=== PATIENT | female | born 1965 | race Caucasian/White ===

== ENCOUNTER 2016-09-24 20:20 | Observation (INO) | payer OTHER ==
[2016-09-24] MEDS ORDERED: SODIUM CHLORIDE 0.9% 1,000 ML IV STA (20:46)
[2016-09-24] MEDS ORDERED: NITROGLYCERIN OINT 1 INCH/GM PACKET TOPICAL STA (20:46)
[2016-09-24] MEDS ORDERED: ONDANSETRON 4 MG/2 ML VIAL IVP STA (20:46)
[2016-09-24] MEDS ORDERED: HYDROmorphone 1 MG/ML 1 ML SYRINGE IVP STA (20:48)
--- NOTE | 2016-09-24 20:51 | ED ---
Chest Pain HPI - General Chief Complaint: Chest Pain Stated Complaint: CHEST PAIN Time Seen by Provider: 09/24/16 20:36 Source: patient Mode of arrival: wheelchair Limitations: no limitations - History of Present Illness Initial Comments: Planing about my chest pain left arm tingling and some like somebody scraping her left arm also pain in the epigastric area with the nausea it started around 7 PM tonight at that time she was napping now pain is better but still is a 3/ 10 she does have a history of high blood pressure no history of heart disease angina or unstable angina in the past and she also noticed her blood pressure was high today and she denies any tobacco use she don't do any drugs in her walk with her family history significant for heart disease in the dad signed her dad at the age of 57 with a massive heart attack and mom has a history of high blood pressure, degree of system is unremarkable otherwise - Related Data Home Medications Medication Instructions Recorded Confirmed Ibuprofen [Motrin] 400 mg PO Q6HR PRN 09/24/16 09/24/16 Sodium Chloride [[place]] 2 spray EA NOSTRIL BID 09/24/16 09/24/16 Tetrahydrozoline HCl/Zn Sulf 1 drop BOTH EYES BID PRN 09/24/16 09/24/16 [Visine Allergy Relief Drop] Allergies Allergy/AdvReac Type Severity Reaction Status Date / Time hydrocodone [From Vicodin] AdvReac Vertigo Verified 09/24/16 21:29 mold AdvReac Abdominal Verified 09/24/16 21:30 Pain Mushroom AdvReac Abdominal Verified 09/24/16 21:30 Pain pentazocine [From Talwin] AdvReac Confusion Verified 09/24/16 21:29 pseudoephedrine AdvReac Confusion Verified 09/24/16 21:29 [From Seldane-D] terfenadine [From Seldane-D] AdvReac Confusion Verified 09/24/16 21:29 Review of Systems ROS Statement: Those systems with pertinent positive or pertinent negative responses have been documented in the HPI. ROS Other: All systems not noted in ROS Statement are negative. EKG Findings - EKG Comments: EKG Findings:: EKG is a normal sinus rhythm ventricular rate is 65 TX interval is 160 QRS duration is 80 QT/QTc is 392/47, review of this EKG noticed reveals some T-wave inversion in lead [address] elevation or ST depression E noticed any redness of the rates Past Medical History Past Medical History: Asthma, Hypertension Additional Past Medical History / Comment(s): neuropathy,back pain, DDD, herpes History of Any Multi-Drug Resistant Organisms: None Reported Past Surgical History: Cholecystectomy, Hysterectomy Additional Past Surgical History / Comment(s): septal repair Past Psychological History: Anxiety, Depression Smoking Status: Never smoker Past Alcohol Use History: None Reported Past Drug Use History: None Reported General Exam - General Exam Comments Initial Comments: General: The patient is awake and alert, in no distress, and does not appear acutely ill. Is quite anxious Skin: Skin is warm and dry and no rashes or lesions are noted. Eye: Pupils are equal, round and reactive to light, extra-ocular movements are intact; there is normal conjunctiva bilaterally. Ears, nose, mouth and throat: There are moist mucous membranes and no oral lesions. Neck: The neck is supple, there is no tenderness Cardiovascular: There is a regular rate and rhythm. No murmur, rub or gallop is appreciated. Respiratory: To auscultation bilateral, no wheezing no rhonchi no distress respiratory [place] noticed Gastrointestinal: Soft, non-distended, non-tender abdomen without masses or organomegaly noted. There is no rebound or guarding present. Bowel sounds are unremarkable. Back: There is no tenderness to palpation in the midline. There is no obvious deformity. Musculoskeletal: Normal ROM, no tenderness, There is no pedal edema. There is no calf tenderness or swelling. No cords were appreciated. Neurological: CN II-XII intact, Cranial nerves III through XII are intact. There are no obvious motor or sensory deficits. Coordination appears grossly intact. Speech is normal. Psychiatric: Cooperative, appropriate mood & affect, normal judgment. Limitations: no limitations Course Vital Signs 09/24/16 09/24/16 09/24/16 20:21 20:29 22:24 Temperature 97.6 F Pulse Rate 69 63 Respiratory 20 67 H 18 Rate Blood Pressure 192/99 126/74 O2 Sat by Pulse 99 98 Oximetry 09/24/16 09/25/16 23:00 00:00 Temperature 98 F Pulse Rate 78 77 Respiratory 18 20 Rate Blood Pressure 130/73 145/75 O2 Sat by Pulse 98 98 Oximetry He was reassessed is at 2310 as she still has a pain 2/10 reviewed the blood work and imaging studies with her d-dimer is negative, CBC, INR, compressive metabolic panel, troponin, EKG are all within normal range and cerebellar risk factors she are to be admitted under observation and she will see cardiology tomorrow and she will get heparinized Critical Care Time Total Critical Care Time: 40 Critical Care Time: Considering her presentation pain in the left arm and tingling it started around 7 PM she was quite anxious about blood pressure was quite high and she does have a history of hypertension dad had a heart attack and he actually had at the age of 57 mom has a history of hypertension considering these risk factors over d-dimer CBC INR compressive metabolic panel and troponin and the chest x-ray is negative she be admitted for observation she be heparinized. Cardiology Disposition Clinical Impression: Chest pain, Hypertension Disposition: ADMITTED IP TO THIS HOSP Condition: Good
[2016-09-24 20:57] LABS: Basophils % (A) 0 %; CH 29.4; CHCM 34.8; Eosinophils # (A) 0.1 k/uL (0-0.7); Eosinophils % (A) 1 %; HCT 40.9 % (34.0-46.0); HDW 2.85; HGB 14.2 gm/dL (11.4-16.0); Luc # (Auto) 0.34; Luc % (Auto) 4; Lymphocytes # (A) 3.9 k/uL (1.0-4.8); Lymphocytes % (A) 49 %; MCH 29.4 pg (25.0-35.0); MCHC 34.7 g/dL (31.0-37.0); MCV 84.6 fL (80.0-100.0); Mean Platelet Volume 6.9; Monocytes # (A) 0.4 k/uL (0-1.0); Monocytes % (A) 5 %; Neutrophils # (A) 3.1 k/uL (1.3-7.7); Neutrophils % (A) 39 %; RBC 4.83 m/uL (3.80-5.40); RDW 13.4 % (11.5-15.5); WBC 7.9 k/uL (3.8-10.6); WBC (Perox) 8.51
[2016-09-24 21:07] LABS: ALT 34 U/L (9-52); AST 26 U/L (14-36); Alkaline Phosphatase 109 U/L (38-126); Anion Gap 11 mmol/L; Blood Urea Nitrogen 14 mg/dL (7-17); Calcium 9.2 mg/dL (8.4-10.2); Carbon Dioxide 27 mmol/L (22-30); Chloride 101 mmol/L (98-107); Glucose 92 mg/dL (74-99); Magnesium 2.1 mg/dL (1.6-2.3); Non-African American GFR(MDRD) >60 (>60 ml/min/1.73 sqM); Potassium 4.2 mmol/L (3.5-5.1); Sodium 139 mmol/L (137-145); Total Bilirubin 0.5 mg/dL (0.2-1.3); Total Protein 7.2 g/dL (6.3-8.2)
--- NOTE | 2016-09-24 21:10 | XR ---
EXAMINATION TYPE: XR chest 2V DATE OF EXAM: 09/24/2016 9:03 PM COMPARISON: NONE HISTORY: Chest pain TECHNIQUE: Frontal and lateral views of the chest are obtained. FINDINGS: Heart and mediastinum are normal. Lungs are clear of consolidation. There are no hilar mas ses. Bony thorax is intact. There is no evidence of pleural effusion. There are chest leads. IMPRESSION: No active cardiopulmonary disease.
[2016-09-24 21:11] LABS: Creatine Kinase 56 U/L (30-135)
[2016-09-24 21:15] LABS: INR 0.9 (<1.1); Partial Thromboplastin Time 24.7 sec (22.0-30.0); Prothrombin Time 9.5 sec (9.0-12.0)
[2016-09-24 21:24] LABS: Creatine Kinase MB 0.8 ng/mL (0.0-2.4); Troponin I <0.012 ng/mL (0.000-0.034)
[2016-09-25] MEDS ORDERED: MORPHINE SULFATE 2 MG/ML SYRINGE IVP PRN (00:59)
[2016-09-25] MEDS ORDERED: NITROGLYCERIN SL TABS 0.4 MG TAB SUBLINGUAL PRN (00:59)
[2016-09-25] MEDS ORDERED: HEPARIN SODIUM,PORCINE 5,000 UNIT/ML 1 ML VIAL IV ONE (00:59)
[2016-09-25] MEDS ORDERED: HEPARIN SODIUM,PORCINE/D5W PMX 25,000 UNIT in DEXTROSE/WATER 1 500ML.BAG IV SCH (01:00)
[2016-09-25 01:58] VITALS: RESP 16
[2016-09-25 02:10] VITALS: BMI 32.3
[2016-09-25 02:31] LABS: Creatine Kinase 46 U/L (30-135)
[2016-09-25 02:44] LABS: Creatine Kinase MB 0.8 ng/mL (0.0-2.4); Troponin I <0.012 ng/mL (0.000-0.034)
[2016-09-25] MEDS ORDERED: DOBUTamine DRIP for NUC MED 500 MG in DEXTROSE/WATER 1 250ML.BAG IV ONE (07:19)
[2016-09-25 08:24] LABS: Cholesterol 195 mg/dL (<200); HDL Cholesterol 40 mg/dL (40-60); Triglycerides 468 mg/dL (<150)
[2016-09-25 08:55] LABS: Creatine Kinase 46 U/L (30-135)
[2016-09-25] MEDS ORDERED: LISINOPRIL 10 MG TAB PO SCH (09:00)
[2016-09-25] MEDS ORDERED: METOPROLOL TARTRATE 25 MG TAB PO SCH (09:00)
[2016-09-25 09:06] LABS: Creatine Kinase MB 0.7 ng/mL (0.0-2.4); Troponin I <0.012 ng/mL (0.000-0.034)
--- NOTE | 2016-09-25 10:43 | CONS ---
DATE OF CONSULTATION: Mrs. Khan is a 51-year-old female who has not followed a physician and has not been compliant with her medications who presented with symptoms of left arm discomfort and chest discomfort. She woke up from a nap and started to have some discomfort in the left arm that persisted for hours with some discomfort in the chest. She felt mildly dizzy and because of that, came into the emergency room. At time of my evaluation, she is pain free. Patient is not very active physically, but has no significant exertional chest pain. She has mild dyspnea on exertion, occasional peripheral edema. No clear PND, orthopnea. She has some dizziness. No arrhythmia. She had remote syncope. Her coronary risk factors are remarkable for prior history of hypertension, hyperlipidemia, and diabetes, but she is not taking any medications. According to her, she does not like to take pills. REVIEW OF SYSTEMS: RESPIRATORY SYSTEM: She has history of asthma. No recent wheezing. GI SYSTEM: No recent GI bleeding. No peptic ulcer disease. SYSTEM: No dysuria or hematuria. NERVOUS SYSTEM: No history of stroke or seizure. PHYSICAL EXAMINATION: She is a 51-year-old female, alert, oriented, in no apparent distress. Blood pressure 149/80 with the heart rate in the 60s. On presentation, her blood pressure was 192/99. HEAD: Normocephalic. EYES: Sclerae anicteric. NECK: Good upstroke. No bruit. No jugular venous distention. LUNGS: Clear to auscultation. HEART: Regular rate and rhythm. S1, S2, no S3, no S4. No murmur or rub. ABDOMEN: Soft, nontender, obese. Positive bowel sounds. No organomegaly. EXTREMITIES: No edema. Intact distal pulses. LAB DATA: Troponin less than 0.012. BUN and creatinine 14 and 0.6. Potassium 4.2. Hemoglobin of 14.2. EKG sinus mechanism, normal axis and intervals. Normal electrocardiogram. Chest x-ray shows no infiltrate. IMPRESSION: 1. Chest and arm discomfort, has atypical feature for ischemic heart disease. 2. Prior history of hyperlipidemia. 3. Prior history of diabetes. RECOMMENDATION: I would recommend to stop the heparin and I will proceed with stress echocardiogram. If there is no evidence of inducible ischemia, then no further cardiac workup will be needed. Thank you for this consult. We will follow with you.
--- NOTE | 2016-09-25 12:06 | ECHOF ---
Referral Reason:chest pain MEASUREMENTS -------- HEIGHT: 165.1 cm WEIGHT: 90.7 kg BP: 140/60 RVIDd: 2.4 cm (< 3.3) IVSd: 1.2 cm (0.6 - 1.1) LVIDd: 4.0 cm (3.9 - 5.3) LVPWd: 1.0 cm (0.6 - 1.1) IVSs: 1.2 cm LVIDs: 3.3 cm LVPWs: 1.3 cm LA Diam: 3.2 cm (2.7 - 3.8) LAESV Index (A-L): 24.24 ml/m Ao Diam: 2.6 cm (2.0 - 3.7) AV Cusp: 1.8 cm (1.5 - 2.6) LA Diam: 3.4 cm (2.7 - 3.8) MV EXCURSION: 15.965 mm (> 18.000) MV EF SLOPE: 67 mm/s (70 - 150) EPSS: 0.3 cm MV E José Miguel: 0.72 m/s MV DecT: 184 ms MV A José Miguel: 0.73 m/s MV E/A Ratio: 0.99 RAP: 5.00 mmHg RVSP: 22.99 mmHg FINDINGS -------- Sinus rhythm. This was a technically good study. There is mild concentric left ventricular hypertrophy. Overall left ventricular systolic function is normal with, an EF between 60 - 65 %. The right ventricle is normal in size. Normal LA size by volume 22+/-6 ml/m2. The right atrial size is normal. There is mild aortic valve sclerosis. There is no evidence of aortic regurgitation. Mild mitral annular calcification present. Mild mitral regurgitation is present. Mild tricuspid regurgitation present. There is no evidence of pulmonary hypertension. The right ventricular systolic pressure, as measured by Doppler, is 22.99mmHg. There is no pulmonic regurgitation present. The aortic root size is normal. There is no pericardial effusion. CONCLUSIONS -------- 1. There is mild concentric left ventricular hypertrophy. 2. Overall left ventricular systolic function is normal with, an EF between 60 - 65 %. 3. Normal LA size by volume 22+/-6 ml/m2. 4. There is mild aortic valve sclerosis. 5. Mild mitral annular calcification present. 6. Mild mitral regurgitation is present. 7. Mild tricuspid regurgitation present. 8. There is no evidence of pulmonary hypertension. 9. The right ventricular systolic pressure, as measured by Doppler, is 22.99mmHg. CONTINUOUS DRIER HELPER: Genevieve Greer RDCS
[2016-09-25 12:08] LABS: Hemoglobin A1C 6.4 % (4.2-6.1)
[2016-09-25 12:55] LABS: Glucose,Whole Blood 112 mg/dL (75-99)
--- NOTE | 2016-09-25 13:03 | ECHOS ---
DATE OF SERVICE: 09/25/2016 AGE: 51Y SEX: F HT: 66 WT: 200 lbs. Protocol Matheus: Others: Dobutamine Stress Echo Stage: Dur. of Exercise: *Heart Rate Blood Pressure *Rest: 71 Rest: 106/56 * *Max. Achieved: 121 Maximum BP: 167/72 85% PMHR: 145 100% PMHR: 170 *METS: INDICATIONS: Chest pain. MEDICATIONS: Patient was given dobutamine infusion according to the standard protocol. Peak heart rate of 121 was achieved which is equivalent to 70% of the predicted heart rate. Maximum blood pressure of 167/72 mmHg was noted. Test was terminated because patient complained of short of breath and became slightly dizzy and lightheaded. No EKG changes suggestive of ischemia was noted. Patient's blood pressure normal and pulse oximeter was normal. Baseline echocardiographic images reveal normal left ventricular chamber size with normal left ventricular systolic function. At the peak dose of dobutamine infusion, normal increase in the wall thickness and contractility is noted. This dobutamine stress echocardiographic study does not show any evidence of wall motion abnormality up to the 71% of the age-predicted heart rate ( ) symptoms of shortness of breath and slight dizziness and lightheadedness, probably due to dobutamine infusion. Patient subsequently ( ) signs were stable at that time.
[2016-09-25 16:07] VITALS: BP 139/85; PULSE 66; TEMP 98.7
[2016-09-25] MEDS ORDERED: ATORVASTATIN 40 MG TAB PO SCH (21:00)
--- NOTE | 2016-09-26 08:23 | HP ---
HISTORY AND PHYSICAL AND DISCHARGE SUMMARY: DATE OF ADMISSION: REASON FOR ADMISSION: Chest pressure. HISTORY OF PRESENTING ILLNESS: This is a 51-year-old female who recently moved into the area to live with her about 2 weeks ago. Comes in the hospital with complaints of acute onset chest pain on the left side of the chest radiating to the left arm. Description was pressure-like on the chest and bandlike on the arm. Patient denies any alleviating or exacerbating factors in regards to the chest. Patient states that she woke up with the above-described pain. Patient denies having any similar complaints in the past. Patient denies having complains to exertion or any physical activity in the recent times. Denies use of alcohol, tobacco or any illicit drugs. Premature family history of cardiac disease. Patient states that she was in good health a day prior to admission. However, states that she has noticed progressive edema in her lower extremities over the last 2 or 3 weeks. Patient says that she has a history of hypothyroidism in the past, was being treated on Synthroid; however, was discontinued by another physician in [place]. The patient also states that she is extremely tired all the time; however, states that her sleeping habits are erratic. Apparently underwent multiple episodes of multiple sleep studies which were negative for obstructive sleep apnea. Past medical history includes: Remote history of hypothyroidism, history of hypertension, remote history of diabetes. PAST SURGICAL HISTORY: None. FAMILY HISTORY: As described above. MEDICATIONS: Does not take any medications at this time as patient does not have a doctor. REVIEW OF SYSTEMS: A 14-point review of system was done; none pertinent other than the ones described above. SOCIAL HISTORY: No alcohol, tobacco or illicit drug use. VITALS: Temperature is 98.7, heart rate 66, respiratory rate 16, blood pressure 139/85. Saturating 95% on room air. GENERALLY: Patient appears to be alert, oriented x3. HEENT: The pupils are equal and reactive to light and accommodation. HEART: S1, S2 present. No murmur appreciated. LUNGS: Good air entry. No wheezing or rhonchi noted. ABDOMINAL EXAM: Soft, nontender, no organomegaly appreciated. GENITOURINARY: No Pimentel in place. SKIN: On a gross skin exam does not appear to have any purpura or any skin rashes that were noted. NEUROLOGICALLY: Grossly cranial nerves 2-12 intact. No motor or sensory deficits noted. LOWER EXTREMITIES: 1+ pitting edema noted. LABORATORY DATA: Hemoglobin 14.2, hematocrit 40, platelet count is 258, white count of 7.9. Sodium 139, potassium 4.2, chloride 101, bicarb 27, BUN 14, creatinine of 0.64, HbA1c is 6.4, triglycerides are 468 with a total cholesterol of 195. Cardiac troponins x3 were less than 0.012. ASSESSMENT AND PLAN: 1. Atypical chest pain. There is some musculoskeletal aspect of it as patient did have some reproducibility of pain on palpation around the lateral surface and then reproducibility with flexion at the elbow. 2. A stress test was done, which was negative. The patient was made to ambulate. No reproducibility of symptoms were appreciated. 3. Pre-diabetes with the A1c of 6.4. 4. Hypertriglyceridemia. 5. Diagnosis of hypertension. 6. Hypothyroidism should be ruled out in this patient. PLAN: I did discuss regarding obtaining a TSH; however, patient does not have a primary care physician and did not like an abnormal lab not being followed up. I did discuss that patient should find a primary care. We will refer to Dr. Garber; thereafter can obtain the TSH and be treated appropriately if positive. Patient will be started on lisinopril atorvastatin and is recommended to obtain medications from [facility] as they are likely on the four dollar list. This was discussed with the patient, is discharged home in a stable condition.
[2016-09-26] MEDS ORDERED: ASPIRIN 325 MG TAB PO SCH (09:00)
== END 2016-09-25 17:21 | disposition home or self-care (01) ==
LOC: EC 20:20 → 3OBS 09-25 00:59
PROVIDERS: ADMIT Hospitalist; ATTEND Hospitalist
DX: R07.89 Other chest pain (principal); Z82.49 Family history of ischemic heart disease and other diseases of the circulatory system; Z88.5 Allergy status to narcotic agent; I10 Essential (primary) hypertension; J45.909 Unspecified asthma, uncomplicated; Z90.710 Acquired absence of both cervix and uterus; Z90.49 Acquired absence of other specified parts of digestive tract; G62.9 Polyneuropathy, unspecified; Z91.14 Patient's other noncompliance with medication regimen; E78.5 Hyperlipidemia, unspecified; R73.03 Prediabetes; E78.1 Pure hyperglyceridemia
CPT/HCPCS: 96375 ×3; 96376 ×2; 99291 ×2; 96374; 36415; 93005; 93017; 93306; 93350; 85379; 83880; 80061; 80053; 83036; 82550 ×2; 82553 ×2; 83735; 84484 ×2; 85025; 85610; 85730 ×2; 71020; G0378; J1250; J1644 ×2; J2405; J1170

== ENCOUNTER 2017-01-08 23:49 | Emergency (ER) | payer OTHER ==
[2017-01-09] MEDS ORDERED: ALBUTEROL NEBULIZED 2.5 MG/3 ML INHALATION STA (00:06)
[2017-01-09] MEDS ORDERED: IPRATROPIUM-ALBUTEROL 3 ML NEB INHALATION STA (00:07)
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
[2017-01-09 01:11] VITALS: RESP 20
[2017-01-09 02:57] VITALS: BP 150/74; PULSE 73
[2017-01-09 03:22] VITALS: TEMP 97.9
== END 2017-01-09 03:22 | disposition home or self-care (01) ==
LOC: EC 23:49
DX: J45.901 Unspecified asthma with (acute) exacerbation (principal); I10 Essential (primary) hypertension; Z88.5 Allergy status to narcotic agent; Z91.048 Other nonmedicinal substance allergy status; Z91.018 Allergy to other foods; Z88.8 Allergy status to other drugs, medicaments and biological substances; Z98.890 Other specified postprocedural states
CPT/HCPCS: 94640; 99284

== ENCOUNTER 2017-03-20 18:11 | Emergency (ER) | payer OTHER ==
[2017-03-20] MEDS ORDERED: SODIUM CHLORIDE 0.9% 500 ML IV STA (20:14)
[2017-03-20] MEDS ORDERED: hydrALAZINE HCL 20 MG/ML 1 ML VIAL IVP STA ×2 (20:25→21:59)
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
[2017-03-20 21:01] LABS: Basophils % (A) 1 %; CH 29.9; CHCM 34.6; Eosinophils # (A) 0.1 k/uL (0-0.7); Eosinophils % (A) 2 %; HCT 38.1 % (34.0-46.0); HDW 2.79; HGB 12.8 gm/dL (11.4-16.0); Luc # (Auto) 0.16; Luc % (Auto) 2; Lymphocytes # (A) 3.1 k/uL (1.0-4.8); Lymphocytes % (A) 38 %; MCH 29.1 pg (25.0-35.0); MCHC 33.5 g/dL (31.0-37.0); MCV 86.8 fL (80.0-100.0); Mean Platelet Volume 7.8; Monocytes # (A) 0.4 k/uL (0-1.0); Monocytes % (A) 5 %; Neutrophils # (A) 4.3 k/uL (1.3-7.7); Neutrophils % (A) 54 %; RBC 4.39 m/uL (3.80-5.40); RDW 13.9 % (11.5-15.5); WBC 8.1 k/uL (3.8-10.6); WBC (Perox) 8.06
[2017-03-20 21:08] LABS: ALT 33 U/L (9-52); AST 21 U/L (14-36); Alkaline Phosphatase 96 U/L (38-126); Anion Gap 11 mmol/L; Blood Urea Nitrogen 16 mg/dL (7-17); Calcium 9.1 mg/dL (8.4-10.2); Carbon Dioxide 24 mmol/L (22-30); Chloride 105 mmol/L (98-107); Glucose 250 mg/dL (74-99); Non-African American GFR(MDRD) >60 (>60 ml/min/1.73 sqM); Potassium 3.7 mmol/L (3.5-5.1); Sodium 140 mmol/L (137-145); Total Bilirubin 0.3 mg/dL (0.2-1.3); Total Protein 6.7 g/dL (6.3-8.2)
--- NOTE | 2017-03-20 21:11 | XR ---
EXAMINATION TYPE: XR chest 2V DATE OF EXAM: 03/20/2017 COMPARISON: 09/24/2016 HISTORY: Chest pain TECHNIQUE: Frontal and lateral views of the chest are obtained. FINDINGS: There is no heart failure nor confluent pneumonic infiltrate. There are small linear densi ty at the left lung base. There are chest leads. Heart size is normal. There is no pleural effusion. Bony thorax is intact. IMPRESSION: Minimal subsegmental atelectasis at the left lung base is new compared to old exam.
[2017-03-20 21:13] VITALS: RESP 18; TEMP 97.5
[2017-03-20 21:23] LABS: Creatine Kinase 108 U/L (30-135); INR 0.9 (<1.2); Partial Thromboplastin Time 24.8 sec (22.0-30.0); Prothrombin Time 9.7 sec (9.0-12.0)
[2017-03-20 21:36] LABS: Creatine Kinase MB 0.6 ng/mL (0.0-2.4); Troponin I <0.012 ng/mL (0.000-0.034)
[2017-03-20] MEDS ORDERED: ENALAPRILAT 1.25 MG/ML 1 ML VIAL IVP STA (23:21)
[2017-03-20 23:36] VITALS: BP 165/86; PULSE 68
== END 2017-03-20 23:59 | disposition home or self-care (01) ==
LOC: EC 18:11
DX: I10 Essential (primary) hypertension (principal); J32.9 Chronic sinusitis, unspecified; J45.909 Unspecified asthma, uncomplicated; Z79.84 Long term (current) use of oral hypoglycemic drugs; Z79.899 Other long term (current) drug therapy; Z88.5 Allergy status to narcotic agent; Z88.8 Allergy status to other drugs, medicaments and biological substances; Z91.018 Allergy to other foods; Z91.048 Other nonmedicinal substance allergy status
CPT/HCPCS: 36415; 93005; 80053; 82550; 82553; 84484; 85025; 85610; 85730; 71020; 99284; 96374; 96375; 96361; J0360

== ENCOUNTER 2018-01-22 01:50 | Emergency (ER) | payer OTHER ==
[2018-01-22 02:06] VITALS: BP 144/91; PULSE 74; RESP 18; TEMP 98.1
[2018-01-22] MEDS ORDERED: traMADol 50 MG TAB PO STA (02:43)
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
--- NOTE | 2018-01-22 03:21 | XR ---
EXAMINATION TYPE: XR ankle complete LT DATE OF EXAM: 01/22/2018 COMPARISON: NONE HISTORY: Pain TECHNIQUE: 3 views FINDINGS: There are moderate plantar and Achilles calcaneal spurs. Ankle mortise is anatomic. I see n o fracture nor dislocation. There is mild soft tissue swelling over the medial ankle. IMPRESSION: Soft tissue swelling. No fracture seen.
--- NOTE | 2018-01-22 03:23 | XR ---
EXAMINATION TYPE: XR foot complete LT DATE OF EXAM: 01/22/2018 COMPARISON: 04/09/2017 HISTORY: Pain 3 views Findings There are plantar and Achilles calcaneal spurs. I see no fracture nor dislocation. Metatarsals are in tact. There are no erosions. There is some spurring between the base of the first and second metatars als. IMPRESSION: Calcaneal spurring. No fracture. No change.
--- NOTE | 2018-01-22 03:30 | XR ---
EXAMINATION TYPE: XR thoracic spine complete DATE OF EXAM: 01/22/2018 COMPARISON: NONE HISTORY: Back pain TECHNIQUE: 3 views FINDINGS: The thoracic vertebra have normal alignment. Disc spaces are fairly normal. There is no com pression fracture. Posterior elements are intact. IMPRESSION: Negative thoracic spine exam.
--- NOTE | 2018-01-22 03:30 | XR ---
EXAMINATION TYPE: XR elbow complete LT DATE OF EXAM: 01/22/2018 COMPARISON: NONE HISTORY: Elbow pain TECHNIQUE: 3 views FINDINGS: There is mild spurring on the olecranon process of the ulna. There is some calcification at the lateral humeral condyle consistent with old injury. There is no fracture nor dislocation. IMPRESSION: No acute abnormality of the left elbow.
--- NOTE | 2018-01-22 03:31 | XR ---
EXAMINATION TYPE: XR shoulder complete LT DATE OF EXAM: 01/22/2018 COMPARISON: NONE HISTORY: Shoulder pain TECHNIQUE: 3 views FINDINGS: There is no fracture nor dislocation. Joint spaces are normal. There are no pathologic calc ifications. IMPRESSION: Negative left shoulder exam.
--- NOTE | 2018-01-22 03:32 | XR ---
EXAMINATION TYPE: XR Hip LT and AP Pelvis DATE OF EXAM: 01/22/2018 COMPARISON: NONE HISTORY: Pain TECHNIQUE: A single AP view of the pelvis is obtained. Two views of the left hip are obtained. FINDINGS: The pelvic ring is intact. Proximal left femur and hip joint appear normal. Sacroiliac bre nts appear normal. There is no sign of hip dysplasia. Joint spaces are normal. IMPRESSION: Normal pelvis and left hip exam.
== END 2018-01-22 04:04 | disposition home or self-care (01) ==
LOC: EC 01:50
DX: S50.02XA Contusion of left elbow, initial encounter (principal); S40.012A Contusion of left shoulder, initial encounter; S70.02XA Contusion of left hip, initial encounter; S90.02XA Contusion of left ankle, initial encounter; S90.32XA Contusion of left foot, initial encounter; S20.222A Contusion of left back wall of thorax, initial encounter; J45.909 Unspecified asthma, uncomplicated; Z79.899 Other long term (current) drug therapy; Z90.49 Acquired absence of other specified parts of digestive tract; Z90.710 Acquired absence of both cervix and uterus; Z88.5 Allergy status to narcotic agent; Z88.8 Allergy status to other drugs, medicaments and biological substances; Z91.018 Allergy to other foods; Z91.048 Other nonmedicinal substance allergy status; W01.198A Fall on same level from slipping, tripping and stumbling with subsequent striking against other object, initial encounter
CPT/HCPCS: 72072; 73502; 99283

== ENCOUNTER 2018-04-08 16:40 | Emergency (ER) | payer OTHER ==
[2018-04-08 16:53] VITALS: BP 138/82; PULSE 70; RESP 18; TEMP 97.7
[2018-04-08] MEDS ORDERED: DIPH,PERTUS(ACELL)TETVAC-LF 0.5 ML VIAL IM ONE (18:15)
[2018-04-08] MEDS ORDERED: TOPICAL SKIN ADHESIVE 1 EACH AMP TOPICAL ONE (18:16)
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
== END 2018-04-08 18:55 | disposition home or self-care (01) ==
LOC: EC 16:40
DX: S61.211A Laceration without foreign body of left index finger without damage to nail, initial encounter (principal); J45.909 Unspecified asthma, uncomplicated; E11.40 Type 2 diabetes mellitus with diabetic neuropathy, unspecified; Z88.5 Allergy status to narcotic agent; Z88.6 Allergy status to analgesic agent; Z88.8 Allergy status to other drugs, medicaments and biological substances; Z91.018 Allergy to other foods; Z91.048 Other nonmedicinal substance allergy status; Z79.84 Long term (current) use of oral hypoglycemic drugs; Z79.899 Other long term (current) drug therapy; Z86.19 Personal history of other infectious and parasitic diseases; Z23 Encounter for immunization; W26.0XXA Contact with knife, initial encounter; Y93.89 Activity, other specified; Y92.69 Other specified industrial and construction area as the place of occurrence of the external cause; Y99.0 Civilian activity done for income or pay
CPT/HCPCS: 90471; 90715; 99282

== ENCOUNTER → 2018-07-14 | Outpatient (CLI) | payer BC ==
--- NOTE | 2018-07-14 12:46 | XR ---
EXAMINATION TYPE: XR shoulder complete LT DATE OF EXAM: 07/14/2018 CLINICAL HISTORY: pain COMPARISON: NONE TECHNIQUE: Three views of the left shoulder are obtained. FINDINGS: There is no acute fracture/dislocation evident. The acromioclavicular and glenohumeral evette int spaces appear within normal limits. The visualized ribs are intact and unremarkable. IMPRESSION: 1. There is no acute fracture or dislocation. ICD 10 NO FRACTURE, INITIAL EVALUATION
--- NOTE | 2018-07-14 12:49 | XR ---
EXAMINATION TYPE: XR cervical spine comp DATE OF EXAM: 07/14/2018 CLINICAL HISTORY: pain COMPARISON: NONE TECHNIQUE: Frontal, lateral, oblique, swimmers, and open mouth view of the cervical spine are obtaine d. FINDINGS: The cervical spine is visualized in its entirety from C1 thru the top of T1 level. It is s atisfactory in alignment without evidence of acute fracture or dislocation. The pre-vertebral soft t issue appears within normal limits. Severe degenerative disc space narrowing and spondylosis at C5-6. The C1-C2 articulation is unremarkable on the open mouth view. The oblique images are within normal limits. IMPRESSION: No acute fracture or dislocation is seen in the cervical spine.ICD 10 NO FRACTURE, INITI AL EVALUATION
[2018-07-14 13:10] LABS: Basophils % (A) 1 %; Eosinophils # (A) 0.2 k/uL (0-0.7); Eosinophils % (A) 3 %; HCT 39.5 % (34.0-46.0); HGB 13.2 gm/dL (11.4-16.0); Lymphocytes # (A) 3.2 k/uL (1.0-4.8); Lymphocytes % (A) 45 %; MCH 29.8 pg (25.0-35.0); MCHC 33.3 g/dL (31.0-37.0); MCV 89.5 fL (80.0-100.0); Mean Platelet Volume 7.6; Monocytes # (A) 0.3 k/uL (0-1.0); Monocytes % (A) 5 %; Neutrophils # (A) 2.9 k/uL (1.3-7.7); Neutrophils % (A) 42 %; Platelet Count 243 k/uL (150-450); RBC 4.41 m/uL (3.80-5.40); RDW 13.1 % (11.5-15.5); WBC 6.9 k/uL (3.8-10.6)
[2018-07-14 13:24] LABS: ALT 34 U/L (9-52); AST 21 U/L (14-36); Albumin 4.1 g/dL (3.5-5.0); Alkaline Phosphatase 85 U/L (38-126); Anion Gap 9 mmol/L; Blood Urea Nitrogen 21 mg/dL (7-17); Calcium 9.2 mg/dL (8.4-10.2); Carbon Dioxide 26 mmol/L (22-30); Chloride 106 mmol/L (98-107); Cholesterol 146 mg/dL (<200); Glucose 120 mg/dL (74-99); HDL Cholesterol 43 mg/dL (40-60); LDL Cholesterol,Calculated 71 mg/dL (0-99); Potassium 5.1 mmol/L (3.5-5.1); Sodium 141 mmol/L (137-145); Total Bilirubin 0.5 mg/dL (0.2-1.3); Total Protein 6.8 g/dL (6.3-8.2); Triglycerides 160 mg/dL (<150)
[2018-07-14 13:41] LABS: T4, Free (Free Thyroxine) 0.89 ng/dL (0.78-2.19)
== END ==
LOC: RADXRMAIN 12:03
PROVIDERS: ATTEND Nurse Practitioner Family
DX: M25.512 Pain in left shoulder (principal); M54.2 Cervicalgia; J45.21 Mild intermittent asthma with (acute) exacerbation; E11.65 Type 2 diabetes mellitus with hyperglycemia; R63.1 Polydipsia
CPT/HCPCS: 72050; 80053; 80061; 84439; 84443; 85025

== ENCOUNTER → 2018-11-05 | Outpatient (CLI) | payer BC ==
[2018-11-05 18:48] LABS: T4, Free (Free Thyroxine) 1.1 ng/dL (0.80-1.80); Thyroid Peroxidase Antibodies 41.1 U/mL (0.0-60.0)
[2018-11-05 19:38] LABS: Thyroglobulin 21.8 ng/mL (1.60-59.90)
== END | disposition home or self-care (01) ==
LOC: LABWHC1 11:46
PROVIDERS: ATTEND Family Medicine
DX: E03.9 Hypothyroidism, unspecified (principal); R53.83 Other fatigue; E11.9 Type 2 diabetes mellitus without complications; Z83.49 Family history of other endocrine, nutritional and metabolic diseases
CPT/HCPCS: 36415; 84432; 84439; 84443; 84481; 86376

== ENCOUNTER → 2018-11-24 | Outpatient (CLI) | payer BC ==
--- NOTE | 2018-11-24 08:31 | CT ---
EXAMINATION TYPE: CT sinus wo con DATE OF EXAM: 11/24/2018 COMPARISON: None HISTORY: Nasal polyps Automated Exposure Control for Dose Reduction was Utilized. TECHNIQUE: CT scan of the sinuses is performed without contrast, axial images are obtained, coronal r eformatted images are also reviewed. FINDINGS: There is a moderate-sized mucous retention cyst or polyp involving the left maxillary antru m. Nasal septal deviation noted. No additional significant mucosal thickening or evidence of polyposi s. The ostiomeatal complex is patent bilaterally on the coronal images. Visualized portion of mastoid air cells show no abnormal opacification. The globes are intact bilate rally. IMPRESSION: 1. Single mucous retention cyst or polyp within the left maxillary sinus.
== END | disposition home or self-care (01) ==
LOC: RADCTMAIN 08:00
PROVIDERS: ATTEND Otolaryngology
DX: J33.9 Nasal polyp, unspecified (principal)
CPT/HCPCS: 70486

== ENCOUNTER → 2018-12-12 | Outpatient (CLI) | payer BC ==
--- NOTE | 2018-12-12 11:40 | XR ---
EXAM TYPE: LUMBAR SPINE X RAY SERIES COMPARISON: NONE HISTORY: Pain TECHNIQUE: 4 views are submitted. FINDINGS: Alignment is anatomic. The pedicles are intact. The transverse processes are intact. There is no s pondylolysis or spondylolisthesis. Multilevel facet arthropathy with moderate to severe degenerative disc disease L4-5 and L5-S1. Surgical clips in the gallbladder fossa. IMPRESSION: 1. Multilevel degenerative disc disease and facet arthropathy most marked findings at L4-5 and L5-S1. Follow-up with MRI as clinically warranted.
== END | disposition home or self-care (01) ==
LOC: RADXRMAIN 11:18
PROVIDERS: ATTEND Family Medicine
DX: M51.36 Other intervertebral disc degeneration, lumbar region (principal); M51.37 Other intervertebral disc degeneration, lumbosacral region; M46.96 Unspecified inflammatory spondylopathy, lumbar region; M46.97 Unspecified inflammatory spondylopathy, lumbosacral region
CPT/HCPCS: 72110

== ENCOUNTER → 2019-02-26 | Outpatient (CLI) | payer BC ==
--- NOTE | 2019-02-26 13:06 | CONS ---
CONSULTATION DATE OF SERVICE: 02/26/2019 A 53-year-old lady who has been evaluated in the [facility] for snoring, multiple awakenings from sleep History of sleep walking, sleepiness during the day. HISTORY OF PRESENT ILLNESS/SLEEP-WAKE EVALUATION: Patient usually goes to bed at 1 to 2 am and sleeps until 10 - 11 am on working days and on weekends from 10 to 11 p.m. until 11:00 am, 1:00 p.m. No problems with falling asleep. No TV in bedroom. She usually sleeps on the side position with her and snores and wakes up from sleep 3 or more times with up to 2 episodes of nocturia. The patient has positive history of Garcia sleep talking and sleepwalking to cease using site when the no history of hypnagogic hallucinations, sleep paralysis or cataplexy. You are positive history of sweating during the sleep in the morning patient wakes up tired has difficulties to pay attention, has problems with memory, concentration and irritability. [facility] Sleepiness Scale significantly increased to 13. PAST MEDICAL HISTORY: Positive for hypertension, diabetes mellitus, hyperlipidemia, seasonal allergy and allergy to mold, dust mite. 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 MEDICATIONS: Metformin, atorvastatin, lisinopril while a sickle 0 0 attack, albuterol. SOCIAL HISTORY: Negative for smoking or using alcohol. FAMILY HISTORY: Hypertension, angina, heart problems, hyperlipidemia, arthritis, asthma, sinus headaches, lung problems, emphysema, snoring, headaches, cancer, diabetes, acid reflux, insomnia, thyroid problems. REVIEW OF SYSTEMS: Multiple awakenings from sleep sleepiness during the day. 1. History of sleep walking during physical exam, pleasant lady without distress BP 127/83, HR 60, RR 16, height 5.6, weight 187, body mass index 30.1 neck 15 and well temperature 97.9 oxygen saturation at room air 99%. 2. HEENT: Oropharynx extremely low position of soft palate, Mallampati 4 return outside 2 mm. Some restriction of nasal breathing. Neck is neck 15-1/4 inches in circumference. Abdomen slightly obese. Extremities up to 1+ room temp, ankle edema, otherwise physical exam normal for my template. IMPRESSION: 1. Snoring, multiple awakenings from sleep, extremely low position of soft palate, Mallampati IV, sleepiness. [facility] Sleepiness Scale increased to 13 obstructive sleep apnea-hypopnea syndrome. 2. History of sleepwalking. 3. History of sleep talking for mild obesity, body mass index 30.15. 4. Hypertension. 5. Diabetes mellitus. 6. Hyperlipidemia. 7. Seasonal allergy and allergy to mold, dust. 8. Asthma. 9. Status post surgical treatment for nasal septum deviation, slight restriction of nasal breathing. 10.Status post partial hysterectomy. 11.Status post cholecystectomy. PLAN: 1. Polysomnography for evaluation of patient's breathing during sleep. 2. CPAP/BiPAP titration if sleep study confirms obstructive sleep apnea-hypopnea syndrome. 3. Preferable position during sleep on the side. 4. No driving if patient feels any sleepiness. 5. I will see patient for follow up visit to explain results of testing and following plan. Thank you very much for referring this patient for consultation. Sincerely, Ryan White MD, PhD, FAASM Diplomat of [employer] [employer] Worker of [facility] [place] MMODL / IJN: [id number] /
== END | disposition home or self-care (01) ==
LOC: SLEEP 10:02
PROVIDERS: ATTEND Internal Medicine
DX: G47.33 Obstructive sleep apnea (adult) (pediatric) (principal); I10 Essential (primary) hypertension; E11.9 Type 2 diabetes mellitus without complications; J45.909 Unspecified asthma, uncomplicated; E78.5 Hyperlipidemia, unspecified; E66.9 Obesity, unspecified; Z68.30 Body mass index [BMI] 30.0-30.9, adult; Z86.59 Personal history of other mental and behavioral disorders; Z77.120 Contact with and (suspected) exposure to mold (toxic); Z90.711 Acquired absence of uterus with remaining cervical stump; Z90.49 Acquired absence of other specified parts of digestive tract; Z98.890 Other specified postprocedural states; Z79.84 Long term (current) use of oral hypoglycemic drugs; Z79.899 Other long term (current) drug therapy
CPT/HCPCS: 99211

== ENCOUNTER 2019-06-08 22:09 | Emergency (ER) | payer BC ==
[2019-06-08 22:13] VITALS: BP 142/77; PULSE 67; RESP 18; TEMP 97.8
[2019-06-08] MEDS ORDERED: TOPICAL SKIN ADHESIVE 1 EACH AMP TOPICAL ONE (22:26)
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
== END 2019-06-08 23:05 | disposition home or self-care (01) ==
LOC: EC 22:09
DX: S61.201A Unspecified open wound of left index finger without damage to nail, initial encounter (principal); J45.909 Unspecified asthma, uncomplicated; Z88.5 Allergy status to narcotic agent; Z88.6 Allergy status to analgesic agent; Z88.8 Allergy status to other drugs, medicaments and biological substances; Z91.018 Allergy to other foods; Z91.048 Other nonmedicinal substance allergy status; Z79.84 Long term (current) use of oral hypoglycemic drugs; Z79.899 Other long term (current) drug therapy; Z86.19 Personal history of other infectious and parasitic diseases; W26.0XXA Contact with knife, initial encounter
CPT/HCPCS: 12001; 99282

== ENCOUNTER 2019-06-25 00:46 | Inpatient (IN) | payer BC ==
[2019-06-25] MEDS ORDERED: ASPIRIN 81 MG PO STA (00:56)
[2019-06-25] MEDS ORDERED: FAMOTIDINE 20 MG/2 ML VIAL IV STA (00:57)
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
[2019-06-25 01:18] LABS: Basophils # (A) 0.1 k/uL (0-0.2); Basophils % (A) 1 %; Eosinophils # (A) 0.5 k/uL (0-0.7); Eosinophils % (A) 4 %; HCT 39.9 % (34.0-46.0); HGB 13.7 gm/dL (11.4-16.0); Lymphocytes # (A) 3.7 k/uL (1.0-4.8); Lymphocytes % (A) 29 %; MCH 30.5 pg (25.0-35.0); MCHC 34.3 g/dL (31.0-37.0); MCV 88.9 fL (80.0-100.0); Monocytes # (A) 0.6 k/uL (0-1.0); Monocytes % (A) 5 %; Neutrophils # (A) 7.7 k/uL (1.3-7.7); Neutrophils % (A) 60 %; Platelet Count 294 k/uL (150-450); RBC 4.49 m/uL (3.80-5.40); RDW 12.9 % (11.5-15.5); WBC 12.9 k/uL (3.8-10.6)
[2019-06-25 01:23] LABS: ALT 31 U/L (4-34); AST 34 U/L (14-36); African American GFR (CKD) >90 (>60 ml/min/1.73 sqM); Albumin 4.4 g/dL (3.5-5.0); Alkaline Phosphatase 99 U/L (38-126); Anion Gap 13 mmol/L; Blood Urea Nitrogen 18 mg/dL (7-17); Calcium 9.3 mg/dL (8.4-10.2); Carbon Dioxide 20 mmol/L (22-30); Chloride 106 mmol/L (98-107); Glucose 226 mg/dL (74-99); INR 0.9 (<1.2); Magnesium 1.8 mg/dL (1.6-2.3); Non-African American GFR(CKD) >90 (>60 ml/min/1.73 sqM); Partial Thromboplastin Time 24.7 sec (22.0-30.0); Potassium 4.1 mmol/L (3.5-5.1); Prothrombin Time 9.5 sec (9.0-12.0); Sodium 139 mmol/L (137-145); Total Bilirubin 0.4 mg/dL (0.2-1.3); Total Protein 6.8 g/dL (6.3-8.2)
[2019-06-25] MEDS ORDERED: MORPHINE SULFATE 4 MG/ML SYRINGE IVP STA (01:24)
[2019-06-25] MEDS ORDERED: ONDANSETRON 4 MG/2 ML VIAL IVP STA (01:24)
--- NOTE | 2019-06-25 01:37 | XR ---
EXAMINATION TYPE: XR chest 2V DATE OF EXAM: 06/25/2019 COMPARISON: 03/20/2017 HISTORY: Chest pain TECHNIQUE: FINDINGS: Heart and mediastinum are normal. Lungs are clear. Diaphragm is normal. Bony thorax appears normal. IMPRESSION: Normal chest. There is clearing of minimal atelectasis left lung base compared to old exa m.
[2019-06-25] MEDS ORDERED: NITROGLYCERIN OINT 1 INCH/GM PACKET TOPICAL STA (01:50)
[2019-06-25] MEDS ORDERED: HEPARIN SODIUM,PORCINE 5,000 UNIT/ML 1 ML VIAL IV PRN (01:50)
[2019-06-25] MEDS ORDERED: HEPARIN SODIUM,PORCINE 5,000 UNIT/ML 1 ML VIAL IV ONE (01:50)
[2019-06-25] MEDS ORDERED: NITROGLYCERIN SL TABS 0.4 MG TAB SUBLINGUAL PRN ×2 (01:58→09:21)
[2019-06-25] MEDS ORDERED: HEPARIN SOD,PORK IN 0.45% NACL 25,000 UNIT in 0.45% NACL 1 250ML.BAG IV SCH (02:00)
[2019-06-25 06:13] LABS: Glucose,Whole Blood 140 mg/dL (75-99)
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
[2019-06-25] MEDS: METOPROLOL TARTRATE 25 MG TAB PO SCH (09:09)
[2019-06-25] MEDS: ATORVASTATIN 80 MG TAB PO SCH (09:09)
[2019-06-25] MEDS: LISINOPRIL 5 MG TAB PO SCH (09:09)
[2019-06-25] MEDS ORDERED: ALPRAZolam 0.25 MG TAB PO PRN (09:21)
[2019-06-25] MEDS ORDERED: ALPRAZolam 0.5 MG TAB PO PRN (09:21)
[2019-06-25] MEDS ORDERED: ASPIRIN 325 MG TAB PO STA (09:21)
[2019-06-25] MEDS ORDERED: ATORVASTATIN 80 MG TAB PO STA (09:21)
[2019-06-25] MEDS ORDERED: SODIUM CHLORIDE 0.9% 1,000 ML in EMPTY BAG 1 BAG IV ONE (09:21)
[2019-06-25] MEDS ORDERED: LIDOCAINE 1% INJ 10MG/ML (20 ML MDV) ONE (09:56)
[2019-06-25] MEDS ORDERED: VERAPAMIL 2.5 MG/ML 2 ML AMP ONE (09:56)
[2019-06-25] MEDS ORDERED: IV FLUID CONTINUATION 500 ML IV ONE (09:57)
[2019-06-25] MEDS ORDERED: fentaNYL (PF) 50 MCG/ML 2 ML AMP ONE (09:57)
[2019-06-25] MEDS ORDERED: MIDAZOLAM 2 MG/2 ML VIAL IVP ONE (10:06)
[2019-06-25] MEDS ORDERED: fentaNYL (PF) 50 MCG/ML 2 ML AMP IVP ONE (10:06)
[2019-06-25] MEDS ORDERED: LIDOCAINE 1% INJ 10MG/ML (20 ML MDV) SQ ONE (10:07)
[2019-06-25] MEDS: VERAPAMIL SYRINGE (5 MG/10 ML) INTRAARTER ONE ×2 (10:10→10:31)
[2019-06-25] MEDS ORDERED: HEPARIN SODIUM 1,000 UN/ML (10ML VL) ONE (10:11)
[2019-06-25] MEDS ORDERED: HEPARIN SODIUM 1,000 UN/ML (10ML VL) IV ONE (10:12)
--- NOTE | 2019-06-25 10:18 | ECHOF ---
Referral Reason:assess lvf MEASUREMENTS -------- HEIGHT: 170.2 cm WEIGHT: 85.3 kg BP: IVSd: 1.3 cm (0.6 - 1.1) LVIDd: 4.5 cm (3.9 - 5.3) LVPWd: 1.2 cm (0.6 - 1.1) IVSs: 1.3 cm LVIDs: 3.8 cm LVPWs: 1.1 cm LA Diam: 3.6 cm (2.7 - 3.8) LAESV Index (A-L): 20.74 ml/m Ao Diam: 2.6 cm (2.0 - 3.7) AV Cusp: 1.7 cm (1.5 - 2.6) LA Diam: 3.2 cm (2.7 - 3.8) MV EXCURSION: 15.965 mm (> 18.000) MV EF SLOPE: 55 mm/s (70 - 150) EPSS: 1.2 cm MV E José Miguel: 0.56 m/s MV DecT: 241 ms MV A José Miguel: 0.77 m/s MV E/A Ratio: 0.74 RAP: 5.00 mmHg RVSP: 9.86 mmHg FINDINGS -------- Sinus rhythm. This was a technically adequate study. The left ventricular size is normal. There is mild concentric left ventricular hypertrophy. Overa ll left ventricular systolic function is mildly impaired with, an EF between 45 - 50 %. Basal poste rior LV wall motion is hypokinetic. Basal inferior LV wall motion is hypokinetic. Basal inferos eptal LV wall motion is hypokinetic. The right ventricle is normal in size. Normal LA size by volume 22+/-6 ml/m2. The right atrial size is normal. There is mild aortic valve sclerosis. There is no evidence of aortic regurgitation. The mitral valve is normal. Mild mitral regurgitation is present. Mild tricuspid regurgitation present. Right ventricular systolic pressure is normal at < 35 mmHg. The right ventricular systolic pressure, as measured by Doppler, is 9.86mmHg. Trace/mild (physiologic) pulmonic regurgitation. The aortic root size is normal. There is no pericardial effusion. CONCLUSIONS -------- 1. Sinus rhythm. 2. This was a technically adequate study. 3. The left ventricular size is normal. 4. Overall left ventricular systolic function is mildly impaired with, an EF between 45 - 50 %. 5. Basal posterior LV wall motion is hypokinetic. 6. Basal inferior LV wall motion is hypokinetic. 7. Basal inferoseptal LV wall motion is hypokinetic. 8. Normal LA size by volume 22+/-6 ml/m2. 9. There is mild aortic valve sclerosis. 10. Mild mitral regurgitation is present. 11. Mild tricuspid regurgitation present. 12. Right ventricular systolic pressure is normal at < 35 mmHg. 13. Trace/mild (physiologic) pulmonic regurgitation. 14. There is no pericardial effusion. COMMUNITY PROGRAM ASSISTANT: Genevieve Greer RDCS
[2019-06-25] MEDS ORDERED: TICAGRELOR 90 MG TAB ONE (10:25)
[2019-06-25] MEDS ORDERED: BIVALIRUDIN BOLUS 250 MG/50 ML IV ONE (10:27)
[2019-06-25] MEDS ORDERED: BIVALIRUDIN 250 MG in SODIUM CHLORIDE 0.9% 50 ML IV ONE (10:28)
[2019-06-25] MEDS ORDERED: TICAGRELOR 90 MG TAB PO ONE (10:29)
[2019-06-25] MEDS ORDERED: SODIUM CHLORIDE 0.9% 500 ML 500 ML IV ONE (10:34)
[2019-06-25] MEDS ORDERED: NITROGLYCERIN 1000MCG/10ML SYRINGE INTRACORON ONE (10:37)
--- NOTE | 2019-06-25 10:37 | P.CARDCATH ---
Date of Procedure: 06/25/19 Preoperative Diagnosis: Non-STEMI Postoperative Diagnosis: Critical lesion involving the RCA. Significant lesion involving the diagonal. Moderate disease involving mid LAD and mild disease involving circumflex Procedure(s) Performed: Left heart catheterization without left ventriculography Description of Procedure: HISTORY: This is a 53-year-old female with history of hypertension, diabetes and hypercholesterolemia who was admitted to the hospital with recurrent chest pain and evidence of positive troponin size to of non-STEMI. Patient is advised to have a cardiac catheterization for definitive diagnosis CONSENT:I have discussed the risks, benefits and alternative therapies for the above-mentioned procedure and for both sedation/analgesia as well as necessary blood product administration, if indicated, as they pertain to this patient. The patient has indicated understanding and acceptance of the risks and procedures discussed. PROCEDURE: Patient was brought to the lab in a fasting state. Patient was given some IV sedation. The right wrist is infiltrated with lidocaine and right radial artery was entered using Seldinger technique. A 6-Czech catheter was left in place and selective coronary arteriography was performed. Patient tolerated the procedure well. Patient went on to have stent placement of the RCA.. No immediate complications were noted and patient was transferred to [facility] in a stable condition Conscious Sedation: Versed 1mg Fentanyl 50 g Duration 21minutes HEMODYNAMICS: Aortic pressure is 112/60. Left ventricular end-diastolic pressure was about 12-16. There was no gradient across the aortic valve SELECTIVE CORONARY ARTERIOGRAPHY: LEFT MAIN: Normal length and free of any significant occlusive disease THE LEFT ANTERIOR DESCENDING CORONARY ARTERY:. This is a good caliber vessel giving rise to moderate caliber diagonal and septal branches. At the origin of the diagonal branch the LAD has a moderate plaque with the stenosis of 50%. The LAD is moderate in caliber with a long stenosis of about 70-80%. THE LEFT CIRCUMFLEX AND IS CORONARY ARTERY: This is a good caliber vessel giving rise to good-sized OM branch. The mid circumflex has a plaque with about 30-40% stenosis THE RIGHT CORONARY ARTERY:. This is a good caliber vessel with about 90-95% stenosis involving the midportion. The distal RCA has mild plaque LEFT VENTRICULOGRAPHY: Not performed FINAL IMPRESSION:. Critical lesion involving the mid RCA. Significant disease involving the moderate caliber diagonal branch. Intermediate disease involving the LAD at the origin of the diagonal. Mild disease involving the circumflex PLAN: Stent placement of the RCA followed by maximum medical therapy. He patient has any continued symptoms intervention involving the diagonal branch could be constricted PROGNOSIS: Guarded
[2019-06-25] MEDS ORDERED: IOPAMIDOL-370 125ML BTL INJ ONE (10:47)
[2019-06-25] MEDS ORDERED: MAG HYDROX/AL HYDROX/SIMETH 30 ML CUP ONE (10:52)
[2019-06-25] MEDS ORDERED: RX INFO: IV CONTRAST WAS GIVEN 1 EACH MISC MISCELLANE PRN (10:53)
[2019-06-25] MEDS ORDERED: ZOLPIDEM 5 MG TAB PO PRN (10:53)
[2019-06-25] MEDS ORDERED: MAG HYDROX/AL HYDROX/SIMETH 30 ML CUP PO PRN (10:53)
[2019-06-25] MEDS ORDERED: ATROPINE SULFATE 0.1 MG/ML 10ML SYRINGE IV PRN (10:53)
[2019-06-25] MEDS ORDERED: MAG HYDROX/AL HYDROX/SIMETH 30 ML CUP PO ONE (10:55)
[2019-06-25] MEDS ORDERED: SODIUM CHLORIDE 0.9% 1,000 ML IV SCH (11:00)
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
[2019-06-25 12:25] LABS: Glucose,Whole Blood 151 mg/dL (75-99)
[2019-06-25] MEDS: INSULIN ASPART (NovoLOG) 100 UNIT/ML VIAL SQ SCH ×3 (13:07→21:43)
--- NOTE | 2019-06-25 13:30 | PTCA ---
PERCUTANEOUSTRANS CORORONARY ANGIOGRAPHY Mrs. Khan is a 53-year-old female with known history of diabetes who presented with symptoms of chest discomfort and evidence of non ST-segment elevation myocardial infarction, underwent cardiac catheterization by Dr. Coates and was found to have critical stenosis involving the mid right coronary artery. Recommendation was made regarding angioplasty and stenting. The procedure as well as the risks and the complications were discussed with the patient who is in full understanding and agreement. PROCEDURE: A 6-Kiswahili FR4 guiding catheter introduced in the system. After cannulating the right coronary ostium, a 0.014 balanced medium weight J-wire was advanced across the lesion positioned distally then a 2.5 x 12 mm Trek balloon was advanced and two inflations at 8 atmospheres were done. Following that the balloon was removed and a 2.75 x 15 mm Xience Paulina stent was deployed. It was advanced, deployed and post dilated at 16 atmospheres. After the last inflation, after appropriate wait, the balloon and the guide were withdrawn back in the guiding catheter. Images were obtained, repeated. Those images reveal stable successful stenting. At that point, the guiding catheter, the balloon and guidewire were removed. The sheath was removed. Hemostasis was obtained with deployment of TR band. There was no immediate complication. Patient was returned to his room in stable condition. Of note, the patient received Angiomax per protocol as well as oral loading dose of Brilinta. She had no chest discomfort with the inflations with mild EKG changes that improved at the end procedure. RESULTS: Successful stenting of the mid right coronary artery with reduction of stenosis from 99% to 0%. RECOMMENDATION: Patient will be continued on aspirin, Brilinta, beta blockers, Teo inhibitor and statin. The importance of dual antiplatelet treatment were discussed with the patient and her family and are in full understanding and agreement. Duration of procedure 17 minutes. MMODL / IJN: [id number] /
--- NOTE | 2019-06-25 13:38 | LTR ---
June 25, 2019 Re: Kristie Khan Dear Dr. Soto: I had the opportunity to perform coronary angioplasty and stenting on Mrs. Khan at [facility] on the 25 of June and a full copy of the procedure note will be forwarded to you. In brief, she underwent successful stenting of her mid right coronary artery using a drug eluting stent. I am hopeful that this procedure will stabilize her status. Thank you again for allowing me the opportunity to participate in her care. Please feel free to call for any questions. Sincerely yours, MD SUSAN GrissomL / RICHARDN: [id number] /
[2019-06-25 14:43] VITALS: BMI 30.4
[2019-06-25 17:03] LABS: Glucose,Whole Blood 129 mg/dL (75-99)
[2019-06-25] MEDS: NITROGLYCERIN SL TABS 0.4 MG TAB SUBLINGUAL PRN ×2 (19:14→19:19)
[2019-06-25 20:32] LABS: Glucose,Whole Blood 164 mg/dL (75-99)
[2019-06-25] MEDS: TICAGRELOR 90 MG TAB PO SCH (21:43)
[2019-06-26 06:32] LABS: Glucose,Whole Blood 132 mg/dL (75-99)
[2019-06-26 06:54] LABS: African American GFR (CKD) >90 (>60 ml/min/1.73 sqM); Anion Gap 9 mmol/L; Blood Urea Nitrogen 18 mg/dL (7-17); Calcium 9.2 mg/dL (8.4-10.2); Carbon Dioxide 21 mmol/L (22-30); Chloride 111 mmol/L (98-107); Glucose 128 mg/dL (74-99); Non-African American GFR(CKD) 89 (>60 ml/min/1.73 sqM); Potassium 4.4 mmol/L (3.5-5.1); Sodium 141 mmol/L (137-145)
[2019-06-26] MEDS: INSULIN ASPART (NovoLOG) 100 UNIT/ML VIAL SQ SCH ×4 (07:00→21:27)
[2019-06-26] MEDS: ASPIRIN 81 MG PO SCH (08:46)
[2019-06-26] MEDS: TICAGRELOR 90 MG TAB PO SCH ×2 (08:46→21:27)
[2019-06-26] MEDS: METOPROLOL TARTRATE 25 MG TAB PO SCH (08:48)
[2019-06-26] MEDS: ATORVASTATIN 80 MG TAB PO SCH (08:48)
[2019-06-26] MEDS: LISINOPRIL 5 MG TAB PO SCH (08:48)
[2019-06-26] MEDS ORDERED: ASPIRIN 325 MG TAB PO SCH (09:00)
--- NOTE | 2019-06-26 11:43 | P.PN ---
Subjective This is a pleasant 53-year-old white female well-known to me. She has type 2 diabetes, hyperlipidemia, and hypertension. She reports that sternal chest pain that started several days ago. It was mild. Yesterday she had a more significant symptoms and it also had cold-like symptoms. She was concerned that that was was causing her chest pain, but when it worsened, she brought emergency room. She is found to have slightly abnormal troponins and EKG changes. She been admitted for further workup and evaluation. Currently she has no chest pain but her second troponin was elevated. Cardiology started he seen her in a cardiac catheterization is imminently planned. He denies any current nausea vomiting constipation diarrhea. June 26 2019: Patient is doing well. Overnight she did have an episode of anxiety and/or chest pain was given nitroglycerin and Xanax. She reports symptoms are short-lived. Yesterday she underwent a cardiac catheterization along with PTCA of the mid right coronary artery. This is with drug-eluting stent. Antiplatelet therapy was recommended for other lesions visualized. She currently does not have any chest pains, pressure, shortness breath, nausea or vomiting. She had a bowel movement today. Reports it was slightly hard. Objective - Vital Signs Vital signs: Vital Signs Temp 97.8 F 06/26/19 08:16 Pulse 72 06/26/19 08:16 Resp 16 06/26/19 08:16 BP 117/71 06/26/19 08:16 Pulse Ox 92 L 06/26/19 08:16 Intake & Output 06/25/19 06/26/19 06/26/19 18:59 06:59 18:59 Intake Total 2108.629 590 240 Balance 2108.629 590 240 Weight 85.5 kg 84.3 kg Intake: IV 648 Intake, IV Titration 1260.629 0 Amount Heparin Sod,Pork in 0.45% 60.629 NaCl 25,000 unit In 0.45 % NaCl 1 250ml.bag @ 11 UNITS/KG/HR 9.28 mls/hr IV .Q24H [facility] Rx#: [id number] Sodium Chloride 0.9% 1, 1200 0 000 ml @ 100 mls/hr IV . Q10H [facility] Rx#:[id number] Oral 200 590 240 Other: Voiding Method Toilet Toilet - Exam GENERAL: Well-appearing, well-nourished and in no acute distress. NECK: Normal range of motion, supple without lymphadenopathy or JVD, no thyromegaly LUNGS: Breath sounds clear to auscultation bilaterally and equal. No wheezes rales or rhonchi. HEART: Regular rate and rhythm without murmurs, rubs or gallops.S1S2 Normal ABDOMEN: Soft, nontender, normoactive bowel sounds. No guarding, no rebound. No masses appreciated. EXTREMITIES: Normal range of motion, no pitting or edema. No clubbing or cyanosis. NEUROLOGICAL: Cranial nerves II through XII grossly intact. Normal speech, normal gait. PSYCH: Normal mood, normal affect. SKIN: Warm, Dry, normal turgor, no rashes or lesions noted. - Labs CBC & Chem 7: 06/25/19 01:00 06/26/19 06:19 Labs: Abnormal Lab Results - Last 24 Hours (Table) 06/25/19 06/25/19 06/25/19 Range/Units 12:23 16:58 20:30 Chloride (98-107) mmol/L Carbon Dioxide (22-30) mmol/L BUN (7-17) mg/dL Glucose (74-99) mg/dL POC Glucose (mg/dL) 151 H 129 H 164 H (75-99) mg/dL 06/26/19 06/26/19 Range/Units 06:19 06:30 Chloride 111 H (98-107) mmol/L Carbon Dioxide 21 L (22-30) mmol/L BUN 18 H (7-17) mg/dL Glucose 128 H (74-99) mg/dL POC Glucose (mg/dL) 132 H (75-99) mg/dL Assessment and Plan (1) NSTEMI (non-ST elevated myocardial infarction) Current Visit: Yes Status: Acute Code(s): I21.4 - NON-ST ELEVATION (NSTEMI) MYOCARDIAL INFARCTION SNOMED Code(s): 62971995 (2) Mixed hyperlipidemia Current Visit: Yes Status: Acute Code(s): E78.2 - MIXED HYPERLIPIDEMIA SNOMED Code(s): 906816557 (3) Type 2 diabetes mellitus without complications Current Visit: Yes Status: Acute Code(s): E11.9 - TYPE 2 DIABETES MELLITUS WITHOUT COMPLICATIONS SNOMED Code(s): 606336292 (4) Chest pain Current Visit: No Status: Acute Code(s): R07.9 - CHEST PAIN, UNSPECIFIED SNOMED Code(s): 91365117 (5) Hypertension Current Visit: No Status: Acute Code(s): I10 - ESSENTIAL (PRIMARY) HYPERTENSION SNOMED Code(s): 37803979 Plan: She'll continue on her current medications Repeat labs in a.m. Further recommendations from cardiology pending Expected discharge next 24 hours
[2019-06-26 11:54] LABS: Glucose,Whole Blood 101 mg/dL (75-99)
--- NOTE | 2019-06-26 12:52 | P.PN ---
Subjective Progress Note Date: 06/26/19 This is a pleasant 53-year-old female with history of hypertension, diabetes, hyperlipidemia, nonsmoker, no alcohol, she also has history of sleep apnea and uses a BiPAP. On Saturday of this past week, patient states that she was noticing intermittent chest discomfort, and felt short of breath, she states that she thought she may be developing some bronchitis, she used her inhaler in breathing treatment to more frequently. This did not seem to help. She went to [facility] to have a sebaceous cyst removed from her back on , she mentioned at that time that she was having some mild discomfort, they auscultated her lungs at that time and found her to be wheezy, gave her breathing treatment and sent her home. Later on on Saturday, into the evening patient states that the chest discomfort now radiated across her chest in both directions and down both arms into her hands. At this point in time she realized that it was likely not her asthma causing her symptoms and she came to the hospital for further evaluation and treatment. Her EKG on presentation here showed a normal sinus rhythm with ST-T wave changes noted in the inferior leads. Subsequent EKG showed normal sinus rhythm with mild ST elevation noted in the inferior leads. Patient did have a prior EKGs performed here at the hospital, these are all new changes as compared with prior. Chest x-ray was normal. Mini mal atelectasis at the left lung base. Blood pressure on arrival here 130/80 with a heart rate in the 80s, 96% on room air, temperature 98.2. White blood cell count 12.9, hemoglobin 13.7, platelet count 294. Sodium 139, potassium 4.1, BUN 18, creatinine 0.7, magnesium 1.8. Initial troponin 0.136, the second troponin has been drawn but is yet pending. The patient was initiated on IV heparin on arrival here, she is currently chest pain-free.patient was taken to the cardiac catheterization lab yesterday and underwent angioplasty and stenting of the right coronary artery. 06/26/2019 Patient was taken to the cardiac catheterization lab yesterday and underwent angioplasty and stenting of the right coronary artery.she did have an episode of chest discomfort with associated shortness of breath last night around 7 PM Alexis she was given sublingual nitroglycerin at that time. Her EKG showed normal sinus rhythm with ST-T wave changes noted in the inferior leads. She has progression of changes with T-wave inversion this morning noted. At the time of our examination she is currently chest pain-free.echocardiogram with Doppler study revealed an ejection fraction of 45-50%. Objective - Vital Signs Vital signs: Vital Signs Temp 97.8 F 06/26/19 12:00 Pulse 59 L 06/26/19 12:00 Resp 16 06/26/19 12:00 BP 102/62 06/26/19 12:00 Pulse Ox 94 L 06/26/19 12:00 Intake & Output 06/25/19 06/26/19 06/26/19 18:59 06:59 18:59 Intake Total 2108.629 590 240 Balance 2108.629 590 240 Weight 85.5 kg 84.3 kg Intake: IV 648 Intake, IV Titration 1260.629 0 Amount Heparin Sod,Pork in 0.45% 60.629 NaCl 25,000 unit In 0.45 % NaCl 1 250ml.bag @ 11 UNITS/KG/HR 9.28 mls/hr IV .Q24H [facility] Rx#: [id number] Sodium Chloride 0.9% 1, 1200 0 000 ml @ 100 mls/hr IV . Q10H [facility] Rx#:[id number] Oral 200 590 240 Other: Voiding Method Toilet Toilet - Exam PHYSICAL EXAMINATION: GENERAL: 83-year-old female in no acute distress at the time of my examination HEENT: Head is atraumatic, normocephalic. Pupils equal, round. Sclera anicteric. Conjunctiva are clear. Mucous membranes of the mouth are moist. Neck is supple. There is no elevated jugular venous pressure. No carotid bruit is heard. HEART EXAMINATION: Heart S1, S2 normal. No murmur or gallop heard. CHEST EXAMINATION: Lungs are clear to auscultation and precussion. No chest wall tenderness is noted on palpation or with deep breathing. ABDOMEN: Soft, nontender. Bowel sounds are heard. No organomegaly noted. EXTREMITIES: 2+ peripheral pulses with no evidence of peripheral edema and no calf tenderness noted. NEUROLOGIC patient is awake, alert and oriented 3 . . - Labs CBC & Chem 7: 06/25/19 01:00 06/26/19 06:19 Labs: Abnormal Lab Results - Last 24 Hours (Table) 06/25/19 06/25/19 06/26/19 Range/Units 16:58 20:30 06:19 Chloride 111 H (98-107) mmol/L Carbon Dioxide 21 L (22-30) mmol/L BUN 18 H (7-17) mg/dL Glucose 128 H (74-99) mg/dL POC Glucose (mg/dL) 129 H 164 H (75-99) mg/dL 06/26/19 06/26/19 Range/Units 06:30 11:52 Chloride (98-107) mmol/L Carbon Dioxide (22-30) mmol/L BUN (7-17) mg/dL Glucose (74-99) mg/dL POC Glucose (mg/dL) 132 H 101 H (75-99) mg/dL Assessment and Plan Plan: Assessment and plan #1 non-STEMI, status post angioplasty and stenting of the right coronary artery #2 hypertension #3 diabetes #4 hyperlipidemia #5 sleep apnea Plan we will start the patient on Imdur 30 mg daily today, continue to monitor the patient for 24 hours, if to more morning she has been symptom free and up ambulating without any difficulty we will likely discharge her home and follow- up in the office. DNP note has been reviewed, I agree with a documented findings and plan of care. Patient was seen and examined.
[2019-06-26 16:56] LABS: Glucose,Whole Blood 125 mg/dL (75-99)
[2019-06-26 20:30] LABS: Glucose,Whole Blood 180 mg/dL (75-99)
[2019-06-27 06:13] LABS: Glucose,Whole Blood 145 mg/dL (75-99)
[2019-06-27 07:53] LABS: Glucose,Whole Blood 158 mg/dL (75-99)
[2019-06-27 08:03] LABS: African American GFR (CKD) >90 (>60 ml/min/1.73 sqM); Anion Gap 11 mmol/L; Blood Urea Nitrogen 18 mg/dL (7-17); Calcium 9.4 mg/dL (8.4-10.2); Carbon Dioxide 23 mmol/L (22-30); Chloride 106 mmol/L (98-107); Glucose 146 mg/dL (74-99); Non-African American GFR(CKD) >90 (>60 ml/min/1.73 sqM); Potassium 4.5 mmol/L (3.5-5.1); Sodium 140 mmol/L (137-145)
[2019-06-27] MEDS ORDERED: ISOSORBIDE MONONITRATE ER 30 MG TAB.ER.24H PO SCH (09:00)
[2019-06-27 09:15] VITALS: RESP 18; TEMP 98.4
[2019-06-27] MEDS: METOPROLOL TARTRATE 25 MG TAB PO SCH (09:19)
[2019-06-27] MEDS: LISINOPRIL 5 MG TAB PO SCH (09:19)
[2019-06-27] MEDS: ATORVASTATIN 80 MG TAB PO SCH (09:19)
[2019-06-27] MEDS: ASPIRIN 81 MG PO SCH (09:19)
[2019-06-27] MEDS: TICAGRELOR 90 MG TAB PO SCH (09:20)
[2019-06-27] MEDS: INSULIN ASPART (NovoLOG) 100 UNIT/ML VIAL SQ SCH (09:23)
--- NOTE | 2019-06-27 11:15 | P.PN ---
Subjective Progress Note Date: 06/27/19 This is a pleasant 53-year-old female with history of hypertension, diabetes, hyperlipidemia, nonsmoker, no alcohol, she also has history of sleep apnea and uses a BiPAP. On Saturday of this past week, patient states that she was noticing intermittent chest discomfort, and felt short of breath, she states that she thought she may be developing some bronchitis, she used her inhaler in breathing treatment to more frequently. This did not seem to help. She went to [facility] to have a sebaceous cyst removed from her back on , she mentioned at that time that she was having some mild discomfort, they auscultated her lungs at that time and found her to be wheezy, gave her breathing treatment and sent her home. Later on on Saturday, into the evening patient states that the chest discomfort now radiated across her chest in both directions and down both arms into her hands. At this point in time she realized that it was likely not her asthma causing her symptoms and she came to the hospital for further evaluation and treatment. Her EKG on presentation here showed a normal sinus rhythm with ST-T wave changes noted in the inferior leads. Subsequent EKG showed normal sinus rhythm with mild ST elevation noted in the inferior leads. Patient did have a prior EKGs performed here at the hospital, these are all new changes as compared with prior. Chest x-ray was normal. Mini mal atelectasis at the left lung base. Blood pressure on arrival here 130/80 with a heart rate in the 80s, 96% on room air, temperature 98.2. White blood cell count 12.9, hemoglobin 13.7, platelet count 294. Sodium 139, potassium 4.1, BUN 18, creatinine 0.7, magnesium 1.8. Initial troponin 0.136, the second troponin has been drawn but is yet pending. The patient was initiated on IV heparin on arrival here, she is currently chest pain-free.patient was taken to the cardiac catheterization lab yesterday and underwent angioplasty and stenting of the right coronary artery. 06/26/2019 Patient was taken to the cardiac catheterization lab yesterday and underwent angioplasty and stenting of the right coronary artery.she did have an episode of chest discomfort with associated shortness of breath last night around 7 PM Alexis she was given sublingual nitroglycerin at that time. Her EKG showed normal sinus rhythm with ST-T wave changes noted in the inferior leads. She has progression of changes with T-wave inversion this morning noted. At the time of our examination she is currently chest pain-free.echocardiogram with Doppler study revealed an ejection fraction of 45-50%. 06/27/2019 Patient was seen and examined this morning, denies any chest discomfort, has been ambulating without any difficulty. She did complain of mild hacking cough this morning, lungs are clear. Blood pressure 125/76 with a heart rate in the 70s, 97% on room air. Sodium 140, potassium 4.5, BUN 18, creatinine 0.7. Objective - Vital Signs Vital signs: Vital Signs Temp 98.4 F 06/27/19 08:00 Pulse 73 06/27/19 08:00 Resp 18 06/27/19 08:00 BP 125/76 06/27/19 08:00 Pulse Ox 97 06/27/19 08:00 Intake & Output 06/26/19 06/27/19 06/27/19 18:59 06:59 18:59 Intake Total 240 600 240 Balance 240 600 240 Intake: Intake, IV Titration 0 Amount Sodium Chloride 0.9% 500 0 ml 500 ml @ 0 mls/hr IV . [facility] Rx#: [id number] Oral 240 600 240 Other: Voiding Method Toilet # Voids 1 - Exam PHYSICAL EXAMINATION: GENERAL: 83-year-old female in no acute distress at the time of my examination HEENT: Head is atraumatic, normocephalic. Pupils equal, round. Sclera anicteric. Conjunctiva are clear. Mucous membranes of the mouth are moist. Neck is supple. There is no elevated jugular venous pressure. No carotid bruit is heard. HEART EXAMINATION: Heart S1, S2 normal. No murmur or gallop heard. CHEST EXAMINATION: Lungs are clear to auscultation and precussion. No chest wall tenderness is noted on palpation or with deep breathing. ABDOMEN: Soft, nontender. Bowel sounds are heard. No organomegaly noted. EXTREMITIES: 2+ peripheral pulses with no evidence of peripheral edema and no calf tenderness noted. NEUROLOGIC patient is awake, alert and oriented 3 . . - Labs CBC & Chem 7: 06/25/19 01:00 06/27/19 06:43 Labs: Abnormal Lab Results - Last 24 Hours (Table) 06/26/19 06/26/19 06/26/19 Range/Units 11:52 16:55 20:28 BUN (7-17) mg/dL Glucose (74-99) mg/dL POC Glucose (mg/dL) 101 H 125 H 180 H (75-99) mg/dL 06/27/19 06/27/19 06/27/19 Range/Units 06:12 06:43 07:51 BUN 18 H (7-17) mg/dL Glucose 146 H (74-99) mg/dL POC Glucose (mg/dL) 145 H 158 H (75-99) mg/dL Assessment and Plan Plan: Assessment and plan #1 non-STEMI, status post angioplasty and stenting of the right coronary artery #2 hypertension #3 diabetes #4 hyperlipidemia #5 sleep apnea Plan Patient may be discharged home today from cardiology's perspective, we'll make her a follow-up appointment to see Dr. Coates in the office next week. Patient will be discharged home on aspirin 81 mg daily, Lipitor 80 mg daily, Imdur 30 mg daily, lisinopril 5 mg daily, metoprolol 25 mg daily, Brilinta 90 mg twice a day and sublingual nitroglycerin as needed for chest pain. DNP note has been reviewed, I agree with a documented findings and plan of care. Patient was seen and examined.
[2019-06-27 11:22] VITALS: BP 102/67; PULSE 63
--- NOTE | 2019-06-27 11:43 | P.DS ---
Providers Date of admission: 06/25/19 03:02 Expected date of discharge: 06/27/19 Attending physician: Trevon Soto Consults: 06/25/19 01:58 Consult Physician Urgent Consulting Provider: Lasha Garcia Consult Reason/Comments: NSTEMI Do you want consulting provider notified?: Yes 06/25/19 10:53 Consult Physician Routine Consulting Provider: Lasha Garcia Consult Reason/Comments: Post Interventional patient Do you want consulting provider notified?: Already Contacted Primary care physician: Trevon Soto - Discharge Diagnosis(es) (1) NSTEMI (non-ST elevated myocardial infarction) Current Visit: Yes Status: Acute (2) Mixed hyperlipidemia Current Visit: Yes Status: Acute (3) Type 2 diabetes mellitus without complications Current Visit: Yes Status: Acute (4) Chest pain Current Visit: No Status: Acute (5) Hypertension Current Visit: No Status: Acute (6) Coronary artery disease Current Visit: Yes Status: Acute (7) S/P PTCA (percutaneous transluminal coronary angioplasty) Current Visit: Yes Status: Acute Hospital Course: This is a pleasant 53-year-old white female well-known to me. She has type 2 diabetes, hyperlipidemia, and hypertension. She reports that sternal chest pain that started several days ago. It was mild. Yesterday she had a more significant symptoms and it also had cold-like symptoms. She was concerned that that was was causing her chest pain, but when it worsened, she brought emergency room. She is found to have slightly abnormal troponins and EKG changes. She been admitted for further workup and evaluation. Currently she has no chest pain but her second troponin was elevated. Cardiology started he seen her in a cardiac catheterization is imminently planned. He denies any current nausea vomiting constipation diarrhea. June 26 2019: Patient is doing well. Overnight she did have an episode of anxiety and/or chest pain was given nitroglycerin and Xanax. She reports symptoms are short-lived. Yesterday she underwent a cardiac catheterization along with PTCA of the mid right coronary artery. This is with drug-eluting stent. Antiplatelet therapy was recommended for other lesions visualized. She currently does not have any chest pains, pressure, shortness breath, nausea or vomiting. She had a bowel movement today. Reports it was slightly hard. 06/27/2019: Patient did well overnight. She denies any other chest pains. She is complaining of some right shoulder musculoskeletal pain. She has a left shoulder glenohumeral tear that she has yet to see orthopedics for. She will follow-up with them outpatient. She will be discharged home with outpatient follow-up with cardiology and myself. Procedures: angioplasty and stenting of the right coronary artery Patient Condition at Discharge: Fair Plan - Discharge Summary Discharge Rx Participant: No New Discharge Prescriptions: New Aspirin 81 mg PO DAILY #30 chew Ticagrelor [Brilinta] 90 mg PO BID #60 tab Isosorbide Mononitrate ER [Imdur] 30 mg PO DAILY #30 tab.er.24h Atorvastatin [Lipitor] 80 mg PO DAILY #30 tab Metoprolol Tartrate [Lopressor] 25 mg PO DAILY #30 tab Nitroglycerin Sl Tabs [Nitrostat] 0.4 mg SUBLINGUAL Q5M PRN #25 tab PRN Reason: Chest Pain Continue Lisinopril [Zestril] 5 mg PO DAILY #30 tab valACYclovir HCL [Valacyclovir] 1,000 mg PO DAILY Albuterol Inhaler [Ventolin Hfa Inhaler] 2 puff INHALATION RT-Q6H PRN PRN Reason: Shortness Of Breath guaiFENesin [Mucinex] 600 mg PO Q12H PRN PRN Reason: Cough metFORMIN HCL [metFORMIN HCL ER] 750 mg PO DAILY Topiramate [Topamax] 50 mg PO BID Multivitamins, Thera [Multivitamin (formulary)] 1 tab PO DAILY Cetirizine HCl [Zyrtec] 10 mg PO HS Discontinued Atorvastatin [Lipitor] 40 mg PO HS #30 tab Discharge Medication List Lisinopril [Zestril] 5 mg PO DAILY #30 tab 03/20/17 [Rx] Albuterol Inhaler [Ventolin Hfa Inhaler] 2 puff INHALATION RT-Q6H PRN 04/08/18 [History] guaiFENesin [Mucinex] 600 mg PO Q12H PRN 04/08/18 [History] valACYclovir HCL [Valacyclovir] 1,000 mg PO DAILY 04/08/18 [History] Cetirizine HCl [Zyrtec] 10 mg PO HS 06/25/19 [History] Multivitamins, Thera [Multivitamin (formulary)] 1 tab PO DAILY 06/25/19 [History] Topiramate [Topamax] 50 mg PO BID 06/25/19 [History] metFORMIN HCL [metFORMIN HCL ER] 750 mg PO DAILY 06/25/19 [History] Aspirin 81 mg PO DAILY #30 chew 06/27/19 [Rx] Atorvastatin [Lipitor] 80 mg PO DAILY #30 tab 06/27/19 [Rx] Isosorbide Mononitrate ER [Imdur] 30 mg PO DAILY #30 tab.er.24h 06/27/19 [Rx] Metoprolol Tartrate [Lopressor] 25 mg PO DAILY #30 tab 06/27/19 [Rx] Nitroglycerin Sl Tabs [Nitrostat] 0.4 mg SUBLINGUAL Q5M PRN #25 tab 06/27/19 [Rx] Ticagrelor [Brilinta] 90 mg PO BID #60 tab 06/27/19 [Rx] Follow up Appointment(s)/Referral(s): Trevon Soto MD [Primary Care Provider] - 1-2 days Tan Coates MD [STAFF PHYSICIAN] - 07/06/19 3:15 pm (At [facility] next to [address] in [place].) Patient Instructions/Handouts: Heart Healthy Diet (DC), Coronary Intravascular Stent Placement (DC) Activity/Diet/Wound Care/Special Instructions: CARDIAC CATH 1. Support your puncture site by applying firm, steady pressure whenever you cough, laugh, sneeze or bear down to have a bowel movement if you had a groin puncture (2-day restriction). 2. Watch for any excessive bruising, active bleeding, a firm knot forming under your skin, extreme tenderness and signs of infection (redness, swelling, fever). 3. Shower daily, do not soak puncture in a tub bath, jacuzzi, pool, dudley etc. for 1 week. This is to prevent risk of infection. 4. Drink plenty of fluids the day of and day after your procedure to flush contrast dye out of your kidneys. 5. Take all medications as directed. Never stop any new medication without your physicians OK. 6. No driving for 2 days after procedure. 7. 10- pound weight lifting restriction for 1 week. 8. Low sodium/low fat diet. 9. Activity limited until follow up appointment with your knifeman. In case of any problems, please call [facility] [place] @ [phone]. Discharge Disposition: HOME SELF-CARE Care Plan Goals (MU): Brissa $5 coupon given to patient for discharge.
[2019-06-27 12:26] LABS: Glucose,Whole Blood 144 mg/dL (75-99)
== END 2019-06-27 13:30 | disposition home or self-care (01) | DRG 247 ==
LOC: EC 00:46 → 3SCARD 03:02
PROVIDERS: ADMIT Family Medicine; ATTEND Family Medicine
PROC: 027034Z Dilation of Coronary Artery, One Artery with Drug-eluting Intraluminal Device, Percutaneous Approach (ICD-10-PCS; principal; 2019-06-25 09:48)
PROC: 4A023N7 Measurement of Cardiac Sampling and Pressure, Left Heart, Percutaneous Approach (ICD-10-PCS; 2019-06-25 09:48)
DX: I21.4 Non-ST elevation (NSTEMI) myocardial infarction (principal); F41.9 Anxiety disorder, unspecified; F32.9 Major depressive disorder, single episode, unspecified; E11.9 Type 2 diabetes mellitus without complications; E78.2 Mixed hyperlipidemia; I10 Essential (primary) hypertension; J45.909 Unspecified asthma, uncomplicated; I25.10 Atherosclerotic heart disease of native coronary artery without angina pectoris; G47.30 Sleep apnea, unspecified; Z79.84 Long term (current) use of oral hypoglycemic drugs; Z79.899 Other long term (current) drug therapy; Z88.5 Allergy status to narcotic agent; Z88.8 Allergy status to other drugs, medicaments and biological substances; Z91.048 Other nonmedicinal substance allergy status; Z82.49 Family history of ischemic heart disease and other diseases of the circulatory system; Z90.710 Acquired absence of both cervix and uterus; Z90.49 Acquired absence of other specified parts of digestive tract; Z98.890 Other specified postprocedural states
CPT/HCPCS: 36415; 71046; 80048; 80053; 83690; 83735; 84484; 85025; 85610; 85730; 93005; 93306; 93458; 96365; 96375; 96376; 99285; C1874

== ENCOUNTER 2019-06-28 17:23 | Emergency (ER) | payer BC ==
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
[2019-06-28 18:08] VITALS: TEMP 98.2
[2019-06-28] MEDS ORDERED: MORPHINE SULFATE 4 MG/ML SYRINGE IM STA (18:27)
[2019-06-28] MEDS ORDERED: IBUPROFEN 800 MG TAB PO STA (18:27)
--- NOTE | 2019-06-28 18:54 | XR ---
EXAMINATION TYPE: XR chest 2V DATE OF EXAM: 06/28/2019 COMPARISON: 06/25/2019 INDICATION: Pain TECHNIQUE: Frontal and lateral views of the chest are obtained. FINDINGS: The heart size is normal. The pulmonary vasculature is normal. The lungs are clear. IMPRESSION: 1. No acute pulmonary process.
--- NOTE | 2019-06-28 18:55 | XR ---
EXAMINATION TYPE: XR shoulder complete RT DATE OF EXAM: 06/28/2019 COMPARISON: NONE HISTORY: Pain TECHNIQUE: Shoulder examined in 3 views FINDINGS: The humeral head articulates with the glenoid. The acromio-clavicular junction is normal. No acute fractures or dislocations are evident. A follow up study can be performed 7-10 days from acute trauma for continued pain. IMPRESSION: 1. Normal three-view right Shoulder
[2019-06-28] MEDS ORDERED: ONDANSETRON 4 MG ODT STARTER PACK 2 TAB BTL PO STA (18:59)
[2019-06-28] MEDS ORDERED: ONDANSETRON ODT 4 MG TAB PO STA (18:59)
--- NOTE | 2019-06-28 20:43 | US ---
EXAMINATION TYPE: US upper ext pseudo RT DATE OF EXAM: 06/28/2019 COMPARISON: NONE CLINICAL HISTORY: AVM. Recent heart cath 06/25/19, right radial approach, bruising right wrist No evidence of pseudoaneurysm right radial artery at this time. IMPRESSION: 1. No suspicious hematoma or pseudocyst formation evident upper extremity.
[2019-06-28] MEDS ORDERED: ACET/COD 300 MG/30 MG STARTER PACK 6 TAB BTL PO STA (21:13)
[2019-06-28 21:42] VITALS: BP 126/65; PULSE 78; RESP 18
== END 2019-06-28 21:43 | disposition home or self-care (01) ==
LOC: EC 17:23
DX: M25.511 Pain in right shoulder (principal); S60.211A Contusion of right wrist, initial encounter; R07.9 Chest pain, unspecified; M79.621 Pain in right upper arm; J45.909 Unspecified asthma, uncomplicated; E11.40 Type 2 diabetes mellitus with diabetic neuropathy, unspecified; I25.2 Old myocardial infarction; G47.30 Sleep apnea, unspecified; Z88.5 Allergy status to narcotic agent; Z88.6 Allergy status to analgesic agent; Z88.8 Allergy status to other drugs, medicaments and biological substances; Z91.018 Allergy to other foods; Z91.048 Other nonmedicinal substance allergy status; Z79.84 Long term (current) use of oral hypoglycemic drugs; Z79.899 Other long term (current) drug therapy; Z86.19 Personal history of other infectious and parasitic diseases; Z95.5 Presence of coronary angioplasty implant and graft; Z99.89 Dependence on other enabling machines and devices; X58.XXXA Exposure to other specified factors, initial encounter; Y92.009 Unspecified place in unspecified non-institutional (private) residence as the place of occurrence of the external cause
CPT/HCPCS: 73030; 71046; 93931; 99284; 96372; J2270; S0119

== ENCOUNTER 2019-07-20 21:31 | Emergency (ER) | payer BC ==
[2019-07-20] MEDS ORDERED: MAGNESIUM SULFATE-D5W PMX 1 GM in DEXTROSE/WATER 1 100ML.BAG IVPB STA (21:42)
[2019-07-20] MEDS ORDERED: methylPREDNISolone SOD SUCCI 125 MG/2 ML VIAL IV STA (21:42)
[2019-07-20] MEDS ORDERED: IPRATROPIUM-ALBUTEROL 3 ML NEB INHALATION STA (21:42)
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
[2019-07-20 22:12] LABS: Basophils % (A) 1 %; Eosinophils # (A) 0.1 k/uL (0-0.7); Eosinophils % (A) 2 %; HCT 38.5 % (34.0-46.0); HGB 12.9 gm/dL (11.4-16.0); Lymphocytes # (A) 3.9 k/uL (1.0-4.8); Lymphocytes % (A) 45 %; MCH 30.3 pg (25.0-35.0); MCHC 33.4 g/dL (31.0-37.0); MCV 90.9 fL (80.0-100.0); Mean Platelet Volume 7.8; Monocytes # (A) 0.4 k/uL (0-1.0); Monocytes % (A) 4 %; Neutrophils % (A) 46 %; Platelet Count 205 k/uL (150-450); RBC 4.24 m/uL (3.80-5.40); RDW 13.2 % (11.5-15.5); WBC 8.6 k/uL (3.8-10.6)
[2019-07-20 22:26] LABS: ALT 27 U/L (4-34); AST 34 U/L (14-36); African American GFR (CKD) >90 (>60 ml/min/1.73 sqM); Alkaline Phosphatase 80 U/L (38-126); Anion Gap 11 mmol/L; Blood Urea Nitrogen 13 mg/dL (7-17); Calcium 8.6 mg/dL (8.4-10.2); Carbon Dioxide 18 mmol/L (22-30); Chloride 111 mmol/L (98-107); Glucose 123 mg/dL (74-99); Non-African American GFR(CKD) >90 (>60 ml/min/1.73 sqM); Potassium 4.3 mmol/L (3.5-5.1); Sodium 140 mmol/L (137-145); Total Bilirubin 0.5 mg/dL (0.2-1.3); Total Protein 6.4 g/dL (6.3-8.2)
--- NOTE | 2019-07-20 22:48 | XR ---
EXAMINATION TYPE: XR chest 2V DATE OF EXAM: 07/20/2019 COMPARISON: 06/28/2019 HISTORY: Pain TECHNIQUE: FINDINGS: Heart and mediastinum are normal. Lungs are clear. Diaphragm is normal. Bony thorax appears normal. IMPRESSION: Normal chest. Normal heart. No change.
[2019-07-21 00:21] VITALS: BP 120/68; PULSE 67; RESP 18; TEMP 97.9
== END 2019-07-21 00:08 | disposition home or self-care (01) ==
LOC: EC 21:31
DX: J45.901 Unspecified asthma with (acute) exacerbation (principal); I25.2 Old myocardial infarction; G47.30 Sleep apnea, unspecified; Z99.89 Dependence on other enabling machines and devices; E11.40 Type 2 diabetes mellitus with diabetic neuropathy, unspecified; Z95.5 Presence of coronary angioplasty implant and graft; Z79.84 Long term (current) use of oral hypoglycemic drugs; Z79.899 Other long term (current) drug therapy; Z91.048 Other nonmedicinal substance allergy status; Z88.5 Allergy status to narcotic agent; Z91.018 Allergy to other foods; Z88.8 Allergy status to other drugs, medicaments and biological substances
CPT/HCPCS: 36415; 94640; 80053; 85025; 71046; 99285; 96365; 96366; 96375; J2930; J3475

== ENCOUNTER 2019-07-21 06:29 | Observation (INO) | payer BC ==
[2019-07-21] MEDS ORDERED: SODIUM CHLORIDE 0.9% 500 ML 500 ML IV STA (06:32)
[2019-07-21] MEDS ORDERED: NITROGLYCERIN OINT 1 INCH/GM PACKET TOPICAL STA (06:32)
[2019-07-21 07:01] LABS: Basophils % (A) 0 %; Eosinophils % (A) 0 %; HCT 38.9 % (34.0-46.0); HGB 12.7 gm/dL (11.4-16.0); Lymphocytes # (A) 0.8 k/uL (1.0-4.8); Lymphocytes % (A) 12 %; MCHC 32.7 g/dL (31.0-37.0); MCV 91.7 fL (80.0-100.0); Mean Platelet Volume 7.8; Monocytes # (A) 0.1 k/uL (0-1.0); Monocytes % (A) 2 %; Neutrophils # (A) 5.4 k/uL (1.3-7.7); Neutrophils % (A) 86 %; Platelet Count 201 k/uL (150-450); RBC 4.24 m/uL (3.80-5.40); WBC 6.3 k/uL (3.8-10.6)
[2019-07-21 07:12] LABS: AST 30 U/L (14-36); African American GFR (CKD) >90 (>60 ml/min/1.73 sqM); Albumin 4.2 g/dL (3.5-5.0); Alkaline Phosphatase 106 U/L (38-126); Anion Gap 14 mmol/L; Blood Urea Nitrogen 12 mg/dL (7-17); Calcium 8.8 mg/dL (8.4-10.2); Carbon Dioxide 14 mmol/L (22-30); Chloride 112 mmol/L (98-107); Glucose 294 mg/dL (74-99); Non-African American GFR(CKD) >90 (>60 ml/min/1.73 sqM); Potassium 4.2 mmol/L (3.5-5.1); Sodium 140 mmol/L (137-145); Total Bilirubin 0.5 mg/dL (0.2-1.3); Total Protein 6.6 g/dL (6.3-8.2)
[2019-07-21 07:13] LABS: INR 0.9 (<1.2); Partial Thromboplastin Time 22.9 sec (22.0-30.0); Prothrombin Time 9.6 sec (9.0-12.0)
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
[2019-07-21 07:37] LABS: Glucose,Whole Blood 241 mg/dL (75-99)
[2019-07-21] MEDS: INSULIN ASPART (NovoLOG) 100 UNIT/ML VIAL SQ SCH ×4 (08:02→20:49)
[2019-07-21 08:14] LABS: ALT 33 U/L (4-34)
[2019-07-21 10:05] VITALS: RESP 18
[2019-07-21 11:34] LABS: Glucose,Whole Blood 149 mg/dL (75-99)
[2019-07-21] MEDS ORDERED: NITROGLYCERIN SL TABS 0.4 MG TAB SUBLINGUAL PRN (12:49)
[2019-07-21] MEDS ORDERED: ALBUTEROL NEBULIZED 2.5 MG/3 ML INHALATION PRN (12:49)
[2019-07-21] MEDS: TICAGRELOR 90 MG TAB PO SCH ×2 (13:48→21:04)
[2019-07-21] MEDS: METOPROLOL TARTRATE 25 MG TAB PO SCH (13:48)
--- NOTE | 2019-07-21 14:39 | P.CRDCN ---
History of Present Illness History of present illness: HISTORY OF PRESENTING ILLNESS This is a pleasant 54-year-old female past medical history significant for coronary artery disease status post PCI to the mid RCA 06/25/2019 maintained on dual antiplatelet therapy, hypertension, dyslipidemia, diabetes mellitus, asthma and obstructive sleep apnea. She follows in the office with Dr. Coates. We have been asked to see in consultation for chest pain. She states last night she was having a hard time breathing and wheezing. She used her rescue inhaler did not achieve results initially so she came to the hospital for further evaluation. She received nebulizer and steroids. Her symptoms did improve and she was discharged from the emergency department. After she went home she lay down and try to get some sleep however is having a difficult time falling asleep. She then developed a sharp discomfort under the left axilla with radiation to the left precordial region. The pain was described as sharp and is now tender. She denies any further symptoms of shortness of breath and states her wheezing had subsided. She denies palpitations, nausea, vomiting, dizziness or diaphoresis. She recently was seen in the office and underwent a Lexiscan stress test that was negative for reversible cardiac ischemia with ejection fraction greater than 60%. Cardiac catheterization done on June 25 revealed a 50% stenosis at the origin of the diagonal branch of the LAD, also an area of 70-80% stenosis of his LAD, circumflex with a plaque about 30-40% in the RCA with a 90-95% stenosis in the midportion. At that time she underwent successful stent placement to the RCA. DIAGNOSTICS EKG reveals sinus mechanism with no acute ST or T-wave abnormalities.. Chest xray negative for an acute cardiopulmonary process. Laboratory reviewed, CBC unremarkable, sodium 140, potassium 4.2, creatinine 0.58, magnesium 2.0, cardiac enzymes negative 1, NT proBNP 72. Current cardiac medications include aspirin 81 mg daily, atorvastatin 80 mg daily, Imdur 30 mg daily, lisinopril 5 mg daily, Lopressor 25 mg daily and brilinta 90 mg twice a day. REVIEW OF SYSTEMS At the time of my exam: CONSTITUTIONAL: Denies fever or chills. CARDIOVASCULAR: Denies chest pain, shortness of breath, orthopnea, PND or palpitations. RESPIRATORY: Denies cough. GASTROINTESTINAL: Denies abdominal pain, diarrhea, constipation, nausea or vomiting. MUSCULOSKELETAL: Denies myalgias. NEUROLOGIC: Denies numbness, tingling or weakness. ENDOCRINE: Denies fatigue, weight change, polydipsia or polyurina. GENITOURINARY: Denies burning, hematuria or urgency with micturation. HEMATOLOGIC: Denies history of anemia or bleeding. PHYSICAL EXAMINATION Blood pressure 134/80 heart rate 78 afebrile and maintaining oxygen saturation on room air. CONSTITUTIONAL: No apparent distress. HEENT: Head is normocephalic. Pupils are equal, round. Sclerae anicteric. Mucous membranes of the mouth are moist. No JVD. No carotid bruit. CHEST EXAMINATION: Lungs are clear to auscultation. No chest wall tenderness is noted on palpation or with deep breathing. HEART EXAMINATION: Regular rate and rhythm. S1, S2 heard. No murmurs, gallops or rub. ABDOMEN: Soft, nontender. Positive bowel sounds. EXTREMITIES: 2+ peripheral pulses, no lower extremity edema and no calf tender ness. NEUROLOGIC EXAMINATION: Patient is awake, alert and oriented x3. ASSESSMENT Chest pain, atypical. History of coronary artery disease status post recent stent placement maintained on dual antiplatelet therapy. Normal stress test in the office last week. Hypertension Dyslipidemia Diabetes mellitus Asthma Obstructive sleep apnea PLAN Continue to obtain serial cardiac enzymes to rule out an acute coronary event. Symptoms are atypical and likely related to recent cessation of asthma. Recent stress test in the office showed no evidence of reversibility. Thank you kindly for this consultation. Nurse Practitioner note has been reviewed, I agree with a documented findings and plan of care. Patient was seen and examined. Past Medical History Past Medical History: Asthma, Coronary Artery Disease (CAD), Chest Pain / Angina, Diabetes Mellitus, Eye Disorder, Hyperlipidemia, Hypertension, Myocardial Infarction ([place]), Sleep Apnea/CPAP/BIPAP, Thyroid Disorder Additional Past Medical History / Comment(s): NIDDM type II, neuropathy biltateral legs/feet and occasionally in bilateral hands, pt states she has had R shoulder pain since radial cardiac cath on 06/25/19, past L shoulder pain, MALLORY with Cpap, hypothyroid tx with medication for a couple years then no longer needed, chronic low back pain and bilateral sciatica with L side worse, IBS, past rib fractures/pneumo with chest tube, bilateral narrow angle glaucoma gary ected with surgery. Last Myocardial Infarction Date:: 06/25/19 History of Any Multi-Drug Resistant Organisms: None Reported Past Surgical History: Cholecystectomy, Heart Catheterization With Stent, Hysterectomy Additional Past Surgical History / Comment(s): Bilateral eye surgery for glaucoma, colonoscopy, sebacceous cyst removed from back, septal repair. Past Anesthesia/Blood Transfusion Reactions: No Reported Reaction Date of Last Stent Placement:: 06/25/19 Smoking Status: Never smoker - Past Family History Father Family Medical History: Diabetes Mellitus, Myocardial Infarction ([place]), Renal Disease Additional Family Medical History / Comment(s): Father of a massive [place] while on dialysis at the age of 57yrs. He had an enlarged heart and cervical injury/pain. Mother Family Medical History: No Reported History Additional Family Medical History / Comment(s): Mother is alive and healthy. Medications and Allergies Home Medications Medication Instructions Recorded Confirmed Type Lisinopril [Zestril] 5 mg PO DAILY #30 tab 03/20/17 07/21/19 Rx Albuterol Inhaler [Ventolin Hfa 2 puff INHALATION RT-Q6H PRN 04/08/18 07/21/19 History Inhaler] valACYclovir HCL [Valacyclovir] 1,000 mg PO HS 04/08/18 07/21/19 History Cetirizine HCl [Zyrtec] 10 mg PO HS 06/25/19 07/21/19 History Topiramate [Topamax] 50 mg PO BID 06/25/19 07/21/19 History metFORMIN HCL [metFORMIN HCL ER] 750 mg PO DAILY 06/25/19 07/21/19 History Aspirin 81 mg PO DAILY #30 chew 06/27/19 07/21/19 Rx Isosorbide Mononitrate ER [Imdur] 30 mg PO DAILY #30 tab.er.24h 06/27/19 07/21/19 Rx Metoprolol Tartrate [Lopressor] 25 mg PO DAILY #30 tab 06/27/19 07/21/19 Rx Nitroglycerin Sl Tabs [Nitrostat] 0.4 mg SUBLINGUAL Q5M PRN #25 tab 06/27/19 Rx Ticagrelor [Brilinta] 90 mg PO BID #60 tab 06/27/19 07/21/19 Rx Atorvastatin [Lipitor] 80 mg PO HS 07/21/19 07/21/19 History Multivit-Min/Iron/Folic/Lutein 1 tab PO HS 07/21/19 07/21/19 History [Centrum Silver Women Tablet] Allergies Allergy/AdvReac Type Severity Reaction Status Date / Time horse dander Allergy Unknown Verified 07/21/19 07:58 hydrocodone [From Vicodin] AdvReac Vertigo Verified 07/21/19 07:58 mold AdvReac Abdominal Verified 07/21/19 07:58 Pain Mushroom AdvReac Abdominal Verified 07/21/19 07:58 Pain pentazocine [From Talwin] AdvReac Confusion Verified 07/21/19 07:58 pseudoephedrine AdvReac Confusion Verified 07/21/19 07:58 [From Seldane-D] terfenadine [From Seldane-D] AdvReac Confusion Verified 07/21/19 07:58 Physical Exam Vitals: Vital Signs Temp Pulse Pulse Resp BP BP Pulse Ox 07/21/19 11:51 78 18 07/21/19 10:53 78 18 07/21/19 09:57 97.5 F L 78 18 134/80 98 07/21/19 09:39 98 F 89 16 145/90 99 07/21/19 07:12 18 07/21/19 06:35 98.7 F 80 18 147/85 98 Intake and Output 07/20/19 07/21/19 07/21/19 22:59 06:59 14:59 Other: Voiding Method Toilet Weight 81.647 kg 81.647 kg Results 07/21/19 06:30 07/21/19 06:30 Cardiac Enzymes 07/21/19 07/21/19 Range/Units 06:30 06:30 AST 30 (14-36) U/L Troponin I <0.012 (0.000-0.034) ng/mL Coagulation 07/21/19 Range/Units 06:30 PT 9.6 (9.0-12.0) sec APTT 22.9 (22.0-30.0) sec CBC 07/21/19 Range/Units 06:30 WBC 6.3 (3.8-10.6) k/uL RBC 4.24 (3.80-5.40) m/uL Hgb 12.7 (11.4-16.0) gm/dL Hct 38.9 (34.0-46.0) % Plt Count 201 (150-450) k/uL Comprehensive Metabolic Panel 07/21/19 Range/Units 06:30 Sodium 140 (137-145) mmol/L Potassium 4.2 (3.5-5.1) mmol/L Chloride 112 H (98-107) mmol/L Carbon Dioxide 14 L (22-30) mmol/L BUN 12 (7-17) mg/dL Creatinine 0.58 (0.52-1.04) mg/dL Glucose 294 H (74-99) mg/dL Calcium 8.8 (8.4-10.2) mg/dL AST 30 (14-36) U/L ALT 33 (4-34) U/L Alkaline Phosphatase 106 (38-126) U/L Total Protein 6.6 (6.3-8.2) g/dL Albumin 4.2 (3.5-5.0) g/dL Current Medications Generic Name Dose Route Start Last Admin Trade Name Freq PRN Reason Stop Dose Admin Albuterol Sulfate 2.5 mg 07/21/19 12:49 Ventolin Nebulized INHALATION RT-Q6H PRN Shortness Of Breath Aspirin 81 mg 07/22/19 09:00 Aspirin PO DAILY [facility] Atorvastatin Calcium 80 mg 07/21/19 21:00 Lipitor PO HS [facility] Insulin Aspart 0 unit 07/21/19 07:30 07/21/19 12:29 Novolog SQ 1 unit ACHS [facility] Administration Protocol Metoprolol Tartrate 25 mg 07/21/19 13:00 07/21/19 13:48 Lopressor PO 25 mg DAILY JULIO CESAR Administration Multivitamins 1 each 07/21/19 21:00 Theragran PO HS [facility] Nitroglycerin 0.4 mg 07/21/19 12:49 Nitrostat SUBLINGUAL Q5M PRN Chest Pain Ticagrelor 90 mg 07/21/19 13:00 07/21/19 13:48 Brilinta PO 90 mg BID JULIO CESAR Administration Topiramate 50 mg 07/21/19 21:00 Topamax PO BID JULIO CESAR Valacyclovir HCl 1,000 mg 07/21/19 21:00 Valtrex PO HS [facility] Intake and Output 07/20/19 07/21/19 07/21/19 22:59 06:59 14:59 Other: Voiding Method Toilet Weight 81.647 kg 81.647 kg Patient Weight 07/22/19 06:59 Weight 81.647 kg 07/21/19 06:30 07/21/19 06:30
--- NOTE | 2019-07-21 14:52 | P.HPIM ---
History of Present Illness H&P Date: 07/21/19 Chief Complaint: Chest pain History and Physical and Discharge summary This is a 53-year-old female with history of chronic intermittent asthma, CAD, CAD,MD, recent cath with stent to the RCA in June, recent stress test last week verbally reported as negative, diabetes mellitus, PE, pneumothorax, hypertension, hyperlipidemia, hypothyroidism, IBS, cholecystectomy, anxiety, depression and multiple other medical issues, returned to the ER via EMS for complaints of sharp left-sided chest pain,radiating to left axilla. Denied shortness of breath, no wheezing. Denies nausea or vomiting. Denies diaphoresis, denies fever or chills. Initially patient presented to the ER with complaints of asthma exacerbation yesterday, treated and discharged. Patient returned to the ER with complaints of left-sided chest pain, hypertension with systolic blood pressures in the 190s, heart rate in the 90s unrelieved by one nitroglycerin sublingual at home. States she had significant diarrhea over the weekend , she attributed it to "food poisoning" with no nausea or vomiting. Vital signs stable on admission, EKG normal sinus rhythm, troponin 1 negative. CBC, CMP unremarkable with the exception of hyperglycemia, glucose 294 on admission. Chest x-ray performed yesterday reported normal chest, normal heart, no change. Currently denies no chest pain, palpitations or shortness of breath. Review of Systems ROS Statement: Those systems with pertinent positive or pertinent negative responses have been documented in the HPI. ROS Other: All systems not noted in ROS Statement are negative. Past Medical History Past Medical History: Asthma, Coronary Artery Disease (CAD), Chest Pain / Angina, Diabetes Mellitus, Eye Disorder, Hyperlipidemia, Hypertension, Myocardial Infarction (MD), Sleep Apnea/CPAP/BIPAP, Thyroid Disorder Additional Past Medical History / Comment(s): NIDDM type II, neuropathy biltateral legs/feet and occasionally in bilateral hands, pt states she has had R shoulder pain since radial cardiac cath on 06/25/19, past L shoulder pain, MALLORY with Cpap, hypothyroid tx with medication for a couple years then no longer needed, chronic low back pain and bilateral sciatica with L side worse, IBS, past rib fractures/pneumo with chest tube, bilateral narrow angle glaucoma corrected with surgery. Last Myocardial Infarction Date:: 06/25/19 History of Any Multi-Drug Resistant Organisms: None Reported Past Surgical History: Cholecystectomy, Heart Catheterization With Stent, Hysterectomy Additional Past Surgical History / Comment(s): Bilateral eye surgery for glauco ma, colonoscopy, sebacceous cyst removed from back, septal repair. Past Anesthesia/Blood Transfusion Reactions: No Reported Reaction Date of Last Stent Placement:: 06/25/19 Smoking Status: Never smoker - Past Family History Father Family Medical History: Diabetes Mellitus, Myocardial Infarction (MD), Renal Disease Additional Family Medical History / Comment(s): Father of a massive MD while on dialysis at the age of 57yrs. He had an enlarged heart and cervical injury/pain. Mother Family Medical History: No Reported History Additional Family Medical History / Comment(s): Mother is alive and healthy. Medications and Allergies Home Medications Medication Instructions Recorded Confirmed Type Lisinopril [Zestril] 5 mg PO DAILY #30 tab 03/20/17 07/21/19 Rx Albuterol Inhaler [Ventolin Hfa 2 puff INHALATION RT-Q6H PRN 04/08/18 07/21/19 History Inhaler] valACYclovir HCL [Valacyclovir] 1,000 mg PO HS 04/08/18 07/21/19 History Cetirizine HCl [Zyrtec] 10 mg PO HS 06/25/19 07/21/19 History Topiramate [Topamax] 50 mg PO BID 06/25/19 07/21/19 History metFORMIN HCL [metFORMIN HCL ER] 750 mg PO DAILY 06/25/19 07/21/19 History Aspirin 81 mg PO DAILY #30 chew 06/27/19 07/21/19 Rx Isosorbide Mononitrate ER [Imdur] 30 mg PO DAILY #30 tab.er.24h 06/27/19 07/21/19 Rx Metoprolol Tartrate [Lopressor] 25 mg PO DAILY #30 tab 06/27/19 07/21/19 Rx Nitroglycerin Sl Tabs [Nitrostat] 0.4 mg SUBLINGUAL Q5M PRN #25 tab 06/27/19 07/21/19 Rx Ticagrelor [Brilinta] 90 mg PO BID #60 tab 06/27/19 07/21/19 Rx Atorvastatin [Lipitor] 80 mg PO HS 07/21/19 07/21/19 History Multivit-Min/Iron/Folic/Lutein 1 tab PO HS 07/21/19 07/21/19 History [Centrum Silver Women Tablet] Allergies Allergy/AdvReac Type Severity Reaction Status Date / Time horse dander Allergy Unknown Verified 07/21/19 07:58 hydrocodone [From Vicodin] AdvReac Vertigo Verified 07/21/19 07:58 mold AdvReac Abdominal Verified 07/21/19 07:58 Pain Mushroom AdvReac Abdominal Verified 07/21/19 07:58 Pain pentazocine [From Talwin] AdvReac Confusion Verified 07/21/19 07:58 pseudoephedrine AdvReac Confusion Verified 07/21/19 07:58 [From Seldane-D] terfenadine [From Seldane-D] AdvReac Confusion Verified 07/21/19 07:58 Physical Exam Vitals: Vital Signs Temp Pulse Pulse Resp BP BP Pulse Ox 07/21/19 11:51 78 18 07/21/19 10:53 78 18 07/21/19 09:57 97.5 F L 78 18 134/80 98 07/21/19 09:39 98 F 89 16 145/90 99 07/21/19 07:12 18 07/21/19 06:35 98.7 F 80 18 147/85 98 Intake and Output 07/20/19 07/21/19 07/21/19 22:59 06:59 14:59 Other: Voiding Method Toilet Weight 81.647 kg 81.647 kg PHYSICAL EXAM: VITAL SIGNS: [As above] GENERAL: Sitting up in a chair, no acute distress HEENT: Conjunctivae normal. eyes normal. NECK: No JVD. No thyroid enlargement. No LNs CARDIOVASCULAR: S1, S2 regular.. No murmur RESPIRATION: Breath sounds diminished in the bases. No rhonchi or crackles. No bronchial breathing. ABDOMEN: Soft, nontender . No guarding. no masses palpable. No ascites, No hepatosplenomegaly.Bowel sounds heard. LEGS: No edema. no swelling PSYCHIATRY: Alert and oriented X3, mood and affect normal. NERVOUS SYSTEM: Cranial N 2-12 grossly normal. Moves all 4 limbs. No focal deficits. Strength and sensation grossly intact.. Skin: no rash Lymphatic system. No LN neck axilla. Results CBC & Chem 7: 07/21/19 06:30 07/21/19 06:30 Labs: Abnormal Lab Results - Last 24 Hours (Table) 07/21/19 07/21/19 07/21/19 Range/Units 06:30 06:30 07:35 Lymphocytes # 0.8 L (1.0-4.8) k/uL Chloride 112 H (98-107) mmol/L Carbon Dioxide 14 L (22-30) mmol/L Glucose 294 H (74-99) mg/dL POC Glucose (mg/dL) 241 H (75-99) mg/dL 07/21/19 Range/Units 11:32 Lymphocytes # (1.0-4.8) k/uL Chloride (98-107) mmol/L Carbon Dioxide (22-30) mmol/L Glucose (74-99) mg/dL POC Glucose (mg/dL) 149 H (75-99) mg/dL Thrombosis Risk Factor Assmnt - Choose All That Apply Any of the Below Risk Factors Present?: Yes Each Factor Represents 1 point: Age 41-60 years, Obesity (BMI >25) Other Risk Factors: No Other congenital or acquired thrombophilia - If yes, enter type in comment: No Thrombosis Risk Factor Assessment Total Risk Factor Score: 2 Thrombosis Risk Factor Assessment Level: Low Risk Assessment and Plan Assessment: -Chest pain, atypical, ruling out acute coronary syndrome, in a patient with normal stress test last week.Possible esophageal spasm,possibly muscle skeletal, possibly related to acute asthma exacerbation. Cardiac enzyme series pending. -Recent acute asthma exacerbation, resolved. -Chronic intermittent asthma -Diabetes mellitus -CAD, history of MD, recent PCI 10/28/2018, recent stress last week -Hyperlipidemia -Hypertension -Hypothyroidism -Anxiety -Depression Discharge Medication List Lisinopril [Zestril] 5 mg PO DAILY #30 tab 03/20/17 [Rx] Albuterol Inhaler [Ventolin Hfa Inhaler] 2 puff INHALATION RT-Q6H PRN 04/08/18 [History] valACYclovir HCL [Valacyclovir] 1,000 mg PO HS 04/08/18 [History] Cetirizine HCl [Zyrtec] 10 mg PO HS 06/25/19 [History] Topiramate [Topamax] 50 mg PO BID 06/25/19 [History] metFORMIN HCL [metFORMIN HCL ER] 750 mg PO DAILY 06/25/19 [History] Aspirin 81 mg PO DAILY #30 chew 06/27/19 [Rx] Isosorbide Mononitrate ER [Imdur] 30 mg PO DAILY #30 tab.er.24h 06/27/19 [Rx] Metoprolol Tartrate [Lopressor] 25 mg PO DAILY #30 tab 06/27/19 [Rx] Nitroglycerin Sl Tabs [Nitrostat] 0.4 mg SUBLINGUAL Q5M PRN #25 tab 06/27/19 [Rx] Ticagrelor [Brilinta] 90 mg PO BID #60 tab 06/27/19 [Rx] Atorvastatin [Lipitor] 80 mg PO HS 07/21/19 [History] Multivit-Min/Iron/Folic/Lutein [Centrum Silver Women Tablet] 1 tab PO HS 07/21/19 [History] Plan: Continue current medication regime ,monitoring and symptomatic treatment. Evaluated by cardiology, series of troponins in place. No further intervention recommended per cardiology at this time .Patient to be discharged home pending negative troponins/cardiac clearance, in a stable condition with guarded prognosis. The impression and plan of care has been dictated as directed. : I performed a history and examination of this patient, discussed the same with the dictator. I agree with the dictator's note ,documented as a scribe. Any additional findings or plans will be noted.
[2019-07-21 15:40] VITALS: BMI 29.0
[2019-07-21 16:33] LABS: Glucose,Whole Blood 184 mg/dL (75-99)
[2019-07-21 20:29] LABS: Glucose,Whole Blood 102 mg/dL (75-99)
[2019-07-21] MEDS ORDERED: ATORVASTATIN 80 MG TAB PO SCH (21:00)
[2019-07-21] MEDS ORDERED: MULTIVITAMINS, THERA 1 EACH TAB PO SCH (21:00)
[2019-07-21] MEDS ORDERED: valACYclovir HCL 1,000 MG TABLET PO SCH (21:00)
[2019-07-21] MEDS: TOPIRAMATE 25 MG TAB PO SCH (21:04)
[2019-07-22 06:37] LABS: Glucose,Whole Blood 134 mg/dL (75-99)
[2019-07-22 07:38] VITALS: BP 147/79; PULSE 57; TEMP 97.5
[2019-07-22] MEDS ORDERED: ASPIRIN 81 MG PO SCH (09:00)
[2019-07-22] MEDS: INSULIN ASPART (NovoLOG) 100 UNIT/ML VIAL SQ SCH (09:03)
--- NOTE | 2019-07-22 10:06 | P.PN ---
Subjective HISTORY OF PRESENTING ILLNESS This is a pleasant 54-year-old female past medical history significant for coronary artery disease status post PCI to the mid RCA 06/25/2019 maintained on dual antiplatelet therapy, hypertension, dyslipidemia, diabetes mellitus, asthma and obstructive sleep apnea. She follows in the office with Dr. Emani peck. She is seen and examined sitting up in bed in no acute distress. She states she still feels mild soreness under the left axilla. Blood pressure 147/79 heart rate 57 afebrile and maintaining oxygen saturation on room air. Cardiac enzymes negative x3. PHYSICAL EXAMINATION CONSTITUTIONAL: No apparent distress. HEENT: Head is normocephalic. Pupils are equal, round. Sclerae anicteric. Mucous membranes of the mouth are moist. No JVD. No carotid bruit. CHEST EXAMINATION: Lungs are clear to auscultation. No chest wall tenderness is noted on palpation or with deep breathing. HEART EXAMINATION: Regular rate and rhythm. S1, S2 heard. No murmurs, gallops or rub. EXTREMITIES: 2+ peripheral pulses, no lower extremity edema and no calf tenderness. ASSESSMENT Chest pain, atypical. History of coronary artery disease status post recent stent placement maintained on dual antiplatelet therapy. Normal stress test in the office last week. Hypertension Dyslipidemia Diabetes mellitus Asthma Obstructive sleep apnea PLAN Pain is atypical for angina, an acute event has been ruled out. Likely musc uloskeletal strain. Stable for discharge from a cardiac perspective. Follow-up in the office with Dr. Coates in 2 weeks. Nurse Practitioner note has been reviewed, I agree with a documented findings and plan of care. Patient was seen and examined. Objective - Vital Signs Vital signs: Vital Signs Temp 97.5 F L 07/22/19 07:00 Pulse 57 L 07/22/19 07:00 Resp 18 07/22/19 07:00 BP 147/79 07/22/19 07:00 Pulse Ox 100 07/22/19 07:00 Intake & Output 07/21/19 07/22/19 07/22/19 18:59 06:59 18:59 Weight 81.647 kg 111 kg Other: Voiding Method Toilet Toilet # Voids 2 1 - Labs CBC & Chem 7: 07/21/19 06:30 07/21/19 06:30 Labs: Abnormal Lab Results - Last 24 Hours (Table) 07/21/19 07/21/19 07/21/19 Range/Units 11:32 16:31 20:25 POC Glucose (mg/dL) 149 H 184 H 102 H (75-99) mg/dL 07/22/19 Range/Units 06:35 POC Glucose (mg/dL) 134 H (75-99) mg/dL
[2019-07-22] MEDS: TOPIRAMATE 25 MG TAB PO SCH (11:09)
[2019-07-22] MEDS: TICAGRELOR 90 MG TAB PO SCH (11:09)
[2019-07-22] MEDS: METOPROLOL TARTRATE 25 MG TAB PO SCH (11:09)
== END 2019-07-22 11:05 | disposition home or self-care (01) ==
LOC: EC 06:29 → 1SOBS 09:21
PROVIDERS: ADMIT Family Medicine; ATTEND Family Medicine
DX: R07.89 Other chest pain (principal); E11.40 Type 2 diabetes mellitus with diabetic neuropathy, unspecified; E78.5 Hyperlipidemia, unspecified; F32.9 Major depressive disorder, single episode, unspecified; F41.9 Anxiety disorder, unspecified; G47.33 Obstructive sleep apnea (adult) (pediatric); I10 Essential (primary) hypertension; E11.65 Type 2 diabetes mellitus with hyperglycemia; I25.10 Atherosclerotic heart disease of native coronary artery without angina pectoris; I25.2 Old myocardial infarction; Z79.02 Long term (current) use of antithrombotics/antiplatelets; Z79.82 Long term (current) use of aspirin; Z79.84 Long term (current) use of oral hypoglycemic drugs; Z79.899 Other long term (current) drug therapy; Z82.49 Family history of ischemic heart disease and other diseases of the circulatory system; Z83.3 Family history of diabetes mellitus; Z90.710 Acquired absence of both cervix and uterus; Z95.5 Presence of coronary angioplasty implant and graft; Z88.5 Allergy status to narcotic agent; Z88.8 Allergy status to other drugs, medicaments and biological substances; Z91.018 Allergy to other foods; Z91.048 Other nonmedicinal substance allergy status; Z99.89 Dependence on other enabling machines and devices; M54.32 Sciatica, left side; M54.31 Sciatica, right side; K58.0 Irritable bowel syndrome with diarrhea; J45.20 Mild intermittent asthma, uncomplicated; E66.9 Obesity, unspecified; Z68.39 Body mass index [BMI] 39.0-39.9, adult; E03.9 Hypothyroidism, unspecified
CPT/HCPCS: 99285; 36415; 93005; 83880; 80053; 83735; 84484; 85025; 85610; 85730; G0378 ×2

== ENCOUNTER → 2019-08-04 | Outpatient (CLI) | payer BC ==
--- NOTE | 2019-08-05 08:11 | MR ---
EXAMINATION TYPE: MR shoulder RT wo con DATE OF EXAM: 08/04/2019 COMPARISON: None HISTORY: Rt shoulder pain x 2 mos TECHNIQUE: Multiplanar, multisequence imaging of the right shoulder is performed without contrast. FINDINGS: Exam limited by motion artifact. Rotator Cuff: There is diffuse thickening and increased signal of the distal 2 cm of the supraspinatus and infraspi natus tendons extending to the insertions compatible severe tendinopathy and diffuse intrasubstance d egenerative tears. No retraction. Near the insertion of the subscapularis tendon there is a focal area measuring 3 mm of increased sign al compatible with a partial tear with no retraction. Acromioclavicular Joint: Mild hypertrophic change of the AC joint. No definite mass effect upon the r otator cuff. Glenohumeral Joint: Joint spaces preserved. No sizable joint effusion. Glenohumeral ligaments are int act. Labrum: The labrum appears grossly intact given limitation of non-arthrogram study. Biceps Tendon: The long head of biceps is in normal location within bicipital groove. Bone marrow signal: No focal abnormal marrow signal is appreciated. Other: No additional significant abnormality is appreciated. IMPRESSION: 1. The distal 2 cm of both the supraspinatus and infraspinatus tendons demonstrate marked thickening and increased signal compatible with diffuse severe tendinopathy extending to the insertion and parti al near through thickness tears. 2. There is a focal 3 mm partial tear near the insertion of the subscapularis tendon with no evidence of retraction. 3. Arthropathy of the AC joint without evidence of overt impingement.
== END | disposition home or self-care (01) ==
LOC: RADMRIMAIN 16:42
PROVIDERS: ATTEND Family Medicine
DX: M19.011 Primary osteoarthritis, right shoulder (principal); S46.911A Strain of unspecified muscle, fascia and tendon at shoulder and upper arm level, right arm, initial encounter

== ENCOUNTER → 2019-08-06 | Outpatient (CLI) | payer BC ==
--- NOTE | 2019-08-06 13:06 | PN ---
PROGRESS NOTE DATE OF SERVICE: 08/06/2019 A 54-year-old lady who has been followed in the [facility] for treatment of obstructive sleep apnea-hypopnea syndrome. Patient had a polysomnogram which showed mild obstructive sleep apnea-hypopnea syndrome and done during titration which was done in April of 2019 on all level of pressures from 5-8. Apnea-hypopnea index was observed within normal less than 1, around 2. Subsequently, patient received CPAP unit, started to use it and today is the first time that she came in for followup visit while using her CPAP equipment. At the beginning of June of 2019, the patient developed episodes of chest pain and was diagnosed with CA and subsequently had cardiac cath and stent insertion. Since that time, she does not sleep well, feel nervous. I checked her CPAP unit. CPAP pressure is 7 cm of water. For the last 72 nights since patient received the machine, patient is using it 54 nights and 43 nights for more than 4 hours with average usage 5.4 hours per night. Leak is 7 L/minute. Apnea-hypopnea index 12.1 with a central apnea index 6.9. For the last 4 months, usage is 14/30 nights for more than 4 hours, leak is 2 L/minute and apnea-hypopnea index 22.1 with central apnea index 13.7. Bushnell Sleepiness Scale today is 7. MEDICATIONS: Metformin, atorvastatin, lisinopril, Valacyclovir, Zyrtec, albuterol, , metoprolol, isosorbide, aspirin, Brilinta, nitroglycerin, Maxitrol, Keflex. PHYSICAL EXAM: A lady without distress, BP 138/83, HR 75, RR 16, weight 195.4, temperature 98.1, oxygen saturation at room air 97%. OROPHARYNX: Extremely low position of soft palate, Mallampati 4. NECK: Supple, no JVD. Thyroid is not palpable. LUNGS: Clear to percussion and to auscultation. Good air exchange. No wheezing or rhonchi. HEART: S1, S2 regular. No murmurs, gallops, or rubs. ABDOMEN: Soft and nontender. Bowel sounds are present. No organomegaly appreciated. EXTREMITIES: No clubbing or cyanosis. BISQUE CLEANER: Awake, alert, and oriented X3. Cranial nerves 2 to 7 intact. There is no fasciculation or atrophy. noted. No focal deficits observed. IMPRESSION: 1. Mild obstructive sleep apnea-hypopnea syndrome. Patient started to use CPAP equipment, but according to reading from the machine, she continued to have some abnormalities of respiration with significant amount of central apneas, possibly related to bad quality of sleep while she is using her CPAP equipment and part of the night patient probably staying awake. 2. Coronary artery disease, status post heart attack at the beginning of June of 2019, status post stent insertion. 3. Mild obesity. 4. Hypertension. 5. Diabetes mellitus. 6. Asthma. 7. Seasonal allergy. 8. Status post surgical treatment for nasoseptal deviation. 9. Hyperlipidemia. PLAN: 1. I will change regimen in CPAP unit to the lower level, it will be in the range from 4-6 cm of water range. 2. Patient will continue to use equipment every night for the whole night. 3. Precautions related to driving. No driving if feeling sleepiness. 4. Watching weight. Thank you very much for allowing me to participate in management of your patient. Sincerely, Ryan White MD, PhD, FAASM Diplomat of [employer] Clerk [facility] [place] MMODL / IJN: [id number] /
== END | disposition home or self-care (01) ==
LOC: SLEEP 11:39
PROVIDERS: ATTEND Internal Medicine
DX: G47.33 Obstructive sleep apnea (adult) (pediatric) (principal); I25.10 Atherosclerotic heart disease of native coronary artery without angina pectoris; E66.9 Obesity, unspecified; I10 Essential (primary) hypertension; E11.9 Type 2 diabetes mellitus without complications; J30.2 Other seasonal allergic rhinitis; E78.5 Hyperlipidemia, unspecified; Z86.74 Personal history of sudden cardiac arrest; Z98.890 Other specified postprocedural states; Z95.828 Presence of other vascular implants and grafts; Z79.84 Long term (current) use of oral hypoglycemic drugs; Z79.82 Long term (current) use of aspirin; Z79.899 Other long term (current) drug therapy

== ENCOUNTER 2019-08-20 23:26 | Emergency (ER) | payer BC ==
[2019-08-20 23:31] VITALS: TEMP 97.6
[2019-08-20] MEDS ORDERED: ASPIRIN 81 MG PO STA (23:44)
--- NOTE | 2019-08-20 23:51 | ED ---
Chest Pain HPI - General Chief Complaint: Chest Pain Stated Complaint: Chest Pain Time Seen by Provider: 08/20/19 23:35 Source: patient Mode of arrival: ambulatory Limitations: no limitations - History of Present Illness Initial Comments: Patient is 54-year-old woman who presents to be evaluated for chest pain. She states that it came on a number of hours ago tonight while she was at work. She states that it feels like a tight feeling in the left side of her chest. She has not noted any worsening or relieving factors. No associated symptoms. She does answer yes for nausea but states that this is been going on for number days, preceding the chest pain. MD Complaint: chest pain Onset/Timin -: hour(s) Onset: other (While at work) Pain Location: left chest Severity: moderate Quality: heaviness Consistency: constant Improves With: nothing Worsens With: nothing Treatments Prior to Arrival: none - Related Data Home Medications Medication Instructions Recorded Confirmed Albuterol Inhaler [Ventolin Hfa 2 puff INHALATION RT-Q6H PRN 04/08/18 07/21/19 Inhaler] valACYclovir HCL [Valacyclovir] 1,000 mg PO HS 04/08/18 07/21/19 Cetirizine HCl [Zyrtec] 10 mg PO HS 06/25/19 07/21/19 Topiramate [Topamax] 50 mg PO BID 06/25/19 07/21/19 metFORMIN HCL [metFORMIN HCL ER] 750 mg PO DAILY 06/25/19 07/21/19 Atorvastatin [Lipitor] 80 mg PO HS 07/21/19 07/21/19 Multivit-Min/Iron/Folic/Lutein 1 tab PO HS 07/21/19 07/21/19 [Centrum Silver Women Tablet] Previous Rx's Medication Instructions Recorded Lisinopril [Zestril] 5 mg PO DAILY #30 tab 03/20/17 Aspirin 81 mg PO DAILY #30 chew 06/27/19 Isosorbide Mononitrate ER [Imdur] 30 mg PO DAILY #30 tab.er.24h 06/27/19 Metoprolol Tartrate [Lopressor] 25 mg PO DAILY #30 tab 06/27/19 Nitroglycerin Sl Tabs [Nitrostat] 0.4 mg SUBLINGUAL Q5M PRN #25 tab 06/27/19 Ticagrelor [Brilinta] 90 mg PO BID #60 tab 06/27/19 Allergies Allergy/AdvReac Type Severity Reaction Status Date / Time horse dander Allergy Unknown Verified 08/20/19 23:31 hydrocodone [From Vicodin] AdvReac Vertigo Verified 08/20/19 23:31 mold AdvReac Abdominal Verified 08/20/19 23:31 Pain Mushroom AdvReac Abdominal Verified 08/20/19 23:31 Pain pentazocine [From Talwin] AdvReac Confusion Verified 08/20/19 23:31 pseudoephedrine AdvReac Confusion Verified 08/20/19 23:31 [From Seldane-D] terfenadine [From Seldane-D] AdvReac Confusion Verified 08/20/19 23:31 Review of Systems ROS Statement: Those systems with pertinent positive or pertinent negative responses have been documented in the HPI. ROS Other: All systems not noted in ROS Statement are negative. Constitutional: Denies: fever, chills Respiratory: Denies: cough, dyspnea Cardiovascular: Reports: as per HPI, chest pain. Denies: palpitations, orthopnea, edema, syncope Gastrointestinal: Denies: abdominal pain, nausea, vomiting Genitourinary: Denies: dysuria, hematuria Musculoskeletal: Denies: back pain Skin: Denies: rash Neurological: Denies: headache EKG Findings - EKG Results: EKG: interpreted by JALEN KRISHNAN, sinus rhythm (Rate 74 bpm), normal axis, normal QRS, normal ST/T, no acute changes Past Medical History Past Medical History: Asthma, Coronary Artery Disease (CAD), Chest Pain / Angina, Diabetes Mellitus, Eye Disorder, Hyperlipidemia, Hypertension, Myocardial Infarction (VT), Sleep Apnea/CPAP/BIPAP, Thyroid Disorder Additional Past Medical History / Comment(s): NIDDM type II, neuropathy biltateral legs/feet and occasionally in bilateral hands, pt states she has had R shoulder pain since radial cardiac cath on 06/25/19, past L shoulder pain, MALLORY with Cpap, hypothyroid tx with medication for a couple years then no longer needed, chronic low back pain and bilateral sciatica with L side worse, IBS, past rib fractures/pneumo with chest tube, bilateral narrow angle glaucoma corrected with surgery. Last Myocardial Infarction Date:: 06/25/19 History of Any Multi-Drug Resistant Organisms: None Reported Past Surgical History: Cholecystectomy, Heart Catheterization With Stent, Hysterectomy Additional Past Surgical History / Comment(s): Bilateral eye surgery for glaucoma, colonoscopy, sebacceous cyst removed from back, septal repair. Past Anesthesia/Blood Transfusion Reactions: No Reported Reaction Date of Last Stent Placement:: 06/25/19 Past Psychological History: Anxiety, Depression Smoking Status: Never smoker Past Alcohol Use History: None Reported Past Drug Use History: None Reported - Past Family History Father Family Medical History: Diabetes Mellitus, Myocardial Infarction (VT), Renal Disease Additional Family Medical History / Comment(s): Father of a massive VT while on dialysis at the age of 57yrs. He had an enlarged heart and cervical injury/pain. Mother Family Medical History: No Reported History Additional Family Medical History / Comment(s): Mother is alive and healthy. General Exam Limitations: no limitations General appearance: alert, in no apparent distress Head exam: Present: atraumatic, normocephalic Eye exam: Present: normal appearance. Absent: scleral icterus, conjunctival injection ENT exam: Present: normal oropharynx Neck exam: Present: normal inspection Respiratory exam: Present: normal lung sounds bilaterally. Absent: respiratory distress, wheezes, rales, rhonchi, stridor Cardiovascular Exam: Present: regular rate, normal rhythm, normal heart sounds. Absent: systolic murmur, diastolic murmur, rubs, gallop GI/Abdominal exam: Present: soft. Absent: distended, tenderness, guarding, rebound, rigid, mass Extremities exam: Present: normal inspection, normal capillary refill. Absent: pedal edema, calf tenderness Back exam: Present: normal inspection. Absent: CVA tenderness (R), CVA tenderness (L) Neurological exam: Present: alert Skin exam: Present: warm, dry, intact, normal color. Absent: rash Course Vital Signs 08/20/19 08/21/19 08/21/19 23:26 00:33 02:00 Temperature 97.6 F Pulse Rate 118 H 66 60 Respiratory 18 18 16 Rate Blood Pressure 156/89 117/68 110/62 O2 Sat by Pulse 99 97 96 Oximetry Disposition Clinical Impression: Chest pain Disposition: HOME SELF-CARE Condition: Good Instructions (If sedation given, give patient instructions): Chest Pain (ED) Is patient prescribed a controlled substance at d/c from ED?: No Referrals: Trevon Soto MD [Primary Care Provider] - 1-2 days
[2019-08-20 23:57] LABS: Basophils % (A) 1 %; Eosinophils # (A) 0.2 k/uL (0-0.7); Eosinophils % (A) 3 %; HCT 36.5 % (34.0-46.0); HGB 12.2 gm/dL (11.4-16.0); Lymphocytes # (A) 3.1 k/uL (1.0-4.8); Lymphocytes % (A) 45 %; MCH 30.3 pg (25.0-35.0); MCHC 33.4 g/dL (31.0-37.0); MCV 90.5 fL (80.0-100.0); Mean Platelet Volume 7.9; Monocytes # (A) 0.4 k/uL (0-1.0); Monocytes % (A) 6 %; Neutrophils % (A) 43 %; Platelet Count 249 k/uL (150-450); RBC 4.03 m/uL (3.80-5.40); RDW 13.8 % (11.5-15.5); WBC 6.8 k/uL (3.8-10.6)
[2019-08-21 00:09] LABS: ALT 21 U/L (4-34); AST 24 U/L (14-36); African American GFR (CKD) >90 (>60 ml/min/1.73 sqM); Albumin 4.5 g/dL (3.5-5.0); Alkaline Phosphatase 79 U/L (38-126); Anion Gap 13 mmol/L; Blood Urea Nitrogen 21 mg/dL (7-17); Calcium 9.2 mg/dL (8.4-10.2); Carbon Dioxide 21 mmol/L (22-30); Chloride 109 mmol/L (98-107); Glucose 99 mg/dL (74-99); Non-African American GFR(CKD) 88 (>60 ml/min/1.73 sqM); Potassium 3.8 mmol/L (3.5-5.1); Sodium 143 mmol/L (137-145); Total Bilirubin 0.3 mg/dL (0.2-1.3); Total Protein 6.8 g/dL (6.3-8.2)
[2019-08-21 00:10] LABS: D-Dimer 0.23 mg/L FEU (<0.60); INR 0.9 (<1.2); Partial Thromboplastin Time 23.7 sec (22.0-30.0); Prothrombin Time 9.6 sec (9.0-12.0)
--- NOTE | 2019-08-21 00:26 | XR ---
EXAMINATION TYPE: XR chest 2V DATE OF EXAM: 08/21/2019 COMPARISON: 07/20/2019 HISTORY: Chest pain TECHNIQUE: FINDINGS: Heart and mediastinum are normal. Lungs are clear. Diaphragm is normal. Bony thorax appears normal. IMPRESSION: Normal chest.
[2019-08-21 04:04] VITALS: BP 119/75; PULSE 64; RESP 18
== END 2019-08-21 04:02 | disposition home or self-care (01) ==
LOC: EC 23:26
DX: R07.89 Other chest pain (principal); R11.0 Nausea; J45.909 Unspecified asthma, uncomplicated; I25.119 Atherosclerotic heart disease of native coronary artery with unspecified angina pectoris; E11.42 Type 2 diabetes mellitus with diabetic polyneuropathy; E78.5 Hyperlipidemia, unspecified; I10 Essential (primary) hypertension; I25.2 Old myocardial infarction; G47.33 Obstructive sleep apnea (adult) (pediatric); Z88.5 Allergy status to narcotic agent; Z88.6 Allergy status to analgesic agent; Z88.8 Allergy status to other drugs, medicaments and biological substances; Z91.018 Allergy to other foods; Z91.048 Other nonmedicinal substance allergy status; Z79.84 Long term (current) use of oral hypoglycemic drugs; Z79.899 Other long term (current) drug therapy; Z86.69 Personal history of other diseases of the nervous system and sense organs; Z98.890 Other specified postprocedural states; Z95.5 Presence of coronary angioplasty implant and graft; Z90.49 Acquired absence of other specified parts of digestive tract; Z99.89 Dependence on other enabling machines and devices; Z82.49 Family history of ischemic heart disease and other diseases of the circulatory system
CPT/HCPCS: 36415; 71046; 80053; 83735; 84484; 85025; 85379; 85610; 85730; 93005; 99285

== ENCOUNTER → 2019-08-20 | Outpatient (CLI) | payer BC ==
--- NOTE | 2019-08-20 12:45 | PN ---
PROGRESS NOTE DATE OF SERVICE: 08/20/2019 A 54-year-old lady who has been followed in the [facility] for treatment of mild obstructive sleep apnea-hypopnea syndrome. During the previous visit, patient had difficulties with the using of her CPAP equipment. I decreased the level of pressure down, today she came for followup visit. She still continued to have problems with her CPAP equipment. She does not like her nasal pillow mask. She is trying to use a full-face mask. I checked her CPAP unit, range of the pressure is 4-6 cm of water in automatic regimen and pressure in the machine is 6 cm of water. Subsequently, machine choosing maximal range of pressure. Usage is 23/30 nights and 17/30 nights for more than 4 hours with average usage 4.9 hours per night. Leak is 4 L/minute which is not high. At the same time, apnea-hypopnea index increased to 18.4 with central apnea index 10.8. Sunbright Sleepiness Scale today is 6. MEDICATIONS: Metformin, atorvastatin, lisinopril, valacyclovir, Zyrtec, albuterol, metoprolol, isosorbide, aspirin, Brilinta, nitroglycerin, Maxitrol, Keflex, PHYSICAL EXAM: Patient in no distress, BP 129/71, HR 63, RR 14, temperature 97.6, oxygen saturation at room air 98%. OROPHARYNX: Retrognathia 2 to 3 mm, extremely low position of soft palate, Mallampati 4. ABDOMEN: Slightly obese. PHYSICAL EXAMINATION: GENERAL: A pleasant patient without any distress. VITAL SIGNS: BP@@ , HR@@ , RR@@, height @@ , weight @@ , BMI @@, temperature @@ , oxygen saturation at room air @@%. HEENT: PERRLA, EOMI, evaluation of oropharynx showed tongue protrudes midline. NECK: Supple, no JVD. Thyroid is not palpable. LUNGS: Clear to percussion and to auscultation. Good air exchange. No wheezing or rhonchi. HEART: S1, S2 regular. No murmurs, gallops, or rubs. ABDOMEN: Soft and nontender. Bowel sounds are present. No organomegaly appreciated. EXTREMITIES: No clubbing or cyanosis. DIRECT SERVICE PROVIDER: Awake, alert, and oriented X3. Cranial nerves 2 to 7 intact. There is no fasciculation or atrophy. noted. No focal deficits observed. IMPRESSION: 1. Mild obstructive sleep apnea-hypopnea syndrome. Patient continued to have problems with CPAP. Apnea-hypopnea index increased above normal range, mostly secondary to central apneas. 2. Coronary artery disease, status post heart attack at the beginning of June of 2019, status post stent insertion. 3. Mild obesity. 4. Hypertension. 5. Diabetes mellitus. 6. Asthma. 7. Seasonal allergy. 8. Status post surgical treatment for nasal septum deviation. 9. Hyperlipidemia. PLAN: 1. I will increase the range of the pressure from 4-10 cm of water. 2. Followup visit in one month. 3. We may consider referring for oral appliances. 4. No driving if feeling sleepiness. 5. Because of significant amount of central sleep apneas, treatment with BiPAP in ST mode also could be considered. Thank you very much for allowing me to participate in the management of your patient. Sincerely, Ryan White MD, PhD, FAASM Diplomat of [employer] Helper [facility] [place] MMODL / IJN: [id number] /
== END | disposition home or self-care (01) ==
LOC: SLEEP 11:00
PROVIDERS: ATTEND Internal Medicine
DX: G47.33 Obstructive sleep apnea (adult) (pediatric) (principal); E66.9 Obesity, unspecified; I10 Essential (primary) hypertension; E78.5 Hyperlipidemia, unspecified; E11.9 Type 2 diabetes mellitus without complications; J45.909 Unspecified asthma, uncomplicated; Z95.5 Presence of coronary angioplasty implant and graft; Z86.79 Personal history of other diseases of the circulatory system; Z98.890 Other specified postprocedural states; Z79.84 Long term (current) use of oral hypoglycemic drugs; Z79.899 Other long term (current) drug therapy; Z79.82 Long term (current) use of aspirin; Z79.2 Long term (current) use of antibiotics

== ENCOUNTER → 2020-01-07 | Outpatient (CLI) | payer BC ==
--- NOTE | 2020-01-15 11:56 | MM ---
Reason for exam: additional evaluation requested from prior study. Last mammogram was performed 1 year and 4 months ago. History: Family history of breast cancer in maternal grandmother at age 60. Physical Findings: Nurse did not find any significant physical abnormalities on exam. MG 3D Diag Mammo W/Cad TIFFANIE Bilateral CC and MLO view(s) were taken. Prior study comparison: September 12, 2018, mammogram, performed at [facility]. August 23, 2017, mammogram, performed at [facility]. There are scattered fibroglandular densities. There is chronic nodularity in the right breast. Central asymmetric density incompletely disperses on 3D. Spot 3D views recommended. ASSESSMENT: Incomplete: need additional imaging evaluation, BI-RAD 0 RECOMMENDATION: Special view mammogram and ultrasound of the left breast. (for pain)
== END | disposition home or self-care (01) ==
LOC: RADMAMWWP 14:36
PROVIDERS: ATTEND Family Medicine
DX: N64.4 Mastodynia (principal); N63.10 Unspecified lump in the right breast, unspecified quadrant; N63.20 Unspecified lump in the left breast, unspecified quadrant
CPT/HCPCS: 77062; 77066

== ENCOUNTER → 2020-01-25 | Outpatient (CLI) | payer BC ==
--- NOTE | 2020-01-26 07:42 | USB ---
Reason for exam: additional evaluation requested from abnormal screening. History: Family history of breast cancer in maternal grandmother at age 60. US Breast Workup Limited LT Left limited breast ultrasound including focal area of concern, retroareolar and axilla demonstrates no cystic or solid lesion seen. These results were verbally communicated with the patient and result sheet given to the patient on 01/25/20. ASSESSMENT: Negative, BI-RAD 1 RECOMMENDATION: Routine screening mammogram of both breasts in 1 year. Manage patient on a clinical basis.
--- NOTE | 2020-01-26 07:42 | MM ---
Reason for exam: additional evaluation requested from abnormal screening. Last mammogram was performed 1 month ago. History: Family history of breast cancer in maternal grandmother at age 60. MG 3D Follow Up No Charge LT Spot compression CC, spot compression MLO, and LM view(s) were taken of the left breast. Prior study comparison: January 07, 2020, bilateral MG 3d diag mammo w/cad TIFFANIE. September 12, 2018, mammogram, performed at [facility]. August 23, 2017, mammogram, performed at [facility]. There are scattered fibroglandular densities. No distinct lesion persists on additional views. These results were verbally communicated with the patient and result sheet given to the patient on 01/25/20. ASSESSMENT: Negative, BI-RAD 1 RECOMMENDATION: Routine screening mammogram of both breasts in 1 year.
== END | disposition home or self-care (01) ==
LOC: RADMAMWWP 15:02
PROVIDERS: ATTEND Family Medicine
DX: R92.8 Other abnormal and inconclusive findings on diagnostic imaging of breast (principal)

== ENCOUNTER 2020-03-16 19:25 | Observation (INO) | payer BC ==
[2020-03-16 20:40] LABS: Albumin 4.4 g/dL (3.5-5.0); Basophils % (A) 0 %; Calcium 9.2 mg/dL (8.4-10.2); Eosinophils # (A) 0.3 k/uL (0-0.7); Eosinophils % (A) 3 %; HCT 38.1 % (34.0-46.0); HGB 12.8 gm/dL (11.4-16.0); Lymphocytes # (A) 4.1 k/uL (1.0-4.8); Lymphocytes % (A) 49 %; MCH 28.8 pg (25.0-35.0); MCHC 33.4 g/dL (31.0-37.0); Magnesium 1.9 mg/dL (1.6-2.3); Mean Platelet Volume 7.9; Monocytes # (A) 0.3 k/uL (0-1.0); Monocytes % (A) 4 %; Neutrophils # (A) 3.4 k/uL (1.3-7.7); Neutrophils % (A) 41 %; Platelet Count 227 k/uL (150-450); RBC 4.44 m/uL (3.80-5.40); RDW 13.2 % (11.5-15.5); Total Bilirubin 0.3 mg/dL (0.2-1.3); Total Protein 6.6 g/dL (6.3-8.2); WBC 8.2 k/uL (3.8-10.6)
[2020-03-16 20:44] LABS: INR 0.9 (<1.2); Partial Thromboplastin Time 24.6 sec (22.0-30.0); Prothrombin Time 9.7 sec (9.0-12.0)
--- NOTE | 2020-03-16 21:15 | ED ---
Chest Pain HPI - General Chief Complaint: Chest Pain Stated Complaint: Chest Pain Time Seen by Provider: 03/16/20 19:25 Source: patient, family Mode of arrival: ambulatory Limitations: no limitations - History of Present Illness Initial Comments: 54-year-old female past medical history of asthma, coronary artery disease, diabetes presents emergency room with reported chest pain. She states that the pain was present just prior to hospital arrival. She began having pain over the left side of her chest which radiated into her left arm. She had associated nausea. She took one of her nitro tablets and had fairly rapid improvement in her symptoms. She does state that she has a cardiac history. Sees Dr. Harvey. She had a stent placed in June. Reports that her most recent stress test was in December and was normal. The patient arrives to the hospital and is completely asymptomatic at this time. Denies a cough, shortness of breath. No lower extremity edema. Denies fevers or chills. No other alleviating, precipitating or modifying factors - Related Data Home Medications Medication Instructions Recorded Confirmed Cetirizine HCl [Zyrtec] 10 mg PO HS 06/25/19 03/16/20 Topiramate [Topamax] 50 mg PO BID 06/25/19 03/16/20 Atorvastatin [Lipitor] 80 mg PO HS 07/21/19 03/16/20 Multivit-Min/Iron/Folic/Lutein 1 tab PO HS 07/21/19 03/16/20 [Centrum Silver Women Tablet] Albuterol Inhaler [Ventolin Hfa 2 puff INHALATION RT-QID PRN 03/16/20 03/16/20 Inhaler] Nitroglycerin Sl Tabs [Nitrostat] 0.4 mg SL Q5M PRN 03/16/20 03/16/20 Previous Rx's Medication Instructions Recorded lisinopriL [Zestril] 5 mg PO DAILY #30 tab 03/20/17 Aspirin 81 mg PO DAILY #30 chew 06/27/19 Isosorbide Mononitrate ER [Imdur] 30 mg PO DAILY #30 tab.er.24h 06/27/19 Metoprolol Tartrate [Lopressor] 25 mg PO DAILY #30 tab 06/27/19 Ticagrelor [Brilinta] 90 mg PO BID #60 tab 06/27/19 metFORMIN HCL [Glucophage] 500 mg PO BID tab 03/17/20 Allergies Allergy/AdvReac Type Severity Reaction Status Date / Time horse dander Allergy Unknown Verified 03/16/20 23:02 hydrocodone [From Vicodin] AdvReac Vertigo Verified 03/16/20 23:02 mold AdvReac Abdominal Verified 03/16/20 23:02 Pain Mushroom AdvReac Abdominal Verified 03/16/20 23:02 Pain pentazocine [From Talwin] AdvReac Confusion Verified 03/16/20 23:02 pseudoephedrine AdvReac Confusion Verified 03/16/20 23:02 [From Seldane-D] terfenadine [From Seldane-D] AdvReac Confusion Verified 03/16/20 23:02 Review of Systems ROS Statement: Those systems with pertinent positive or pertinent negative responses have been documented in the HPI. ROS Other: All systems not noted in ROS Statement are negative. EKG Findings - EKG Comments: EKG Findings:: EKG demonstrates a normal sinus rhythm with ventricular rate of 70. IN interval 158. QRS 74. QTC of 436. No acute ST segment elevations or depressions concerning for ischemic changes Past Medical History Past Medical History: Asthma, Coronary Artery Disease (CAD), Chest Pain / Angina, Diabetes Mellitus, Eye Disorder, Hyperlipidemia, Hypertension, Myocardial Infarction (AL), Sleep Apnea/CPAP/BIPAP, Thyroid Disorder Additional Past Medical History / Comment(s): NIDDM type II, neuropathy biltat eral legs/feet and occasionally in bilateral hands, pt states she has had R shoulder pain since radial cardiac cath on 06/25/19, past L shoulder pain, MALLORY with Cpap, hypothyroid tx with medication for a couple years then no longer needed, chronic low back pain and bilateral sciatica with L side worse, IBS, past rib fractures/pneumo with chest tube, bilateral narrow angle glaucoma corrected with surgery. Last Myocardial Infarction Date:: 06/25/19 History of Any Multi-Drug Resistant Organisms: None Reported Past Surgical History: Cholecystectomy, Heart Catheterization With Stent, Hysterectomy Additional Past Surgical History / Comment(s): Bilateral eye surgery for glaucoma, colonoscopy, sebacceous cyst removed from back, septal repair. Past Anesthesia/Blood Transfusion Reactions: No Reported Reaction Date of Last Stent Placement:: 06/25/19 Past Psychological History: Anxiety, Depression Smoking Status: Never smoker Past Alcohol Use History: None Reported Past Drug Use History: None Reported - Past Family History Father Family Medical History: Diabetes Mellitus, Myocardial Infarction (AL), Renal Disease Additional Family Medical History / Comment(s): Father of a massive AL while on dialysis at the age of 57yrs. He had an enlarged heart and cervical i njury/pain. Mother Family Medical History: No Reported History Additional Family Medical History / Comment(s): Mother is alive and healthy. General Exam Limitations: no limitations General appearance: alert, in no apparent distress Head exam: Present: atraumatic, normocephalic, normal inspection Eye exam: Present: normal appearance, PERRL, EOMI. Absent: scleral icterus, conjunctival injection, periorbital swelling ENT exam: Present: normal exam, mucous membranes moist Neck exam: Present: normal inspection. Absent: tenderness, meningismus, lymphadenopathy Respiratory exam: Present: normal lung sounds bilaterally. Absent: respiratory distress, wheezes, rales, rhonchi, stridor Cardiovascular Exam: Present: regular rate, normal rhythm, normal heart sounds. Absent: systolic murmur, diastolic murmur, rubs, gallop, clicks GI/Abdominal exam: Present: soft, normal bowel sounds. Absent: distended, tenderness, guarding, rebound, rigid Extremities exam: Present: normal inspection, full ROM, normal capillary refill. Absent: tenderness, pedal edema, joint swelling, calf tenderness Back exam: Present: normal inspection Neurological exam: Present: alert, oriented X3, CN II-XII intact Psychiatric exam: Present: normal affect, normal mood Skin exam: Present: warm, dry, intact, normal color. Absent: rash Course Vital Signs 03/16/20 03/16/20 03/16/20 19:25 19:48 21:42 Temperature 98.1 F 98 F Pulse Rate 69 66 64 Respiratory 18 18 18 Rate Blood Pressure 130/78 117/73 126/82 O2 Sat by Pulse 100 99 100 Oximetry 03/16/20 23:02 Temperature 97.9 F Pulse Rate 60 Respiratory 18 Rate Blood Pressure 132/75 O2 Sat by Pulse 99 Oximetry Chest Pain MDM - MDM Upon arrival the patient is placed into room 2. A thorough history and physical exam was performed. Patient is hooked up to continuous pulse ox and cardiac monitoring. Laboratory studies were performed here patient is sent for chest x- ray. Laboratory studies are normal. Troponin is negative. Chest x-ray demonstrates no acute cardiomegaly process. Patient remained symptom free. I did recommend hospital admission in order to trend her troponins as she does have a previous cardiac history. Patient agreed to this. Discussed case with Dr. Mahoney who agreed to admit the patient. Gabriela troponins are orders. She remained in stable condition and was transported to the floor Disposition Clinical Impression: Chest pain, Coronary artery disease Disposition: ADMITTED IP TO THIS HOSP Condition: Stable Is patient prescribed a controlled substance at d/c from ED?: No Decision to Admit Reason: Admit from EC Decision Date: 03/16/20 Decision Time: 21:55
--- NOTE | 2020-03-16 21:19 | XR ---
EXAMINATION TYPE: XR chest 2V DATE OF EXAM: 03/16/2020 COMPARISON: 08/21/2019 INDICATION: Chest pain heart attack 9 months ago TECHNIQUE: Frontal and lateral views of the chest are obtained. FINDINGS: The heart size is normal. The pulmonary vasculature is normal. The lungs are clear. IMPRESSION: 1. No acute pulmonary process.
[2020-03-16] MEDS ORDERED: NALOXONE 0.4 MG/ML 1 ML VIAL IV PRN (21:56)
[2020-03-16] MEDS ORDERED: ASPIRIN 81 MG PO STA (22:39)
[2020-03-17] MEDS ORDERED: ALBUTEROL NEBULIZED 2.5 MG/3 ML INHALATION PRN (00:49)
[2020-03-17] MEDS ORDERED: NITROGLYCERIN SL TABS 0.4 MG TAB SUBLINGUAL PRN (00:49)
[2020-03-17] MEDS: TOPIRAMATE 25 MG TAB PO SCH ×2 (01:39→10:03)
[2020-03-17] MEDS: TICAGRELOR 90 MG TAB PO SCH ×2 (01:39→10:42)
[2020-03-17 03:16] LABS: Basophils % (A) 0 %; Eosinophils # (A) 0.4 k/uL (0-0.7); Eosinophils % (A) 5 %; HCT 35.3 % (34.0-46.0); HGB 11.8 gm/dL (11.4-16.0); Lymphocytes # (A) 4.2 k/uL (1.0-4.8); Lymphocytes % (A) 55 %; MCH 29.1 pg (25.0-35.0); MCHC 33.6 g/dL (31.0-37.0); MCV 86.5 fL (80.0-100.0); Mean Platelet Volume 7.4; Monocytes # (A) 0.3 k/uL (0-1.0); Monocytes % (A) 4 %; Neutrophils # (A) 2.5 k/uL (1.3-7.7); Neutrophils % (A) 33 %; Platelet Count 224 k/uL (150-450); RBC 4.08 m/uL (3.80-5.40); RDW 13.3 % (11.5-15.5); WBC 7.6 k/uL (3.8-10.6)
[2020-03-17 03:28] LABS: African American GFR (CKD) >90 (>60 ml/min/1.73 sqM); Anion Gap 7 mmol/L; Blood Urea Nitrogen 22 mg/dL (7-17); Calcium 8.8 mg/dL (8.4-10.2); Carbon Dioxide 23 mmol/L (22-30); Chloride 109 mmol/L (98-107); Glucose 102 mg/dL (74-99); Non-African American GFR(CKD) >90 (>60 ml/min/1.73 sqM); Potassium 3.6 mmol/L (3.5-5.1); Sodium 139 mmol/L (137-145)
[2020-03-17 06:49] LABS: Glucose,Whole Blood 110 mg/dL (75-99)
[2020-03-17 08:31] VITALS: BP 126/73; PULSE 59; RESP 16; TEMP 97.7
[2020-03-17] MEDS ORDERED: METOPROLOL TARTRATE 25 MG TAB PO SCH (09:00)
[2020-03-17] MEDS ORDERED: ISOSORBIDE MONONITRATE ER 30 MG TAB.ER.24H PO SCH (09:00)
[2020-03-17] MEDS ORDERED: lisinopriL 5 MG TAB PO SCH (09:00)
[2020-03-17] MEDS ORDERED: ASPIRIN 81 MG PO SCH (09:00)
[2020-03-17] MEDS ORDERED: metFORMIN 500 MG TAB PO SCH (09:00)
[2020-03-17 10:51] LABS: Cholesterol 116 mg/dL (<200); HDL Cholesterol 32 mg/dL (40-60); LDL Cholesterol,Calculated 57 mg/dL (0-99); Triglycerides 134 mg/dL (<150)
--- NOTE | 2020-03-17 11:34 | P.HPIM ---
History of Present Illness H&P Date: 03/17/20 Chief Complaint: Chest pain History and Physical and Discharge Summary This is a pleasant 54-year-old female with past medical history of CAD, [place], recent stent in June 2019, reports normal stress test in December 2019 ,type 2 diabetes, hyperlipidemia, hypertension, asthma and multiple other medical issues, presented to the ER with recent occurring sharp left-sided chest pain radiating to left arm accompanied by nausea. Episode occurred after showering this morning .Patient reports she has been under significant stress, kids were fighting, police were called. She reports improvement after 1 sublingual nitroglycerin tablet. Denies fevers, chills, cough, congestion. Denies further nausea, vomiting, diarrhea. Denies abdominal pain. Denies lightheadedness, dizziness or focal deficits. On arrival to the ER patient was reported as asymptomatic. EKG reported normal sinus rhythm. Troponin negative 3. Triglycerides 134, cholesterol and 16, LDL 57, HDL 32. Electrolytes within normal limits. BUN 26, creatinine 0.91, currently 22, 0.75. Hematolog y/coagulation unremarkable. Afebrile. Chest x-ray reported no acute pulmonary process.VSS, borderline bradycardia, heart rates mid 50s to 60. Cardiology consulted. Review of Systems ROS Statement: Those systems with pertinent positive or pertinent negative responses have been documented in the HPI. ROS Other: All systems not noted in ROS Statement are negative. Past Medical History Past Medical History: Asthma, Coronary Artery Disease (CAD), Chest Pain / Angina, Diabetes Mellitus, Eye Disorder, Hyperlipidemia, Hypertension, Myocardial Infarction ([place]), Sleep Apnea/CPAP/BIPAP, Thyroid Disorder Additional Past Medical History / Comment(s): NIDDM type II, neuropathy biltateral legs/feet and occasionally in bilateral hands, pt states she has had R shoulder pain since radial cardiac cath on 06/25/19, past L shoulder pain, MALLORY with Cpap, hypothyroid tx with medication for a couple years then no longer needed, chronic low back pain and bilateral sciatica with L side worse, IBS, past rib fractures/pneumo with chest tube, bilateral narrow angle glaucoma corrected with surgery. Last Myocardial Infarction Date:: 06/25/19 History of Any Multi-Drug Resistant Organisms: None Reported Past Surgical History: Cholecystectomy, Heart Catheterization With Stent, Hysterectomy Additional Past Surgical History / Comment(s): Bilateral eye surgery for glaucoma, colonoscopy, sebacceous cyst removed from back, septal repair. Past Anesthesia/Blood Transfusion Reactions: No Reported Reaction Date of Last Stent Placement:: 06/25/19 Past Psychological History: Anxiety, Depression Smoking Status: Never smoker Past Alcohol Use History: None Reported Past Drug Use History: None Reported - Past Family History Father Family Medical History: Diabetes Mellitus, Myocardial Infarction ([place]), Renal Disease Additional Family Medical History / Comment(s): Father of a massive [place] while on dialysis at the age of 57yrs. He had an enlarged heart and cervical injury/pain. Mother Family Medical History: No Reported History Additional Family Medical History / Comment(s): Mother is alive and healthy. Medications and Allergies Home Medications Medication Instructions Recorded Confirmed Type lisinopriL [Zestril] 5 mg PO DAILY #30 tab 03/20/17 03/16/20 Rx Cetirizine HCl [Zyrtec] 10 mg PO HS 06/25/19 03/16/20 History Topiramate [Topamax] 50 mg PO BID 06/25/19 03/16/20 History Aspirin 81 mg PO DAILY #30 chew 06/27/19 03/16/20 Rx Isosorbide Mononitrate ER [Imdur] 30 mg PO DAILY #30 tab.er.24h 06/27/19 03/16/20 Rx Metoprolol Tartrate [Lopressor] 25 mg PO DAILY #30 tab 06/27/19 03/16/20 Rx Ticagrelor [Brilinta] 90 mg PO BID #60 tab 06/27/19 03/16/20 Rx Atorvastatin [Lipitor] 80 mg PO HS 07/21/19 03/16/20 History Multivit-Min/Iron/Folic/Lutein 1 tab PO HS 07/21/19 03/16/20 History [Centrum Silver Women Tablet] Albuterol Inhaler [Ventolin Hfa 2 puff INHALATION RT-QID PRN 03/16/20 03/16/20 History Inhaler] Nitroglycerin Sl Tabs [Nitrostat] 0.4 mg SL Q5M PRN 03/16/20 03/16/20 History metFORMIN HCL [Glucophage] 500 mg PO BID tab 03/17/20 Rx Allergies Allergy/AdvReac Type Severity Reaction Status Date / Time horse dander Allergy Unknown Verified 03/16/20 23:02 hydrocodone [From Vicodin] AdvReac Vertigo Verified 03/16/20 23:02 mold AdvReac Abdominal Verified 03/16/20 23:02 Pain Mushroom AdvReac Abdominal Verified 03/16/20 23:02 Pain pentazocine [From Talwin] AdvReac Confusion Verified 03/16/20 23:02 pseudoephedrine AdvReac Confusion Verified 03/16/20 23:02 [From Seldane-D] terfenadine [From Seldane-D] AdvReac Confusion Verified 03/16/20 23:02 Physical Exam Vitals: Vital Signs Temp Pulse Pulse Resp BP BP Pulse Ox 03/17/20 08:34 59 L 16 03/17/20 07:58 97.7 F 59 L 16 126/73 98 03/17/20 03:20 97.4 F L 54 L 112/73 100 03/16/20 23:22 97.8 F 60 143/84 100 03/16/20 23:02 97.9 F 60 18 132/75 99 03/16/20 21:42 98 F 64 18 126/82 100 03/16/20 19:48 66 18 117/73 99 03/16/20 19:25 98.1 F 69 18 130/78 100 Intake and Output 03/16/20 03/17/20 03/17/20 22:59 06:59 14:59 Output Total 300 Balance -300 Output: Urine 300 Other: Voiding Method Toilet Toilet # Voids 0 Weight 78.471 kg 78.471 kg GENERAL: Well-appearing, well-nourished and in no acute distress. HEAD: Atraumatic, normocephalic. EYES: Pupils equal round and reactive to light, extraocular movements intact, sclera anicteric, conjunctiva are normal. ENT:nares patent, oropharynx clear without exudates. Moist mucous membranes. NECK: Normal range of motion, supple without lymphadenopathy or JVD, no thyromegaly LUNGS: Breath sounds clear to auscultation bilaterally and equal. No wheezes rales or rhonchi. HEART: Regular rate and rhythm without murmurs, rubs or gallops.S1S2 Normal ABDOMEN: Soft, nontender, normoactive bowel sounds. No guarding, no rebound. No masses appreciated. EXTREMITIES: Normal range of motion, no pitting or edema. No clubbing or cyanosis. NEUROLOGICAL: Cranial nerves II through XII grossly intact. Normal speech, normal gait. PSYCH: Normal mood, normal affect. SKIN: Warm, Dry, normal turgor, no rashes or lesions noted. Results CBC & Chem 7: 03/17/20 02:54 03/17/20 02:54 Labs: Abnormal Lab Results - Last 24 Hours (Table) 03/16/20 03/17/20 03/17/20 Range/Units 20:07 02:54 06:47 Chloride 108 H 109 H (98-107) mmol/L BUN 26 H 22 H (7-17) mg/dL Glucose 102 H (74-99) mg/dL POC Glucose (mg/dL) 110 H (75-99) mg/dL Thrombosis Risk Factor Assmnt - Choose All That Apply Each Factor Represents 1 point: Age 41-60 years Thrombosis Risk Factor Assessment Total Risk Factor Score: 1 Thrombosis Risk Factor Assessment Level: Low Risk Assessment and Plan Assessment: Chest pain, relieved by one sublingual nitroglycerin, subsided on arrival to ER, possibly related to stress. CAD, history of NSTEMI, PTCA Diabetes type 2 Hypertension Hyperlipidemia Chronic intermittent asthma Sleep apnea, wears CPAP Chronic low back pain History of anxiety History of depression Plan: Continue on current medication regime, monitoring and symptomatic treatment. Evaluated by cardiology with recommendations noted and appreciated. Increase ambulation. Patient will be discharged home in a stable condition with guarded prognosis pending cardiology's final DC recommendations and clearance. Discharge Medication List lisinopriL [Zestril] 5 mg PO DAILY #30 tab 03/20/17 [Rx] Cetirizine HCl [Zyrtec] 10 mg PO HS 06/25/19 [History] Topiramate [Topamax] 50 mg PO BID 06/25/19 [History] Aspirin 81 mg PO DAILY #30 chew 06/27/19 [Rx] Isosorbide Mononitrate ER [Imdur] 30 mg PO DAILY #30 tab.er.24h 06/27/19 [Rx] Metoprolol Tartrate [Lopressor] 25 mg PO DAILY #30 tab 06/27/19 [Rx] Ticagrelor [Brilinta] 90 mg PO BID #60 tab 06/27/19 [Rx] Atorvastatin [Lipitor] 80 mg PO HS 07/21/19 [History] Multivit-Min/Iron/Folic/Lutein [Centrum Silver Women Tablet] 1 tab PO HS 07/21/19 [History] Albuterol Inhaler [Ventolin Hfa Inhaler] 2 puff INHALATION RT-QID PRN 03/16/20 [History] Nitroglycerin Sl Tabs [Nitrostat] 0.4 mg SL Q5M PRN 03/16/20 [History] metFORMIN HCL [Glucophage] 500 mg PO BID tab 03/17/20 [Rx] The impression and plan of care has been dictated as directed. : I performed a history and examination of this patient, discussed the same with the dictator. I agree with the dictator's note ,documented as a scribe. Any additional findings or plans will be noted.
[2020-03-17 12:11] LABS: Glucose,Whole Blood 145 mg/dL (75-99)
--- NOTE | 2020-03-17 13:57 | P.CRDCN ---
History of Present Illness History of present illness: HISTORY OF PRESENTING ILLNESS This is a pleasant 54-year-old female past medical history significant for coronary artery disease in the setting of a non-ST elevated myocardial infa rction status post successful PCI of the mid RCA June 2019, hypertension, dyslipidemia, diabetes mellitus and obstructive sleep apnea. She follows in the office with Dr. Coates. We have been asked to see in consultation for chest pain. He states she is under significant amount of stress at home currently. Yesterday morning she woke up in her usual state of health and took a shower. She walked downstairs and sat down to breakfast when she noticed discomfort in the left anterior chest wall. It is described as a sharp sensation that was brief and intermittent in nature she felt a discomfort in the left shoulder. She took one sublingual nitroglycerin and her symptoms subsided. On her way to the hospital she had another sharp pain in the left chest. By the time she arrived it had subsided on its own. She said no further symptoms of chest discomfort since arriving at the hospital. She denies associated shortness of breath, dizziness, nausea, vomiting, diaphoresis or palpitations. DIAGNOSTICS EKG reveals sinus mechanism with no acute ST or T wave abnormalities noted. Chest xray negative for an acute cardiopulmonary process. Laboratory reviewed, CBC unremarkable, sodium 139, potassium 3.6, creatinine 0.75, magnesium 1.9, cardiac enzymes negative 3, NT proBNP 39, LDL 57 and HDL 32. Current cardiac medications include Brilinta 90 mg twice a day, lisinopril 5 mg daily, Lopressor 25 mg daily, Imdur 30 mg daily, atorvastatin 80 mg daily and aspirin 81 mg daily. Cardiac catheterization done on June 25 revealed a 50% stenosis at the origin of the diagonal branch of the LAD, also an area of 70-80% stenosis of the LAD, circumflex with a plaque about 30-40% in the RCA with 9095% stenosis in the midportion REVIEW OF SYSTEMS At the time of my exam: CONSTITUTIONAL: Denies fever or chills. CARDIOVASCULAR: Denies chest pain, shortness of breath, orthopnea, PND or pal pitations. RESPIRATORY: Denies cough. GASTROINTESTINAL: Denies abdominal pain, diarrhea, constipation, nausea or vomiting. MUSCULOSKELETAL: Denies myalgias. NEUROLOGIC: Denies numbness, tingling or weakness. ENDOCRINE: Denies fatigue, weight change, polydipsia or polyurina. GENITOURINARY: Denies burning, hematuria or urgency with micturation. HEMATOLOGIC: Denies history of anemia or bleeding. PHYSICAL EXAMINATION Blood pressure 126/73 heart rate 59 afebrile and maintaining oxygen saturation on room air. CONSTITUTIONAL: No apparent distress. HEENT: Head is normocephalic. Pupils are equal, round. Sclerae anicteric. Mucous membranes of the mouth are moist. No JVD. No carotid bruit. CHEST EXAMINATION: Lungs are clear to auscultation. No chest wall tenderness is noted on palpation or with deep breathing. HEART EXAMINATION: Regular rate and rhythm. S1, S2 heard. No murmurs, gallops or rub. ABDOMEN: Soft, nontender. Positive bowel sounds. EXTREMITIES: 2+ peripheral pulses, no lower extremity edema and no calf tenderness. NEUROLOGIC EXAMINATION: Patient is awake, alert and oriented x3. ASSESSMENT Chest pain, atypical. An acute coronary event has been ruled out. Coronary artery disease status post PCI Hypertension Dyslipidemia History of myocardial infarction PLAN An acute coronary event has been ruled out. Pain is atypical for angina. The patient underwent dobutamine stress echocardiogram in the office December 2019 that was negative for stress-induced ischemia. Stable for discharge from a cardiac perspective. Follow-up in the office with Dr. Dr. Coates 1-2 weeks. Thank you kindly for this consultation. Nurse Practitioner note has been reviewed, I agree with a documented findings and plan of care. Patient was seen and examined. Past Medical History Past Medical History: Asthma, Coronary Artery Disease (CAD), Chest Pain / Angina, Diabetes Mellitus, Eye Disorder, Hyperlipidemia, Hypertension, Myocardial Infarction ([place]), Sleep Apnea/CPAP/BIPAP, Thyroid Disorder Additional Past Medical History / Comment(s): NIDDM type II, neuropathy biltateral legs/feet and occasionally in bilateral hands, pt states she has had R shoulder pain since radial cardiac cath on 06/25/19, past L shoulder pain, MALLORY w ith Cpap, hypothyroid tx with medication for a couple years then no longer needed, chronic low back pain and bilateral sciatica with L side worse, IBS, past rib fractures/pneumo with chest tube, bilateral narrow angle glaucoma corrected with surgery. Last Myocardial Infarction Date:: 06/25/19 History of Any Multi-Drug Resistant Organisms: None Reported Past Surgical History: Cholecystectomy, Heart Catheterization With Stent, Hysterectomy Additional Past Surgical History / Comment(s): Bilateral eye surgery for glaucoma, colonoscopy, sebacceous cyst removed from back, septal repair. Past Anesthesia/Blood Transfusion Reactions: No Reported Reaction Date of Last Stent Placement:: 06/25/19 Past Psychological History: Anxiety, Depression Smoking Status: Never smoker Past Alcohol Use History: None Reported Past Drug Use History: None Reported - Past Family History Father Family Medical History: Diabetes Mellitus, Myocardial Infarction ([place]), Renal Disease Additional Family Medical History / Comment(s): Father of a massive [place] while on dialysis at the age of 57yrs. He had an enlarged heart and cervical injury/pain. Mother Family Medical History: No Reported History Additional Family Medical History / Comment(s): Mother is alive and healthy. Medications and Allergies Home Medications Medication Instructions Recorded Confirmed Type lisinopriL [Zestril] 5 mg PO DAILY #30 tab 03/20/17 03/16/20 Rx Cetirizine HCl [Zyrtec] 10 mg PO HS 06/25/19 03/16/20 History Topiramate [Topamax] 50 mg PO BID 06/25/19 03/16/20 History Aspirin 81 mg PO DAILY #30 chew 06/27/19 03/16/20 Rx Isosorbide Mononitrate ER [Imdur] 30 mg PO DAILY #30 tab.er.24h 06/27/19 03/16/20 Rx Metoprolol Tartrate [Lopressor] 25 mg PO DAILY #30 tab 06/27/19 03/16/20 Rx Ticagrelor [Brilinta] 90 mg PO BID #60 tab 06/27/19 03/16/20 Rx Atorvastatin [Lipitor] 80 mg PO HS 07/21/19 03/16/20 History Multivit-Min/Iron/Folic/Lutein 1 tab PO HS 07/21/19 03/16/20 History [Centrum Silver Women Tablet] Albuterol Inhaler [Ventolin Hfa 2 puff INHALATION RT-QID PRN 03/16/20 03/16/20 History Inhaler] Nitroglycerin Sl Tabs [Nitrostat] 0.4 mg SL Q5M PRN 03/16/20 03/16/20 History metFORMIN HCL [Glucophage] 500 mg PO BID tab 03/17/20 Rx Allergies Allergy/AdvReac Type Severity Reaction Status Date / Time horse dander Allergy Unknown Verified 03/16/20 23:02 hydrocodone [From Vicodin] AdvReac Vertigo Verified 03/16/20 23:02 mold AdvReac Abdominal Verified 03/16/20 23:02 Pain Mushroom AdvReac Abdominal Verified 03/16/20 23:02 Pain pentazocine [From Talwin] AdvReac Confusion Verified 03/16/20 23:02 pseudoephedrine AdvReac Confusion Verified 03/16/20 23:02 [From Seldane-D] terfenadine [From Seldane-D] AdvReac Confusion Verified 03/16/20 23:02 Physical Exam Vitals: Vital Signs Temp Pulse Pulse Resp BP BP Pulse Ox 03/17/20 08:34 59 L 16 03/17/20 07:58 97.7 F 59 L 16 126/73 98 03/17/20 03:20 97.4 F L 54 L 112/73 100 03/16/20 23:22 97.8 F 60 143/84 100 03/16/20 23:02 97.9 F 60 18 132/75 99 03/16/20 21:42 98 F 64 18 126/82 100 03/16/20 19:48 66 18 117/73 99 03/16/20 19:25 98.1 F 69 18 130/78 100 Intake and Output 03/16/20 03/17/20 03/17/20 22:59 06:59 14:59 Intake Total 222 Output Total 300 Balance -300 222 Intake: Oral 222 Output: Urine 300 Other: Voiding Method Toilet Toilet # Voids 0 Weight 78.471 kg 78.471 kg Results 03/17/20 02:54 03/17/20 02:54 Cardiac Enzymes 03/16/20 03/16/20 03/16/20 Range/Units 20:07 20:07 23:22 AST 25 (14-36) U/L Troponin I <0.012 <0.012 (0.000-0.034) ng/mL 03/17/20 Range/Units 02:54 AST (14-36) U/L Troponin I <0.012 (0.000-0.034) ng/mL Coagulation 03/16/20 Range/Units 20:07 PT 9.7 (9.0-12.0) sec APTT 24.6 (22.0-30.0) sec Lipids 03/17/20 Range/Units 02:54 Triglycerides 134 (<150) mg/dL Cholesterol 116 (<200) mg/dL HDL Cholesterol 32 L (40-60) mg/dL CBC 03/16/20 03/17/20 Range/Units 20:07 02:54 WBC 8.2 7.6 (3.8-10.6) k/uL RBC 4.44 4.08 (3.80-5.40) m/uL Hgb 12.8 11.8 (11.4-16.0) gm/dL Hct 38.1 35.3 (34.0-46.0) % Plt Count 227 224 (150-450) k/uL Comprehensive Metabolic Panel 03/16/20 03/17/20 Range/Units 20:07 02:54 Sodium 140 139 (137-145) mmol/L Potassium 4.0 3.6 (3.5-5.1) mmol/L Chloride 108 H 109 H (98-107) mmol/L Carbon Dioxide 22 23 (22-30) mmol/L BUN 26 H 22 H (7-17) mg/dL Creatinine 0.91 0.75 (0.52-1.04) mg/dL Glucose 96 102 H (74-99) mg/dL Calcium 9.2 8.8 (8.4-10.2) mg/dL AST 25 (14-36) U/L ALT 18 (4-34) U/L Alkaline Phosphatase 86 (38-126) U/L Total Protein 6.6 (6.3-8.2) g/dL Albumin 4.4 (3.5-5.0) g/dL Current Medications Generic Name Dose Route Start Last Admin Trade Name Freq PRN Reason Stop Dose Admin Albuterol Sulfate 2.5 mg 03/17/20 00:49 Albuterol Nebulized 2.5 Mg/3 Ml INHALATION RT-QID PRN Shortness Of Breath Aspirin 81 mg 03/17/20 09:00 03/17/20 10:03 Aspirin 81 Mg PO 81 mg DAILY JULIO CESAR Administration Atorvastatin Calcium 80 mg 03/17/20 21:00 Atorvastatin 80 Mg Tab PO HS JULIO CESAR Isosorbide Mononitrate 30 mg 03/17/20 09:00 03/17/20 10:03 Isosorbide Mononitrate Er 30 Mg Tab.Er.24h PO 30 mg DAILY JULIO CESAR Administration Lisinopril 5 mg 03/17/20 09:00 03/17/20 10:03 Lisinopril 5 Mg Tab PO 5 mg DAILY JULIO CESAR Administration Loratadine 10 mg 03/17/20 21:00 Loratadine 10 Mg Tab PO HS [facility] Metformin HCl 500 mg 03/17/20 09:00 03/17/20 10:03 Metformin 500 Mg Tab PO 500 mg BID JULIO CESAR Administration Metoprolol Tartrate 25 mg 03/17/20 09:00 03/17/20 10:03 Metoprolol Tartrate 25 Mg Tab PO 25 mg DAILY JULIO CESAR Administration Multivitamins 1 each 03/17/20 21:00 Multivitamins, Thera 1 Each Tab PO HS [facility] Naloxone HCl 0.2 mg 03/16/20 21:56 Naloxone 0.4 Mg/Ml 1 Ml Vial IV Q2M PRN Opioid Reversal Nitroglycerin 0.4 mg 03/17/20 00:49 Nitroglycerin Sl Tabs 0.4 Mg Tab SUBLINGUAL Q5M PRN Chest Pain Ticagrelor 90 mg 03/17/20 01:00 03/17/20 10:42 Ticagrelor 90 Mg Tab PO 90 mg BID JULIO CESAR Administration Topiramate 50 mg 03/17/20 01:00 03/17/20 10:03 Topiramate 25 Mg Tab PO 50 mg BID JULIO CESAR Administration Intake and Output 03/16/20 03/17/20 03/17/20 22:59 06:59 14:59 Intake Total 222 Output Total 300 Balance -300 222 Intake: Oral 222 Output: Urine 300 Other: Voiding Method Toilet Toilet # Voids 0 Weight 78.471 kg 78.471 kg 03/17/20 02:54 03/17/20 02:54
[2020-03-17] MEDS ORDERED: LORATADINE 10 MG TAB PO SCH (21:00)
[2020-03-17] MEDS ORDERED: MULTIVITAMINS, THERA 1 EACH TAB PO SCH (21:00)
[2020-03-17] MEDS ORDERED: ATORVASTATIN 80 MG TAB PO SCH (21:00)
== END 2020-03-17 13:57 | disposition home or self-care (01) ==
LOC: EC 19:25 → 3NCARDOBS 21:57
PROVIDERS: ADMIT Family Medicine; ATTEND Family Medicine
DX: R07.89 Other chest pain (principal); E03.9 Hypothyroidism, unspecified; I25.10 Atherosclerotic heart disease of native coronary artery without angina pectoris; E11.9 Type 2 diabetes mellitus without complications; E78.5 Hyperlipidemia, unspecified; F32.9 Major depressive disorder, single episode, unspecified; F41.9 Anxiety disorder, unspecified; G47.30 Sleep apnea, unspecified; G89.29 Other chronic pain; I10 Essential (primary) hypertension; I25.2 Old myocardial infarction; J45.20 Mild intermittent asthma, uncomplicated; Z79.02 Long term (current) use of antithrombotics/antiplatelets; Z79.82 Long term (current) use of aspirin; Z79.84 Long term (current) use of oral hypoglycemic drugs; Z79.899 Other long term (current) drug therapy; Z82.49 Family history of ischemic heart disease and other diseases of the circulatory system; Z83.3 Family history of diabetes mellitus; Z90.710 Acquired absence of both cervix and uterus; Z98.61 Coronary angioplasty status
CPT/HCPCS: 93005 ×2; 99285; 36415; 83880; 80061; 80053; 80048; 83735; 84484 ×2; 85025 ×2; 85610; 85730; 71046; G0378 ×2

== ENCOUNTER 2020-08-28 13:19 | Observation (INO) | payer BC ==
[2020-08-28 13:40] LABS: Glucose,Whole Blood 128 mg/dL (75-99)
[2020-08-28] MEDS ORDERED: SODIUM CHLORIDE 0.9% 500 ML 500 ML IV STA (13:48)
--- NOTE | 2020-08-28 13:53 | ED ---
General Adult HPI - General Source: patient, RN notes reviewed, old records reviewed Mode of arrival: wheelchair Limitations: no limitations <Cirilo Wang - Last Filed: 08/28/20 15:00> <Mario Jhonson - Last Filed: 08/28/20 15:52> - General Chief complaint: Syncope Stated complaint: near syncope Time Seen by Provider: 08/28/20 13:20 - History of Present Illness Initial comments: This is a 55-year-old female who states while driving she felt very lightheaded and thought she might pass out so she pulled over. Patient also complains of left-sided chest pain. Patient states she is a diabetic with high cholesterol and high blood pressure and she states last year at about this time she had a stent placed. Patient states this chest pain feels different than the chest pain when she had when she had a heart attack and she denies any radiation of this pain she denies any shortness of breath or difficulty breathing. Patient denies any diaphoretic episodes. Patient denies any nausea vomiting per patient denies abdominal pain. Patient denies any back pain. Patient denies headache but still feels a little lightheaded. Patient denies any swelling to legs or calf tenderness. (Cirilo Wang) - Related Data Home Medications Medication Instructions Recorded Confirmed Cetirizine HCl [Zyrtec] 10 mg PO HS 06/25/19 08/28/20 Topiramate [Topamax] 50 mg PO BID 06/25/19 08/28/20 Atorvastatin [Lipitor] 80 mg PO HS 07/21/19 08/28/20 Multivit-Min/Iron/Folic/Lutein 1 tab PO HS 07/21/19 08/28/20 [Centrum Silver Women Tablet] Albuterol Inhaler [Ventolin Hfa 2 puff INHALATION RT-QID PRN 03/16/20 08/28/20 Inhaler] Nitroglycerin Sl Tabs [Nitrostat] 0.4 mg SL Q5M PRN 03/16/20 08/28/20 metFORMIN HCL [metFORMIN HCL ER] 750 mg PO DAILY 08/28/20 08/28/20 Previous Rx's Medication Instructions Recorded lisinopriL [Zestril] 5 mg PO DAILY #30 tab 03/20/17 Isosorbide Mononitrate ER [Imdur] 30 mg PO DAILY #30 tab.er.24h 06/27/19 Metoprolol Tartrate [Lopressor] 25 mg PO DAILY #30 tab 06/27/19 Allergies Allergy/AdvReac Type Severity Reaction Status Date / Time horse dander Allergy Unknown Verified 08/28/20 14:44 hydrocodone [From Vicodin] AdvReac Vertigo Verified 08/28/20 14:44 mold AdvReac Abdominal Verified 08/28/20 14:44 Pain Mushroom AdvReac Abdominal Verified 08/28/20 14:44 Pain pentazocine [From Talwin] AdvReac Confusion Verified 08/28/20 14:44 pseudoephedrine AdvReac Confusion Verified 08/28/20 14:44 [From Seldane-D] terfenadine [From Seldane-D] AdvReac Confusion Verified 08/28/20 14:44 Review of Systems ROS Other: All systems not noted in ROS Statement are negative. <Cirilo Wang - Last Filed: 08/28/20 15:00> ROS Other: All systems not noted in ROS Statement are negative. <Mario Johnson - Last Filed: 08/28/20 15:52> ROS Statement: Those systems with pertinent positive or pertinent negative responses have been documented in the HPI. Past Medical History Past Medical History: Asthma, Coronary Artery Disease (CAD), Chest Pain / Angin a, Diabetes Mellitus, Eye Disorder, Hyperlipidemia, Hypertension, Myocardial Infarction ([place]), Sleep Apnea/CPAP/BIPAP, Thyroid Disorder Additional Past Medical History / Comment(s): NIDDM type II, neuropathy biltateral legs/feet and occasionally in bilateral hands, pt states she has had R shoulder pain since radial cardiac cath on 06/25/19, past L shoulder pain, MALLORY with Cpap, hypothyroid tx with medication for a couple years then no longer needed, chronic low back pain and bilateral sciatica with L side worse, IBS, past rib fractures/pneumo with chest tube, bilateral narrow angle glaucoma corrected with surgery. Last Myocardial Infarction Date:: 06/25/19 History of Any Multi-Drug Resistant Organisms: None Reported Past Surgical History: Cholecystectomy, Heart Catheterization With Stent, Hyster ectomy Additional Past Surgical History / Comment(s): Bilateral eye surgery for glaucoma, colonoscopy, sebacceous cyst removed from back, septal repair. Past Anesthesia/Blood Transfusion Reactions: No Reported Reaction Date of Last Stent Placement:: 06/25/19 Past Psychological History: Anxiety, Depression Smoking Status: Never smoker Past Alcohol Use History: None Reported Past Drug Use History: None Reported - Past Family History Father Family Medical History: Diabetes Mellitus, Myocardial Infarction ([place]), Renal Disease Additional Family Medical History / Comment(s): Father of a massive [place] while on dialysis at the age of 57yrs. He had an enlarged heart and cervical injury/pain. Mother Family Medical History: No Reported History Additional Family Medical History / Comment(s): Mother is alive and healthy. <Cirilo Wang - Last Filed: 08/28/20 15:00> General Exam Limitations: no limitations <Cirilo Wang - Last Filed: 08/28/20 15:00> - General Exam Comments Initial Comments: GENERAL: Patient is well-developed and well-nourished. Patient is nontoxic and well- hydrated and is in mild distress. ENT: Neck is soft and supple. No significant lymphadenopathy is noted. Oropharynx is clear. Moist mucous membranes. Neck has full range of motion without eliciting any pain. EYES: The sclera were anicteric and conjunctiva were pink and moist. Extraocular movements were intact and pupils were equal round and reactive to light. Eyelids were unremarkable. PULMONARY: Unlabored respirations. Good breath sounds bilaterally. No audible rales rhonchi or wheezing was noted. CARDIOVASCULAR: There is a regular rate and rhythm without any murmurs gallops or rubs. ABDOMEN: Soft and nontender with normal bowel sounds. SKIN: Skin is clear with no lesions or rashes and otherwise unremarkable. NEUROLOGIC: Patient is alert and oriented x3. Cranial nerves II through XII are grossly intact. Motor and sensory are also intact. Normal speech, volume and content. Symmetrical smile. MUSCULOSKELETAL: Normal extremities with adequate strength and full range of motion. LYMPHATICS: No significant lymphadenopathy is noted PSYCHIATRIC: Normal psychiatric evaluation. (Cirilo Wang) Course <Jeimy Johnsonul - Last Filed: 08/28/20 15:52> Vital Signs 08/28/20 08/28/20 08/28/20 13:30 13:46 14:32 Temperature 97.9 F Pulse Rate 57 L Pulse Rate [ 57 L Director Process ] Pulse Rate [ 56 L Sitting] Pulse Rate [ 55 L Standing] Pulse Rate [ 56 L Supine] Respiratory 16 Rate Blood Pressure 111/69 Blood Pressure 116/70 [Sitting] Blood Pressure 117/69 [Standing] Blood Pressure 112/74 [Supine] O2 Sat by Pulse 100 Oximetry 08/28/20 15:30 Temperature Pulse Rate 57 L Pulse Rate [ Director Process ] Pulse Rate [ Sitting] Pulse Rate [ Standing] Pulse Rate [ Supine] Respiratory 18 Rate Blood Pressure 120/80 Blood Pressure [Sitting] Blood Pressure [Standing] Blood Pressure [Supine] O2 Sat by Pulse 100 Oximetry - Reevaluation(s) Reevaluation #1: 08/28/20 15:24 Patient was endorsed to me by ED physician Dr. Wang (secondary to shift change) with the patient's labs and chest x-ray still pending. Dr. Wang feels that the patient should be admitted to the hospital for monitoring and further evaluation of her symptoms. Patient states that her chest pain has now resolved, and she states that she just feels "tired" at this time. Patient denies development of any new symptoms while in the ED. Patient remains alert and breathing comfortably. Patient and are aware of the patient's test results, and they both agree with hospital admission at this time. 08/28/20 15:49 Case, test results and ED management were discussed with Dr. Soto. He accepts hospital admission. He recommends cardiology consultation. He has no further recommendations at this time. (Mario Johnson) Medical Decision Making - Lab Data Result diagrams: 08/28/20 13:53 <Cirilo Wang - Last Filed: 08/28/20 15:00> - Lab Data Result diagrams: 08/28/20 14:26 08/28/20 13:53 - Radiology Data Radiology results: report reviewed (Chest x-ray shows no acute cardiopulmonary process) <Mario Johnson - Last Filed: 08/28/20 15:52> - Medical Decision Making EKG shows sinus bradycardia 57 bpm MD interval 176 dresses 80 QT interval 424 QTC is 412 per patient's EKG shows no ST segment elevation or depression. Dr. Johnson are with take care of this patient at 3 PM (Cirilo Wang) Patient's EKG does not show any acute ischemic findings. Patient's chest x-ray is unremarkable. Patient's troponin is negative. Given the patient's history of CAD and a reported chest pain and near-syncope, will admit the patient to the hospital for serial troponins and cardiac monitoring. Patient was given a dose of aspirin in the emergency department. Dr. Soto has accepted hospital admission. (Mario Johnson) - Lab Data Lab Results 08/28/20 08/28/20 08/28/20 Range/Units 13:36 13:53 13:53 WBC (3.8-10.6) k/uL RBC (3.80-5.40) m/uL Hgb (11.4-16.0) gm/dL Hct (34.0-46.0) % MCV (80.0-100.0) fL MCH (25.0-35.0) pg MCHC (31.0-37.0) g/dL RDW (11.5-15.5) % Plt Count (150-450) k/uL MPV Neutrophils % % Lymphocytes % % Monocytes % % Eosinophils % % Basophils % % Neutrophils # (1.3-7.7) k/uL Lymphocytes # (1.0-4.8) k/uL Monocytes # (0-1.0) k/uL Eosinophils # (0-0.7) k/uL Basophils # (0-0.2) k/uL PT 10.0 (9.0-12.0) sec INR 0.9 (<1.2) APTT 20.4 L (22.0-30.0) sec Sodium 140 (137-145) mmol/L Potassium 5.0 (3.5-5.1) mmol/L Chloride 109 H (98-107) mmol/L Carbon Dioxide 23 (22-30) mmol/L Anion Gap 8 mmol/L BUN 19 H (7-17) mg/dL Creatinine 0.84 (0.52-1.04) mg/dL Est GFR (CKD-EPI)AfAm >90 (>60 ml/min/1.73 sqM) Est GFR (CKD-EPI)NonAf 79 (>60 ml/min/1.73 sqM) Glucose 107 H (74-99) mg/dL POC Glucose (mg/dL) 128 H (75-99) mg/dL POC Glu [employer] ID Sarah Escobar Calcium 9.0 (8.4-10.2) mg/dL Magnesium 2.0 (1.6-2.3) mg/dL Total Bilirubin 0.9 (0.2-1.3) mg/dL AST 40 H (14-36) U/L ALT 18 (4-34) U/L Alkaline Phosphatase 66 (38-126) U/L Troponin I (0.000-0.034) ng/mL Total Protein 6.9 (6.3-8.2) g/dL Albumin 4.3 (3.5-5.0) g/dL 08/28/20 08/28/20 Range/Units 13:53 14:26 WBC 7.0 (3.8-10.6) k/uL RBC 4.22 (3.80-5.40) m/uL Hgb 12.2 (11.4-16.0) gm/dL Hct 36.3 (34.0-46.0) % MCV 85.9 (80.0-100.0) fL MCH 28.9 (25.0-35.0) pg MCHC 33.6 (31.0-37.0) g/dL RDW 13.4 (11.5-15.5) % Plt Count 236 (150-450) k/uL MPV 7.9 Neutrophils % 36 % Lymphocytes % 51 % Monocytes % 5 % Eosinophils % 4 % Basophils % 1 % Neutrophils # 2.6 (1.3-7.7) k/uL Lymphocytes # 3.6 (1.0-4.8) k/uL Monocytes # 0.4 (0-1.0) k/uL Eosinophils # 0.3 (0-0.7) k/uL Basophils # 0.0 (0-0.2) k/uL PT (9.0-12.0) sec INR (<1.2) APTT (22.0-30.0) sec Sodium (137-145) mmol/L Potassium (3.5-5.1) mmol/L Chloride (98-107) mmol/L Carbon Dioxide (22-30) mmol/L Anion Gap mmol/L BUN (7-17) mg/dL Creatinine (0.52-1.04) mg/dL Est GFR (CKD-EPI)AfAm (>60 ml/min/1.73 sqM) Est GFR (CKD-EPI)NonAf (>60 ml/min/1.73 sqM) Glucose (74-99) mg/dL POC Glucose (mg/dL) (75-99) mg/dL POC Glu Trash [employer] Driver ID Calcium (8.4-10.2) mg/dL Magnesium (1.6-2.3) mg/dL Total Bilirubin (0.2-1.3) mg/dL AST (14-36) U/L ALT (4-34) U/L Alkaline Phosphatase (38-126) U/L Troponin I <0.012 (0.000-0.034) ng/mL Total Protein (6.3-8.2) g/dL Albumin (3.5-5.0) g/dL Disposition <Cirilo Wang - Last Filed: 08/28/20 15:00> Is patient prescribed a controlled substance at d/c from ED?: No Time of Disposition: 15:52 <Mario Johnson - Last Filed: 08/28/20 15:52> Clinical Impression: Chest pain, Near syncope Disposition: ADMITTED IP TO THIS HOSP Condition: Stable Referrals: Trevon Soto MD [Primary Care Provider] - 1-2 days
--- NOTE | 2020-08-28 14:16 | XR ---
EXAMINATION TYPE: XR chest 2V DATE OF EXAM: 08/28/2020 COMPARISON: Chest x-ray 03/16/2020 HISTORY: Chest pain TECHNIQUE: Frontal and lateral views of the chest are obtained. FINDINGS: There is no focal air space opacity, pleural effusion, or pneumothorax seen. The cardiac silhouette size is within normal limits. The osseous structures are intact. IMPRESSION: No acute cardiopulmonary process.
[2020-08-28 14:20] LABS: ALT 18 U/L (4-34); AST 40 U/L (14-36); African American GFR (CKD) >90 (>60 ml/min/1.73 sqM); Albumin 4.3 g/dL (3.5-5.0); Alkaline Phosphatase 66 U/L (38-126); Anion Gap 8 mmol/L; Blood Urea Nitrogen 19 mg/dL (7-17); Carbon Dioxide 23 mmol/L (22-30); Chloride 109 mmol/L (98-107); Glucose 107 mg/dL (74-99); Non-African American GFR(CKD) 79 (>60 ml/min/1.73 sqM); Sodium 140 mmol/L (137-145); Total Bilirubin 0.9 mg/dL (0.2-1.3); Total Protein 6.9 g/dL (6.3-8.2)
[2020-08-28 14:40] LABS: INR 0.9 (<1.2)
[2020-08-28 15:20] LABS: Basophils % (A) 1 %; Eosinophils # (A) 0.3 k/uL (0-0.7); Eosinophils % (A) 4 %; HCT 36.3 % (34.0-46.0); HGB 12.2 gm/dL (11.4-16.0); Lymphocytes # (A) 3.6 k/uL (1.0-4.8); Lymphocytes % (A) 51 %; MCH 28.9 pg (25.0-35.0); MCHC 33.6 g/dL (31.0-37.0); MCV 85.9 fL (80.0-100.0); Mean Platelet Volume 7.9; Monocytes # (A) 0.4 k/uL (0-1.0); Monocytes % (A) 5 %; Neutrophils # (A) 2.6 k/uL (1.3-7.7); Neutrophils % (A) 36 %; Platelet Count 236 k/uL (150-450); RBC 4.22 m/uL (3.80-5.40); RDW 13.4 % (11.5-15.5)
[2020-08-28] MEDS ORDERED: ASPIRIN 81 MG PO STA (15:24)
[2020-08-28 15:28] LABS: Partial Thromboplastin Time 20.4 sec (22.0-30.0)
[2020-08-28 17:20] LABS: Glucose,Whole Blood 93 mg/dL (75-99)
[2020-08-28 17:22] VITALS: RESP 16
[2020-08-28] MEDS: TOPIRAMATE 25 MG TAB PO SCH (20:23)
[2020-08-28] MEDS ORDERED: ATORVASTATIN 80 MG TAB PO SCH (21:00)
[2020-08-29] MEDS ORDERED: ASPIRIN 81 MG PO SCH (09:00)
[2020-08-29] MEDS ORDERED: metFORMIN 500 MG TAB PO SCH (09:00)
[2020-08-29] MEDS ORDERED: lisinopriL 5 MG TAB PO SCH (09:00)
[2020-08-29] MEDS ORDERED: ISOSORBIDE MONONITRATE ER 30 MG TAB.ER.24H PO SCH (09:00)
[2020-08-29 09:05] LABS: Basophils # (A) 0.03 X 10*3/uL (0.00-0.10); Basophils % (A) 0.5 %; Eosinophils # (A) 0.27 X 10*3/uL (0.04-0.35); Eosinophils % (A) 4.2 %; HGB 11.5 g/dL (12.0-15.0); Lymphocytes % (A) 56.6 %; MCH 29.3 pg (27.0-32.0); MCHC 31.9 g/dL (32.0-37.0); MCV 91.6 fL (80.0-97.0); Mean Platelet Volume 11.3 fL (9.5-12.2); Monocytes # (A) 0.43 X 10*3/uL (0.20-1.00); Monocytes % (A) 6.8 %; Neutrophils # (A) 2.01 X 10*3/uL (1.80-7.70); Neutrophils % (A) 31.6 %; Platelet Count 218 X 10*3/uL (140-440); RBC 3.93 X 10*6/uL (4.10-5.20); RDW 12.7 % (11.5-14.5); WBC 6.36 X 10*3/uL (4.50-10.00)
[2020-08-29 09:32] LABS: African American GFR (CKD) 96.9 (60.0-200.0); Albumin 3.9 g/dL (3.80-4.90); Albumin/Globulin Ratio 2.6 (1.60-3.17); Anion Gap 5.9 mmol/L (4.00-12.00); BUN/Creat Ratio 22.5 Ratio (12.00-20.00); Calcium 8.5 mg/dL (8.7-10.3); Carbon Dioxide 25.1 mmol/L (21.6-31.8); Globulin 1.5 g/dL (1.6-3.3); Non-African American GFR(CKD) 83.6 (60.0-200.0); Potassium 4.5 mmol/L (3.5-5.5); Total Bilirubin 0.4 mg/dL (0.3-1.2); Total Protein 5.4 g/dL (6.2-8.2)
[2020-08-29] MEDS: TOPIRAMATE 25 MG TAB PO SCH (09:33)
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
[2020-08-29] MEDS ORDERED: ALBUTEROL NEBULIZED 2.5 MG/3 ML INHALATION PRN (10:34)
[2020-08-29] MEDS ORDERED: PANTOPRAZOLE 40 MG/10 ML VIAL IVP SCH (10:45)
[2020-08-29 11:45] LABS: Glucose,Whole Blood 95 mg/dL (75-99)
[2020-08-29] MEDS ORDERED: INSULIN ASPART (NovoLOG) 100 UNIT/ML VIAL SQ SCH (12:30)
[2020-08-29 15:03] VITALS: BP 110/61; PULSE 70; TEMP 98.1
--- NOTE | 2020-08-29 15:05 | P.HPIM ---
History of Present Illness H&P Date: 08/29/20 History and physical and Discharge Summary This is a 55-year-old female with past medical history of CAD, PR, recent stent in June 2019, reports normal stress test in December 2019 ,type 2 diabetes, hyperlipidemia, hypertension, asthma and multiple other medical issues, presen mckenzie to the ER with left-sided nonradiating chest pain accompanied by lightheadedness, shortness of breath, near syncope sensation while driving. Pulled off the road, laid back in seat, symptoms eventually subsided subsided. Reports she has not been using her CPAP at home, feeling increased fatigue, falling asleep at work. Also reports increased anxiety, planning a wedding for one of her children .Currently symptom-free. Denies nausea vomiting or diarrhea. Denies abdominal pain. Denies chest pain, palpitations or shortness of breath. Troponins negative 3, EKG sinus bradycardia. Most recent EF 07/13 reported EF 45-50%. Renal function stable, electrolytes within normal limits. Vital signs stable, maintaining O2 sats 100% on 2 L nasal cannula. Review of Systems ROS Statement: Those systems with pertinent positive or pertinent negative responses have been documented in the HPI. ROS Other: All systems not noted in ROS Statement are negative. Past Medical History Past Medical History: Asthma, Coronary Artery Disease (CAD), Chest Pain / Angina, Diabetes Mellitus, Eye Disorder, Hyperlipidemia, Hypertension, Myocardial Infarction ([place]), Sleep Apnea/CPAP/BIPAP, Thyroid Disorder Additional Past Medical History / Comment(s): NIDDM type II, neuropathy bilt ateral legs/feet and occasionally in bilateral hands, pt states she has had R shoulder pain since radial cardiac cath on 06/25/19, past L shoulder pain, MALLORY with Cpap, hypothyroid tx with medication for a couple years then no longer needed, chronic low back pain and bilateral sciatica with L side worse, IBS, past rib fractures/pneumo with chest tube, bilateral narrow angle glaucoma corrected with surgery. Last Myocardial Infarction Date:: 06/25/19 History of Any Multi-Drug Resistant Organisms: None Reported Past Surgical History: Cholecystectomy, Heart Catheterization With Stent, Hysterectomy Additional Past Surgical History / Comment(s): Bilateral eye surgery for glaucoma, colonoscopy, sebacceous cyst removed from back, septal repair. Past Anesthesia/Blood Transfusion Reactions: No Reported Reaction Date of Last Stent Placement:: 06/25/19 Past Psychological History: Anxiety, Depression Additional Psychological History / Comment(s): Pt resides with her spouse and adult daughters. She is independent. Smoking Status: Never smoker Past Alcohol Use History: None Reported Past Drug Use History: None Reported - Past Family History Father Family Medical History: Diabetes Mellitus, Myocardial Infarction ([place]), Renal Disease Additional Family Medical History / Comment(s): Father of a massive PR while on dialysis at the age of 57yrs. He had an enlarged heart and cervical injury/pain. Mother Family Medical History: No Reported History Additional Family Medical History / Comment(s): Mother is alive and healthy. Medications and Allergies Home Medications Medication Instructions Recorded Confirmed Type lisinopriL [Zestril] 5 mg PO DAILY #30 tab 03/20/17 08/28/20 Rx Cetirizine HCl [Zyrtec] 10 mg PO HS 06/25/19 08/28/20 History Topiramate [Topamax] 50 mg PO BID 06/25/19 08/28/20 History Isosorbide Mononitrate ER [Imdur] 30 mg PO DAILY #30 tab.er.24h 06/27/19 08/28/20 Rx Metoprolol Tartrate [Lopressor] 25 mg PO DAILY #30 tab 06/27/19 08/28/20 Rx Atorvastatin [Lipitor] 80 mg PO HS 07/21/19 08/28/20 History Multivit-Min/Iron/Folic/Lutein 1 tab PO HS 07/21/19 08/28/20 History [Centrum Silver Women Tablet] Albuterol Inhaler [Ventolin Hfa 2 puff INHALATION RT-QID PRN 03/16/20 08/28/20 History Inhaler] Nitroglycerin Sl Tabs [Nitrostat] 0.4 mg SL Q5M PRN 03/16/20 08/28/20 History metFORMIN HCL [metFORMIN HCL ER] 750 mg PO DAILY 08/28/20 08/28/20 History Allergies Allergy/AdvReac Type Severity Reaction Status Date / Time horse dander Allergy Unknown Verified 08/28/20 14:44 hydrocodone [From Vicodin] AdvReac Vertigo Verified 08/28/20 14:44 mold AdvReac Abdominal Verified 08/28/20 14:44 Pain Mushroom AdvReac Abdominal Verified 08/28/20 14:44 Pain pentazocine [From Talwin] AdvReac Confusion Verified 08/28/20 14:44 pseudoephedrine AdvReac Confusion Verified 08/28/20 14:44 [From Seldane-D] terfenadine [From Seldane-D] AdvReac Confusion Verified 08/28/20 14:44 Physical Exam Vitals: Vital Signs Temp Pulse Pulse Pulse Pulse Pulse Pulse 08/29/20 08:42 08/29/20 06:58 98 F 51 L 08/29/20 02:25 98.1 F 55 L 08/28/20 19:40 97.6 F 61 08/28/20 17:22 97.6 F 51 L 08/28/20 15:30 57 L 08/28/20 14:32 56 L 55 L 56 L 08/28/20 13:46 57 L 08/28/20 13:30 97.9 F 57 L Resp BP BP BP BP BP Pulse Ox 08/29/20 08:42 100 08/29/20 06:58 16 123/71 100 08/29/20 02:25 16 108/63 99 08/28/20 19:40 16 118/72 99 08/28/20 17:22 16 134/87 100 08/28/20 15:30 18 120/80 100 08/28/20 14:32 116/70 117/69 112/74 08/28/20 13:46 08/28/20 13:30 16 111/69 100 Intake and Output 08/28/20 08/29/20 08/29/20 22:59 06:59 14:59 Other: # Voids 3 1 Weight 79.379 kg GENERAL: Well-appearing, sitting up in chair, well-nourished and in no acute distress. HEAD: Atraumatic, normocephalic. EYES: Pupils equal round and reactive to light, extraocular movements intact, sclera anicteric, conjunctiva are normal. ENT:nares patent, oropharynx clear without exudates. Moist mucous membranes. NECK: Normal range of motion, supple without lymphadenopathy or JVD, no thyromegaly LUNGS: Breath sounds clear to auscultation bilaterally and equal. No wheezes rales or rhonchi. HEART: Regular rate and rhythm without murmurs, rubs or gallops.S1S2 Normal ABDOMEN: Soft, nontender, normoactive bowel sounds. No guarding, no rebound. No masses appreciated. EXTREMITIES: Normal range of motion, no pitting or edema. No clubbing or cyanosis. NEUROLOGICAL: Cranial nerves II through XII grossly intact. No focal deficits. PSYCH: Normal mood, normal affect. SKIN: Warm, Dry, normal turgor, no rashes noted. Results CBC & Chem 7: 08/29/20 05:01 08/29/20 05:01 Labs: Abnormal Lab Results - Last 24 Hours (Table) 08/28/20 08/28/20 08/28/20 Range/Units 13:36 13:53 13:53 RBC (4.10-5.20) X 10*6/uL Hgb (12.0-15.0) g/dL Hct (37.2-46.3) % MCHC (32.0-37.0) g/dL APTT 20.4 L (22.0-30.0) sec Chloride 109 H (98-107) mmol/L BUN 19 H (7-17) mg/dL Glucose 107 H (74-99) mg/dL POC Glucose (mg/dL) 128 H (75-99) mg/dL AST 40 H (14-36) U/L 08/29/20 Range/Units 05:01 RBC 3.93 L (4.10-5.20) X 10*6/uL Hgb 11.5 L (12.0-15.0) g/dL Hct 36.0 L (37.2-46.3) % MCHC 31.9 L (32.0-37.0) g/dL APTT (22.0-30.0) sec Chloride (98-107) mmol/L BUN (7-17) mg/dL Glucose (74-99) mg/dL POC Glucose (mg/dL) (75-99) mg/dL AST (14-36) U/L Thrombosis Risk Factor Assmnt - Choose All That Apply Any of the Below Risk Factors Present?: Yes Each Factor Represents 1 point: Age 41-60 years, Obesity (BMI >25) Other Risk Factors: No Thrombosis Risk Factor Assessment Total Risk Factor Score: 2 Thrombosis Risk Factor Assessment Level: Low Risk Assessment and Plan Assessment: Chest pain, ACS ruled out as per cardiology,possibly related to CPAP noncompliance. CAD, history of NSTEMI, PTCA Diabetes type 2 Hypertension Hyperlipidemia Chronic intermittent asthma Sleep apnea, wears CPAP Chronic low back pain History of anxiety History of depression Obstructive sleep apnea,CPAP noncompliance Plan: Continue on current medication regime, monitoring and symptomatic treatment. CPAP compliance reinforced Evaluated by cardiology with recommendations noted and appreciated. Increase ambulation. Patient will be discharged home in a stable condition with guarded prognosis pending cardiology's final DC recommendations and clearance. The impression and plan of care has been dictated as directed. : I performed a history and examination of this patient, discussed the same with the dictator. I agree with the dictator's note ,documented as a scribe. Any additional findings or plans will be noted.
--- NOTE | 2020-08-30 07:27 | ECHOF ---
Referral Reason:syncope MEASUREMENTS -------- HEIGHT: 160.0 cm WEIGHT: 79.4 kg BP: 123/71 RVIDd: 3.1 cm (< 3.3) IVSd: 1.2 cm (0.6 - 1.1) LVIDd: 3.9 cm (3.9 - 5.3) LVPWd: 1.3 cm (0.6 - 1.1) IVSs: 1.3 cm LVIDs: 2.7 cm LVPWs: 1.3 cm LAESV Index (A-L): 15.67 ml/m Ao Diam: 2.6 cm (2.0 - 3.7) AV Cusp: 1.7 cm (1.5 - 2.6) LA Diam: 3.4 cm (2.7 - 3.8) MV EXCURSION: 18.221 mm (> 18.000) MV EF SLOPE: 80 mm/s (70 - 150) EPSS: 0.5 cm MV E José Miguel: 0.92 m/s MV DecT: 181 ms MV A José Miguel: 0.73 m/s MV E/A Ratio: 1.26 RAP: 5.00 mmHg RVSP: 25.25 mmHg FINDINGS -------- Sinus rhythm. This was a technically adequate study. The left ventricular size is normal. There is mild concentric left ventricular hypertrophy. Overa ll left ventricular systolic function is normal with, an EF between 55 - 60 %. The right ventricle is normal in size. Normal LA size by volume 22+/-6 ml/m2. The right atrial size is normal. Interatrial and interventricular septum intact. The aortic valve is trileaflet, and appears structurally normal. No aortic stenosis or regurgitation. The mitral valve is normal. There is trace mitral regurgitation. The tricuspid valve appears structurally normal. Mild tricuspid regurgitation present. Right vent ricular systolic pressure is normal at < 35 mmHg. The right ventricular systolic pressure, as measu red by Doppler, is 25.25mmHg. There is no pulmonic regurgitation present. The aortic root size is normal. Normal inferior vena cava with normal inspiratory collapse consistent with estimated right atrial pre ssure of 5 mmHg. There is no pericardial effusion. CONCLUSIONS -------- 1. There is mild concentric left ventricular hypertrophy. 2. Overall left ventricular systolic function is normal with, an EF between 55 - 60 %. 3. Normal LA size by volume 22+/-6 ml/m2. 4. The aortic valve is trileaflet, and appears structurally normal. No aortic stenosis or regurgitati on. 5. There is trace mitral regurgitation. 6. Mild tricuspid regurgitation present. PROFESSOR OF GRAPHIC DESIGN: Shayna Edwards RDCS
== END 2020-08-29 16:23 | disposition home or self-care (01) ==
LOC: EC 13:19 → 6NMEDSUR 15:52
PROVIDERS: ADMIT Family Medicine; ATTEND Family Medicine
DX: R07.89 Other chest pain (principal); I25.10 Atherosclerotic heart disease of native coronary artery without angina pectoris; E11.9 Type 2 diabetes mellitus without complications; I10 Essential (primary) hypertension; E78.5 Hyperlipidemia, unspecified; J45.909 Unspecified asthma, uncomplicated; R55 Syncope and collapse; F32.9 Major depressive disorder, single episode, unspecified; G47.33 Obstructive sleep apnea (adult) (pediatric); E03.9 Hypothyroidism, unspecified; E78.00 Pure hypercholesterolemia, unspecified; F41.9 Anxiety disorder, unspecified; I21.4 Non-ST elevation (NSTEMI) myocardial infarction; I25.2 Old myocardial infarction; Z79.84 Long term (current) use of oral hypoglycemic drugs; Z79.899 Other long term (current) drug therapy; Z82.49 Family history of ischemic heart disease and other diseases of the circulatory system; Z91.19 Patient's noncompliance with other medical treatment and regimen; Z83.3 Family history of diabetes mellitus; Z86.73 Personal history of transient ischemic attack (TIA), and cerebral infarction without residual deficits; Z20.822 Contact with and (suspected) exposure to COVID-19; Z90.710 Acquired absence of both cervix and uterus
CPT/HCPCS: 96360; 99285; 36415; 94760; 93005; 93306; 80053 ×2; 83735 ×2; 84484; 85025 ×2; 85610; 85730; 87635; 71046; G0378 ×2

== ENCOUNTER → 2020-09-17 | Outpatient (CLI) | payer BC ==
--- NOTE | 2020-09-17 12:28 | MR ---
EXAMINATION TYPE: MR brain wo con DATE OF EXAM: 09/17/2020 12:24 PM COMPARISON: NONE HISTORY: Syncope FINDINGS: The ventricles, basal cisterns and sulci overlying the cerebral convexities are mildly enlarged. There is evidence of mild periventricular white matter ischemic demyelination. Remote deep white matter insults are also noted. No acute edema is seen on diffusion weighted imaging. There is no evidence for midline shift or mass effect. Acute intracranial hemorrhage or extra-axial collection is not evident. The mastoid air cells are well-aerated. Mucous retention cyst left maxillary sinus. IMPRESSION: Age-related atrophic and chronic small vessel ischemic change. No acute intracranial process at this time.
--- NOTE | 2020-09-17 12:29 | MR ---
EXAMINATION TYPE: MR angio head wo con DATE OF EXAM: 09/17/2020 12:23 PM COMPARISON: NONE HISTORY: Syncope Three-dimensional [id number] intracranial MRA was performed with multiple intensity projection im ages submitted and source data reviewed at the workstation. The vertebrobasilar system as well as intracranial portions of the internal carotid arteries and thei r major tributaries are patent. I do not see evidence for sizable aneurysm or vascular malformation. IMPRESSION: Normal study.
== END | disposition home or self-care (01) ==
LOC: RADMRIMAIN 11:30
PROVIDERS: ATTEND Family Medicine
DX: I67.82 Cerebral ischemia (principal)
CPT/HCPCS: 70544; 70551

== ENCOUNTER → 2020-10-03 | Outpatient (CLI) | payer BC ==
--- NOTE | 2020-10-03 14:58 | US ---
EXAMINATION TYPE: US carotid duplex BILAT DATE OF EXAM: 10/03/2020 COMPARISON: NONE CLINICAL HISTORY: R55 Syncope. Syncope EXAM MEASUREMENTS: RIGHT: Peak Systolic Velocity (PSV) cm/sec ----- Right CCA: 117 ----- Right ICA: 77.3 ----- Right ECA: 102 ICA/CCA ratio: 0.66 RIGHT: End Diastole cm/sec ----- Right CCA: 22.1 ----- Right ICA: 24.7 ----- Right ECA: 0.0 LEFT: Peak Systolic Velocity (PSV) cm/sec ----- Left CCA: 118 ----- Left ICA: 107 ----- Left ECA: 110 ICA/CCA ratio: 0.91 LEFT: End Diastole cm/sec ----- Left CCA: 20.8 ----- Left ICA: 20.8 ----- Left ECA: 7.5 VERTEBRALS (direction of flow): Right Vertebral: Antegrade Left Vertebral: Antegrade Rhythm: Normal Mild plaque bilateral bifurcations. No evidence of significant stenosis IMPRESSION: No hemodynamically significant stenosis seen in either internal carotid artery. Criteria for Assigning % of Stenosis / Diameter reduction (Estimation based on the indirect measurements of the internal carotid artery velocities (ICA PSV). 1. Normal (no stenosis)=ICA PSV < 125 cm/s: ratio < 2.0: ICA EDV<40 cm/s. 2. Less than 50% stenosis=ICA PSV < 125 cm/s: ratio < 2.0: ICA EDV<40 cm/s. 3. 50 to 69% stenosis=ICA PSV of 125 to 230 cm/s: ration 2.0 ? 4.0: ICA EDV 40-100 cm/s. 4. Greater than 70% stenosis to near occlusion= ICA PSV > 230 cm/s: ratio > 4.0: ICA EDV > 100 cm/s. 5. Near occlusion= ICA PSV velocities may be low or undetectable: variable ratio and ICA EDV. 6. Total occlusion=unable to detect flow.
== END | disposition home or self-care (01) ==
LOC: RADUSWWP 14:14
PROVIDERS: ATTEND Family Medicine
DX: R55 Syncope and collapse (principal)
CPT/HCPCS: 93880

== ENCOUNTER 2020-12-28 | Emergency (ER) | payer BC | END 2020-12-28 17:32 | disposition home or self-care (01) | CPT/HCPCS: 36415; 70450; 71046; 80053; 81003; 82550; 83605; 83735; 84484; 85025; 85610; 85730; 93005; 96360; 99284 ==

== ENCOUNTER 2021-05-27 06:06 | Observation (INO) | payer BC ==
[2021-05-27] MEDS ORDERED: ASPIRIN 81 MG PO STA (06:12)
--- NOTE | 2021-05-27 06:45 | XR ---
EXAMINATION TYPE: XR chest 2V DATE OF EXAM: 05/27/2021 COMPARISON: 12/28/2020 HISTORY: Chest pain TECHNIQUE: FINDINGS: Heart and mediastinum are normal. Lungs are clear. Diaphragm is normal. Bony thorax is inta ct. There are chest leads. IMPRESSION: Normal chest. No change.
[2021-05-27 07:16] LABS: Basophils % (A) 1 %; Eosinophils # (A) 0.4 k/uL (0-0.7); Eosinophils % (A) 5 %; HCT 38.4 % (34.0-46.0); HGB 13.2 gm/dL (11.4-16.0); Lymphocytes # (A) 3.1 k/uL (1.0-4.8); Lymphocytes % (A) 43 %; MCH 29.5 pg (25.0-35.0); MCHC 34.3 g/dL (31.0-37.0); MCV 85.9 fL (80.0-100.0); Mean Platelet Volume 8.1; Monocytes # (A) 0.3 k/uL (0-1.0); Monocytes % (A) 5 %; Neutrophils # (A) 3.2 k/uL (1.3-7.7); Neutrophils % (A) 45 %; Platelet Count 241 k/uL (150-450); RBC 4.47 m/uL (3.80-5.40); RDW 12.7 % (11.5-15.5); WBC 7.1 k/uL (3.8-10.6)
--- NOTE | 2021-05-27 07:20 | ED ---
Chest Pain HPI - General Chief Complaint: Chest Pain Stated Complaint: Chest Pain Time Seen by Provider: 05/27/21 06:11 Source: patient, RN notes reviewed Mode of arrival: ambulatory Limitations: no limitations - History of Present Illness Initial Comments: This a 55-year-old female presents emergency Department with chief complaint of discomfort, near syncope. Patient states that she gets morning to help with her grandchild in which she became very lightheaded, nearly passed out. She started developing chest discomfort that radiates to her left shoulder. She states she had a [place] 2 years ago has a history of hyperlipidemia, hypertension, diabetes and states that she had TIA last year. Patient states that the pain is slightly improving at this time. Denies any nausea vomiting diarrhea no focal weakness - Related Data Home Medications Medication Instructions Recorded Confirmed Topiramate [Topamax] 50 mg PO BID 06/25/19 12/28/20 Atorvastatin [Lipitor] 80 mg PO HS 07/21/19 12/28/20 Multivit-Min/Iron/Folic/Lutein 1 tab PO HS 07/21/19 12/28/20 [Centrum Silver Women Tablet] Albuterol Inhaler [Ventolin Hfa 2 puff INHALATION RT-QID PRN 03/16/20 12/28/20 Inhaler] metFORMIN HCL [metFORMIN HCL ER] 750 mg PO DAILY 08/28/20 12/28/20 Aspirin EC [Ecotrin Low Dose] 162 mg PO DAILY 12/28/20 12/28/20 Azelastine HCl [Astepro] 2 spray NASAL DAILY 12/28/20 12/28/20 DULoxetine HCL [Cymbalta] 60 mg PO DAILY 12/28/20 12/28/20 Ergocalciferol [Vitamin D2 (1250 1,250 mcg PO WE 12/28/20 12/28/20 Mcg = 10674 Iu)] Previous Rx's Medication Instructions Recorded lisinopriL [Zestril] 5 mg PO DAILY #30 tab 03/20/17 Isosorbide Mononitrate ER [Imdur] 30 mg PO DAILY #30 tab.er.24h 06/27/19 Metoprolol Tartrate [Lopressor] 25 mg PO DAILY #30 tab 06/27/19 Allergies Allergy/AdvReac Type Severity Reaction Status Date / Time horse dander Allergy Unknown Verified 05/27/21 06:10 hydrocodone [From Vicodin] AdvReac Vertigo Verified 05/27/21 06:10 mold AdvReac Abdominal Verified 05/27/21 06:10 Pain Mushroom AdvReac Abdominal Verified 05/27/21 06:10 Pain pentazocine [From Talwin] AdvReac Confusion Verified 05/27/21 06:10 pseudoephedrine AdvReac Confusion Verified 05/27/21 06:10 [From Seldane-D] terfenadine [From Seldane-D] AdvReac Confusion Verified 05/27/21 06:10 dust Allergy Unknown Uncoded 05/27/21 06:10 Review of Systems ROS Statement: Those systems with pertinent positive or pertinent negative responses have been documented in the HPI. ROS Other: All systems not noted in ROS Statement are negative. EKG Findings - EKG Comments: EKG Findings:: EKG performed 6:17 normal sinus rhythm rate of 72 WA 148 QRS 82 QT/QTC 404/442 Past Medical History Past Medical History: Asthma, Coronary Artery Disease (CAD), Chest Pain / Angina, Diabetes Mellitus, Eye Disorder, Hyperlipidemia, Hypertension, Myocardia l Infarction ([place]), Sleep Apnea/CPAP/BIPAP, Thyroid Disorder Additional Past Medical History / Comment(s): NIDDM type II, neuropathy biltateral legs/feet and occasionally in bilateral hands, pt states she has had R shoulder pain since radial cardiac cath on 06/25/19, past L shoulder pain, MALLORY with Cpap, hypothyroid tx with medication for a couple years then no longer needed, chronic low back pain and bilateral sciatica with L side worse, IBS, past rib fractures/pneumo with chest tube, bilateral narrow angle glaucoma corrected with surgery. Last Myocardial Infarction Date:: 06/25/19 History of Any Multi-Drug Resistant Organisms: None Reported Past Surgical History: Cholecystectomy, Heart Catheterization With Stent, Hysterectomy Additional Past Surgical History / Comment(s): Bilateral eye surgery for glaucoma, colonoscopy, sebacceous cyst removed from back, septal repair. Past Anesthesia/Blood Transfusion Reactions: No Reported Reaction Date of Last Stent Placement:: 06/25/19 Past Psychological History: Anxiety, Depression Smoking Status: Never smoker Past Alcohol Use History: None Reported Past Drug Use History: None Reported - Past Family History Father Family Medical History: Diabetes Mellitus, Myocardial Infarction ([place]), Renal Disease Additional Family Medical History / Comment(s): Father of a massive [place] while on dialysis at the age of 57yrs. He had an enlarged heart and cervical injury/pain. Mother Family Medical History: No Reported History Additional Family Medical History / Comment(s): Mother is alive and healthy. General Exam Limitations: no limitations Head exam: Present: atraumatic, normocephalic, normal inspection Eye exam: Present: normal appearance, PERRL, EOMI. Absent: scleral icterus, conjunctival injection, periorbital swelling ENT exam: Present: normal exam, normal oropharynx, mucous membranes moist Neck exam: Present: normal inspection, full ROM. Absent: tenderness, meningismus, lymphadenopathy Respiratory exam: Present: normal lung sounds bilaterally. Absent: respiratory distress, wheezes, rales, rhonchi, stridor Cardiovascular Exam: Present: regular rate, normal rhythm, normal heart sounds. Absent: systolic murmur, diastolic murmur, rubs, gallop, clicks GI/Abdominal exam: Present: soft, normal bowel sounds. Absent: distended, tenderness, guarding, rebound, rigid Neurological exam: Present: alert, oriented X3, CN II-XII intact, reflexes normal. Absent: motor sensory deficit Skin exam: Present: warm, dry, intact, normal color. Absent: rash Course Vital Signs 05/27/21 05/27/21 06:07 07:31 Temperature 98.1 F Pulse Rate 75 61 Respiratory 22 16 Rate Blood Pressure 151/84 136/75 O2 Sat by Pulse 100 99 Oximetry Chest Pain MDM - MDM 55-year-old presented for chest pain near syncope. Initial workup diarrhea do any elevated troponin, EKG changes. Patient does have significant history of admitted for cardiology, further evaluation repeat troponin Disposition Clinical Impression: Chest pain, Near syncope Disposition: ADMITTED IP TO THIS HOSP Condition: Fair Referrals: Trevon Soto MD [Primary Care Provider] - 1-2 days
[2021-05-27 07:28] LABS: INR 0.9 (<1.2)
[2021-05-27 07:29] LABS: Partial Thromboplastin Time 23.4 sec (22.0-30.0); Prothrombin Time 9.8 sec (9.0-12.0)
[2021-05-27 07:33] LABS: ALT 19 U/L (4-34); AST 22 U/L (14-36); African American GFR (CKD) >90 (>60 ml/min/1.73 sqM); Albumin 4.3 g/dL (3.5-5.0); Alkaline Phosphatase 92 U/L (38-126); Anion Gap 9 mmol/L; Blood Urea Nitrogen 21 mg/dL (7-17); Calcium 9.6 mg/dL (8.4-10.2); Carbon Dioxide 24 mmol/L (22-30); Chloride 108 mmol/L (98-107); Glucose 134 mg/dL (74-99); Lipase 114 U/L (23-300); Magnesium 2.1 mg/dL (1.6-2.3); Non-African American GFR(CKD) 90 (>60 ml/min/1.73 sqM); Potassium 4.2 mmol/L (3.5-5.1); Sodium 141 mmol/L (137-145); Total Bilirubin 0.7 mg/dL (0.2-1.3); Total Protein 6.8 g/dL (6.3-8.2)
[2021-05-27] MEDS ORDERED: HEPARIN SODIUM 1,000 UN/ML (10ML VL) IV ONE (08:12)
[2021-05-27] MEDS ORDERED: NITROGLYCERIN SL TABS 0.4 MG TAB SUBLINGUAL PRN (08:12)
[2021-05-27] MEDS ORDERED: HEPARIN SOD,PORK IN 0.45% NACL 25,000 UNIT in 0.45% NACL 1 250ML.BAG IV SCH (08:15)
[2021-05-27 14:04] LABS: Glucose,Whole Blood 119 mg/dL (75-99)
--- NOTE | 2021-05-27 15:15 | CONS ---
CONSULTATION CHIEF COMPLAINT: Dizziness HISTORY OF PRESENT ILLNESS: Kristie is a 55-year-old lady with history of dyslipidemia, [id number] diabetes and hypertension, and coronary artery disease status post prior angioplasty and she had a TIA last year, came to the hospital with having had an episode of near syncope at home. She states that she was helping her grandchild this morning, became very lightheaded and near syncopal, but did not lose any consciousness. She had several of these episodes hence came to the emergency room. At the time of my evaluation, she is symptom free, hemodynamically stable and in no apparent distress. An EKG shows sinus rhythm, normal axis, normal intervals. Labs show that the hemoglobin is 13.2, platelet count is 240, potassium is 4.2, creatinine is 0.7. Troponins are negative. PAST MEDICAL HISTORY: Past medical history is significant for [id number] diabetes, hypertension, coronary artery disease. MEDICATIONS: Include metformin, lisinopril 5 daily, Topamax 50 b.i.d., Lopressor 25 daily, Imdur 30 daily, Cymbalta, Lipitor 80 daily, aspirin and albuterol. ALLERGIC: SUDAFED, , AND SELDANE-D. FAMILY HISTORY: Negative for premature coronary artery disease. SOCIAL HISTORY: Negative for current smoking, ETOH abuse or drug abuse. REVIEW OF SYSTEMS: HEENT is unremarkable. CARDIAC as described above. RESPIRATORY negative. GI negative. ENDOCRINE negative. ALLERGY: None. SKIN negative. MUSCULOSKELETAL significant for arthritis. PSYCHOSOCIAL: Negative. DERM negative. CONSTITUTIONAL negative. ONCOLOGICAL negative. DIGITAL CARTOGRAPHER: Negative. Rest of the system review is not relevant. PHYSICAL EXAMINATION: On exam: Comfortable at rest. Heart rate is 70 beats per minute. Blood pressure is 136/75, respiratory rate 18, O2 saturation is 95%. There is no jugular venous distention. Carotid upstroke is normal. There is no bruit. Chest exam reveals good air entry bilaterally. Heart exam reveals first and second heart sounds. No gallop. No murmur. No rub. Abdomen is soft, nontender. Examination of extremities did not reveal any edema. Peripheral pulses are felt. LABORATORY DATA: Labs showed that the tropes are negative. Creatinine is 0.76, hemoglobin is 13.2. ASSESSMENT: 1. Dizziness and near syncope, rule out cardiac causes. 2. coronary artery disease, status post prior angioplasty. PLAN: I will obtain an echocardiogram in the morning and see how her symptoms evolve. MMODL / IJN: [id number] /
--- NOTE | 2021-05-27 15:21 | CT ---
EXAMINATION TYPE: CT brain wo con DATE OF EXAM: 05/27/2021 COMPARISON: 07/01/2021 HISTORY: Headache. CT DLP: 1088.[address] of the brain was performed. The ventricles, basal cisterns and sulci overlying the cerebral convexities demonstrate mild enlargem ent. There is no evidence for intracranial hemorrhage or sulcal effacement. There is decreased attenuation about the periventricular white matter and deep white matter of both c erebral hemispheres, compatible with chronic small vessel ischemia. Differential diagnosis does inclu de demyelination. No mass effects are seen.No midline shift. Osseous calvarium is intact. If symptoms persist consider MRI. IMPRESSION: 1. Age related atrophic and chronic small vessel ischemic change without acute intracranial process s een at this time.
[2021-05-27] MEDS ORDERED: TOPIRAMATE 100 MG TAB PO STA (18:38)
--- NOTE | 2021-05-27 19:42 | P.DS ---
Providers Date of admission: 05/27/21 08:29 Expected date of discharge: 05/27/21 Attending physician: Rahat Mahoney Consults: 05/27/21 08:12 Consult Physician Urgent Consulting Provider: Ben Hwang Consult Reason/Comments: chest pain Do you want consulting provider notified?: Yes Primary care physician: Trevon Soto - Discharge Diagnosis(es) (1) Migraine intractable migrain Current Visit: Yes Status: Acute (2) Chest pain normal troponins non cardiac Current Visit: Yes Status: Acute (3) Near syncope secondary to intractable migraine Current Visit: Yes Status: Acute (4) Hypertension controlled Current Visit: No Status: Acute Patient Condition at Discharge: Fair Plan - Discharge Summary New Discharge Prescriptions: No Action lisinopriL [Zestril] 5 mg PO DAILY #30 tab Topiramate [Topamax] 50 mg PO BID Isosorbide Mononitrate ER [Imdur] 30 mg PO DAILY #30 tab.er.24h Metoprolol Tartrate [Lopressor] 25 mg PO DAILY #30 tab Atorvastatin [Lipitor] 80 mg PO HS Multivit-Min/Iron/Folic/Lutein [Centrum Silver Women Tablet] 1 tab PO HS Albuterol Inhaler [Ventolin Hfa Inhaler] 2 puff INHALATION RT-QID PRN PRN Reason: Shortness Of Breath metFORMIN HCL [metFORMIN HCL ER] 750 mg PO DAILY Ergocalciferol [Vitamin D2 (1250 Mcg = 09337 Iu)] 1,250 mcg PO WE Cetirizine HCl 10 mg PO DAILY Aspirin EC [Ecotrin Low Dose] 81 mg PO DAILY DULoxetine HCL [Cymbalta] 60 mg PO DAILY Discharge Medication List lisinopriL [Zestril] 5 mg PO DAILY #30 tab 03/20/17 [Rx] Topiramate [Topamax] 50 mg PO BID 06/25/19 [History] Isosorbide Mononitrate ER [Imdur] 30 mg PO DAILY #30 tab.er.24h 06/27/19 [Rx] Metoprolol Tartrate [Lopressor] 25 mg PO DAILY #30 tab 06/27/19 [Rx] Atorvastatin [Lipitor] 80 mg PO HS 07/21/19 [History] Multivit-Min/Iron/Folic/Lutein [Centrum Silver Women Tablet] 1 tab PO HS 07/21/19 [History] Albuterol Inhaler [Ventolin Hfa Inhaler] 2 puff INHALATION RT-QID PRN 03/16/20 [History] metFORMIN HCL [metFORMIN HCL ER] 750 mg PO DAILY 08/28/20 [History] Aspirin EC [Ecotrin Low Dose] 81 mg PO DAILY 12/28/20 [History] DULoxetine HCL [Cymbalta] 60 mg PO DAILY 12/28/20 [History] Ergocalciferol [Vitamin D2 (1250 Mcg = 46749 Iu)] 1,250 mcg PO WE 12/28/20 [History] Cetirizine HCl 10 mg PO DAILY 05/27/21 [History] Follow up Appointment(s)/Referral(s): Trevon Soto MD [Primary Care Provider] - 1-2 days
[2021-05-27 20:20] VITALS: BP 113/62; PULSE 62; RESP 18; TEMP 97.6
[2021-05-28] MEDS ORDERED: ASPIRIN 325 MG TAB PO SCH (09:00)
== END 2021-05-27 21:00 | disposition home or self-care (01) ==
LOC: EC 06:06 → 6NMEDSUR 08:29
PROVIDERS: ADMIT Family Medicine; ATTEND Family Medicine
DX: G43.919 Migraine, unspecified, intractable, without status migrainosus (principal); R07.89 Other chest pain; R55 Syncope and collapse; I10 Essential (primary) hypertension; R42 Dizziness and giddiness; I25.2 Old myocardial infarction; E78.5 Hyperlipidemia, unspecified; E11.9 Type 2 diabetes mellitus without complications; J45.909 Unspecified asthma, uncomplicated; E11.40 Type 2 diabetes mellitus with diabetic neuropathy, unspecified; M25.512 Pain in left shoulder; M25.511 Pain in right shoulder; G47.33 Obstructive sleep apnea (adult) (pediatric); E03.9 Hypothyroidism, unspecified; G89.29 Other chronic pain; M54.42 Lumbago with sciatica, left side; K58.9 Irritable bowel syndrome, unspecified; F41.9 Anxiety disorder, unspecified; F32.A Depression, unspecified; M19.90 Unspecified osteoarthritis, unspecified site; I25.10 Atherosclerotic heart disease of native coronary artery without angina pectoris; Z20.822 Contact with and (suspected) exposure to COVID-19; Z86.73 Personal history of transient ischemic attack (TIA), and cerebral infarction without residual deficits; Z79.899 Other long term (current) drug therapy; Z79.82 Long term (current) use of aspirin; Z79.84 Long term (current) use of oral hypoglycemic drugs; Z88.5 Allergy status to narcotic agent; Z88.8 Allergy status to other drugs, medicaments and biological substances; Z91.018 Allergy to other foods; Z91.048 Other nonmedicinal substance allergy status; Z95.5 Presence of coronary angioplasty implant and graft; Z90.49 Acquired absence of other specified parts of digestive tract; Z90.710 Acquired absence of both cervix and uterus; Z82.49 Family history of ischemic heart disease and other diseases of the circulatory system; Z83.3 Family history of diabetes mellitus; Z84.1 Family history of disorders of kidney and ureter
CPT/HCPCS: 96376; 96365; 96366; 99285; 36415; 93005; 83880; 80053; 83690; 83735; 84484; 85025; 85610; 85730; 87635; 71046; 70450; G0378; J1644 ×2

== ENCOUNTER → 2021-07-06 | Outpatient (CLI) | payer BC ==
[~2021-07-06] MED LIST: BAMLANIVIMAB (EUA) 700 MG, ETESEVIMAB (EUA) 1,400 MG in SODIUM CHLORIDE 0.9% 100 ML IVPB ONE; SODIUM CHLORIDE 0.9% 50 ML IVPB ONE; SODIUM CHLORIDE 0.9% 500 ML 500 ML in EMPTY BAG 1 BAG IV PRN
[2021-07-06 13:51] VITALS: RESP 16
[2021-07-06 14:40] VITALS: BP 99/60; TEMP 97.1
[2021-07-06 14:51] VITALS: PULSE 53
== END | disposition home or self-care (01) ==
LOC: PROCWHC3 13:37
PROVIDERS: ATTEND Nurse Practitioner Family
DX: U07.1 COVID-19 (principal)
CPT/HCPCS: 96360; J3490; M0245

== ENCOUNTER 2022-06-05 15:18 | Observation (INO) | payer BC, OTHER ==
[2022-06-05 15:31] LABS: Glucose,Whole Blood 224 mg/dL (70-110)
[2022-06-05] MEDS ORDERED: NITROGLYCERIN OINT 1 INCH/GM PACKET TOPICAL STA (15:52)
--- NOTE | 2022-06-05 15:56 | ED ---
General Adult HPI - General Chief complaint: Weakness Stated complaint: Weakness and fatigue Time Seen by Provider: 06/05/22 15:34 Source: patient, family, RN notes reviewed Mode of arrival: wheelchair Limitations: no limitations - History of Present Illness Initial comments: Patient is a pleasant 6-year-old female presenting to the emergency department with concern for general weakness. Onset of symptoms was this morning when she woke. Patient felt fine yesterday. is concerned the patient is under increased stress and anxiety. Patient is having chest discomfort that just started. Patient has a difficult time providing history or details about the chest discomfort. Patient states she is very tired and just wants to sleep. No isolated area of weakness however patient feels weak throughout. No dyspnea. Patient does not feel confused. - Related Data Home Medications Medication Instructions Recorded Confirmed Topiramate [Topamax] 50 mg PO BID 06/25/19 05/27/21 Atorvastatin [Lipitor] 80 mg PO HS 07/21/19 05/27/21 Multivit-Min/Iron/Folic/Lutein 1 tab PO HS 07/21/19 05/27/21 [Centrum Silver Women Tablet] Albuterol Inhaler [Ventolin Hfa 2 puff INHALATION RT-QID PRN 03/16/20 05/27/21 Inhaler] metFORMIN HCL [metFORMIN HCL ER] 750 mg PO DAILY 08/28/20 05/27/21 Aspirin EC [Ecotrin Low Dose] 81 mg PO DAILY 12/28/20 05/27/21 DULoxetine HCL [Cymbalta] 60 mg PO DAILY 12/28/20 05/27/21 Ergocalciferol [Vitamin D2 (1250 1,250 mcg PO WE 12/28/20 05/27/21 Mcg = 63256 Iu)] Cetirizine HCl 10 mg PO DAILY 05/27/21 05/27/21 Previous Rx's Medication Instructions Recorded lisinopriL [Zestril] 5 mg PO DAILY #30 tab 03/20/17 Isosorbide Mononitrate ER [Imdur] 30 mg PO DAILY #30 tab.er.24h 06/27/19 Metoprolol Tartrate [Lopressor] 25 mg PO DAILY #30 tab 06/27/19 Allergies Allergy/AdvReac Type Severity Reaction Status Date / Time horse dander Allergy Unknown Verified 07/06/21 13:45 hydrocodone [From Vicodin] AdvReac Vertigo Verified 07/06/21 13:45 mold AdvReac Abdominal Verified 07/06/21 13:45 Pain Mushroom AdvReac Abdominal Verified 07/06/21 13:45 Pain pentazocine [From Talwin] AdvReac Confusion Verified 07/06/21 13:45 pseudoephedrine AdvReac Confusion Verified 07/06/21 13:45 [From Seldane-D] terfenadine [From Seldane-D] AdvReac Confusion Verified 07/06/21 13:45 dust Allergy Unknown Uncoded 07/06/21 13:45 Review of Systems ROS Statement: Those systems with pertinent positive or pertinent negative responses have been documented in the HPI. ROS Other: All systems not noted in ROS Statement are negative. Constitutional: Denies: fever Eyes: Denies: eye pain ENT: Denies: ear pain Respiratory: Denies: cough Cardiovascular: Reports: chest pain Endocrine: Reports: as per HPI, fatigue Gastrointestinal: Denies: abdominal pain Genitourinary: Denies: dysuria Musculoskeletal: Denies: back pain Skin: Denies: rash Neurological: Reports: as per HPI Past Medical History Past Medical History: Asthma, Coronary Artery Disease (CAD), Chest Pain / Angina, Diabetes Mellitus, Eye Disorder, Hyperlipidemia, Hypertension, Myocardial Infarction ([place]), Sleep Apnea/CPAP/BIPAP, Thyroid Disorder Additional Past Medical History / Comment(s): NIDDM type II, neuropathy biltateral legs/feet and occasionally in bilateral hands, pt states she has had R shoulder pain since radial cardiac cath on 06/25/19, past L shoulder pain, MALLORY with Cpap, hypothyroid tx with medication for a couple years then no longer needed, chronic low back pain and bilateral sciatica with L side worse, IBS, past rib fractures/pneumo with chest tube, bilateral narrow angle glaucoma gary ected with surgery. Last Myocardial Infarction Date:: 06/25/19 History of Any Multi-Drug Resistant Organisms: None Reported Past Surgical History: Cholecystectomy, Heart Catheterization With Stent, Hysterectomy Additional Past Surgical History / Comment(s): Bilateral eye surgery for glaucoma, colonoscopy, sebacceous cyst removed from back, septal repair. Past Anesthesia/Blood Transfusion Reactions: No Reported Reaction Date of Last Stent Placement:: 06/25/19 Past Psychological History: Anxiety, Depression Smoking Status: Never smoker Past Alcohol Use History: None Reported Past Drug Use History: None Reported - Past Family History Father Family Medical History: Diabetes Mellitus, Myocardial Infarction ([place]), Renal Disease Additional Family Medical History / Comment(s): Father of a massive [place] while on dialysis at the age of 57yrs. He had an enlarged heart and cervical injury/pain. Mother Family Medical History: No Reported History Additional Family Medical History / Comment(s): Mother is alive and healthy. General Exam Limitations: no limitations General appearance: alert, in no apparent distress Head exam: Present: atraumatic, normocephalic Eye exam: Present: normal appearance, PERRL, EOMI ENT exam: Present: normal oropharynx Neck exam: Present: normal inspection Respiratory exam: Present: normal lung sounds bilaterally Cardiovascular Exam: Present: regular rate, normal rhythm Expanded Peripheral pulses: 2+: Radial (R), Radial (L), Posterior Tibialis (R), Posterior Tibialis (L) GI/Abdominal exam: Present: soft. Absent: distended, tenderness Back exam: Present: normal inspection Neurological exam: Present: alert, oriented X3, CN II-XII intact, other (Patient opens her eyes when commanded. Patient will follow commands however is slow to respond. Patient shows lack of interest in providing history or exam.). Absent: motor sensory deficit Expanded Neurological exam: Present: protecting the airway Patient oriented to: Present: person, place, time Speech: Present: fluid speech Cranial nerves: EOM's Intact: Normal Motor strength exam: RUE: 5, LUE: 5, RLE: 5, LLE: 5 Eye Response: (3) open to voice Motor Response: (6) obeys commands Verbal Response: (5) oriented Psychiatric exam: Present: flat affect Skin exam: Present: normal color Course Vital Signs 06/05/22 15:28 Temperature 97 F L Pulse Rate 73 Respiratory 20 Rate Blood Pressure 150/88 O2 Sat by Pulse 98 Oximetry EKG Findings - EKG Comments: EKG Findings:: Sinus rhythm at 69. OH 19. QRS 73. QT 382. QTC 401. Normal axis. Normal QRS. No acute ST change. - EKG Results: EKG: interpreted by EULOGIO Medical Decision Making - Medical Decision Making Patient reevaluated and resting comfortably in bed. A vu and family updated on results and plan. Case was discussed with Dr. Christy, who will admit his patient. - Lab Data Result diagrams: 06/05/22 15:52 06/05/22 15:52 Lab Results 06/05/22 06/05/22 06/05/22 Range/Units 15:27 15:52 15:52 WBC 6.4 (3.8-10.6) k/uL RBC 4.37 (3.80-5.40) m/uL Hgb 12.7 (11.4-16.0) gm/dL Hct 36.8 (34.0-46.0) % MCV 84.1 (80.0-100.0) fL MCH 29.1 (25.0-35.0) pg MCHC 34.6 (31.0-37.0) g/dL RDW 13.3 (11.5-15.5) % Plt Count 285 (150-450) k/uL MPV 8.1 Neutrophils % 43 % Lymphocytes % 41 % Monocytes % 6 % Eosinophils % 5 % Basophils % 1 % Neutrophils # 2.8 (1.3-7.7) k/uL Lymphocytes # 2.6 (1.0-4.8) k/uL Monocytes # 0.4 (0-1.0) k/uL Eosinophils # 0.3 (0-0.7) k/uL Basophils # 0.1 (0-0.2) k/uL PT 9.4 (9.0-12.0) sec INR 0.9 (<1.2) APTT 24.2 (22.0-30.0) sec D-Dimer 0.55 (<0.60) mg/L FEU Sodium (137-145) mmol/L Potassium (3.5-5.1) mmol/L Chloride (98-107) mmol/L Carbon Dioxide (22-30) mmol/L Anion Gap mmol/L BUN (7-17) mg/dL Creatinine (0.52-1.04) mg/dL Est GFR (CKD-EPI)AfAm (>60 ml/min/1.73 sqM) Est GFR (CKD-EPI)NonAf (>60 ml/min/1.73 sqM) Glucose (74-99) mg/dL POC Glucose (mg/dL) 224 H (70-110) mg/dL POC Glu Journalist ID Bo, Romario Plasma Lactic Acid Ulises (0.7-2.0) mmol/L Calcium (8.4-10.2) mg/dL Phosphorus (2.5-4.5) mg/dL Total Bilirubin (0.2-1.3) mg/dL AST (14-36) U/L ALT (4-34) U/L Alkaline Phosphatase (38-126) U/L Troponin I (0.000-0.034) ng/mL Total Protein (6.3-8.2) g/dL Albumin (3.5-5.0) g/dL TSH (0.465-4.680) mIU/L Free T4 (0.78-2.19) ng/dL Free T3 pg/mL (2.8-5.3) pg/ml Serum Alcohol mg/dL Influenza Type A (PCR) (Not Detectd) Influenza Type B (PCR) (Not Detectd) RSV (PCR) (Not Detectd) SARS-CoV-2 (PCR) (Not Detectd) 06/05/22 06/05/22 06/05/22 Range/Units 15:52 15:52 15:52 WBC (3.8-10.6) k/uL RBC (3.80-5.40) m/uL Hgb (11.4-16.0) gm/dL Hct (34.0-46.0) % MCV (80.0-100.0) fL MCH (25.0-35.0) pg MCHC (31.0-37.0) g/dL RDW (11.5-15.5) % Plt Count (150-450) k/uL MPV Neutrophils % % Lymphocytes % % Monocytes % % Eosinophils % % Basophils % % Neutrophils # (1.3-7.7) k/uL Lymphocytes # (1.0-4.8) k/uL Monocytes # (0-1.0) k/uL Eosinophils # (0-0.7) k/uL Basophils # (0-0.2) k/uL PT (9.0-12.0) sec INR (<1.2) APTT (22.0-30.0) sec D-Dimer (<0.60) mg/L FEU Sodium 136 L (137-145) mmol/L Potassium 6.0 H (3.5-5.1) mmol/L Chloride 106 (98-107) mmol/L Carbon Dioxide 23 (22-30) mmol/L Anion Gap 7 mmol/L BUN 13 (7-17) mg/dL Creatinine 0.54 (0.52-1.04) mg/dL Est GFR (CKD-EPI)AfAm >90 (>60 ml/min/1.73 sqM) Est GFR (CKD-EPI)NonAf >90 (>60 ml/min/1.73 sqM) Glucose 189 H (74-99) mg/dL POC Glucose (mg/dL) (70-110) mg/dL POC Glu Journalist ID Plasma Lactic Acid Ulises 1.8 (0.7-2.0) mmol/L Calcium 8.9 (8.4-10.2) mg/dL Phosphorus 3.8 (2.5-4.5) mg/dL Total Bilirubin 1.1 (0.2-1.3) mg/dL AST 50 H (14-36) U/L ALT 25 (4-34) U/L Alkaline Phosphatase 98 (38-126) U/L Troponin I <0.012 (0.000-0.034) ng/mL Total Protein 7.4 (6.3-8.2) g/dL Albumin 4.4 (3.5-5.0) g/dL TSH 2.160 (0.465-4.680) mIU/L Free T4 0.94 (0.78-2.19) ng/dL Free T3 pg/mL 4.5 (2.8-5.3) pg/ml Serum Alcohol <10 mg/dL Influenza Type A (PCR) (Not Detectd) Influenza Type B (PCR) (Not Detectd) RSV (PCR) (Not Detectd) SARS-CoV-2 (PCR) (Not Detectd) 06/05/22 Range/Units 15:58 WBC (3.8-10.6) k/uL RBC (3.80-5.40) m/uL Hgb (11.4-16.0) gm/dL Hct (34.0-46.0) % MCV (80.0-100.0) fL MCH (25.0-35.0) pg MCHC (31.0-37.0) g/dL RDW (11.5-15.5) % Plt Count (150-450) k/uL MPV Neutrophils % % Lymphocytes % % Monocytes % % Eosinophils % % Basophils % % Neutrophils # (1.3-7.7) k/uL Lymphocytes # (1.0-4.8) k/uL Monocytes # (0-1.0) k/uL Eosinophils # (0-0.7) k/uL Basophils # (0-0.2) k/uL PT (9.0-12.0) sec INR (<1.2) APTT (22.0-30.0) sec D-Dimer (<0.60) mg/L FEU Sodium (137-145) mmol/L Potassium (3.5-5.1) mmol/L Chloride (98-107) mmol/L Carbon Dioxide (22-30) mmol/L Anion Gap mmol/L BUN (7-17) mg/dL Creatinine (0.52-1.04) mg/dL Est GFR (CKD-EPI)AfAm (>60 ml/min/1.73 sqM) Est GFR (CKD-EPI)NonAf (>60 ml/min/1.73 sqM) Glucose (74-99) mg/dL POC Glucose (mg/dL) (70-110) mg/dL POC Glu Journalist ID Plasma Lactic Acid Ulises (0.7-2.0) mmol/L Calcium (8.4-10.2) mg/dL Phosphorus (2.5-4.5) mg/dL Total Bilirubin (0.2-1.3) mg/dL AST (14-36) U/L ALT (4-34) U/L Alkaline Phosphatase (38-126) U/L Troponin I (0.000-0.034) ng/mL Total Protein (6.3-8.2) g/dL Albumin (3.5-5.0) g/dL TSH (0.465-4.680) mIU/L Free T4 (0.78-2.19) ng/dL Free T3 pg/mL (2.8-5.3) pg/ml Serum Alcohol mg/dL Influenza Type A (PCR) Not Detected (Not Detectd) Influenza Type B (PCR) Not Detected (Not Detectd) RSV (PCR) Not Detected (Not Detectd) SARS-CoV-2 (PCR) Not Detected (Not Detectd) - Radiology Data Radiology results: report reviewed (CT brain does not reveal acute process) Interpreted by me: Chest x-ray shows no acute process Disposition Clinical Impression: Chest pain Disposition: ADMITTED IP TO THIS HOSP Is patient prescribed a controlled substance at d/c from ED?: No Referrals: Trevon Soto MD [Primary Care Provider] - 1-2 days Time of Disposition: 17:32
[2022-06-05 16:21] LABS: Basophils # (A) 0.1 k/uL (0-0.2); Basophils % (A) 1 %; Eosinophils # (A) 0.3 k/uL (0-0.7); Eosinophils % (A) 5 %; HCT 36.8 % (34.0-46.0); HGB 12.7 gm/dL (11.4-16.0); Lymphocytes # (A) 2.6 k/uL (1.0-4.8); Lymphocytes % (A) 41 %; MCH 29.1 pg (25.0-35.0); MCHC 34.6 g/dL (31.0-37.0); MCV 84.1 fL (80.0-100.0); Mean Platelet Volume 8.1; Monocytes # (A) 0.4 k/uL (0-1.0); Monocytes % (A) 6 %; Neutrophils # (A) 2.8 k/uL (1.3-7.7); Neutrophils % (A) 43 %; Platelet Count 285 k/uL (150-450); RBC 4.37 m/uL (3.80-5.40); RDW 13.3 % (11.5-15.5); WBC 6.4 k/uL (3.8-10.6)
--- NOTE | 2022-06-05 16:26 | XR ---
EXAMINATION TYPE: XR chest 2V DATE OF EXAM: 06/05/2022 COMPARISON: Chest x-ray May 27, 2021 HISTORY: Weakness. TECHNIQUE: Frontal and lateral views of the chest are obtained. FINDINGS: There is chronic parenchymal changes bilaterally without suspicious focal air space opacit y, pleural effusion, or pneumothorax seen. The cardiac silhouette size is stable and within normal l imits. The osseous structures are intact. Overlying EKG leads are present. Cholecystectomy clips ar e noted. IMPRESSION: No acute cardiopulmonary process. No significant change from prior.
[2022-06-05 16:33] LABS: ALT 25 U/L (4-34); AST 50 U/L (14-36); African American GFR (CKD) >90 (>60 ml/min/1.73 sqM); Albumin 4.4 g/dL (3.5-5.0); Alcohol <10 mg/dL; Alkaline Phosphatase 98 U/L (38-126); Anion Gap 7 mmol/L; Blood Urea Nitrogen 13 mg/dL (7-17); Calcium 8.9 mg/dL (8.4-10.2); Carbon Dioxide 23 mmol/L (22-30); Chloride 106 mmol/L (98-107); Glucose 189 mg/dL (74-99); Non-African American GFR(CKD) >90 (>60 ml/min/1.73 sqM); Phosphorus 3.8 mg/dL (2.5-4.5); Sodium 136 mmol/L (137-145); Total Bilirubin 1.1 mg/dL (0.2-1.3); Total Protein 7.4 g/dL (6.3-8.2)
[2022-06-05 16:35] LABS: INR 0.9 (<1.2); Partial Thromboplastin Time 24.2 sec (22.0-30.0); Prothrombin Time 9.4 sec (9.0-12.0)
[2022-06-05 16:48] LABS: T4, Free (Free Thyroxine) 0.94 ng/dL (0.78-2.19)
--- NOTE | 2022-06-05 16:49 | CT ---
EXAMINATION TYPE: CT brain wo con CT DLP: 1076.4 mGycm, Automated exposure control for dose reduction was used. DATE OF EXAM: 06/05/2022 4:35 PM COMPARISON: 05/27/2021.. CLINICAL INDICATION:Female, 56 years old with history of weakness, weakness, ams TECHNIQUE: Brain: Axial CT images of the brain were obtained with coronal and sagittal reformats created and rev iewed. Contrast used: None. Oral contrast used: None. FINDINGS: Brain: Extra-axial spaces: No abnormal extra-axial fluid collections. Ventricular system: Within normal limits Cerebral parenchyma: No acute intraparenchymal hemorrhage or mass effect. The oliver-white junction is well differentiated. Cerebellum: Unremarkable. Mass effect: No evidence of midline shift. Intracranial vasculature: unremarkable Soft tissues: Normal. Calvarium/osseous structures: No depressed skull fracture. Paranasal sinuses and mastoid air cells: Mild scattered paranasal sinus disease. Visualized orbits: Orbital contents are intact. IMPRESSION: No acute intracranial process.
[2022-06-05] MEDS ORDERED: NITROGLYCERIN SL TABS 0.4 MG TAB SUBLINGUAL PRN (17:33)
[2022-06-05] MEDS ORDERED: ASPIRIN 81 MG PO STA (17:33)
[2022-06-05] MEDS: NITROGLYCERIN OINT 1 INCH/GM PACKET TOPICAL SCH (18:39)
[2022-06-05] MEDS ORDERED: ATORVASTATIN 80 MG TAB PO SCH (21:00)
[2022-06-05 21:23] LABS: Glucose,Whole Blood 99 mg/dL (70-110)
[2022-06-05 21:30] LABS: Appearance,Urine Clear (Clear); Bilirubin,Urine Negative (Negative); Blood,Urine Negative (Negative); Color,Urine Colorless; Glucose,Urine (UA) Negative (Negative); Ketones,Urine Negative (Negative); Leukocyte Esterase,Urine Negative (Negative); Nitrite,Urine Negative (Negative); Protein,Urine Negative (Negative); Specific Gravity,Urine 1.006 (1.001-1.035); Urobilinogen,Urine <2.0 mg/dL (<2.0)
[2022-06-05 21:41] LABS: Amphetamine Screen,Urine Not Detected (NotDetected); Barbiturate Screen,Urine Not Detected (NotDetected); Benzodiazepines Screen,Urine Not Detected (NotDetected); Cocaine Screen,Urine Not Detected (NotDetected); Methadone Screen, Urine Not Detected (NotDetected); Opiate Screen,Urine Not Detected (NotDetected); Oxycodone Screen, Urine Not Detected (NotDetected); Phencyclidine Screen,Urine Not Detected (NotDetected); Tricyclic Antidepressant,Urine Not Detected (NotDetected); Urn Cannabinoid Scrn Not Detected (NotDetected)
[2022-06-06] MEDS: NITROGLYCERIN OINT 1 INCH/GM PACKET TOPICAL SCH ×4 (00:38→17:28)
[2022-06-06 07:22] LABS: African American GFR (CKD) >90 (>60 ml/min/1.73 sqM); Anion Gap 8 mmol/L; Blood Urea Nitrogen 15 mg/dL (7-17); Calcium 8.7 mg/dL (8.4-10.2); Carbon Dioxide 24 mmol/L (22-30); Chloride 107 mmol/L (98-107); Glucose 143 mg/dL (74-99); Non-African American GFR(CKD) >90 (>60 ml/min/1.73 sqM); Potassium 4.4 mmol/L (3.5-5.1); Sodium 139 mmol/L (137-145)
[2022-06-06] MEDS ORDERED: ASPIRIN 325 MG TAB PO SCH (09:00)
[2022-06-06] MEDS ORDERED: METOPROLOL TARTRATE 25 MG TAB PO SCH (09:00)
[2022-06-06] MEDS ORDERED: lisinopriL 5 MG TAB PO SCH (09:00)
[2022-06-06 09:05] VITALS: RESP 16
--- NOTE | 2022-06-06 10:43 | P.CRDCN ---
History of Present Illness Consult date: 06/06/22 Consult reason: chest pain History of present illness: History of present illness: This is a 56-year-old female patient previously see seen by Dr. Coates but lost her job and insurance in June 2021 and has not seen a planning advisor since that time. Patient has a past medical history of myocardial infarction in June 2019 with status post stent placement to the mid RCA, obstructive sleep apnea, hypertension, hyperlipidemia, TIA, diabetes mellitus type 2. Patient states she came into the hospital because she could not keep herself awake all day even when she was sitting up in a chair. She states she is sleeping at nighttime as well. While she was in the emergency center, she developed left- sided chest pain that radiated to her left shoulder and arm that lasted a few minutes. This has resolved and not returned. She states she had a little bit of difficulty breathing. No nausea or vomiting, no sweating. She felt a little lightheaded at the time. EKG sinus rhythm with no acute ST changes. Chest x-ray reveals no acute cardio pulmonary process CBC unremarkable. Potassium 6.0 and repeat 4.4. Otherwise electrolytes and renal function normal. Troponins negative 3 draws. TSH 2.16. Lactic acid 1.8. Phosphorus 3.8. Liver function tests normal. Urinalysis negative. Urine drug screen negative. Alcohol level less than 10. Influenza A, influenza B, RSV, Covid 19 all not detected. Echocardiogram 08/2020 revealed mild concentric left ventricular hypertrophy, EF 55-60%, trace mitral regurgitation, mild tricuspid regurgitation Cardiac catheterization 06/2019 revealed critical lesion with 90-95% stenosis involving the mid RCA diagonal branch of the LAD with moderate plaque stenosis 50%, LAD is moderate in caliber with a long stenosis about 70/-80%. The mid circumflex is a plaque with about 30-40% stenosis. Review Of Systems: At the time of my evaluation Constitutional: No fever, no chills. No weakness, fatigue or lethargy. Reported sleepiness. Reports generalized weakness. EENT: No headache. No dizziness. Lungs: No shortness of breath, cough, no sputum production. No wheezing. Cardiovascular: No chest pain, no lower extremity edema. No palpitations. No paroxysmal nocturnal dyspnea. No orthopnea. No lightheadedness or dizziness. No syncopal episodes. Abdominal: No abdominal pain. No nausea, vomiting. No diarrhea. No constipation. No bloody or tarry stools.. No loss of appetite. Genitourinary: No dysuria.. No urinary retention. Musculoskeletal: No myalgias. No muscle weakness, no gait dysfunction, no frequent falls. No back pain. No neck pain. Integumentary: No wounds. No rash or pruritus. No unusual bruising. Neurologic: No aphasia. No facial droop. No change in mentation. No head injury. No headache. Psychiatric: No depression. No anxiety. Endocrine: No abnormal blood sugars. Physical examination: Gen: This is a 56-year-old morbidly obese female. She is resting in bed appears to be comfortable. VS: reviewed HEENT: Head is atraumatic, normocephalic. Pupils equal, round. Sclerae is anicteric. NECK: Supple. No JVD. LUNGS: Clear to auscultation. No wheezes or rhonchi. No intercostal retractions. HEART: Regular rate and rhythm. No murmur. ABDOMEN: Soft. No masses. No tenderness. EXTREMITIES: No pedal edema. No calf tenderness. NEUROLOGICAL: Patient is awake, alert and oriented x3. Assessment: Chest pain, atypical, acute coronary syndrome ruled out Hypertension Diabetes mellitus type 2 Hyperlipidemia Coronary artery disease Non-ST elevated myocardial infarction status post stent placement to the mid RCA Obstructive sleep apnea noncompliant with CPAP Plan: Continue patient on her home cardiac medications including Lopressor, lisinopril, Imdur. Obtain exercise stress echocardiogram today Obtain 2-D echocardiogram and Doppler study to assess cardiac structure and function Further recommendations to follow based upon clinical course Thank you kindly for this consultation. Nurse practitioner note has been reviewed, I agree with documented findings and plan of care. Patient was seen and examined. Past Medical History Past Medical History: Asthma, Coronary Artery Disease (CAD), Chest Pain / Angina, Diabetes Mellitus, Eye Disorder, Hyperlipidemia, Hypertension, Myocardial Infarction ([place]), Sleep Apnea/CPAP/BIPAP, Thyroid Disorder Additional Past Medical History / Comment(s): NIDDM type II, neuropathy biltateral legs/feet and occasionally in bilateral hands, pt states she has had R shoulder pain since radial cardiac cath on 06/25/19, past L shoulder pain, MALLORY (does not use CPAP), hypothyroid tx with medication for a couple years then no longer needed, chronic low back pain and bilateral sciatica with L side worse, IBS, past rib fractures/pneumo with chest tube, bilateral narrow angle glaucoma corrected with surgery. Hiatal hernia. Oral and vaginal herpes. Last Myocardial Infarction Date:: 06/25/19 History of Any Multi-Drug Resistant Organisms: None Reported Past Surgical History: Cholecystectomy, Heart Catheterization With Stent, Hysterectomy Additional Past Surgical History / Comment(s): Bilateral eye surgery for glaucoma, colonoscopy, sebacceous cyst removed from back, septal repair. Past Anesthesia/Blood Transfusion Reactions: No Reported Reaction Date of Last Stent Placement:: 06/25/19 Past Psychological History: No Psychological Hx Reported Smoking Status: Never smoker Past Alcohol Use History: None Reported Past Drug Use History: None Reported - Past Family History Father Family Medical History: Diabetes Mellitus, Myocardial Infarction ([place]), Renal Disease Additional Family Medical History / Comment(s): Father of a massive [place] while on dialysis at the age of 57yrs. He had an enlarged heart and cervical injury/pain. Mother Family Medical History: No Reported History Additional Family Medical History / Comment(s): Mother is alive and healthy. Medications and Allergies Home Medications Medication Instructions Recorded Confirmed Type Albuterol Inhaler [Ventolin Hfa 2 puff INHALATION RT-QID PRN 03/16/20 06/05/22 History Inhaler] metFORMIN HCL [metFORMIN HCL ER] 750 mg PO DIRECTED 08/28/20 06/05/22 History DULoxetine HCL [Cymbalta] 60 mg PO DIRECTED 12/28/20 06/05/22 History Ergocalciferol [Vitamin D2 (1250 1,250 mcg PO DIRECTED 12/28/20 06/05/22 History Mcg = 61028 Iu)] Isosorbide Mononitrate ER [Imdur] 30 mg PO DIRECTED 06/05/22 06/05/22 History Metoprolol Tartrate [Lopressor] 25 mg PO DIRECTED 06/05/22 06/05/22 History lisinopriL [Zestril] 5 mg PO DIRECTED 06/05/22 06/05/22 History lisinopriL [Zestril] 5 mg PO DIRECTED 06/05/22 06/05/22 History Allergies Allergy/AdvReac Type Severity Reaction Status Date / Time horse dander Allergy Unknown Verified 06/05/22 17:45 hydrocodone [From Vicodin] AdvReac Vertigo Verified 06/05/22 17:45 mold AdvReac Abdominal Verified 06/05/22 17:45 Pain Mushroom AdvReac Abdominal Verified 06/05/22 17:45 Pain pentazocine [From Talwin] AdvReac Confusion Verified 06/05/22 17:45 pseudoephedrine AdvReac Confusion Verified 06/05/22 17:45 [From Seldane-D] terfenadine [From Seldane-D] AdvReac Confusion Verified 06/05/22 17:45 dust Allergy Unknown Uncoded 07/06/21 13:45 Physical Exam Vitals: Vital Signs Temp Pulse Pulse Resp BP BP Pulse Ox 06/06/22 02:15 98.2 F 61 17 121/67 98 06/05/22 21:41 97.4 F L 71 18 137/81 98 06/05/22 19:58 98 F 62 18 149/82 98 06/05/22 18:37 74 18 135/90 100 06/05/22 15:28 97 F L 73 20 150/88 98 Intake and Output 06/05/22 06/06/22 06/06/22 22:59 06:59 14:59 Output Total 800 Balance -800 Output: Urine 800 Other: Voiding Method Toilet # Voids 1 Weight 113.398 kg Results 06/05/22 15:52 06/06/22 06:48 Cardiac Enzymes 06/05/22 06/05/22 06/05/22 Range/Units 15:52 15:52 18:55 AST 50 H (14-36) U/L Troponin I <0.012 <0.012 (0.000-0.034) ng/mL 06/05/22 Range/Units 22:57 AST (14-36) U/L Troponin I <0.012 (0.000-0.034) ng/mL Coagulation 06/05/22 Range/Units 15:52 PT 9.4 (9.0-12.0) sec APTT 24.2 (22.0-30.0) sec CBC 06/05/22 Range/Units 15:52 WBC 6.4 (3.8-10.6) k/uL RBC 4.37 (3.80-5.40) m/uL Hgb 12.7 (11.4-16.0) gm/dL Hct 36.8 (34.0-46.0) % Plt Count 285 (150-450) k/uL Comprehensive Metabolic Panel 06/05/22 06/06/22 Range/Units 15:52 06:48 Sodium 136 L 139 (137-145) mmol/L Potassium 6.0 H 4.4 (3.5-5.1) mmol/L Chloride 106 107 (98-107) mmol/L Carbon Dioxide 23 24 (22-30) mmol/L BUN 13 15 (7-17) mg/dL Creatinine 0.54 0.62 (0.52-1.04) mg/dL Glucose 189 H 143 H (74-99) mg/dL Calcium 8.9 8.7 (8.4-10.2) mg/dL AST 50 H (14-36) U/L ALT 25 (4-34) U/L Alkaline Phosphatase 98 (38-126) U/L Total Protein 7.4 (6.3-8.2) g/dL Albumin 4.4 (3.5-5.0) g/dL Current Medications Generic Name Dose Route Start Last Admin Trade Name Freq PRN Reason Stop Dose Admin Aspirin 325 mg 06/06/22 09:00 Aspirin 325 Mg Tab PO DAILY COUNT INCLUDES THE [facility] Atorvastatin Calcium 80 mg 06/05/22 21:00 06/05/22 21:19 Atorvastatin 80 Mg Tab PO 80 mg HS JULIO CESAR Administration Lisinopril 5 mg 06/06/22 09:00 Lisinopril 5 Mg Tab PO DAILY COUNT INCLUDES THE [facility] Metoprolol Tartrate 25 mg 06/06/22 09:00 Metoprolol Tartrate 25 Mg Tab PO DAILY JULIO CESAR Nitroglycerin 0.4 mg 06/05/22 17:33 Nitroglycerin Sl Tabs 0.4 Mg Tab SUBLINGUAL Q5M PRN Chest Pain Nitroglycerin 1 inch 06/05/22 18:00 06/06/22 05:16 Nitroglycerin Oint 1 Inch/Gm Packet TOPICAL Not Given Q6HR JULIO CESAR Intake and Output 06/05/22 06/06/22 06/06/22 22:59 06:59 14:59 Output Total 800 Balance -800 Output: Urine 800 Other: Voiding Method Toilet # Voids 1 Weight 113.398 kg 06/05/22 15:52 06/06/22 06:48
--- NOTE | 2022-06-06 11:21 | P.HPIM ---
History of Present Illness H&P Date: 06/06/22 Chief Complaint: Chest pain History and Physical and Discharge Summary: This is a pleasant 56-year-old female past medical history of CAD, [place], stent to the mid RCA in June 2019, reports normal stress test in December 2019 ,type 2 diabetes, hyperlipidemia, hypertension, asthma and multiple other medical issues, presented to the ER with initial complaints of generalized weakness, fatigue, inability to stay awake during the day hours, denies insomnia; reports patient under significant stress and anxiety .While in the ER developed sharp left-sided chest pain radiating to left shoulder and arm accompanied by nausea, lasting for a few minutes. Spontaneously resolved. Denies further reoccurrence-currently denies chest pain, palpitations or shortness of breath. Denies nausea vomiting or diarrhea. Denies abdominal pain. Denies ligh theadedness, dizziness or focal deficits. EKG reported sinus rhythm, troponins negative 3. Prior echo completed on 09/11, reporting mild concentric left ventricular hypertrophy, normal LV function with EF 55-60%. Chest x-ray reported no acute cardiopulmonary process. Brain CT reported no acute intracranial process. Afebrile, normal WBC, hematology, coagulation panels unremarkable. On admission sodium 136, potassium 6; levels repeated, sodium 139, potassium 4.4. BUN 13, creatinine 0.54, glucose 224, 189, lactic acid 1.8 TSH 2.16, free T4 0.94, free T3 4.5, lipid panel pending. UA negative, toxicology screening reported serum alcohol less than 10, serology negative for influenza A/B, RSV ,Covid. Review of Systems ROS Statement: Those systems with pertinent positive or pertinent negative responses have been documented in the HPI. ROS Other: All systems not noted in ROS Statement are negative. Past Medical History Past Medical History: Asthma, Coronary Artery Disease (CAD), Chest Pain / Angina, Diabetes Mellitus, Eye Disorder, Hyperlipidemia, Hypertension, Myocardial Infarction ([place]), Sleep Apnea/CPAP/BIPAP, Thyroid Disorder Additional Past Medical History / Comment(s): NIDDM type II, neuropathy biltateral legs/feet and occasionally in bilateral hands, pt states she has had R shoulder pain since radial cardiac cath on 06/25/19, past L shoulder pain, MALLORY (does not use CPAP), hypothyroid tx with medication for a couple years then no longer needed, chronic low back pain and bilateral sciatica with L side worse, IBS, past rib fractures/pneumo with chest tube, bilateral narrow angle glaucoma corrected with surgery. Hiatal hernia. Oral and vaginal herpes. Last Myocardial Infarction Date:: 06/25/19 History of Any Multi-Drug Resistant Organisms: None Reported Past Surgical History: Cholecystectomy, Heart Catheterization With Stent, Hysterectomy Additional Past Surgical History / Comment(s): Bilateral eye surgery for glaucoma, colonoscopy, sebacceous cyst removed from back, septal repair. Past Anesthesia/Blood Transfusion Reactions: No Reported Reaction Date of Last Stent Placement:: 06/25/19 Past Psychological History: No Psychological Hx Reported Smoking Status: Never smoker Past Alcohol Use History: None Reported Past Drug Use History: None Reported - Past Family History Father Family Medical History: Diabetes Mellitus, Myocardial Infarction ([place]), Renal Disease Additional Family Medical History / Comment(s): Father of a massive [place] w hile on dialysis at the age of 57yrs. He had an enlarged heart and cervical injury/pain. Mother Family Medical History: No Reported History Additional Family Medical History / Comment(s): Mother is alive and healthy. Medications and Allergies Home Medications Medication Instructions Recorded Confirmed Type Albuterol Inhaler [Ventolin Hfa 2 puff INHALATION RT-QID PRN 03/16/20 06/05/22 History Inhaler] metFORMIN HCL [metFORMIN HCL ER] 750 mg PO DIRECTED 08/28/20 06/05/22 History DULoxetine HCL [Cymbalta] 60 mg PO DIRECTED 12/28/20 06/05/22 History Ergocalciferol [Vitamin D2 (1250 1,250 mcg PO DIRECTED 12/28/20 06/05/22 History Mcg = 49510 Iu)] Isosorbide Mononitrate ER [Imdur] 30 mg PO DIRECTED 06/05/22 06/05/22 History Metoprolol Tartrate [Lopressor] 25 mg PO DIRECTED 06/05/22 06/05/22 History lisinopriL [Zestril] 5 mg PO DIRECTED 06/05/22 06/05/22 History lisinopriL [Zestril] 5 mg PO DIRECTED 06/05/22 06/05/22 History Allergies Allergy/AdvReac Type Severity Reaction Status Date / Time horse dander Allergy Unknown Verified 06/05/22 17:45 hydrocodone [From Vicodin] AdvReac Vertigo Verified 06/05/22 17:45 mold AdvReac Abdominal Verified 06/05/22 17:45 Pain Mushroom AdvReac Abdominal Verified 06/05/22 17:45 Pain pentazocine [From Talwin] AdvReac Confusion Verified 06/05/22 17:45 pseudoephedrine AdvReac Confusion Verified 06/05/22 17:45 [From Seldane-D] terfenadine [From Seldane-D] AdvReac Confusion Verified 06/05/22 17:45 dust Allergy Unknown Uncoded 07/06/21 13:45 Physical Exam Vitals: Vital Signs Temp Pulse Pulse Resp BP BP Pulse Ox 06/06/22 07:45 97.6 F 63 16 116/74 98 06/06/22 02:15 98.2 F 61 17 121/67 98 06/05/22 21:41 97.4 F L 71 18 137/81 98 06/05/22 19:58 98 F 62 18 149/82 98 06/05/22 18:37 74 18 135/90 100 06/05/22 15:28 97 F L 73 20 150/88 98 Intake and Output 06/05/22 06/06/22 06/06/22 22:59 06:59 14:59 Output Total 800 Balance -800 Output: Urine 800 Other: Voiding Method Toilet Toilet # Voids 1 Weight 113.398 kg GENERAL: Well-appearing, well-nourished and in no acute distress. HEAD: Atraumatic, normocephalic. EYES: Pupils equal round and reactive to light, extraocular movements intact, sclera anicteric, conjunctiva are normal. ENT:nares patent, oropharynx clear without exudates. NECK: Normal range of motion, supple without lymphadenopathy or JVD, no thyromegaly LUNGS: Breath sounds clear to auscultation bilaterally and equal. No wheezes rales or rhonchi. HEART: Regular rate and rhythm without murmurs, rubs or gallops.S1S2 Normal ABDOMEN: Soft, nontender, normoactive bowel sounds. No guarding, no rebound. No masses appreciated. EXTREMITIES: Normal range of motion, no pitting or edema. No clubbing or cyanosis. No calf tenderness NEUROLOGICAL: Cranial nerves II through XII grossly intact. No focal deficits. PSYCH: Alert and oriented 3. Normal mood, normal affect. SKIN: Warm, Dry, normal turgor, no rashes noted. Results CBC & Chem 7: 06/05/22 15:52 06/06/22 06:48 Labs: Abnormal Lab Results - Last 24 Hours (Table) 06/05/22 06/05/22 06/06/22 Range/Units 15:27 15:52 06:48 Sodium 136 L (137-145) mmol/L Potassium 6.0 H (3.5-5.1) mmol/L Glucose 189 H 143 H (74-99) mg/dL POC Glucose (mg/dL) 224 H (70-110) mg/dL AST 50 H (14-36) U/L Thrombosis Risk Factor Assmnt - Choose All That Apply Each Factor Represents 1 point: Age 41-60 years, Obesity (BMI >25) Thrombosis Risk Factor Assessment Total Risk Factor Score: 2 Thrombosis Risk Factor Assessment Level: Low Risk Assessment and Plan Assessment: Chest pain, generalized fatigue , reporting significant stress. Acute coronary syndrome ruled out, cardiology following. CAD, history of NSTEMI, PTCA Diabetes type 2 Hypertension Hyperlipidemia Chronic intermittent asthma Obstructive Sleep apnea, noncompliant with CPAP Chronic low back pain History of anxiety History of depression Morbid obesity, BMI 40.4 Plan: Continue on current medication regime, monitoring and symptomatic treatment. Evaluated by cardiology with recommendations noted and appreciated. Patient will be discharged home today in a stable condition with guarded prognosis pending stress test ,cardiology's final DC recommendations and clearance. Discharge Medication List Albuterol Inhaler [Ventolin Hfa Inhaler] 2 puff INHALATION RT-QID PRN 03/16/20 [History] metFORMIN HCL [metFORMIN HCL ER] 750 mg PO DAILY 08/28/20 [History] DULoxetine HCL [Cymbalta] 60 mg PO DAILY 12/28/20 [History] Ergocalciferol [Vitamin D2 (1250 Mcg = 52935 Iu)] 1,250 mcg PO Q7D 12/28/20 [History] Isosorbide Mononitrate ER [Imdur] 30 mg PO DAILY 06/05/22 [History] Metoprolol Tartrate [Lopressor] 25 mg PO DAILY 06/05/22 [History] lisinopriL [Zestril] 5 mg PO DAILY 12/13/22 [History] The impression and plan of care has been dictated as directed. : I performed a history and examination of this patient, discussed the same with the dictator. I agree with the dictator's note ,documented as a scribe. Any additional findings or plans will be noted.
[2022-06-06 11:24] LABS: Chol/HDL Ratio 7.08 Ratio
[2022-06-06 13:06] LABS: Glucose,Whole Blood 150 mg/dL (70-110)
[2022-06-06 15:28] VITALS: TEMP 98.5
[2022-06-06 17:31] VITALS: BP 127/81; PULSE 56
--- NOTE | 2022-06-06 17:35 | CA ---
Stress Echo Report Kristie Khan Age: 56 Gender: F : 1965 Exam Date: 06/06/2022 12:25 Exam Location: [place] [facility] Ht (in): 66 Wt (lb): 185 Ordering Physician: Roseline Salinas Referring Physician: [id number] Specialist: Billy Canales Technologist Procedure CPT: Indication: CP ICD-9 Codes: Rhythm: Patient History: Cardiac Medications: Medications in past 24 hours: Contrast: Stress Results Protocol: Matheus Total dose(mL): Exercise Duration (min:sec): 4:[address] Depression (mm): Angina Score: Fitzgerald Score: METS: 4.6 Resting HR: 72 Resting BP: 152 / 95 Peak HR: 126 Peak BP: 172 / 101 Max Predicted HR: 165 76 % Max Predicted HR Target HR: 140 Double Product: 70520 Stress Summary: BP Response: Reason for Termination: Near syncope/collapse Cardiac Symptoms: NEAR SYNCOPE/COLLAPSE ECG Analysis Resting ECG: Normal sinus rhythm normal axis normal intervals Stress ECG: Patient exercised on Matheus protocol for a total of 4 minutes achieving 5 Mets 76% of predicted maximal heart rate without chest pain or diagnostic ST segment depression Arrhythmia: Echo Analysis Resting Echo: Normal left ventricle a size wall motion systolic function Peak Echo Analysis: Normal hyperdynamic response of all segments of myocardium noted MEASUREMENTS (Male/Female) Normal Values CONCLUSIONS Limited exercise tolerance Inconclusive stress echo secondary to inability to attain target heart rate however at 76% of predicted maximal heart rate there is no ischemia Dr. Zach Reynoso MD (Electronically Signed) Final Date: 06 June 2022 17:34
--- NOTE | 2022-06-06 17:36 | CA ---
Transthoracic Echo Report Name: Kristie Khan Age: 56 Gender: F : 1965 Exam Date: 06/06/2022 12:15 Exam Location: [place] [facility] Ht (in): 66 Wt (lb): 185 Ordering Physician: Roseline Salinas Attending/Referring Phys: [id number], Rita Churn Tender Shayna Edwards RDCS Procedure CPT: Indications: LVF Cardiac Hx: Technical Quality: Fair Contrast 1: Total Dose (mL): Contrast 2: Total Dose (mL): MEASUREMENTS (Male / Female) Normal Values 2D ECHO LV Diastolic Diameter PLAX 3.2 cm 4.2 - 5.9 / 3.9 - 5.3 cm LV Systolic Diameter PLAX 2.2 cm IVS Diastolic Thickness 1.3 cm 0.6 - 1.0 / 0.6 - 0.9 cm LVPW Diastolic Thickness 1.2 cm 0.6 - 1.0 / 0.6 - 0.9 cm LV Relative Wall Thickness 0.8 RV Internal Dim ED PLAX 2.4 cm LA Volume 20.8 cm??? 18 - 58 / 22 - 52 cm??? M-MODE Aortic Root Diameter MM 3.0 cm LA Systolic Diameter MM 3.4 cm LA Ao Ratio MM 1.1 AV Cusp Separation MM 1.6 cm DOPPLER AV Peak Velocity 94.7 cm/s AV Peak Gradient 3.6 mmHg AV Mean Velocity 64.4 cm/s AV Mean Gradient 1.9 mmHg AV Velocity Time Integral 16.3 cm LVOT Peak Velocity 113.1 cm/s LVOT Peak Gradient 5.1 mmHg MV Area PHT 2.9 cm??? Mitral E Point Velocity 60.9 cm/s Mitral A Point Velocity 106.1 cm/s Mitral E to A Ratio 0.6 MV Deceleration Time 257.2 ms MV E' Velocity 7.2 cm/s Mitral E to MV E' Ratio 8.5 FINDINGS Left Ventricle Mildly increased left ventricular wall thickness. Normal left ventricular systolic function with no obvious regional wall motion abnormalities. Left ventricular ejection fraction is estimated at 55 %. Right Ventricle Normal right ventricular size and function. Right ventricular systolic pressure within normal limits. Right Atrium Normal right atrial size. Left Atrium Normal left atrial size. No evidence for an atrial septal defect. Mitral Valve Structurally normal mitral valve. No mitral stenosis, regurgitation or prolapse. Aortic Valve No aortic valve stenosis or regurgitation. Tricuspid Valve Mild tricuspid regurgitation. Pulmonic Valve Trace pulmonic regurgitation. Pericardium No pericardial effusion. Aorta Normal size aortic root and proximal ascending aorta. CONCLUSIONS Normal left ventricular size wall motion systolic function Previewed by: Dr. Zach Reynoso MD (Electronically Signed) Final Date: 06 June 2022 17:35
== END 2022-06-06 18:40 | disposition home or self-care (01) ==
LOC: EC 15:18 → 6NMEDSUR 17:33 → 3SCARD 19:44 → 6NMEDSUR 19:45
PROVIDERS: ADMIT Family Medicine; ATTEND Family Medicine
DX: R07.89 Other chest pain (principal); J45.20 Mild intermittent asthma, uncomplicated; I25.10 Atherosclerotic heart disease of native coronary artery without angina pectoris; E78.5 Hyperlipidemia, unspecified; I10 Essential (primary) hypertension; I25.2 Old myocardial infarction; E11.40 Type 2 diabetes mellitus with diabetic neuropathy, unspecified; G47.33 Obstructive sleep apnea (adult) (pediatric); E03.9 Hypothyroidism, unspecified; G89.29 Other chronic pain; M54.50 Low back pain, unspecified; F32.A Depression, unspecified; F41.9 Anxiety disorder, unspecified; E66.01 Morbid (severe) obesity due to excess calories; Z68.41 Body mass index [BMI] 40.0-44.9, adult; Z86.73 Personal history of transient ischemic attack (TIA), and cerebral infarction without residual deficits; Z91.199 Patient's noncompliance with other medical treatment and regimen due to unspecified reason; Z95.5 Presence of coronary angioplasty implant and graft; Z79.899 Other long term (current) drug therapy; Z79.84 Long term (current) use of oral hypoglycemic drugs; Z79.82 Long term (current) use of aspirin; Z88.5 Allergy status to narcotic agent; Z83.3 Family history of diabetes mellitus; Z82.49 Family history of ischemic heart disease and other diseases of the circulatory system
CPT/HCPCS: 99285; 36415; 94760; 93005; 93306; 93351; 85379; 84439; 84481; 80061; 80053; 80048; 83605; 84100; 84443; 84484; 85025; 85610; 85730; 81003; 83721; 80306; 80320; 87636; 71046; 70450; G0378 ×2

== ENCOUNTER 2022-09-15 12:56 | Emergency (ER) | payer OTHER ==
--- NOTE | 2022-09-15 14:17 | ED ---
Fall HPI - General Chief Complaint: Fall Stated Complaint: fell R hip pain Time Seen by Provider: 09/15/22 13:05 Source: patient Mode of arrival: wheelchair - History of Present Illness Initial Comments: 57 year old female presents with right hip and bilateral wrist pain after she tripped over a baby gate at home. Denies hitting her head or losing consciousness. No neck or back pain. Has put minimal weight on her right leg. No numbness or tingling. - Related Data Home Medications Medication Instructions Recorded Confirmed Albuterol Inhaler [Ventolin Hfa 2 puff INHALATION RT-QID PRN 03/16/20 06/05/22 Inhaler] metFORMIN HCL [metFORMIN HCL ER] 750 mg PO DAILY 08/28/20 06/06/22 DULoxetine HCL [Cymbalta] 60 mg PO DAILY 12/28/20 06/06/22 Ergocalciferol [Vitamin D2 (1250 1,250 mcg PO Q7D 12/28/20 06/06/22 Mcg = 63253 Iu)] Isosorbide Mononitrate ER [Imdur] 30 mg PO DAILY 06/05/22 06/06/22 Metoprolol Tartrate [Lopressor] 25 mg PO DAILY 06/05/22 06/06/22 lisinopriL [Zestril] 5 mg PO DAILY 06/05/22 06/06/22 Allergies Allergy/AdvReac Type Severity Reaction Status Date / Time horse dander Allergy Unknown Verified 09/15/22 13:03 hydrocodone [From Vicodin] AdvReac Vertigo Verified 09/15/22 13:03 mold AdvReac Abdominal Verified 09/15/22 13:03 Pain Mushroom AdvReac Abdominal Verified 09/15/22 13:03 Pain pentazocine [From Talwin] AdvReac Confusion Verified 09/15/22 13:03 pseudoephedrine AdvReac Confusion Verified 09/15/22 13:03 [From Seldane-D] terfenadine [From Seldane-D] AdvReac Confusion Verified 09/15/22 13:03 dust Allergy Unknown Uncoded 09/15/22 13:03 Review of Systems ROS Statement: Those systems with pertinent positive or pertinent negative responses have been documented in the HPI. ROS Other: All systems not noted in ROS Statement are negative. Past Medical History Past Medical History: Asthma, Coronary Artery Disease (CAD), Chest Pain / Angina, Diabetes Mellitus, Eye Disorder, Hyperlipidemia, Hypertension, Myocard ial Infarction ([place]), Sleep Apnea/CPAP/BIPAP, Thyroid Disorder Additional Past Medical History / Comment(s): NIDDM type II, neuropathy biltateral legs/feet and occasionally in bilateral hands, pt states she has had R shoulder pain since radial cardiac cath on 06/25/19, past L shoulder pain, MALLORY (does not use CPAP), hypothyroid tx with medication for a couple years then no longer needed, chronic low back pain and bilateral sciatica with L side worse, IBS, past rib fractures/pneumo with chest tube, bilateral narrow angle glaucoma corrected with surgery. Hiatal hernia. Oral and vaginal herpes. Last Myocardial Infarction Date:: 06/25/19 History of Any Multi-Drug Resistant Organisms: None Reported Past Surgical History: Cholecystectomy, Heart Catheterization With Stent, Hysterectomy Additional Past Surgical History / Comment(s): Bilateral eye surgery for glaucoma, colonoscopy, sebacceous cyst removed from back, septal repair. Past Anesthesia/Blood Transfusion Reactions: No Reported Reaction Date of Last Stent Placement:: 06/25/19 Past Psychological History: No Psychological Hx Reported Smoking Status: Never smoker Past Alcohol Use History: None Reported Past Drug Use History: None Reported - Past Family History Father Family Medical History: Diabetes Mellitus, Myocardial Infarction ([place]), Renal Disease Additional Family Medical History / Comment(s): Father of a massive MN while on dialysis at the age of 57yrs. He had an enlarged heart and cervical injury/pain. Mother Family Medical History: No Reported History Additional Family Medical History / Comment(s): Mother is alive and healthy. General Exam Limitations: no limitations General appearance: alert, in no apparent distress Head exam: Present: atraumatic, normocephalic, normal inspection Eye exam: Present: normal appearance, PERRL, EOMI. Absent: scleral icterus, conjunctival injection, periorbital swelling ENT exam: Present: normal exam, mucous membranes moist Neck exam: Present: normal inspection. Absent: tenderness, meningismus, lymphadenopathy Respiratory exam: Present: normal lung sounds bilaterally. Absent: respiratory distress, wheezes, rales, rhonchi, stridor Cardiovascular Exam: Present: regular rate, normal rhythm, normal heart sounds. Absent: systolic murmur, diastolic murmur, rubs, gallop, clicks GI/Abdominal exam: Present: soft, normal bowel sounds. Absent: distended, tenderness, guarding, rebound, rigid Extremities exam: Present: tenderness (right hip. no obvious deformity), normal capillary refill. Absent: pedal edema, joint swelling, calf tenderness Back exam: Present: normal inspection Neurological exam: Present: alert, oriented X3, CN II-XII intact Psychiatric exam: Present: normal affect, normal mood Skin exam: Present: warm, dry, intact, normal color. Absent: rash Course Vital Signs 09/15/22 09/15/22 09/15/22 13:00 17:02 17:03 Temperature 98.0 F 97.9 F 97.9 F Pulse Rate 79 76 Respiratory 18 14 Rate Blood Pressure 158/88 163/91 163/91 O2 Sat by Pulse 99 100 Oximetry Medical Decision Making - Medical Decision Making Was pt. sent in by a medical professional or institution (, PA, INFIRMARY ATTENDANT, urgent care, hospital, or [facility]...) When possible be specific @ -No Did you speak to anyone other than the patient for history (EMS, parent, family, police, friend...)? What history was obtained from this source @ -No Did you review nursing and triage notes (agree or disagree)? Why? @ -I reviewed and agree with nursing and triage notes Were old charts reviewed (outside hosp., previous admission, EMS record, old EKG, old radiological studies, urgent care reports/EKG's, [facility] records)? Report findings @ -No Differential Diagnosis (chest pain, altered mental status, abdominal pain women, abdominal pain men, vaginal bleeding, weakness, fever, dyspnea, syncope, headache, dizziness, GI bleed, back pain, seizure, CVA, palpatations, mental health, musculoskeletal)? @ -fracture, sprain, strain EKG interpreted by me (3pts min.). @ -Not done X-rays interpreted by me (1pt min.). @ -Yes CT interpreted by me (1pt min.). @ -None done U/S interpreted by me (1pt. min.). @ -None done What testing was considered but not performed or refused? (CT, X-rays, U/S, labs)? Why? @ -None What meds were considered but not given or refused? Why? @ -Opiate pain medications - patient only wants Motrin for pain Did you discuss the management of the patient with other professionals (professionals i.e. , PA, INFIRMARY ATTENDANT, lab, RT, psych nurse, social work job titles, manager trade, teacher, banking officer, registered nurse hh case manager)? Give summary @ -No Was smoking cessation discussed for >3mins.? @ -No Was critical care preformed (if so, how long)? @ -No Were there social determinants of health that impacted care today? How? (Homelessness, low income, unemployed, alcoholism, drug addiction, transportation, low edu. Level, literacy, decrease access to med. care, [facility] [facility], rehab)? @ -No Was there de-escalation of care discussed even if they declined (Discuss DNR or withdrawal of care, Hospice)? DNR status @ -No What co-morbidities impacted this encounter? (DM, HTN, Smoking, COPD, CAD, Cancer, CVA, ARF, Chemo, Hep., AIDS, mental health diagnosis, sleep apnea, morbid obesity)? @ -None Was patient admitted / discharged? Hospital course, mention meds given and route, prescriptions, significant lab abnormalities, going to OR and other pertinent info. @ -Discharged Undiagnosed new problem with uncertain prognosis? @ -No Drug Therapy requiring intensive monitoring for toxicity (Heparin, Nitro, Insulin, Cardizem)? @ -No Were any procedures done? @ -No Diagnosis/symptom? @ -fall, right hip pain, bilateral hand pain Acute, or Chronic, or Acute on Chronic? @ -acute Uncomplicated (without systemic symptoms) or Complicated (systemic symptoms)? @ -complicated Side effects of treatment? @ -No Exacerbation, Progression, or Severe Exacerbation? @ -No Poses a threat to life or bodily function? How? (Chest pain, USA, [place], pneumonia, PE, COPD, DKA, ARF, appy, cholecystitis, CVA, Diverticulitis, Homicidal, Suicidal, threat to staff... and all critical care pts) @ -No Disposition Clinical Impression: Fall, Right wrist pain, Bilateral foot pain, Right hip pain Disposition: HOME SELF-CARE Condition: Stable Instructions (If sedation given, give patient instructions): Hip Pain (ED) Additional Instructions: Take the Motrin every 6 hours as needed for pain. Follow-up with your primary care doctor and return for any new or worsening symptoms. You may need further imaging of her pain persists Is patient prescribed a controlled substance at d/c from ED?: No Referrals: Trevon Soto MD [Primary Care Provider] - 1-2 days Time of Disposition: 16:54
--- NOTE | 2022-09-15 15:28 | XR ---
EXAMINATION TYPE: XR Hip RT and AP Pelvis DATE OF EXAM: 09/15/2022 COMPARISON: NONE HISTORY: Pain TECHNIQUE: 3 views FINDINGS: The pelvic ring is intact. The proximal right femur and hip joint appear intact. Sacroiliac joints are intact. IMPRESSION: Negative pelvis and right hip exam.
--- NOTE | 2022-09-15 15:29 | XR ---
EXAMINATION TYPE: XR femur RT DATE OF EXAM: 09/15/2022 COMPARISON: NONE HISTORY: Pain TECHNIQUE: 4 views FINDINGS: There is no evidence of fracture nor dislocation. Hip joint and knee joint appear intact. N o pathologic calcification. IMPRESSION: Negative right femur exam.
--- NOTE | 2022-09-15 15:31 | XR ---
EXAMINATION TYPE: XR foot complete bilateral DATE OF EXAM: 09/15/2022 COMPARISON: NONE HISTORY: Pain TECHNIQUE: 3 views each foot FINDINGS: There is bilateral Achilles calcaneal spurring. No fracture nor dislocation. There is moderate plantar calcaneal spurring of the left foot. The metatarsals are intact. There are no erosions. No subluxation. IMPRESSION: Moderate calcaneal spurring. No fracture.
--- NOTE | 2022-09-15 15:33 | XR ---
EXAMINATION TYPE: XR hand complete RT DATE OF EXAM: 09/15/2022 COMPARISON: NONE HISTORY: Pain TECHNIQUE: 3 views FINDINGS: Metacarpals are intact. I see no fracture nor dislocation. Joint spaces are normal. IMPRESSION: Negative right hand exam.
[2022-09-15] MEDS ORDERED: IBUPROFEN 600 MG TAB PO STA (16:40)
[2022-09-15 17:03] VITALS: BP 163/91; PULSE 76; RESP 14; TEMP 97.9
== END 2022-09-15 17:08 | disposition home or self-care (01) ==
LOC: EC 12:56
DX: M25.551 Pain in right hip (principal); M79.672 Pain in left foot; M79.671 Pain in right foot; M25.531 Pain in right wrist; E78.5 Hyperlipidemia, unspecified; J45.909 Unspecified asthma, uncomplicated; I25.10 Atherosclerotic heart disease of native coronary artery without angina pectoris; I10 Essential (primary) hypertension; E11.40 Type 2 diabetes mellitus with diabetic neuropathy, unspecified; E11.39 Type 2 diabetes mellitus with other diabetic ophthalmic complication; H42 Glaucoma in diseases classified elsewhere; Z79.84 Long term (current) use of oral hypoglycemic drugs; Z90.49 Acquired absence of other specified parts of digestive tract; Z95.5 Presence of coronary angioplasty implant and graft; Z90.710 Acquired absence of both cervix and uterus; Z91.018 Allergy to other foods; W18.09XA Striking against other object with subsequent fall, initial encounter; Y92.009 Unspecified place in unspecified non-institutional (private) residence as the place of occurrence of the external cause
CPT/HCPCS: 73502; 99283

== ENCOUNTER 2022-12-08 22:43 | Emergency (ER) | payer BC ==
[2022-12-08 22:49] VITALS: TEMP 97.7
[2022-12-08] MEDS ORDERED: ONDANSETRON 4 MG/2 ML VIAL IVP STA (23:15)
[2022-12-08] MEDS ORDERED: SODIUM CHLORIDE 0.9% 1,000 ML IV STA (23:15)
[2022-12-08 23:23] LABS: Basophils # (A) 0.1 k/uL (0-0.2); Basophils % (A) 1 %; Eosinophils # (A) 0.4 k/uL (0-0.7); Eosinophils % (A) 3 %; HCT 41.3 % (34.0-46.0); Lymphocytes # (A) 3.4 k/uL (1.0-4.8); Lymphocytes % (A) 26 %; MCH 28.2 pg (25.0-35.0); MCHC 33.9 g/dL (31.0-37.0); MCV 83.2 fL (80.0-100.0); Mean Platelet Volume 8.1; Monocytes # (A) 0.6 k/uL (0-1.0); Monocytes % (A) 5 %; Neutrophils # (A) 8.5 k/uL (1.3-7.7); Neutrophils % (A) 65 %; Platelet Count 282 k/uL (150-450); RBC 4.97 m/uL (3.80-5.40); RDW 13.4 % (11.5-15.5); WBC 13.2 k/uL (3.8-10.6)
--- NOTE | 2022-12-08 23:25 | ED ---
General Adult HPI - General Chief complaint: Chest Pain Stated complaint: chest pain Time Seen by Provider: 12/08/22 23:00 Source: patient Mode of arrival: wheelchair - History of Present Illness Initial comments: Dictation was produced using [employer] dictation software. please excuse any grammatical, word or spelling errors. Chief Complaint: 57-year-old female past medical history coronary artery disease IL presents to the ER for nausea vomiting of anterior chest pain History of Present Illness: 87-year-old female she presents with worsening nonbilious not bloody emesis. Symptoms have been ongoing over the last several hours. Patient is vomiting whatever food she tries to eat. She does have left anterior chest pain in the wrist on the left upper extremity. Patient has a history of IL. States her symptoms are unlike when she had a heart attack in the past. She said the pain is to the left anterior chest is sharp. Not worse with deep inspiration. The ROS documented in this emergency department record has been reviewed and confirmed by me. Those systems with pertinent positive or negative responses have been documented in the HPI. All other systems are other negative and/or noncontributory. - Related Data Home Medications Medication Instructions Recorded Confirmed Albuterol Inhaler [Ventolin Hfa 2 puff INHALATION RT-QID PRN 03/16/20 06/05/22 Inhaler] metFORMIN HCL [metFORMIN HCL ER] 750 mg PO DAILY 08/28/20 06/06/22 DULoxetine HCL [Cymbalta] 60 mg PO DAILY 12/28/20 06/06/22 Ergocalciferol [Vitamin D2 (1250 1,250 mcg PO Q7D 12/28/20 06/06/22 Mcg = 33962 Iu)] Isosorbide Mononitrate ER [Imdur] 30 mg PO DAILY 06/05/22 06/06/22 Metoprolol Tartrate [Lopressor] 25 mg PO DAILY 06/05/22 06/06/22 lisinopriL [Zestril] 5 mg PO DAILY 06/05/22 06/06/22 Allergies Allergy/AdvReac Type Severity Reaction Status Date / Time horse dander Allergy Unknown Verified 12/08/22 22:49 hydrocodone [From Vicodin] AdvReac Vertigo Verified 12/08/22 22:49 mold AdvReac Abdominal Verified 12/08/22 22:49 Pain Mushroom AdvReac Abdominal Verified 12/08/22 22:49 Pain pentazocine [From Talwin] AdvReac Confusion Verified 12/08/22 22:49 pseudoephedrine AdvReac Confusion Verified 12/08/22 22:49 [From Seldane-D] terfenadine [From Seldane-D] AdvReac Confusion Verified 12/08/22 22:49 dust Allergy Unknown Uncoded 12/08/22 22:49 Review of Systems ROS Statement: Those systems with pertinent positive or pertinent negative responses have been documented in the HPI. ROS Other: All systems not noted in ROS Statement are negative. Past Medical History Past Medical History: Asthma, Coronary Artery Disease (CAD), Chest Pain / Angina, Diabetes Mellitus, Eye Disorder, Hyperlipidemia, Hypertension, Myocardi al Infarction ([place]), Sleep Apnea/CPAP/BIPAP, Thyroid Disorder Additional Past Medical History / Comment(s): NIDDM type II, neuropathy biltateral legs/feet and occasionally in bilateral hands, pt states she has had R shoulder pain since radial cardiac cath on 06/25/19, past L shoulder pain, MALLORY (does not use CPAP), hypothyroid tx with medication for a couple years then no longer needed, chronic low back pain and bilateral sciatica with L side worse, IBS, past rib fractures/pneumo with chest tube, bilateral narrow angle glaucoma corrected with surgery. Hiatal hernia. Oral and vaginal herpes. Last Myocardial Infarction Date:: 06/25/19 History of Any Multi-Drug Resistant Organisms: None Reported Past Surgical History: Cholecystectomy, Heart Catheterization With Stent, Hysterectomy Additional Past Surgical History / Comment(s): Bilateral eye surgery for glaucoma, colonoscopy, sebacceous cyst removed from back, septal repair. Past Anesthesia/Blood Transfusion Reactions: No Reported Reaction Date of Last Stent Placement:: 06/25/19 Past Psychological History: No Psychological Hx Reported Smoking Status: Never smoker Past Alcohol Use History: None Reported Past Drug Use History: None Reported - Past Family History Father Family Medical History: Diabetes Mellitus, Myocardial Infarction ([place]), Renal Disease Additional Family Medical History / Comment(s): Father of a massive IL while on dialysis at the age of 57yrs. He had an enlarged heart and cervical injury/pain. Mother Family Medical History: No Reported History Additional Family Medical History / Comment(s): Mother is alive and healthy. General Exam - General Exam Comments Initial Comments: PHYSICAL EXAM: General Impression: Alert and oriented x3, acute distress secondary to vomiting HEENT: Normocephalic atraumatic, extra-ocular movements intact, pupils equal and reactive to light bilaterally, mucous membranes moist. Cardiovascular: Heart regular rate and rhythm Chest: Able to complete full sentences, no retractions, no tachypnea Abdomen: abdomen soft, non-tender, non-distended, no organomegaly Musculoskeletal: Pulses present and equal in all extremities, no peripheral edema Motor: no focal deficits noted Neurological: CN II-XII grossly intact, no focal motor or sensory deficits noted Skin: Intact with no visualized rashes Psych: Normal affect and mood Course Vital Signs 12/08/22 12/09/22 22:46 01:06 Temperature 97.7 F Pulse Rate 76 64 Respiratory 16 18 Rate Blood Pressure 121/76 134/73 O2 Sat by Pulse 100 Oximetry EKG Findings - EKG Comments: EKG Findings:: My EKG interpretation: Ventricular rate 77, sinus rhythm,. 145, care C1, QTc 412. No HI prolongation, no QTC prolongation, no ST or T-wave changes noted. Overall, this EKG is unremarkable Medical Decision Making - Medical Decision Making Was pt. sent in by a medical professional or institution (, PA, SOCK LINER, urgent care, hospital, or prison...) When possible be specific @ -No Did you speak to anyone other than the patient for history (EMS, parent, family, police, friend...)? What history was obtained from this source @ -No Did you review nursing and triage notes (agree or disagree)? Why? @ -I reviewed and agree with nursing and triage notes Were old charts reviewed (outside hosp., previous admission, EMS record, old EKG, old radiological studies, urgent care reports/EKG's, prison records)? Report findings @ -No old charts were reviewed Differential Diagnosis (chest pain, altered mental status, abdominal pain women, abdominal pain men, vaginal bleeding, musculoskeletal, weakness, fever, dyspnea, syncope, headache, dizziness, GI bleed, back pain, seizure, CVA, palpatations, mental health)? @ -DDifferential Chest Pain: Stable Angina, Unstable Angina, STEMI, NSTEMI Aortic Dissection, Pneumothorax, Musculoskeletal, Esophageal Spasm GERD, Cholecystitis, Pancreatitis, Zoster, this is not meant to be an all-inclusive list. EKG interpreted by me (3pts min.). @ -See above X-rays interpreted by me (1pt min.). @ -Acute abdominal series with chest x-ray shows no acute processes. CT interpreted by me (1pt min.). @ -None done U/S interpreted by me (1pt. min.). @ -None done What testing was considered but not performed or refused? (CT, X-rays, U/S, labs)? Why? @ -None What meds were considered but not given or refused? Why? @ -None Did you discuss the management of the patient with other professionals (professionals i.e. Dr., PA, SOCK LINER, lab, RT, psych nurse, social services analyst, realtime reporter, teacher, transport corps officer, manager of case)? Give summary @ -No Was smoking cessation discussed for >3mins.? @ -No Was critical care preformed (if so, how long)? @ -No Were there social determinants of health that impacted care today? How? (Homelessness, low income, unemployed, alcoholism, drug addiction, transportation, low edu. Level, literacy, decrease access to med. care, senior living, rehab)? @ -No Was there de-escalation of care discussed even if they declined (Discuss DNR or withdrawal of care, Hospice)? DNR status @ -No What co-morbidities impacted this encounter? (DM, HTN, Smoking, COPD, CAD, Cancer, CVA, ARF, Chemo, Hep., AIDS, mental health diagnosis, sleep apnea, morbid obesity)? @ -None Was patient admitted / discharged? Hospital course, mention meds given and route, prescriptions, significant lab abnormalities, going to OR and other pertinent info. @ -57-year-old female past medical history of myocardial infarction presents to the ER for chest pain, vomiting. Patient's pain is atypical with typical features. EEG is unremarkable. Laboratory evaluation obtained. CBC is coag panel is negative. Metabolic panel shows mild acidosis. Secondary related to volume loss. Serum troponins are negative. Clinical presentation likely GI r elated. Suspect gastroenteritis. Disposition is discussed. Patient requesting discharge. Undiagnosed new problem with uncertain prognosis? @ -No Drug Therapy requiring intensive monitoring for toxicity (Heparin, Nitro, Insulin, Cardizem)? @ -No Were any procedures done? @ -No Diagnosis/symptom? Acute, or Chronic, or Acute on Chronic? Uncomplicated (without systemic symptoms) or Complicated (systemic symptoms)? @ -Gastroenteritis Side effects of treatment? @ -No Exacerbation, Progression, or Severe Exacerbation? @ -No Poses a threat to life or bodily function? How? (Chest pain, [place], [place], pneumonia, PE, COPD, DKA, ARF, appy, cholecystitis, CVA, Diverticulitis, Homicidal, Suicidal, threat to staff... and all critical care pts) @ -No - Lab Data Result diagrams: 12/08/22 23:12 12/08/22 23:12 Lab Results 12/08/22 12/08/22 12/08/22 Range/Units 23:12 23:12 23:12 WBC 13.2 H (3.8-10.6) k/uL RBC 4.97 (3.80-5.40) m/uL Hgb 14.0 (11.4-16.0) gm/dL Hct 41.3 (34.0-46.0) % MCV 83.2 (80.0-100.0) fL MCH 28.2 (25.0-35.0) pg MCHC 33.9 (31.0-37.0) g/dL RDW 13.4 (11.5-15.5) % Plt Count 282 (150-450) k/uL MPV 8.1 Neutrophils % 65 % Lymphocytes % 26 % Monocytes % 5 % Eosinophils % 3 % Basophils % 1 % Neutrophils # 8.5 H (1.3-7.7) k/uL Lymphocytes # 3.4 (1.0-4.8) k/uL Monocytes # 0.6 (0-1.0) k/uL Eosinophils # 0.4 (0-0.7) k/uL Basophils # 0.1 (0-0.2) k/uL PT 9.7 (9.0-12.0) sec INR 0.9 (<1.2) APTT 20.4 L (22.0-30.0) sec Sodium 137 (137-145) mmol/L Potassium 4.5 (3.5-5.1) mmol/L Chloride 102 (98-107) mmol/L Carbon Dioxide 18 L (22-30) mmol/L Anion Gap 17 mmol/L BUN 17 (7-17) mg/dL Creatinine 0.87 (0.52-1.04) mg/dL Est GFR (CKD-EPI)AfAm 86 (>60 ml/min/1.73 sqM) Est GFR (CKD-EPI)NonAf 75 (>60 ml/min/1.73 sqM) Glucose 219 H (74-99) mg/dL Calcium 9.6 (8.4-10.2) mg/dL Total Bilirubin 0.8 (0.2-1.3) mg/dL AST 33 (14-36) U/L ALT 30 (4-34) U/L Alkaline Phosphatase 110 (38-126) U/L Troponin I (0.000-0.034) ng/mL Total Protein 7.0 (6.3-8.2) g/dL Albumin 4.5 (3.5-5.0) g/dL Lipase 97 (23-300) U/L 12/08/22 12/09/22 12/09/22 Range/Units 23:12 00:50 02:06 WBC (3.8-10.6) k/uL RBC (3.80-5.40) m/uL Hgb (11.4-16.0) gm/dL Hct (34.0-46.0) % MCV (80.0-100.0) fL MCH (25.0-35.0) pg MCHC (31.0-37.0) g/dL RDW (11.5-15.5) % Plt Count (150-450) k/uL MPV Neutrophils % % Lymphocytes % % Monocytes % % Eosinophils % % Basophils % % Neutrophils # (1.3-7.7) k/uL Lymphocytes # (1.0-4.8) k/uL Monocytes # (0-1.0) k/uL Eosinophils # (0-0.7) k/uL Basophils # (0-0.2) k/uL PT (9.0-12.0) sec INR (<1.2) APTT (22.0-30.0) sec Sodium (137-145) mmol/L Potassium (3.5-5.1) mmol/L Chloride (98-107) mmol/L Carbon Dioxide (22-30) mmol/L Anion Gap mmol/L BUN (7-17) mg/dL Creatinine (0.52-1.04) mg/dL Est GFR (CKD-EPI)AfAm (>60 ml/min/1.73 sqM) Est GFR (CKD-EPI)NonAf (>60 ml/min/1.73 sqM) Glucose (74-99) mg/dL Calcium (8.4-10.2) mg/dL Total Bilirubin (0.2-1.3) mg/dL AST (14-36) U/L ALT (4-34) U/L Alkaline Phosphatase (38-126) U/L Troponin I <0.012 <0.012 <0.012 (0.000-0.034) ng/mL Total Protein (6.3-8.2) g/dL Albumin (3.5-5.0) g/dL Lipase (23-300) U/L Disposition Clinical Impression: Enteritis Disposition: HOME SELF-CARE Condition: Fair Instructions (If sedation given, give patient instructions): Gastroenteritis (DC) Is patient prescribed a controlled substance at d/c from ED?: No Referrals: Trevon Soto MD [Primary Care Provider] - 1-2 days Time of Disposition: 03:41
[2022-12-08 23:29] LABS: ALT 30 U/L (4-34); AST 33 U/L (14-36); African American GFR (CKD) 86 (>60 ml/min/1.73 sqM); Albumin 4.5 g/dL (3.5-5.0); Alkaline Phosphatase 110 U/L (38-126); Anion Gap 17 mmol/L; Blood Urea Nitrogen 17 mg/dL (7-17); Calcium 9.6 mg/dL (8.4-10.2); Carbon Dioxide 18 mmol/L (22-30); Chloride 102 mmol/L (98-107); Glucose 219 mg/dL (74-99); Lipase 97 U/L (23-300); Non-African American GFR(CKD) 75 (>60 ml/min/1.73 sqM); Potassium 4.5 mmol/L (3.5-5.1); Sodium 137 mmol/L (137-145); Total Bilirubin 0.8 mg/dL (0.2-1.3)
[2022-12-08 23:59] LABS: INR 0.9 (<1.2); Partial Thromboplastin Time 20.4 sec (22.0-30.0); Prothrombin Time 9.7 sec (9.0-12.0)
--- NOTE | 2022-12-09 00:50 | XR ---
EXAM: XR Abdomen, 2 Views and XR Chest, 1 View CLINICAL HISTORY: ITS.REASON XR Reason: vomiting TECHNIQUE: Frontal view of the chest, frontal view of the abdomen/pelvis and upright or decubitus view of the abdomen. COMPARISON: No previous studies. FINDINGS: Lungs: Unremarkable. No consolidative change. Pleural space: Unremarkable. No pneumothorax. No pleural effusions. Heart: Unremarkable. No cardiomegaly. Mediastinum: Cardiomediastinal silhouette unremarkable. Intraperitoneal space: No free air. Gastrointestinal tract: Mild to moderate quantity of stool throughout the colon. Nonspecific bowel gas pattern. No dilation. Organs: Status post cholecystectomy. Bones/joints: Mild to moderate degenerative disc disease of the thoracic spine and dextro scoliosis. IMPRESSION: 1. No active disease. 2. Nonspecific bowel gas pattern. 3. Status post cholecystectomy.
[2022-12-09 01:07] VITALS: BP 134/73; PULSE 64; RESP 18
[2022-12-09] MEDS ORDERED: ONDANSETRON 4 MG ODT STARTER PACK 2 TAB BTL PO STA (03:31)
[2022-12-09] MEDS ORDERED: MAG HYDROX/AL HYDROX/SIMETH 30 ML, HYOSCYAMINE ELIXIR 10 ML, LIDOCAINE 2% GLYDO JELLY 1... PO STA ×3 (03:31)
== END 2022-12-09 04:09 | disposition home or self-care (01) ==
LOC: EC 22:43
DX: K52.9 Noninfective gastroenteritis and colitis, unspecified (principal); J45.909 Unspecified asthma, uncomplicated; I25.10 Atherosclerotic heart disease of native coronary artery without angina pectoris; E11.9 Type 2 diabetes mellitus without complications; I10 Essential (primary) hypertension; I25.2 Old myocardial infarction; G47.30 Sleep apnea, unspecified; Z79.84 Long term (current) use of oral hypoglycemic drugs; Z79.899 Other long term (current) drug therapy; Z91.018 Allergy to other foods; Z88.6 Allergy status to analgesic agent; Z88.8 Allergy status to other drugs, medicaments and biological substances; Z88.5 Allergy status to narcotic agent
CPT/HCPCS: 36415 ×2; 93005; 80053; 83690; 84484 ×2; 85025; 85610; 85730; 74022; 99285; 96374; 96361; J2405; S0119

== ENCOUNTER 2023-01-12 00:15 | Emergency (ER) | payer BC ==
--- NOTE | 2023-01-12 00:36 | ED ---
General Adult HPI - General Chief complaint: Extremity Injury, Lower Stated complaint: Right Foot injury Time Seen by Provider: 01/12/23 00:28 Source: patient, RN notes reviewed, old records reviewed Mode of arrival: ambulatory Limitations: no limitations - History of Present Illness Initial comments: 57-year-old female with right foot injury. Patient had stubbed her fifth digit right foot on a chair earlier. Had persistent pain and some ecchymosis. No other injury. - Related Data Home Medications Medication Instructions Recorded Confirmed Albuterol Inhaler [Ventolin Hfa 2 puff INHALATION RT-QID PRN 03/16/20 06/05/22 Inhaler] metFORMIN HCL [metFORMIN HCL ER] 750 mg PO DAILY 08/28/20 06/06/22 DULoxetine HCL [Cymbalta] 60 mg PO DAILY 12/28/20 06/06/22 Ergocalciferol [Vitamin D2 (1250 1,250 mcg PO Q7D 12/28/20 06/06/22 Mcg = 52019 Iu)] Isosorbide Mononitrate ER [Imdur] 30 mg PO DAILY 06/05/22 06/06/22 Metoprolol Tartrate [Lopressor] 25 mg PO DAILY 06/05/22 06/06/22 lisinopriL [Zestril] 5 mg PO DAILY 06/05/22 06/06/22 Allergies Allergy/AdvReac Type Severity Reaction Status Date / Time horse dander Allergy Unknown Verified 01/12/23 00:17 hydrocodone [From Vicodin] AdvReac Vertigo Verified 01/12/23 00:17 mold AdvReac Abdominal Verified 01/12/23 00:17 Pain Mushroom AdvReac Abdominal Verified 01/12/23 00:17 Pain pentazocine [From Talwin] AdvReac Confusion Verified 01/12/23 00:17 pseudoephedrine AdvReac Confusion Verified 01/12/23 00:17 [From Seldane-D] terfenadine [From Seldane-D] AdvReac Confusion Verified 01/12/23 00:17 dust Allergy Unknown Uncoded 01/12/23 00:17 Review of Systems ROS Statement: Those systems with pertinent positive or pertinent negative responses have been documented in the HPI. ROS Other: All systems not noted in ROS Statement are negative. Past Medical History Past Medical History: Asthma, Coronary Artery Disease (CAD), Chest Pain / Angina, Diabetes Mellitus, Eye Disorder, Hyperlipidemia, Hypertension, Myocardial Infarction (AR), Sleep Apnea/CPAP/BIPAP, Thyroid Disorder Additional Past Medical History / Comment(s): NIDDM type II, neuropathy biltateral legs/feet and occasionally in bilateral hands, pt states she has had R shoulder pain since radial cardiac cath on 06/25/19, past L shoulder pain, MALLORY (does not use CPAP), hypothyroid tx with medication for a couple years then no longer needed, chronic low back pain and bilateral sciatica with L side worse, IBS, past rib fractures/pneumo with chest tube, bilateral narrow angle glaucoma corrected with surgery. Hiatal hernia. Oral and vaginal herpes. Last Myocardial Infarction Date:: 06/25/19 History of Any Multi-Drug Resistant Organisms: None Reported Past Surgical History: Cholecystectomy, Heart Catheterization With Stent, Hysterectomy Additional Past Surgical History / Comment(s): Bilateral eye surgery for glaucoma, colonoscopy, sebacceous cyst removed from back, septal repair. Past Anesthesia/Blood Transfusion Reactions: No Reported Reaction Date of Last Stent Placement:: 06/25/19 Past Psychological History: No Psychological Hx Reported Smoking Status: Never smoker Past Alcohol Use History: None Reported Past Drug Use History: None Reported - Past Family History Father Family Medical History: Diabetes Mellitus, Myocardial Infarction (AR), Renal Disease Additional Family Medical History / Comment(s): Father of a massive AR while on dialysis at the age of 57yrs. He had an enlarged heart and cervical injury/pain. Mother Family Medical History: No Reported History Additional Family Medical History / Comment(s): Mother is alive and healthy. General Exam Limitations: no limitations General appearance: alert, in no apparent distress Head exam: Present: atraumatic, normocephalic Eye exam: Present: normal appearance, PERRL ENT exam: Present: normal exam Neck exam: Present: normal inspection. Absent: tenderness, meningismus Respiratory exam: Present: normal lung sounds bilaterally. Absent: respiratory distress, wheezes Cardiovascular Exam: Present: regular rate, normal rhythm GI/Abdominal exam: Present: soft. Absent: distended, tenderness Extremities exam: Present: full ROM, tenderness (Tenderness to the fifth digit, ecchymosis, no abrasion or laceration), normal capillary refill, other (2+ pedal pulse) Neurological exam: Present: alert, oriented X3 Psychiatric exam: Present: normal affect, normal mood Skin exam: Present: warm Course Vital Signs 01/12/23 01/12/23 00:18 00:20 Temperature 98.3 F 97.9 F Pulse Rate 74 67 Respiratory 18 14 Rate Blood Pressure 146/77 131/78 O2 Sat by Pulse 98 96 Oximetry Medical Decision Making - Medical Decision Making Was pt. sent in by a medical professional or institution (, TALI, BOARDING SPECIALIST, urgent care, hospital, or jail...) When possible be specific @ -No Did you speak to anyone other than the patient for history (EMS, parent, family, police, friend...)? What history was obtained from this source @ -No Did you review nursing and triage notes (agree or disagree)? Why? @ -I reviewed and agree with nursing and triage notes Were old charts reviewed (outside hosp., previous admission, EMS record, old EKG, old radiological studies, urgent care reports/EKG's, jail records)? Report findings @ -No old charts were reviewed Differential Diagnosis (chest pain, altered mental status, abdominal pain women, abdominal pain men, vaginal bleeding, weakness, fever, dyspnea, syncope, headache, dizziness, GI bleed, back pain, seizure, CVA, palpatations, mental health, musculoskeletal)? @ Fracture /dislocation of the toe EKG interpreted by me (3pts min.). @ -As above X-rays interpreted by me (1pt min.). @ -X-ray of the toes does show a fracture of the distal proximal phalanx fifth digit right foot. CT interpreted by me (1pt min.). @ -None done U/S interpreted by me (1pt. min.). @ -None done What testing was considered but not performed or refused? (CT, X-rays, U/S, labs)? Why? @ -None What meds were considered but not given or refused? Why? @ -None Did you discuss the management of the patient with other professionals (professionals i.e. TALI Madrigal, BOARDING SPECIALIST, lab, RT, psych nurse, social work nurse, business ethics professor, teacher, commercial escrow officer, residential case manager)? Give summary @ -No Was smoking cessation discussed for >3mins.? @ -No Was critical care preformed (if so, how long)? @ -No Were there social determinants of health that impacted care today? How? (Homelessness, low income, unemployed, alcoholism, drug addiction, transportation, low edu. Level, literacy, decrease access to med. care, care home, rehab)? @ -No Was there de-escalation of care discussed even if they declined (Discuss DNR or withdrawal of care, Hospice)? DNR status @ -No What co-morbidities impacted this encounter? (DM, HTN, Smoking, COPD, CAD, Cancer, CVA, ARF, Chemo, Hep., AIDS, mental health diagnosis, sleep apnea, morbid obesity)? @ -Diabetic Was patient admitted / discharged? Hospital course, mention meds given and route, prescriptions, significant lab abnormalities, going to OR and other pertinent info. @ -57-year-old female with fifth toe injury, x-ray showing fracture of the proximal phalanx with distal fracture, no dislocation. Patient given a post op shoe Undiagnosed new problem with uncertain prognosis? @ -No Drug Therapy requiring intensive monitoring for toxicity (Heparin, Nitro, Insulin, Cardizem)? @ -No Were any procedures done? @ -No Diagnosis/symptom? @ -Toe fracture Acute, or Chronic, or Acute on Chronic? @ -Toe fracture acute Uncomplicated (without systemic symptoms) or Complicated (systemic symptoms)? @ -default Side effects of treatment? @ -No Exacerbation, Progression, or Severe Exacerbation? @ -No Poses a threat to life or bodily function? How? (Chest pain, USA, AR, pneumonia, PE, COPD, DKA, ARF, appy, cholecystitis, CVA, Diverticulitis, Homicidal, Suicidal, threat to staff... and all critical care pts) @ -No Disposition Clinical Impression: Toe fracture, right Disposition: HOME SELF-CARE Condition: Good Instructions (If sedation given, give patient instructions): Toe Fracture (ED) Is patient prescribed a controlled substance at d/c from ED?: No Referrals: Trevon Soto MD [Primary Care Provider] - 1-2 days Time of Disposition: 00:50
[2023-01-12 00:44] VITALS: BP 131/78; PULSE 67; RESP 14; TEMP 97.9
--- NOTE | 2023-01-12 01:41 | XR ---
EXAM: XR Right Fifth Toe, 2 or More Views CLINICAL HISTORY: fall TECHNIQUE: Frontal, lateral and oblique views of the fifth toe of the right foot. COMPARISON: No relevant prior studies available. FINDINGS: Bones/joints: There is a subtle fracture involving the distal aspect of the right fifth proximal phalanx with mild displacement on the most lateral image. No obvious extension to the proximal interphalangeal joint. Incidental ankylosis of the DIP joint. No dislocation. Soft tissues: Soft tissue fullness involving the fifth digit. No subcutaneous emphysema or radiopaque foreign body. IMPRESSION: There is a subtle fracture involving the distal aspect of the right fifth proximal phalanx with mild displacement on the most lateral image. No obvious extension to the proximal interphalangeal joint.
== END 2023-01-12 01:00 | disposition home or self-care (01) ==
LOC: EC 00:15
DX: S92.511A Displaced fracture of proximal phalanx of right lesser toe(s), initial encounter for closed fracture (principal); E11.9 Type 2 diabetes mellitus without complications; I10 Essential (primary) hypertension; I25.10 Atherosclerotic heart disease of native coronary artery without angina pectoris; J45.909 Unspecified asthma, uncomplicated; I25.2 Old myocardial infarction; G47.30 Sleep apnea, unspecified; Z79.51 Long term (current) use of inhaled steroids; Z79.84 Long term (current) use of oral hypoglycemic drugs; Z91.018 Allergy to other foods; Z88.6 Allergy status to analgesic agent; Z88.8 Allergy status to other drugs, medicaments and biological substances; X58.XXXA Exposure to other specified factors, initial encounter
CPT/HCPCS: 99283

== ENCOUNTER → 2023-01-24 | Outpatient (CLI) | payer BC ==
--- NOTE | 2023-01-24 14:49 | XR ---
EXAMINATION TYPE: XR foot complete RT DATE OF EXAM: 01/24/2023 COMPARISON: 01/12/2023 HISTORY: Pain TECHNIQUE: Three views are submitted. FINDINGS: Stable fracture through the proximal phalanx fifth digit extension to the articular surface. No signi ficant callus formation. There is adjacent soft tissue edema. Remaining osseous structures intact with mild to moderate hypertrophic arthropathy. AP. There is calc aneal large spur at the Achilles insertion and tiny plantar calcaneal spur. IMPRESSION: 1. A mildly displaced fracture proximal phalanx fifth digit with no significant callus formation.
== END | disposition home or self-care (01) ==
LOC: RADXRMAIN 14:23
PROVIDERS: ATTEND Family Medicine
DX: S92.511A Displaced fracture of proximal phalanx of right lesser toe(s), initial encounter for closed fracture (principal)

== ENCOUNTER 2023-12-19 23:20 | Observation (INO) | payer BC ==
[2023-12-20] MEDS: ASPIRIN 81 MG PO STA (00:17)
[2023-12-20] MEDS: NITROGLYCERIN SL TABS 0.4 MG TAB SUBLINGUAL PRN (00:18)
[2023-12-20 00:36] LABS: Basophils # (A) 0.1 k/uL (0-0.2); Basophils % (A) 1 %; Eosinophils # (A) 0.4 k/uL (0-0.7); Eosinophils % (A) 5 %; Lymphocytes # (A) 4.4 k/uL (1.0-4.8); Lymphocytes % (A) 50 %; MCH 28.3 pg (25.0-35.0); MCHC 32.4 g/dL (31.0-37.0); MCV 87.2 fL (80.0-100.0); Mean Platelet Volume 8.3; Monocytes # (A) 0.4 k/uL (0-1.0); Monocytes % (A) 5 %; Neutrophils # (A) 3.3 k/uL (1.3-7.7); Neutrophils % (A) 38 %; Platelet Count 227 k/uL (150-450); RBC 4.24 m/uL (3.80-5.40); RDW 13.4 % (11.5-15.5); WBC 8.9 k/uL (3.8-10.6)
[2023-12-20 00:48] LABS: ALT 17 U/L (4-34); AST 22 U/L (14-36); African American GFR (CKD) 85 (>60 ml/min/1.73 sqM); Albumin 4.5 g/dL (3.5-5.0); Alkaline Phosphatase 78 U/L (38-126); Anion Gap 15 mmol/L; Blood Urea Nitrogen 19 mg/dL (7-17); Calcium 9.5 mg/dL (8.4-10.2); Carbon Dioxide 24 mmol/L (22-30); Chloride 99 mmol/L (98-107); Glucose 117 mg/dL (74-99); Magnesium 1.9 mg/dL (1.6-2.3); Non-African American GFR(CKD) 74 (>60 ml/min/1.73 sqM); Sodium 138 mmol/L (137-145); Total Bilirubin 0.4 mg/dL (0.2-1.3); Total Protein 6.7 g/dL (6.3-8.2)
[2023-12-20 01:03] LABS: INR 0.9 (<1.2); Partial Thromboplastin Time 24.7 sec (22.0-30.0); Prothrombin Time 9.9 sec (10.0-12.5)
[2023-12-20] MEDS ORDERED: ONDANSETRON 4 MG/2 ML VIAL IVP PRN (01:07)
[2023-12-20] MEDS ORDERED: NALOXONE 0.4 MG/ML 1 ML VIAL IV PRN (01:07)
[2023-12-20] MEDS ORDERED: ACETAMINOPHEN TAB 325 MG TAB PO PRN (01:07)
[2023-12-20] MEDS: NITROGLYCERIN OINT 1 INCH/GM PACKET TOPICAL SCH (01:18)
[2023-12-20 01:31] LABS: Potassium 4.3 mmol/L (3.5-5.1)
--- NOTE | 2023-12-20 01:54 | ED ---
General Adult HPI - General Chief complaint: Chest Pain Stated complaint: Chest pain Time Seen by Provider: 12/19/23 23:25 Source: patient, RN notes reviewed, old records reviewed Mode of arrival: wheelchair Limitations: no limitations - History of Present Illness Initial comments: Patient is a 58-year-old female presents emergency department complaining of chest pain. Describes the pain as a pressure sensation over her left chest with radiation to the left shoulder. Started within the last hour prior to arrival. He has noticed some mild chest discomfort over the last 2 days but this worsening the pain was sudden approximately an hour ago. Endorses mild discomfort and shortness of breath when it is present. Denies any fevers, chil ls, cough. Patient states she does have a history of cardiac stent. Also past medical history remarkable for asthma, diabetes, hypertension, hyperlipidemia.Patient denies any nausea or vomiting or diaphoresis with the chest pain. - Related Data Home Medications Medication Instructions Recorded Confirmed Albuterol Inhaler [Ventolin Hfa 2 puff INHALATION RT-QID PRN 03/16/20 06/05/22 Inhaler] metFORMIN HCL [metFORMIN HCL ER] 750 mg PO DAILY 08/28/20 06/06/22 DULoxetine HCL [Cymbalta] 60 mg PO DAILY 12/28/20 06/06/22 Ergocalciferol [Vitamin D2 (1250 1,250 mcg PO Q7D 12/28/20 06/06/22 Mcg = 82492 Iu)] Isosorbide Mononitrate ER [Imdur] 30 mg PO DAILY 06/05/22 06/06/22 Metoprolol Tartrate [Lopressor] 25 mg PO DAILY 06/05/22 06/06/22 lisinopriL [Zestril] 5 mg PO DAILY 06/05/22 06/06/22 Allergies Allergy/AdvReac Type Severity Reaction Status Date / Time horse dander Allergy Unknown Verified 12/19/23 23:24 hydrocodone [From Vicodin] AdvReac Vertigo Verified 12/19/23 23:24 mold AdvReac Abdominal Verified 12/19/23 23:24 Pain Mushroom AdvReac Abdominal Verified 12/19/23 23:24 Pain pentazocine [From Talwin] AdvReac Confusion Verified 12/19/23 23:24 pseudoephedrine AdvReac Confusion Verified 06/27/24 23:24 [From Seldane-D] terfenadine [From Seldane-D] AdvReac Confusion Verified 12/19/23 23:24 dust Allergy Unknown Uncoded 12/19/23 23:24 Review of Systems ROS Statement: Those systems with pertinent positive or pertinent negative responses have been documented in the HPI. Review of Systems: CONST: Denies fever EYES: Denies blurry vision ENT: Denies nasal congestion C/V: Endorses chest pain RESP: Denies shortness of breath GI: Denies abdominal pain : Denies dysuria SKIN: Denies rash. MSK: Denies joint pain. NEURO: Denies headache ROS Other: All systems not noted in ROS Statement are negative. Past Medical History Past Medical History: Asthma, Coronary Artery Disease (CAD), Chest Pain / Angina, Diabetes Mellitus, Eye Disorder, Hyperlipidemia, Hypertension, Myocardial Infarction ([place]), Sleep Apnea/CPAP/BIPAP, Thyroid Disorder Additional Past Medical History / Comment(s): NIDDM type II, neuropathy biltateral legs/feet and occasionally in bilateral hands, pt states she has had R shoulder pain since radial cardiac cath on 06/25/19, past L shoulder pain, MALLORY (does not use CPAP), hypothyroid tx with medication for a couple years then no longer needed, chronic low back pain and bilateral sciatica with L side worse, IBS, past rib fractures/pneumo with chest tube, bilateral narrow angle glaucoma corrected with surgery. Hiatal hernia. Oral and vaginal herpes. Last Myocardial Infarction Date:: 06/25/19 History of Any Multi-Drug Resistant Organisms: None Reported Past Surgical History: Cholecystectomy, Heart Catheterization With Stent, Hysterectomy Additional Past Surgical History / Comment(s): Bilateral eye surgery for glaucoma, colonoscopy, sebacceous cyst removed from back, septal repair. Past Anesthesia/Blood Transfusion Reactions: No Reported Reaction Date of Last Stent Placement:: 06/25/19 Past Psychological History: No Psychological Hx Reported Smoking Status: Never smoker Past Alcohol Use History: None Reported Past Drug Use History: None Reported - Past Family History Father Family Medical History: Diabetes Mellitus, Myocardial Infarction (MO), Renal Disease Additional Family Medical History / Comment(s): Father of a massive MO while on dialysis at the age of 57yrs. He had an enlarged heart and cervical injury/pain. Mother Family Medical History: No Reported History Additional Family Medical History / Comment(s): Mother is alive and healthy. General Exam - General Exam Comments Initial Comments: General: Appears in no acute distress. HEAD: Normal with no signs of head trauma. EYES: PERRLA, EOMI, conjunctiva normal, no discharge. ENT: Hearing grossly intact, normal oropharynx. RESPIRATORY: Clear breath sounds bilaterally. No wheezes, rales, or rhonchi. C/V: Regular rate and rhythm. S1 and S2 auscultated, no edema, peripheral pulses 2+ and intact throughout. Chest pain is not reproducible on palpation or with movement of the extremities. ABD: Abd is soft, nontender, nondistended EXT: Normal range of motion, no obvious deformity SKIN: No rashes or lesions observed on exposed skin. NEURO: Alert and oriented x 4. Limitations: no limitations Course Vital Signs 12/19/23 12/20/23 12/20/23 23:22 00:18 00:29 Temperature 97.4 F L Pulse Rate 69 63 63 Respiratory 20 18 18 Rate Blood Pressure 143/81 131/69 133/79 O2 Sat by Pulse 99 97 96 Oximetry 12/20/23 02:00 Temperature Pulse Rate 61 Respiratory 18 Rate Blood Pressure 115/79 O2 Sat by Pulse 97 Oximetry Medical Decision Making - Medical Decision Making Was pt. sent in by a medical professional or institution (, PA, STOCK PITCHER, urgent care, hospital, or senior care...) When possible be specific @ -No Did you speak to anyone other than the patient for history (EMS, parent, family, police, friend...)? What history was obtained from this source @ -No Did you review nursing and triage notes (agree or disagree)? Why? @ -I reviewed and agree with nursing and triage notes Were old charts reviewed (outside hosp., previous admission, EMS record, old EKG, old radiological studies, urgent care reports/EKG's, senior care records)? Report findings @ -Old charts reviewed including EKG with comparison to today's EKG. No signi ficant change. Differential Diagnosis (chest pain, altered mental status, abdominal pain women, abdominal pain men, vaginal bleeding, weakness, fever, dyspnea, syncope, headache, dizziness, GI bleed, back pain, seizure, CVA, palpatations, mental health, musculoskeletal)? @ -Differential Chest Pain: Stable Angina, Unstable Angina, STEMI, NSTEMI Aortic Dissection, Pneumothorax, Musculoskeletal, Esophageal Spasm GERD, Cholecystitis, Pancreatitis, Zoster, this is not meant to be an all-inclusive list. EKG interpreted by me (3pts min.). @ -As above X-rays interpreted by me (1pt min.). @ -Chest x-ray shows no obvious acute cardiopulmonary process. CT interpreted by me (1pt min.). @ -None done U/S interpreted by me (1pt. min.). @ -None done What testing was considered but not performed or refused? (CT, X-rays, U/S, labs)? Why? @ -None What meds were considered but not given or refused? Why? @ -None Did you discuss the management of the patient with other professionals (professionals i.e. , PA, STOCK PITCHER, lab, RT, psych nurse, social welfare clerk, assembly leader, teacher, purchasing officer, pillowcase cleaner)? Give summary @ -Discussed with Dr. Christy who accepted the admission. Was smoking cessation discussed for >3mins.? @ -No Was critical care preformed (if so, how long)? @ -No Were there social determinants of health that impacted care today? How? (Homelessness, low income, unemployed, alcoholism, drug addiction, transportation, low edu. Level, literacy, decrease access to med. care, correction, rehab)? @ -No Was there de-escalation of care discussed even if they declined (Discuss DNR or withdrawal of care, Hospice)? DNR status @ -No What co-morbidities impacted this encounter? (DM, HTN, Smoking, COPD, CAD, Cancer, CVA, ARF, Chemo, Hep., AIDS, mental health diagnosis, sleep apnea, morbid obesity)? @ -CAD with stent Was patient admitted / discharged? Hospital course, mention meds given and route, prescriptions, significant lab abnormalities, going to OR and other pertinent info. @ -Patient presents with chest pain. We will obtain cardiac workup. Patient be symptomatically treated with nitroglycerin tablets as well as aspirin. Patient in agreement this plan. Vital signs within acceptable limits. EKG shows no signs of acute ischemia. Patient's laboratory studies remarkable for an undetectable troponin. Remainder the workup unremarkable. Chest x-ray shows no findings concerning for acute cardiopulmonary process. Following 2 nitroglycerin tablets, patient pain is resolved. Patient placed with half inch of Nitropaste. I did recommend admission for cardiology evaluation. Troponins will be trended. Echo will be ordered. Patient in agreement this plan. I spoke with Dr. Christy who accepted the admission. Cardiology consulted. Undiagnosed new problem with uncertain prognosis? @ -No Drug Therapy requiring intensive monitoring for toxicity (Heparin, Nitro, Insulin, Cardizem)? @ -No Were any procedures done? @ -No Diagnosis/symptom? @ -Chest pain Acute, or Chronic, or Acute on Chronic? @ -Acute Uncomplicated (without systemic symptoms) or Complicated (systemic symptoms)? @ -Complicated Side effects of treatment? @ -No Exacerbation, Progression, or Severe Exacerbation? @ -No Poses a threat to life or bodily function? How? (Chest pain, USA, [place], pneumonia, PE, COPD, DKA, ARF, appy, cholecystitis, CVA, Diverticulitis, Homicidal, Suicidal, threat to staff... and all critical care pts) @ -Yes - Lab Data Result diagrams: 12/20/23 00:04 12/20/23 00:04 Lab Results 12/20/23 12/20/23 12/20/23 Range/Units 00:04 00:04 00:04 WBC 8.9 (3.8-10.6) k/uL RBC 4.24 (3.80-5.40) m/uL Hgb 12.0 (11.4-16.0) gm/dL Hct 37.0 (34.0-46.0) % MCV 87.2 (80.0-100.0) fL MCH 28.3 (25.0-35.0) pg MCHC 32.4 (31.0-37.0) g/dL RDW 13.4 (11.5-15.5) % Plt Count 227 (150-450) k/uL MPV 8.3 Neutrophils % 38 % Lymphocytes % 50 % Monocytes % 5 % Eosinophils % 5 % Basophils % 1 % Neutrophils # 3.3 (1.3-7.7) k/uL Lymphocytes # 4.4 (1.0-4.8) k/uL Monocytes # 0.4 (0-1.0) k/uL Eosinophils # 0.4 (0-0.7) k/uL Basophils # 0.1 (0-0.2) k/uL PT 9.9 L (10.0-12.5) sec INR 0.9 (<1.2) APTT 24.7 (22.0-30.0) sec Sodium 138 (137-145) mmol/L Potassium 4.3 (3.5-5.1) mmol/L Chloride 99 (98-107) mmol/L Carbon Dioxide 24 (22-30) mmol/L Anion Gap 15 mmol/L BUN 19 H (7-17) mg/dL Creatinine 0.88 (0.52-1.04) mg/dL Est GFR (CKD-EPI)AfAm 85 (>60 ml/min/1.73 sqM) Est GFR (CKD-EPI)NonAf 74 (>60 ml/min/1.73 sqM) Glucose 117 H (74-99) mg/dL Calcium 9.5 (8.4-10.2) mg/dL Magnesium 1.9 (1.6-2.3) mg/dL Total Bilirubin 0.4 (0.2-1.3) mg/dL AST 22 (14-36) U/L ALT 17 (4-34) U/L Alkaline Phosphatase 78 (38-126) U/L Troponin I (0.000-0.034) ng/mL Total Protein 6.7 (6.3-8.2) g/dL Albumin 4.5 (3.5-5.0) g/dL 12/20/23 Range/Units 00:04 WBC (3.8-10.6) k/uL RBC (3.80-5.40) m/uL Hgb (11.4-16.0) gm/dL Hct (34.0-46.0) % MCV (80.0-100.0) fL MCH (25.0-35.0) pg MCHC (31.0-37.0) g/dL RDW (11.5-15.5) % Plt Count (150-450) k/uL MPV Neutrophils % % Lymphocytes % % Monocytes % % Eosinophils % % Basophils % % Neutrophils # (1.3-7.7) k/uL Lymphocytes # (1.0-4.8) k/uL Monocytes # (0-1.0) k/uL Eosinophils # (0-0.7) k/uL Basophils # (0-0.2) k/uL PT (10.0-12.5) sec INR (<1.2) APTT (22.0-30.0) sec Sodium (137-145) mmol/L Potassium (3.5-5.1) mmol/L Chloride (98-107) mmol/L Carbon Dioxide (22-30) mmol/L Anion Gap mmol/L BUN (7-17) mg/dL Creatinine (0.52-1.04) mg/dL Est GFR (CKD-EPI)AfAm (>60 ml/min/1.73 sqM) Est GFR (CKD-EPI)NonAf (>60 ml/min/1.73 sqM) Glucose (74-99) mg/dL Calcium (8.4-10.2) mg/dL Magnesium (1.6-2.3) mg/dL Total Bilirubin (0.2-1.3) mg/dL AST (14-36) U/L ALT (4-34) U/L Alkaline Phosphatase (38-126) U/L Troponin I <0.012 (0.000-0.034) ng/mL Total Protein (6.3-8.2) g/dL Albumin (3.5-5.0) g/dL - EKG Data -: EKG Interpreted by Me EKG Comments: 12-lead Electrocardiogram Interpretation Note EKG was reviewed and interpreted by myself. 12-lead ECG performed at 2327 is interpreted by me as revealing normal sinus rhythm at a rate of 63 beats per minute. [place] is normal. SD interval is 164 ms, QRS duration is 74 ms, QTc is 401 ms.. There were no ST or T wave abnormalities to suggest myocardial ischemia or injury. R wave progression across the precordium was satisfactory. By my interpretation this EKG is non-diagnostic for acute ischemia. Disposition Clinical Impression: Chest pain Disposition: ADMITTED IP TO THIS HOSP Condition: Stable Time of Disposition: 01:07
--- NOTE | 2023-12-20 03:00 | XR ---
EXAM: XR Chest, 2 Views CLINICAL HISTORY: ITS.REASON XR Reason: Chest Pain TECHNIQUE: Frontal and lateral views of the chest. COMPARISON: No relevant prior studies available. FINDINGS: Lungs: Unremarkable. No consolidation. Pleural space: Unremarkable. No pneumothorax. Heart: Unremarkable. No cardiomegaly. Mediastinum: Unremarkable. Normal mediastinal contour. Bones/joints: Unremarkable. No acute fracture. IMPRESSION: No consolidation.
[2023-12-20 05:38] VITALS: RESP 16
[2023-12-20] MEDS: HEPARIN SODIUM,PORCINE 5,000 UNIT/ML 1 ML VIAL SQ SCH (09:17)
[2023-12-20] MEDS: ATORVASTATIN 20 MG TAB PO SCH (09:54)
[2023-12-20] MEDS: lisinopriL 5 MG TAB PO SCH (09:54)
--- NOTE | 2023-12-20 10:13 | P.CRDCN ---
History of Present Illness Consult date: 12/20/23 Consult reason: chest pain History of present illness: This is a 58-year-old female previously a patient of Dr. 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 She has a past medical history of myocardial infarction June 2019 status post stent placement to the mid RCA, obstructive sleep apnea, hypertension, hyperlipidemia, TIA, diabetes mellitus ty pe 2. We have been asked to evaluate the patient for chest pain. Patient presented to the emergency center due to chest pain on the left side with radiation to the left shoulder. She states it started a couple days ago and was coming and going but yesterday while driving it seemed to be constant and did not go away. She was put on Nitropaste which seemed to help her pain. She denies any pain at the time of this evaluation. Blood pressure 161/69, heart rate 63, pulse ox 96% on room air, afebrile. EKG: Sinus rhythm with no acute ST-T wave changes. Chest x-ray: No consolidation. Laboratory studies: Hemoglobin 12.0. Potassium 4.3, BUN 19, creatinine 0.88. Troponin negative x 2. Glucose 117. Home cardiac medications: Imdur 30 mg daily, lisinopril 5 mg daily, Lopressor 25 mg daily, rosuvastatin 10 mg daily. Echocardiogram performed 06/06/2022 revealed EF of 55%. Stress echocardiogram performed 06/06/2022 revealed limited exercise tolerance. Inconclusive stress echo secondary to inability to attain target heart rate however at 76% of predicted maximal heart rate there is no ischemia. Cardiac catheterization performed 06/25/2019 in the setting of a non-ST elevated DE revealed critical lesion involving the mid RCA. Significant disease involving a moderate caliber diagonal branch. Intermediate disease involving the LAD at the origin of the diagonal. Mild disease involving the circumflex. Patient subsequently underwent stent placement of the RCA. Review Of Systems: At the time of my exam: CONSTITUTIONAL: Denies fever or chills. HEENT: Denies blurred vision, vision changes, or eye pain. Denies hemoptysis CARDIOVASCULAR: Denies chest pain. Denies orthopnea. Denies PND. Denies palpitations RESPIRATORY: Denies shortness of breath. GASTROINTESTINAL: Denies abdominal pain. Denies nausea or vomiting. HEMATOLOGIC: Denies bleeding disorders. GENITOURINARY: Denies any blood in urine. SKIN: Denies puritis. Denies rash. Physical examination: Gen: This is a 58-year-old female in no acute distress VS: reviewed HEENT: Head is atraumatic, normocephalic. Pupils equal, round. Sclerae is anicteric. NECK: Supple. No JVD. LUNGS: Clear to auscultation. No wheezes or rhonchi. No intercostal retractions. HEART: Regular rate and rhythm. No murmur. ABDOMEN: Soft No tenderness. EXTREMITIES: No pedal edema. No calf tenderness. NEUROLOGICAL: Patient is awake, alert and oriented x3. Assessment: Atypical chest pain, acute coronary syndrome ruled out with negative troponins x 2 Hypertension Hyperlipidemia Diabetes mellitus type 2 History of non-ST elevated DE and stent placement to the mid RCA Obstructive sleep apnea noncompliant with CPAP Plan: Resume patient's home cardiac medications Discontinue Nitropaste Obtain stress Cardiolite stress test today Obtain 2-D echocardiogram and Doppler study to assess cardiac structure and function If testing is unremarkable, patient will be cleared for discharge home and may follow-up in the office with Dr. Lucas in 1 to 2 weeks. Thank you kindly for this consultation. Nurse practitioner note has been reviewed, I agree with documented findings and plan of care. Patient was seen and examined. Past Medical History Past Medical History: Asthma, Coronary Artery Disease (CAD), Chest Pain / Angina, Diabetes Mellitus, Eye Disorder, Hyperlipidemia, Hypertension, Myocardial Infarction (DE), Sleep Apnea/CPAP/BIPAP, Thyroid Disorder Additional Past Medical History / Comment(s): NIDDM type II, neuropathy biltateral legs/feet and occasionally in bilateral hands, pt states she has had R shoulder pain since radial cardiac cath on 06/25/19, past L shoulder pain, MALLORY (does not use CPAP), hypothyroid tx with medication for a couple years then no longer needed, chronic low back pain and bilateral sciatica with L side worse, IBS, past rib fractures/pneumo with chest tube, bilateral narrow angle glaucoma corrected with surgery. Hiatal hernia. Oral and vaginal herpes. Last Myocardial Infarction Date:: 06/25/19 History of Any Multi-Drug Resistant Organisms: None Reported Past Surgical History: Cholecystectomy, Heart Catheterization With Stent, Hysterectomy Additional Past Surgical History / Comment(s): Bilateral eye surgery for glaucoma, colonoscopy, sebacceous cyst removed from back, septal repair. Past Anesthesia/Blood Transfusion Reactions: No Reported Reaction Date of Last Stent Placement:: 06/25/19 Past Psychological History: No Psychological Hx Reported Smoking Status: Never smoker Past Alcohol Use History: None Reported Past Drug Use History: None Reported - Past Family History Father Family Medical History: Diabetes Mellitus, Myocardial Infarction (DE), Renal Disease Additional Family Medical History / Comment(s): Father of a massive DE while on dialysis at the age of 57yrs. He had an enlarged heart and cervical injury/pain. Mother Family Medical History: No Reported History Additional Family Medical History / Comment(s): Mother is alive and healthy. Medications and Allergies Home Medications Medication Instructions Recorded Confirmed Type metFORMIN HCL [metFORMIN HCL ER] 750 mg PO BID 08/28/20 12/20/23 History Isosorbide Mononitrate ER [Imdur] 30 mg PO DAILY 06/05/22 12/20/23 History Metoprolol Tartrate [Lopressor] 25 mg PO DAILY 06/05/22 12/20/23 History lisinopriL [Zestril] 5 mg PO DAILY 06/05/22 12/20/23 History Cholecalciferol (Vitamin D3) 75 mcg PO DAILY 12/20/23 12/20/23 History [Vitamin D3 (3000 Iu)] Multivitamins, Thera [Multivitamin 1 tab PO DAILY 12/20/23 12/20/23 History (formulary)] Rosuvastatin [Crestor] 10 mg PO DAILY 12/20/23 12/20/23 History Allergies Allergy/AdvReac Type Severity Reaction Status Date / Time horse dander Allergy Unknown Verified 12/20/23 09:48 hydrocodone [From Vicodin] AdvReac Vertigo Verified 12/20/23 09:48 mold AdvReac Abdominal Verified 12/20/23 09:48 Pain Mushroom AdvReac Abdominal Verified 12/20/23 09:48 Pain pentazocine [From Talwin] AdvReac Confusion Verified 12/20/23 09:48 pseudoephedrine AdvReac Confusion Verified 12/20/23 09:48 [From Seldane-D] terfenadine [From Seldane-D] AdvReac Confusion Verified 12/20/23 09:48 dust Allergy Unknown Uncoded 12/20/23 09:48 Physical Exam Vitals: Vital Signs Temp Pulse Pulse Resp BP BP Pulse Ox 12/20/23 06:01 97.7 F 63 16 161/69 96 12/20/23 05:38 73 16 115/67 95 12/20/23 04:00 58 L 18 123/78 95 12/20/23 02:00 61 18 115/79 97 12/20/23 00:29 63 18 133/79 96 12/20/23 00:18 63 18 131/69 97 12/19/23 23:22 97.4 F L 69 20 143/81 99 Intake and Output 12/19/23 12/20/23 12/20/23 22:59 06:59 14:59 Other: # Voids 1 Weight 80.286 kg Results 12/20/23 00:04 12/20/23 00:04 Cardiac Enzymes 12/20/23 12/20/23 12/20/23 Range/Units 00:04 00:04 05:28 AST 22 (14-36) U/L Troponin I <0.012 <0.012 (0.000-0.034) ng/mL Coagulation 12/20/23 Range/Units 00:04 PT 9.9 L (10.0-12.5) sec APTT 24.7 (22.0-30.0) sec CBC 12/20/23 Range/Units 00:04 WBC 8.9 (3.8-10.6) k/uL RBC 4.24 (3.80-5.40) m/uL Hgb 12.0 (11.4-16.0) gm/dL Hct 37.0 (34.0-46.0) % Plt Count 227 (150-450) k/uL Comprehensive Metabolic Panel 12/20/23 Range/Units 00:04 Sodium 138 (137-145) mmol/L Potassium 4.3 (3.5-5.1) mmol/L Chloride 99 (98-107) mmol/L Carbon Dioxide 24 (22-30) mmol/L BUN 19 H (7-17) mg/dL Creatinine 0.88 (0.52-1.04) mg/dL Glucose 117 H (74-99) mg/dL Calcium 9.5 (8.4-10.2) mg/dL AST 22 (14-36) U/L ALT 17 (4-34) U/L Alkaline Phosphatase 78 (38-126) U/L Total Protein 6.7 (6.3-8.2) g/dL Albumin 4.5 (3.5-5.0) g/dL Current Medications Generic Name Dose Route Start Last Admin Trade Name Freq PRN Reason Stop Dose Admin Acetaminophen 650 mg 12/20/23 01:07 Acetaminophen Tab 325 Mg Tab PO Q6HR PRN Mild Pain or Fever > 100.5 Heparin Sodium (Porcine) 5,000 unit 12/20/23 08:00 Heparin Sodium,Porcine 5,000 Unit/Ml 1 Ml Vial SQ Q8HR JULIO CESAR Naloxone HCl 0.2 mg 12/20/23 01:07 Naloxone 0.4 Mg/Ml 1 Ml Vial IV Q2M PRN Opioid Reversal Nitroglycerin 0.4 mg 12/19/23 23:59 12/20/23 00:29 Nitroglycerin Sl Tabs 0.4 Mg Tab SUBLINGUAL 0.4 mg Q5M PRN Administration Chest Pain Nitroglycerin 0.5 inch 12/20/23 00:45 12/20/23 01:18 Nitroglycerin Oint 1 Inch/Gm Packet TOPICAL 0.5 inch Q8HR JULIO CESAR Administration Ondansetron HCl 4 mg 12/20/23 01:07 Ondansetron 4 Mg/2 Ml Vial IVP Q8HR PRN Nausea And Vomiting Intake and Output 12/19/23 12/20/23 12/20/23 22:59 06:59 14:59 Other: # Voids 1 Weight 80.286 kg 12/20/23 00:04 12/20/23 00:04
[2023-12-20] MEDS: ISOSORBIDE MONONITRATE ER 30 MG TAB.ER.24H PO SCH (12:29)
--- NOTE | 2023-12-20 13:31 | CA ---
Lexiscan Nuclear Stress Test Report Name: Kristie Khan Exam Date: 12/20/2023 11:01 Exam Location: [facility] Ht (in): 66 Wt (lb): 177 BSA: 1.90 Ordering Phys: Ezequiel Lucas MD Referring Phys: BABAR Technologist: Randall Flynn Age: 58 Gender: F : 1965 Procedure CPT: Indications: Reflex order-Stress test ICD-10 Codes: Patient History: CHEST PAIN, DIFFICULTY IN BREATHING, HTN, DIABETIC, PRIOR CVA, HYPERCHOLESTEROLEMIA, FAMILY HX OF HEART DISEASE, PRIOR WI, PRIOR CATH, PRIOR STENT, ASTHMA Medications: Meds past 24 hrs: Pretest Chest Pain: STRESS TEST Lexiscan Protocol Exercise Duration (min:sec): 02:[address] Depressions (mm): Angina Score: Fitzgerald Score: Resting HR (bpm): 64 Peak HR (bpm): 88 Resting BP (mmHg): 146 / 76 Peak BP (mmHg): 153 / 73 MPHR: 163 Target HR: 139 % MPHR: 54 METS: 1.0 Total Dose: Peak Dose: Atropine: Double Product: 54051 BP Response: Stress Termination: INFUSION COMPLETE Stress Symptoms: CHEST PRESSURE,FLUSHED Stress Summary: ECG ANALYSIS Resting ECG: Stress ECG: CONCLUSIONS RESTING EKG: [Normal sinus rhythm, normal EKG] , Patient recieved IV infusion of Lexiscan 0.4mg and at peak infusion STRESS EKG showed: [No significant ST-T wave changes diagnostic for ischemia by ST segment analysis] ARRYTHMIAS: [No ectopic rhythms or sustained arrythmias] CONCLUSION: 1. Normal hemodynamic and clinical response to Lexiscan infusion. 2. Non-ischemic EKG response to lexiscan infusion Please refer to the nuclear imaging portion of this stress test for complete interpretation of the study. Dr Ezequiel Lucas (Electronically Signed) Final Date: 20 December 2023 13:31
[2023-12-20 14:26] VITALS: BP 119/73; PULSE 71; TEMP 98.6
--- NOTE | 2023-12-20 17:06 | CA ---
Transthoracic Echo Report Name: Kristie Khan Age: 58 Gender: F : 1965 Exam Date: 12/20/2023 15:05 Exam Location: [facility] Ht (in): 66 Wt (lb): 177 Ordering Physician: Dino Love MD Attending/Referring Phys: Custodial Aide Sona Luna RDCS Procedure CPT: Indications: Chest Pain Cardiac Hx: Technical Quality: Good Contrast 1: Total Dose (mL): Contrast 2: Total Dose (mL): MEASUREMENTS (Male / Female) Normal Values 2D ECHO LV Diastolic Diameter PLAX 4.0 cm 4.2 - 5.9 / 3.9 - 5.3 cm LV Systolic Diameter PLAX 2.5 cm IVS Diastolic Thickness 1.2 cm 0.6 - 1.0 / 0.6 - 0.9 cm LVPW Diastolic Thickness 1.1 cm 0.6 - 1.0 / 0.6 - 0.9 cm LV Relative Wall Thickness 0.6 RV Internal Dim ED PLAX 2.5 cm LA Systolic Diameter LX 3.5 cm 3.0 - 4.0 / 2.7 - 3.8 cm LV Diastolic Volume MOD BP 70.5 cm??? 67 - 155 / 56 - 104 cm??? LV Systolic Volume MOD BP 22.7 cm??? 22 - 58 / 19 - 49 cm??? LV Ejection Fraction MOD BP 67.9 % >= 55 % LV Cardiac Index MOD BP 1666.2 cm???/min???m??? LV Diastolic Volume MOD 4C 77.0 cm??? LV Systolic Volume MOD 4C 24.0 cm??? LV Ejection Fraction MOD 4C 68.8 % LV Cardiac Index MOD 4C 1843.1 cm???/min???m??? LV Diastolic Length 4C 7.8 cm LV Systolic Length 4C 6.6 cm LV Diastolic Volume MOD 2C 61.6 cm??? LV Systolic Volume MOD 2C 19.2 cm??? LV Ejection Fraction MOD 2C 68.8 % LV Cardiac Index MOD 2C 1474.2 cm???/min???m??? LV Diastolic Length 2C 7.4 cm LV Systolic Length 2C 5.9 cm LA Volume 45.2 cm??? 18 - 58 / 22 - 52 cm??? LA Volume Index 23.1 cm???/m??? 16 - 28 cm???/m??? M-MODE Aortic Root Diameter MM 2.7 cm LA Systolic Diameter MM 2.9 cm LA Ao Ratio MM 1.0 AV Cusp Separation MM 1.7 cm DOPPLER AV Peak Velocity 156.3 cm/s AV Peak Gradient 9.8 mmHg MV Area PHT 2.7 cm??? Mitral E Point Velocity 76.9 cm/s Mitral A Point Velocity 91.5 cm/s Mitral E to A Ratio 0.8 MV Deceleration Time 281.9 ms TR Peak Velocity 215.5 cm/s TR Peak Gradient 18.6 mmHg Right Ventricular Systolic Press 22.8 mmHg FINDINGS Left Ventricle Left ventricular ejection fraction is estimated at 60-65 %. Mildly increased septal wall thickness. Mildly increased posterior wall thickness. Left ventricular cavity size normal. Left ventricular wall thickness normal. Right Ventricle Normal right ventricular size and function. Right ventricular systolic pressure within normal limits. Right Atrium Normal right atrial size. Left Atrium Normal left atrial size. Mitral Valve Structurally normal mitral valve. Trace mitral regurgitation. No mitral stenosis. Aortic Valve Trileaflet aortic valve. No aortic valve stenosis or regurgitation. Tricuspid Valve Structurally normal tricuspid valve. Trace to mild tricuspid regurgitation. Pulmonic Valve Structurally normal pulmonic valve. Trace pulmonic regurgitation. No pulmonic regurgitation. Pericardium No pericardial or pleural effusion. Aorta Normal size aortic root and proximal ascending aorta. CONCLUSIONS Normal LV size, and systolic function. Estimated LVEF 60-65%. Mild LVH No obvious regional wall motion abnormality. No significant valvular dysfunction. Overall normal chamber sizes. No pericardial effusion. No prior echo to compare with. Previewed by: Dr Ezequiel Lucas (Electronically Signed) Final Date: 20 December 2023 17:05
--- NOTE | 2023-12-20 17:42 | P.HPIM ---
History of Present Illness H&P Date: 12/20/23 Chief Complaint: Chest pain History and Physical and Discharge Summary: This is a 58-year-old female past medical history significant for CAD, AL, stent to the RCA, hypertension, hyperlipidemia , diabetes mellitus type 2 ,chronic intermittent asthma, obesity, obstructive sleep apnea, hypothyroidism,TIA, IBS, anxiety, depression and multiple other medical issues presented to the ER with complaints of nonexertional,left chest pain radiating to left shoulder accompanied by minimal shortness of breath. States it initially presented a few days ago on either Saturday or Saturday fluctuating, then progressed yesterday while she was driving to a prolonged presentation of "squeezing shooting pain". denies recent illness. Patient previously followed with , has not followed with a auto body straightener since his correction. Received Nitropaste in the ER with symptoms resolved. Denies chest pain, palpitations or shortness of breath this morning. Denies lightheadedness, dizziness or focal deficits. Troponins negative x 3, EKG reported sinus rhythm, chest x-ray reported no consolidation. CBC , coagulation and chemistry panels unremarkable. Review of Systems ROS Statement: Those systems with pertinent positive or pertinent negative responses have been documented in the HPI. ROS Other: All systems not noted in ROS Statement are negative. Past Medical History Past Medical History: Asthma, Coronary Artery Disease (CAD), Chest Pain / Angina, Diabetes Mellitus, Eye Disorder, Hyperlipidemia, Hypertension, Myoc ardial Infarction (AL), Sleep Apnea/CPAP/BIPAP, Thyroid Disorder Additional Past Medical History / Comment(s): NIDDM type II, neuropathy biltateral legs/feet and occasionally in bilateral hands, pt states she has had R shoulder pain since radial cardiac cath on 06/25/19, past L shoulder pain, MALLORY (does not use CPAP), hypothyroid tx with medication for a couple years then no longer needed, chronic low back pain and bilateral sciatica with L side worse, IBS, past rib fractures/pneumo with chest tube, bilateral narrow angle glaucoma corrected with surgery. Hiatal hernia. Oral and vaginal herpes. Last Myocardial Infarction Date:: 06/25/19 History of Any Multi-Drug Resistant Organisms: None Reported Past Surgical History: Cholecystectomy, Heart Catheterization With Stent, Hysterectomy Additional Past Surgical History / Comment(s): Bilateral eye surgery for glaucoma, colonoscopy, sebacceous cyst removed from back, septal repair. Past Anesthesia/Blood Transfusion Reactions: No Reported Reaction Date of Last Stent Placement:: 06/25/19 Past Psychological History: No Psychological Hx Reported Smoking Status: Never smoker Past Alcohol Use History: None Reported Past Drug Use History: None Reported - Past Family History Father Family Medical History: Diabetes Mellitus, Myocardial Infarction (AL), Renal Disease Additional Family Medical History / Comment(s): Father of a massive AL while on dialysis at the age of 57yrs. He had an enlarged heart and cervical injury/pain. Mother Family Medical History: No Reported History Additional Family Medical History / Comment(s): Mother is alive and healthy. Medications and Allergies Home Medications Medication Instructions Recorded Confirmed Type metFORMIN HCL [Glucophage XR] 750 mg PO BID 08/28/20 12/20/23 History Isosorbide Mononitrate ER [Imdur] 30 mg PO DAILY 06/05/22 12/20/23 History Metoprolol Tartrate [Lopressor] 25 mg PO DAILY 06/05/22 12/20/23 History lisinopriL [Zestril] 5 mg PO DAILY 06/05/22 12/20/23 History Cholecalciferol (Vitamin D3) 75 mcg PO DAILY 12/20/23 12/20/23 History [Vitamin D3 (3000 Iu)] Multivitamins, Thera [Multivitamin 1 tab PO DAILY 12/20/23 12/20/23 History (formulary)] Rosuvastatin [Crestor] 10 mg PO DAILY 12/20/23 12/20/23 History Allergies Allergy/AdvReac Type Severity Reaction Status Date / Time horse dander Allergy Unknown Verified 12/20/23 09:48 hydrocodone [From Vicodin] AdvReac Vertigo Verified 12/20/23 09:48 mold AdvReac Abdominal Verified 12/20/23 09:48 Pain Mushroom AdvReac Abdominal Verified 12/20/23 09:48 Pain pentazocine [From Talwin] AdvReac Confusion Verified 12/20/23 09:48 pseudoephedrine AdvReac Confusion Verified 12/20/23 09:48 [From Seldane-D] terfenadine [From Seldane-D] AdvReac Confusion Verified 12/20/23 09:48 dust Allergy Unknown Uncoded 12/20/23 09:48 Physical Exam Vitals: Vital Signs Temp Pulse Pulse Resp BP BP Pulse Ox 12/20/23 09:54 16 12/20/23 07:00 97.7 F 56 L 16 120/62 95 12/20/23 06:01 97.7 F 63 16 161/69 96 12/20/23 05:38 73 16 115/67 95 12/20/23 04:00 58 L 18 123/78 95 12/20/23 02:00 61 18 115/79 97 12/20/23 00:29 63 18 133/79 96 12/20/23 00:18 63 18 131/69 97 12/19/23 23:22 97.4 F L 69 20 143/81 99 Intake and Output 12/19/23 12/20/23 12/20/23 22:59 06:59 14:59 Other: Voiding Method Toilet # Voids 1 Weight 80.286 kg PHYSICAL EXAM: VITAL SIGNS: [As above] GENERAL: Alert and oriented x 3, sitting up in a bed, no acute distress HEENT: Normocephalic, atraumatic conjunctivae normal. eyes normal. Sclera anicteric NECK: Supple, no JVD. CARDIOVASCULAR: S1, S2 regular.No murmur RESPIRATION: Unlabored, equal air entry, CTA ABDOMEN: Soft, nondistended, nontender . No guarding. no masses palpable. No ascites, No hepatosplenomegaly.Bowel sounds heard. LEGS: No edema. no swelling NERVOUS SYSTEM: Cranial N 2-12 grossly normal. No focal deficits. Strength and sensation grossly intact. Skin: Warm and dry, no rash Lymphatic system. No LN neck axilla. Results CBC & Chem 7: 12/20/23 00:04 12/20/23 00:04 Labs: Abnormal Lab Results - Last 24 Hours (Table) 12/20/23 12/20/23 Range/Units 00:04 00:04 PT 9.9 L (10.0-12.5) sec BUN 19 H (7-17) mg/dL Glucose 117 H (74-99) mg/dL Thrombosis Risk Factor Assmnt - Choose All That Apply Each Factor Represents 1 point: Age 41-60 years, Obesity (BMI >25) Thrombosis Risk Factor Assessment Total Risk Factor Score: 2 Thrombosis Risk Factor Assessment Level: Low Risk Assessment and Plan Assessment: -Chest pain, troponins negative x 3, acute coronary syndrome ruled out -CAD, history of AL, stent to the RCA -Hypertension -Hyperlipidemia -Chronic intermittent asthma, stable -Obesity, BMI 29 -Obstructive sleep apnea, does not wear her CPAP -Diabetes mellitus II -Hypothyroidism -Anxiety -Depression Plan: Continue on current medication regimen ,monitoring and symptomatic treatment. Evaluated by cardiology, echo, Cardiolite stress test ordered. Patient will be discharged home pending testing, final DC recommendations and clearance per cardiology. Discharge Medication List metFORMIN HCL [Glucophage XR] 750 mg PO BID 08/28/20 [History] Isosorbide Mononitrate ER [Imdur] 30 mg PO DAILY 06/05/22 [History] Metoprolol Tartrate [Lopressor] 25 mg PO DAILY 06/05/22 [History] lisinopriL [Zestril] 5 mg PO DAILY 06/05/22 [History] Cholecalciferol (Vitamin D3) [Vitamin D3 (3000 Iu)] 75 mcg PO DAILY 12/20/23 [History] Multivitamins, Thera [Multivitamin (formulary)] 1 tab PO DAILY 12/20/23 [History] Rosuvastatin [Crestor] 10 mg PO DAILY 12/20/23 [History] The impression and plan of care has been dictated as directed. : I performed a history and examination of this patient, discussed the same with the dictator. I agree with the dictator's note ,documented as a scribe. Any additional findings or plans will be noted.
--- NOTE | 2023-12-21 16:23 | NM ---
EXAMINATION TYPE: NM stress lexiscan cardiolite DATE OF EXAM: 12/21/2023 COMPARISON: NONE CLINICAL INDICATION: Female, 58 years old with history of chest pain; TECHNIQUE: After the intravenous administration of 10.2 mCi Tc 99m Sestamibi - Cardiolite resting SP ECT images acquired 45 minutes post injection. The patient received 0.4mg Lexiscan, 25.5 mCi Tc 99m Sestamibi - Stress images obtained [address] injection FINDINGS: Review of stress and rest SPECT images demonstrates no discrete perfusion defect. Gated analysis show s normal wall motion with an estimated left ventricular ejection fraction of 55 %. TID is calculated at 1.40 which is increased. IMPRESSION: 1. The transient ischemic dilatation ratio is abnormally increased at 1.4. This may be seen in the se tting of multivessel, global inducible ischemia. Further workup as clinically indicated. 2. No focal reversibility is seen.
== END 2023-12-20 17:06 | disposition home or self-care (01) ==
LOC: EC 23:20 → 6NMEDSUR 12-20 01:07
PROVIDERS: ADMIT Family Medicine; ATTEND Family Medicine
DX: R07.89 Other chest pain (principal); M25.512 Pain in left shoulder; J45.20 Mild intermittent asthma, uncomplicated; I25.10 Atherosclerotic heart disease of native coronary artery without angina pectoris; E11.9 Type 2 diabetes mellitus without complications; I10 Essential (primary) hypertension; E78.5 Hyperlipidemia, unspecified; G47.33 Obstructive sleep apnea (adult) (pediatric); E03.9 Hypothyroidism, unspecified; K58.9 Irritable bowel syndrome, unspecified; I25.2 Old myocardial infarction; E66.9 Obesity, unspecified; Z68.29 Body mass index [BMI] 29.0-29.9, adult; Z91.199 Patient's noncompliance with other medical treatment and regimen due to unspecified reason; F41.9 Anxiety disorder, unspecified; F32.A Depression, unspecified; Z79.84 Long term (current) use of oral hypoglycemic drugs; Z79.899 Other long term (current) drug therapy; Z88.5 Allergy status to narcotic agent; Z88.8 Allergy status to other drugs, medicaments and biological substances; Z91.018 Allergy to other foods; Z91.048 Other nonmedicinal substance allergy status; Z95.5 Presence of coronary angioplasty implant and graft; Z86.73 Personal history of transient ischemic attack (TIA), and cerebral infarction without residual deficits
CPT/HCPCS: 96372; 99285; 36415; 93005; 93017; 93306; 80053; 83735; 84484; 85025; 85610; 85730; 71046; 78452; G0378; A9500; J1644

== ENCOUNTER 2024-09-26 07:31 | Emergency (ER) | payer BC ==
--- NOTE | 2024-09-26 07:55 | ED ---
URI HPI - General Chief Complaint: Upper Respiratory Infection Stated Complaint: cough Time Seen by Provider: 09/26/24 07:41 Source: patient, RN notes reviewed Mode of arrival: ambulatory Limitations: no limitations - History of Present Illness Initial Comments: 59-year-old female presents emergency department complaining cough congestion x 2 weeks. Patient states she initially started with increased nasal congestion sinus pain was placed on antibiotics by her PCP. She did have viral testing at that time which was negative. She continues to have intermittent fevers, productive cough she denies any chest pain states that she has heard some crackling in her lungs. She denies any abdominal discomfort denies nausea no diarrhea constipation. - Related Data Home Medications Medication Instructions Recorded Confirmed metFORMIN HCL [Glucophage XR] 750 mg PO BID 08/28/20 12/20/23 Isosorbide Mononitrate ER [Imdur] 30 mg PO DAILY 06/05/22 12/20/23 Metoprolol Tartrate [Lopressor] 25 mg PO DAILY 06/05/22 12/20/23 lisinopriL [Zestril] 5 mg PO DAILY 06/05/22 12/20/23 Cholecalciferol (Vitamin D3) 75 mcg PO DAILY 12/20/23 12/20/23 [Vitamin D3 (3000 Iu)] Multivitamins, Thera [Multivitamin 1 tab PO DAILY 12/20/23 12/20/23 (formulary)] Rosuvastatin [Crestor] 10 mg PO DAILY 12/20/23 12/20/23 Previous Rx's Medication Instructions Recorded Azithromycin [Zithromax Z Pack] 0 tab PO DIRECTED #6 tab 09/26/24 Allergies Allergy/AdvReac Type Severity Reaction Status Date / Time horse dander Allergy Unknown Verified 09/26/24 07:51 hydrocodone [From Vicodin] AdvReac Vertigo Verified 09/26/24 07:51 mold AdvReac Abdominal Verified 09/26/24 07:51 Pain Mushroom AdvReac Abdominal Verified 09/26/24 07:51 Pain pentazocine [From Talwin] AdvReac Confusion Verified 09/26/24 07:51 pseudoephedrine AdvReac Confusion Verified 09/26/24 07:51 [From Seldane-D] terfenadine [From Seldane-D] AdvReac Confusion Verified 09/26/24 07:51 dust Allergy Unknown Uncoded 09/26/24 07:51 Review of Systems ROS Statement: Those systems with pertinent positive or pertinent negative responses have been documented in the HPI. ROS Other: All systems not noted in ROS Statement are negative. Past Medical History Past Medical History: Asthma, Coronary Artery Disease (CAD), Chest Pain / Angina, Diabetes Mellitus, Eye Disorder, Hyperlipidemia, Hypertension, Myocardial Infarction (NH), Sleep Apnea/CPAP/BIPAP, Thyroid Disorder Additional Past Medical History / Comment(s): NIDDM type II, neuropathy biltateral legs/feet and occasionally in bilateral hands, pt states she has had R shoulder pain since radial cardiac cath on 06/25/19, past L shoulder pain, MALLORY (does not use CPAP), hypothyroid tx with medication for a couple years then no longer needed, chronic low back pain and bilateral sciatica with L side worse, IBS, past rib fractures/pneumo with chest tube, bilateral narrow angle glaucoma corrected with surgery. Hiatal hernia. Oral and vaginal herpes. Last Myocardial Infarction Date:: 06/25/19 History of Any Multi-Drug Resistant Organisms: None Reported Past Surgical History: Cholecystectomy, Heart Catheterization With Stent, Hysterectomy Additional Past Surgical History / Comment(s): Bilateral eye surgery for glaucoma, colonoscopy, sebacceous cyst removed from back, septal repair. Past Anesthesia/Blood Transfusion Reactions: No Reported Reaction Date of Last Stent Placement:: 06/25/19 Past Psychological History: No Psychological Hx Reported Smoking Status: Never smoker Past Alcohol Use History: None Reported Past Drug Use History: None Reported - Past Family History Father Family Medical History: Diabetes Mellitus, Myocardial Infarction (NH), Renal Disease Additional Family Medical History / Comment(s): Father of a massive NH while on dialysis at the age of 57yrs. He had an enlarged heart and cervical injury/pain. Mother Family Medical History: No Reported History Additional Family Medical History / Comment(s): Mother is alive and healthy. General Exam Limitations: no limitations General appearance: alert, in no apparent distress Head exam: Present: atraumatic, normocephalic, normal inspection Eye exam: Present: normal appearance, PERRL, EOMI. Absent: scleral icterus, conjunctival injection, periorbital swelling ENT exam: Present: normal exam, normal oropharynx, mucous membranes moist Neck exam: Present: normal inspection, full ROM. Absent: tenderness, meningismus, lymphadenopathy Respiratory exam: Present: rhonchi (right lower). Absent: normal lung sounds bilaterally, respiratory distress, wheezes, rales, stridor Cardiovascular Exam: Present: regular rate, normal rhythm, normal heart sounds. Absent: systolic murmur, diastolic murmur, rubs, gallop, clicks Neurological exam: Present: alert Course Vital Signs 09/26/24 09/26/24 09/26/24 07:47 08:23 09:09 Temperature 99.5 F 99 F Pulse Rate 97 92 Respiratory 20 18 16 Rate Blood Pressure 153/85 140/80 O2 Sat by Pulse 96 97 Oximetry Medical Decision Making - Medical Decision Making Was pt. sent in by a medical professional or institution (, PA, PLASTIC AND RECONSTRUCTIVE SURGEON, urgent care, hospital, or long-term...) When possible be specific @ -No Did you speak to anyone other than the patient for history (EMS, parent, family, police, friend...)? What history was obtained from this source @ -No Did you review nursing and triage notes (agree or disagree)? Why? @ -I reviewed and agree with nursing and triage notes Were old charts reviewed (outside hosp., previous admission, EMS record, old EKG, old radiological studies, urgent care reports/EKG's, long-term records)? Report findings @ -No old charts were reviewed Differential Diagnosis (chest pain, altered mental status, abdominal pain women, abdominal pain men, vaginal bleeding, weakness, fever, dyspnea, syncope, headache, dizziness, GI bleed, back pain, seizure, CVA, palpatations, mental health, musculoskeletal)? @ -COVID 19, RSV, influenza, pneumonia, acute bronchitis, URI, this list is not all inclusive EKG interpreted by me (3pts min.). @ -None X-rays interpreted by me (1pt min.). @ -Chest x-ray shows right perihilar infiltrate atypical pneumonia CT interpreted by me (1pt min.). @ -None done U/S interpreted by me (1pt. min.). @ -None done What testing was considered but not performed or refused? (CT, X-rays, U/S, labs)? Why? @ -None What meds were considered but not given or refused? Why? @ -None Did you discuss the management of the patient with other professionals (professionals i.e. , PA, PLASTIC AND RECONSTRUCTIVE SURGEON, lab, RT, psych nurse, manager social services, bank boss, teacher, county records management officer, case advocate)? Give summary @ -No Was smoking cessation discussed for >3mins.? @ -No Was critical care preformed (if so, how long)? @ -No Were there social determinants of health that impacted care today? How? (Homelessness, low income, unemployed, alcoholism, drug addiction, transportation, low edu. Level, literacy, decrease access to med. care, care home, rehab)? @ -No Was there de-escalation of care discussed even if they declined (Discuss DNR or withdrawal of care, Hospice)? DNR status @ -No What co-morbidities impacted this encounter? (DM, HTN, Smoking, COPD, CAD, Cancer, CVA, ARF, Chemo, Hep., AIDS, mental health diagnosis, sleep apnea, morbid obesity)? @ -None Was patient admitted / discharged? Hospital course, mention meds given and route, prescriptions, significant lab abnormalities, going to OR and other pertinent info. @ -[Discharge patient negative Cepheid, patient x-ray shows atypical pneumonia patient was given Rocephin azithromycin return parens discussed. Patient no signs distress Undiagnosed new problem with uncertain prognosis? @ -No Drug Therapy requiring intensive monitoring for toxicity (Heparin, Nitro, Insulin, Cardizem)? @ -No Were any procedures done? @ -No Diagnosis/symptom? @ -Atypical pneumonia Acute, or Chronic, or Acute on Chronic? @ -Acute Uncomplicated (without systemic symptoms) or Complicated (systemic symptoms)? @ -Complicated Side effects of treatment? @ -No Exacerbation, Progression, or Severe Exacerbation? @ -No Poses a threat to life or bodily function? How? (Chest pain, USA, NH, pneumonia, PE, COPD, DKA, ARF, appy, cholecystitis, CVA, Diverticulitis, Homicidal, Suicidal, threat to staff... and all critical care pts) @ -Yes pneumonia, risk to pulmonary function - Lab Data Lab Results 09/26/24 Range/Units 07:54 Influenza Type A (PCR) Not Detected (Not Detectd) Influenza Type B (PCR) Not Detected (Not Detectd) RSV (PCR) Not Detected (Not Detectd) SARS-CoV-2 (PCR) Not Detected (Not Detectd) Disposition Clinical Impression: Pneumonia Disposition: HOME SELF-CARE Condition: Stable Instructions (If sedation given, give patient instructions): Pneumonia (ED) Additional Instructions: Please return to the Emergency Department if symptoms worsen or any other concerns. Prescriptions: Azithromycin [Zithromax Z Pack] 0 tab PO DIRECTED #6 tab Is patient prescribed a controlled substance at d/c from ED?: No Referrals: Trevon Soto MD [Primary Care Provider] - 1-2 days Time of Disposition: 09:00
--- NOTE | 2024-09-26 08:14 | XR ---
EXAMINATION TYPE: XR chest 2V DATE OF EXAM: 09/26/2024 8:02 AM COMPARISON: 12/12/2023 CLINICAL INDICATION: Female, 59 years old with history of cough, TECHNIQUE: XR chest 2V view(s) obtained. FINDINGS: The heart size is normal. The pulmonary vasculature is normal. Minimal infiltrate may be right perihilar region. Correlate for pneumonia. Consider atypical pneumoni a. Atelectasis is within the differential IMPRESSION: 1. Minimal infiltrate right perihilar region. Correlate for developing pneumonia. Consider atypical p neumonia and atelectasis. [facility], , 09/26/2024 8:11 AM
[2024-09-26 08:37] LABS: Influenza A Not Detected (Not Detectd); Influenza B Not Detected (Not Detectd); RSV Not Detected (Not Detectd)
[2024-09-26] MEDS: cefTRIAXone 1,000 MG VIAL (IM USE) IM STA (09:04)
[2024-09-26 09:11] VITALS: BP 140/80; PULSE 92; RESP 16; TEMP 99
== END 2024-09-26 09:11 | disposition home or self-care (01) ==
LOC: EC 07:31
DX: J18.8 Other pneumonia, unspecified organism (principal); Z88.5 Allergy status to narcotic agent; Z88.8 Allergy status to other drugs, medicaments and biological substances; Z91.09 Other allergy status, other than to drugs and biological substances
CPT/HCPCS: 87636; 71046; 99283; 96372; J0696

== ENCOUNTER → 2024-10-28 | Outpatient (CLI) | payer BC ==
[2024-10-28 15:31] LABS: LDL Cholesterol,Calculated 59.1 mg/dL (0.0-131.0)
[2024-10-28 15:32] LABS: ALT 24 U/L (8-44); AST 22 U/L (13-35)
== END | disposition home or self-care (01) ==
LOC: LABWHC1 10:47
PROVIDERS: ATTEND Internal Medicine Interventional Cardiology
DX: E78.2 Mixed hyperlipidemia (principal)
CPT/HCPCS: 36415; 80061; 84450; 84460

== ENCOUNTER 2024-11-04 23:09 | Emergency (ER) | payer BC ==
[2024-11-04 23:12] VITALS: RESP 18
--- NOTE | 2024-11-04 23:17 | ED ---
Lower Extremity Injury HPI - General Chief Complaint: Extremity Injury, Lower Stated Complaint: toe pain Time Seen by Provider: 11/04/24 23:16 Source: patient, RN notes reviewed Mode of arrival: ambulatory - History of Present Illness Initial Comments: 59-year-old female presented the ER for evaluation of left toe pain. Patient states she accidentally stubbed her left fifth digit on the couch and is concerned it is dislocated. Patient has not taken anything for pain at this time. She is able to ambulate without difficulty. She does admit to paresthesias but states she has chronic neuropathy. No other injuries or complaints. - Related Data Home Medications Medication Instructions Recorded Confirmed metFORMIN HCL [Glucophage XR] 750 mg PO BID 08/28/20 12/20/23 Isosorbide Mononitrate ER [Imdur] 30 mg PO DAILY 06/05/22 12/20/23 Metoprolol Tartrate [Lopressor] 25 mg PO DAILY 06/05/22 12/20/23 lisinopriL [Zestril] 5 mg PO DAILY 06/05/22 12/20/23 Cholecalciferol (Vitamin D3) 75 mcg PO DAILY 12/20/23 12/20/23 [Vitamin D3 (3000 Iu)] Multivitamins, Thera [Multivitamin 1 tab PO DAILY 12/20/23 12/20/23 (formulary)] Rosuvastatin [Crestor] 10 mg PO DAILY 12/20/23 12/20/23 Previous Rx's Medication Instructions Recorded Azithromycin [Zithromax Z Pack] 0 tab PO DIRECTED #6 tab 09/26/24 Allergies Allergy/AdvReac Type Severity Reaction Status Date / Time horse dander Allergy Unknown Verified 11/04/24 23:12 hydrocodone [From Vicodin] AdvReac Vertigo Verified 11/04/24 23:12 mold AdvReac Abdominal Verified 11/04/24 23:12 Pain Mushroom AdvReac Abdominal Verified 11/04/24 23:12 Pain pentazocine [From Talwin] AdvReac Confusion Verified 11/04/24 23:12 pseudoephedrine AdvReac Confusion Verified 11/04/24 23:12 [From Seldane-D] terfenadine [From Seldane-D] AdvReac Confusion Verified 11/04/24 23:12 dust Allergy Unknown Uncoded 11/04/24 23:12 Review of Systems ROS Statement: Those systems with pertinent positive or pertinent negative responses have been documented in the HPI. ROS Other: All systems not noted in ROS Statement are negative. Past Medical History Past Medical History: Asthma, Coronary Artery Disease (CAD), Chest Pain / Angina, Diabetes Mellitus, Eye Disorder, Hyperlipidemia, Hypertension, Myocardial Infarction (ME), Sleep Apnea/CPAP/BIPAP, Thyroid Disorder Additional Past Medical History / Comment(s): NIDDM type II, neuropathy biltateral legs/feet and occasionally in bilateral hands, pt states she has had R shoulder pain since radial cardiac cath on 06/25/19, past L shoulder pain, MALLORY (does not use CPAP), hypothyroid tx with medication for a couple years then no longer needed, chronic low back pain and bilateral sciatica with L side worse, IBS, past rib fractures/pneumo with chest tube, bilateral narrow angle glaucoma corrected with surgery. Hiatal hernia. Oral and vaginal herpes. Last Myocardial Infarction Date:: 06/25/19 History of Any Multi-Drug Resistant Organisms: None Reported Past Surgical History: Cholecystectomy, Heart Catheterization With Stent, Hysterectomy Additional Past Surgical History / Comment(s): Bilateral eye surgery for glaucoma, colonoscopy, sebacceous cyst removed from back, septal repair. Past Anesthesia/Blood Transfusion Reactions: No Reported Reaction Date of Last Stent Placement:: 06/25/19 Past Psychological History: No Psychological Hx Reported Smoking Status: Never smoker Past Alcohol Use History: None Reported Past Drug Use History: None Reported - Past Family History Father Family Medical History: Diabetes Mellitus, Myocardial Infarction (ME), Renal Disease Additional Family Medical History / Comment(s): Father of a massive ME while on dialysis at the age of 57yrs. He had an enlarged heart and cervical injury/pain. Mother Family Medical History: No Reported History Additional Family Medical History / Comment(s): Mother is alive and healthy. General Exam Limitations: no limitations General appearance: alert, in no apparent distress Respiratory exam: Present: normal lung sounds bilaterally. Absent: respiratory distress, wheezes, rales, rhonchi, stridor Cardiovascular Exam: Present: regular rate, normal rhythm, normal heart sounds. Absent: systolic murmur, diastolic murmur, rubs, gallop, clicks Extremities exam: Present: tenderness ( 5th left toe. mild lateral angulation of fifth digit), normal capillary refill (2+ left DP/PT pulses) Neurological exam: Present: alert, oriented X3, CN II-XII intact Skin exam: Present: warm, dry, intact, normal color. Absent: rash Course Vital Signs 11/04/24 11/05/24 23:10 00:16 Temperature 97.6 F 97.8 F Pulse Rate 65 84 Respiratory 18 18 Rate Blood Pressure 123/79 121/79 O2 Sat by Pulse 97 98 Oximetry Medical Decision Making - Medical Decision Making Was pt. sent in by a medical professional or institution (, PA, BEAD WIRE TAPER, urgent care, hospital, or long term...) When possible be specific @ -No Did you speak to anyone other than the patient for history (EMS, parent, family, police, friend...)? What history was obtained from this source @ -No Did you review nursing and triage notes (agree or disagree)? Why? @ -I reviewed and agree with nursing and triage notes Were old charts reviewed (outside hosp., previous admission, EMS record, old EKG, old radiological studies, urgent care reports/EKG's, long term records)? Report findings @ -No old charts were reviewed Differential Diagnosis (chest pain, altered mental status, abdominal pain women, abdominal pain men, vaginal bleeding, weakness, fever, dyspnea, syncope, headache, dizziness, GI bleed, back pain, seizure, CVA, palpatations, mental health, musculoskeletal)? @ -Differential Musculoskeletal Muscular strain, contusion, ligament sprain, fracture, arthritis, septic arthritis, bursitis, cellulitis, muscle spasm, nerve compression, DVT, arterial occlusion, herpes zoster, electrolyte abnormality, tumor.... This is not meant to be in all inclusive list EKG interpreted by me (3pts min.). @ -None X-rays interpreted by me (1pt min.). @ -Left foot x-ray interpreted me significant for fifth proximal phalanx fracture. CT interpreted by me (1pt min.). @ -None done U/S interpreted by me (1pt. min.). @ -None done What testing was considered but not performed or refused? (CT, X-rays, U/S, labs)? Why? @ -None What meds were considered but not given or refused? Why? @ -Patient refused analgesic medications Did you discuss the management of the patient with other professionals (professionals i.e. , PA, BEAD WIRE TAPER, lab, RT, psych nurse, health care social worker, developing machine operator, teacher, port patrol officer, counter caser)? Give summary @ -No Was smoking cessation discussed for >3mins.? @ -No Was critical care preformed (if so, how long)? @ -No Were there social determinants of health that impacted care today? How? (Homelessness, low income, unemployed, alcoholism, drug addiction, transportation, low edu. Level, literacy, decrease access to med. care, longterm, rehab)? @ -No Was there de-escalation of care discussed even if they declined (Discuss DNR or withdrawal of care, Hospice)? DNR status @ -No What co-morbidities impacted this encounter? (DM, HTN, Smoking, COPD, CAD, Cancer, CVA, ARF, Chemo, Hep., AIDS, mental health diagnosis, sleep apnea, morbid obesity)? @ -None Was patient admitted / discharged? Hospital course, mention meds given and route, prescriptions, significant lab abnormalities, going to OR and other pertinent info. @ -Discharge. 59-year-old female presented the ER for evaluation of left toe pain. Patient is neurovascularly intact. X-rays concerning of 5th proximal phalanx fracture. Fifth digit will be mark anthony taped to left fourth toe and advi sed on conservative treatment options. Patient refused analgesic medications in the ER. Appropriate return and follow-up parameters discussed. Patient discharged stable condition. Patient verbally expressed understand agree with care plan. Case discussed with ED attending, Dr. Paredes. Undiagnosed new problem with uncertain prognosis? @ -No Drug Therapy requiring intensive monitoring for toxicity (Heparin, Nitro, Insulin, Cardizem)? @ -No Were any procedures done? @ -No Diagnosis/symptom? @ -Toe fracture Acute, or Chronic, or Acute on Chronic? @ -Acute Uncomplicated (without systemic symptoms) or Complicated (systemic symptoms)? @ -Uncomplicated Side effects of treatment? @ -No Exacerbation, Progression, or Severe Exacerbation? @ -No Poses a threat to life or bodily function? How? (Chest pain, USA, ME, pneumonia, PE, COPD, DKA, ARF, appy, cholecystitis, CVA, Diverticulitis, Homicidal, Suicidal, threat to staff... and all critical care pts) @ -No - Radiology Data Radiology results: report reviewed, image reviewed Disposition Clinical Impression: Toe fracture Disposition: HOME SELF-CARE Condition: Stable Instructions (If sedation given, give patient instructions): Toe Fracture (ED) Additional Instructions: You may take [id number] ibuprofen and Tylenol for pain control. Follow- up with PCP. Return to the ER for any new or worsening concerns. Continue to rest ice elevate and mark anthony tape. Is patient prescribed a controlled substance at d/c from ED?: No Referrals: Trevon Soto MD [Primary Care Provider] - 1-2 days Time of Disposition: 00:12
[2024-11-05 00:18] VITALS: BP 121/79; PULSE 84; TEMP 97.8
--- NOTE | 2024-11-05 01:21 | XR ---
EXAM: XR Left Foot Complete, 3 or More Views CLINICAL HISTORY: ITS.REASON XR Reason: fifth digit pain TECHNIQUE: Frontal, lateral and oblique views of the left foot. COMPARISON: No relevant prior studies available. FINDINGS: Bones/joints: Nondisplaced fracture of the fifth toe proximal phalanx (proximal metaphysis). No dislocation. Soft tissues: Unremarkable. No radiopaque foreign body. IMPRESSION: Nondisplaced fracture of the fifth toe proximal phalanx.
== END 2024-11-05 00:21 | disposition home or self-care (01) ==
LOC: EC 23:09
DX: S92.515A Nondisplaced fracture of proximal phalanx of left lesser toe(s), initial encounter for closed fracture (principal); Z88.5 Allergy status to narcotic agent; Z91.018 Allergy to other foods; Z88.8 Allergy status to other drugs, medicaments and biological substances; W22.03XA Walked into furniture, initial encounter
CPT/HCPCS: 99283

== ENCOUNTER → 2024-11-10 | Outpatient (CLI) | payer BC ==
--- NOTE | 2024-11-10 10:33 | XR ---
EXAMINATION TYPE: XR foot complete LT DATE OF EXAM: 11/10/2024 10:18 AM COMPARISON: 11/04/2024 CLINICAL INDICATION: Female, 59 years old with history of S92.355A NONDISP FX OF FIFTH METATARSAL B S 90.32XA; PHH, pain TECHNIQUE: 3 views FINDINGS: Redemonstrated nondisplaced fracture fifth proximal phalangeal base. No interval displacement. Fractu re lucency remains visualized. Mild degenerative change first MTP joint. Small posterior and plantar heel spurs. Some additional degenerative spurring at the first-second intermetatarsal joint. IMPRESSION: Unchanged appearance to the nondisplaced fracture of the fifth proximal phalangeal base. [facility], , 11/10/2024 10:31 AM
== END | disposition home or self-care (01) ==
LOC: RADXRMAIN 10:07
PROVIDERS: ATTEND Family Medicine
DX: S92.355A Nondisplaced fracture of fifth metatarsal bone, left foot, initial encounter for closed fracture (principal); X58.XXXA Exposure to other specified factors, initial encounter

== ENCOUNTER → 2024-12-28 | Outpatient (CLI) | payer BC ==
[2024-12-28 15:21] LABS: Anion Gap 12.70 mmol/L (4.00-12.00); Blood Urea Nitrogen 14.1 mg/dL (9.0-27.0); Carbon Dioxide 24.3 mmol/L (21.6-31.8); Chloride 103 mmol/L (96-109); Potassium 4.5 mmol/L (3.5-5.5); Sodium 140 mmol/L (135-145)
[2024-12-28 16:00] LABS: HCT 40.6 % (37.2-46.3); HGB 12.9 g/dL (12.0-15.0); MCH 27.7 pg (27.0-32.0); MCHC 31.8 g/dL (32.0-37.0); MCV 87.1 FL (80.0-97.0); NRBC Per 100 WBC 0 X 10*3/uL (0.00-0.01); Platelet Count 288 X 10*3/uL (140-440); RBC 4.66 X 10*6/uL (4.10-5.20); RDW 12.7 % (11.5-14.5); WBC 7.18 X 10*3/uL (4.50-10.00)
== END | disposition home or self-care (01) ==
LOC: LABPAT 12:20
PROVIDERS: ATTEND Internal Medicine Interventional Cardiology
DX: Z01.812 Encounter for preprocedural laboratory examination (principal); I25.10 Atherosclerotic heart disease of native coronary artery without angina pectoris
CPT/HCPCS: 80051; 82565; 84520; 85027

== ENCOUNTER 2025-01-07 14:28 | Observation (INO) | payer BC ==
[2025-01-07] MEDS: ASPIRIN 81 MG PO STA (15:22)
[2025-01-07] MEDS: NITROGLYCERIN OINT 1 INCH/GM PACKET TOPICAL STA (15:23)
--- NOTE | 2025-01-07 15:23 | ED ---
General Adult HPI - General Chief complaint: Chest Pain Stated complaint: Chest Pain Time Seen by Provider: 01/07/25 14:35 Source: patient, RN notes reviewed, old records reviewed Mode of arrival: wheelchair Limitations: no limitations - History of Present Illness Initial comments: This is a 59-year-old female who presents to the emergency department the past medical history significant for stroke and UT and a cardiac stent. Patient states she is supposed to have a cardiac catheterization on Saturday but she was in her car started feeling like she might pass out and was having some left- sided chest pain that was sharp in nature and decided that she needed to be evaluated. Patient states she is not having any chest pain currently. Patient denies difficulty breathing shortness of breath. Patient Nuys any diaphoretic episode. Patient has any nausea vomiting diarrhea. Patient Nuys any recent fever or chills. - Related Data Home Medications Medication Instructions Recorded Confirmed metFORMIN HCL [Glucophage XR] 750 mg PO BID 08/28/20 01/07/25 Isosorbide Mononitrate ER [Imdur] 30 mg PO DAILY 06/05/22 01/07/25 Metoprolol Tartrate [Lopressor] 25 mg PO DAILY 06/05/22 01/07/25 lisinopriL [Zestril] 5 mg PO DAILY 06/05/22 01/07/25 Multivitamins, Thera [Multivitamin 1 tab PO DAILY 12/20/23 01/07/25 (formulary)] Rosuvastatin [Crestor] 10 mg PO DAILY 12/20/23 01/07/25 Aspirin EC [Ecotrin Low Dose] 162 mg PO DAILY 01/07/25 01/07/25 Cholecalciferol [Vitamin D3 (25 50 mcg PO DAILY 01/07/25 01/07/25 Mcg = 1000 Iu)] Empagliflozin [Jardiance] 25 mg PO DAILY 01/07/25 01/07/25 Allergies Allergy/AdvReac Type Severity Reaction Status Date / Time acetaminophen [From Tylenol] Allergy Swelling Verified 01/07/25 15:41 horse dander Allergy Unknown Verified 01/07/25 15:41 hydrocodone [From Vicodin] AdvReac Vertigo Verified 01/07/25 15:41 mold AdvReac Abdominal Verified 01/07/25 15:41 Pain Mushroom AdvReac Abdominal Verified 01/07/25 15:41 Pain pentazocine [From Talwin] AdvReac Confusion Verified 01/07/25 15:41 pseudoephedrine AdvReac Confusion Verified 01/07/25 15:41 [From Seldane-D] terfenadine [From Seldane-D] AdvReac Confusion Verified 01/07/25 15:41 dust Allergy Unknown Uncoded 01/07/25 15:41 Review of Systems ROS Statement: Those systems with pertinent positive or pertinent negative responses have been documented in the HPI. ROS Other: All systems not noted in ROS Statement are negative. Past Medical History Past Medical History: Asthma, Coronary Artery Disease (CAD), Chest Pain / An lina, CVA/TIA, Diabetes Mellitus, Eye Disorder, Hyperlipidemia, Hypertension, Myocardial Infarction (UT), Sleep Apnea/CPAP/BIPAP, Thyroid Disorder Additional Past Medical History / Comment(s): NIDDM type II, neuropathy biltateral legs/feet and occasionally in bilateral hands, pt states she has had R shoulder pain since radial cardiac cath on 06/25/19, past L shoulder pain, MALLORY (does not use CPAP), hypothyroid tx with medication for a couple years then no longer needed, chronic low back pain and bilateral sciatica with L side worse, IBS, past rib fractures/pneumo with chest tube, bilateral narrow angle glaucoma corrected with surgery. Hiatal hernia. Oral and vaginal herpes. Last Myocardial Infarction Date:: 06/25/19 History of Any Multi-Drug Resistant Organisms: None Reported Past Surgical History: Cholecystectomy, Heart Catheterization With Stent, Hysterectomy Additional Past Surgical History / Comment(s): Bilateral eye surgery for glaucoma, colonoscopy, sebacceous cyst removed from back, septal repair. Past Anesthesia/Blood Transfusion Reactions: No Reported Reaction Date of Last Stent Placement:: 06/25/19 Past Psychological History: No Psychological Hx Reported Smoking Status: Never smoker Past Alcohol Use History: None Reported Past Drug Use History: None Reported - Past Family History Father Family Medical History: Diabetes Mellitus, Myocardial Infarction (UT), Renal Disease Additional Family Medical History / Comment(s): Father of a massive UT while on dialysis at the age of 57yrs. He had an enlarged heart and cervical injury/pain. Mother Family Medical History: No Reported History Additional Family Medical History / Comment(s): Mother is alive and healthy. General Exam - General Exam Comments Initial Comments: GENERAL: Patient is well-developed and well-nourished. Patient is nontoxic and well- hydrated and is in mild distress. ENT: Neck is soft and supple. No significant lymphadenopathy is noted. Oropharynx is clear. Moist mucous membranes. Neck has full range of motion without eliciting any pain. EYES: The sclera were anicteric and conjunctiva were pink and moist. Extraocular movements were intact and pupils were equal round and reactive to light. Eyelids were unremarkable. PULMONARY: Unlabored respirations. Good breath sounds bilaterally. No audible rales r honchi or wheezing was noted. CARDIOVASCULAR: There is a regular rate and rhythm without any murmurs gallops or rubs. ABDOMEN: Soft and nontender with normal bowel sounds. SKIN: Skin is clear with no lesions or rashes and otherwise unremarkable. NEUROLOGIC: Patient is alert and oriented x3. Cranial nerves II through XII are grossly intact. Motor and sensory are also intact. Normal speech, volume and content. Symmetrical smile. MUSCULOSKELETAL: Normal extremities with adequate strength and full range of motion. No lower extremity swelling or edema. No calf tenderness. LYMPHATICS: No significant lymphadenopathy is noted PSYCHIATRIC: Normal psychiatric evaluation. Limitations: no limitations Course Vital Signs 01/07/25 01/07/25 01/07/25 14:31 14:44 15:24 Temperature 97.9 F Pulse Rate 59 L 59 L 64 Respiratory 16 18 18 Rate Blood Pressure 136/81 121/78 126/78 O2 Sat by Pulse 98 97 97 Oximetry 01/07/25 16:42 Temperature Pulse Rate 62 Respiratory 18 Rate Blood Pressure 126/77 O2 Sat by Pulse 96 Oximetry Medical Decision Making - Medical Decision Making EKG is interpreted by myself and EKG shows a sinus rhythm at 60 bpm. Also under 64 QRS of 78 QT interval 397 QTc is 397. Patient EKG shows no ST segment elevation or depression. Was pt. sent in by a medical professional or institution (, PA, STOCK MANAGER, urgent care, hospital, or usp...) When possible be specific @ -No Did you speak to anyone other than the patient for history (EMS, parent, family, police, friend...)? What history was obtained from this source @ -No Did you review nursing and triage notes (agree or disagree)? Why? @ -I reviewed and agree with nursing and triage notes Were old charts reviewed (outside hosp., previous admission, EMS record, old EKG, old radiological studies, urgent care reports/EKG's, usp records)? Report findings @ -No old charts were reviewed Differential Diagnosis? @ -MDM differential chest EKG interpreted by me (3pts min.). @ -As above X-rays interpreted by me (1pt min.). @ -Chest x-ray shows no acute dramality CT interpreted by me (1pt min.). @ -None done U/S interpreted by me (1pt. min.). @ -None done What testing was considered but not performed or refused? (CT, X-rays, U/S, labs)? Why? @ -None What meds were considered but not given or refused? Why? @ -None Did you discuss the management of the patient with other professionals (professionals i.e. , PA, STOCK MANAGER, lab, RT, psych nurse, social services manager, enforcement officer, teacher, accounting officer, case advocate)? Give summary @ -Spoke with Dr. Elam and he agreed to admit the patient admitted the patient wrote a bitting Was smoking cessation discussed for >3mins.? @ -No Was critical care preformed (if so, how long)? @ -No Were there social determinants of health that impacted care today? How? (Homelessness, low income, unemployed, alcoholism, drug addiction, transportation, low edu. Level, literacy, decrease access to med. care, long term, rehab)? @ -No Was there de-escalation of care discussed even if they declined (Discuss DNR or withdrawal of care, Hospice)? DNR status @ -No What co-morbidities impacted this encounter? (DM, HTN, Smoking, COPD, CAD, Cancer, CVA, ARF, Chemo, Hep., AIDS, mental health diagnosis, sleep apnea, morbid obesity)? @ -None Was patient admitted / discharged? Hospital course, mention meds given and route, prescriptions, significant lab abnormalities, going to OR and other pertinent info. @ -Patient's lab work came back within normal range chest x-ray was normal patient did get aspirin Nitropaste in the emergency department I spoke with Dr. Elam he agreed to admit the patient admit the patient and wrote a bitting orders and consult to cardiology Undiagnosed new problem with uncertain prognosis? @ -No Drug Therapy requiring intensive monitoring for toxicity (Heparin, Nitro, Insulin, Cardizem)? @ -No Were any procedures done? @ -No Diagnosis/symptom? @ -Default Acute, or Chronic, or Acute on Chronic? @ -Acute Uncomplicated (without systemic symptoms) or Complicated (systemic symptoms)? @ -Complicated Side effects of treatment? @ -No Exacerbation, Progression, or Severe Exacerbation? @ -No Poses a threat to life or bodily function? How? (Chest pain, USA, UT, pneumonia, PE, COPD, DKA, ARF, appy, cholecystitis, CVA, Diverticulitis, Homicidal, Suicidal, threat to staff... and all critical care pts) @ -Yes this can lead to an UT and endorgan dysfunction - Lab Data Result diagrams: 01/07/25 15:09 01/07/25 15:09 Lab Results 01/07/25 01/07/25 01/07/25 Range/Units 15:09 15:09 15:09 WBC 9.08 (4.50-10.00) 10*3/uL RBC 4.56 (4.10-5.20) 10*6/uL Hgb 13.2 (12.0-15.0) g/dL Hct 39.4 (37.2-46.3) % MCV 86.4 (80.0-97.0) fL MCH 28.9 (27.0-32.0) pg MCHC 33.5 (32.0-37.0) g/dL Plt Count 304 (140-440) 10*3/uL MPV 10.4 (9.5-12.2) fL Immature Gran % (Auto) 0.3 % Neutrophils % 41.1 % Lymphocytes % 46.9 % Monocytes % 6.8 % Eosinophils % 4.5 % Basophils % 0.4 % Immature Gran # 0.03 (0.00-0.04) 10*3/uL Neutrophils # 3.72 (1.80-7.70) 10*3/uL Lymphocytes # 4.26 (0.90-5.00) 10*3/uL Monocytes # 0.62 (0.20-1.00) 10*3/uL Eosinophils # 0.41 H (0.04-0.35) 10*3/uL Basophils # 0.04 (0.00-0.10) 10*3/uL PT 9.9 L (10.0-12.5) sec INR 0.9 (<1.2) APTT 23.4 (22.0-30.0) sec Sodium 138 (137-145) mmol/L Potassium 4.4 (3.5-5.1) mmol/L Chloride 101 (98-107) mmol/L Carbon Dioxide 23 (22-30) mmol/L Anion Gap 14 mmol/L BUN 22 H (7-17) mg/dL Creatinine 0.62 (0.52-1.04) mg/dL Est GFR (CKD-EPI)AfAm >90 (>60 ml/min/1.73 sqM) Est GFR (CKD-EPI)NonAf >90 (>60 ml/min/1.73 sqM) Glucose 113 H (74-99) mg/dL Calcium 10.0 (8.4-10.2) mg/dL Magnesium 2.0 (1.6-2.3) mg/dL Total Bilirubin 0.3 (0.2-1.3) mg/dL AST 26 (14-36) U/L ALT 19 (4-34) U/L Alkaline Phosphatase 84 (38-126) U/L Troponin I (0.000-0.034) ng/mL Total Protein 6.7 (6.3-8.2) g/dL Albumin 4.5 (3.5-5.0) g/dL 07/17/25 Range/Units 15:09 WBC (4.50-10.00) 10*3/uL RBC (4.10-5.20) 10*6/uL Hgb (12.0-15.0) g/dL Hct (37.2-46.3) % MCV (80.0-97.0) fL MCH (27.0-32.0) pg MCHC (32.0-37.0) g/dL Plt Count (140-440) 10*3/uL MPV (9.5-12.2) fL Immature Gran % (Auto) % Neutrophils % % Lymphocytes % % Monocytes % % Eosinophils % % Basophils % % Immature Gran # (0.00-0.04) 10*3/uL Neutrophils # (1.80-7.70) 10*3/uL Lymphocytes # (0.90-5.00) 10*3/uL Monocytes # (0.20-1.00) 10*3/uL Eosinophils # (0.04-0.35) 10*3/uL Basophils # (0.00-0.10) 10*3/uL PT (10.0-12.5) sec INR (<1.2) APTT (22.0-30.0) sec Sodium (137-145) mmol/L Potassium (3.5-5.1) mmol/L Chloride (98-107) mmol/L Carbon Dioxide (22-30) mmol/L Anion Gap mmol/L BUN (7-17) mg/dL Creatinine (0.52-1.04) mg/dL Est GFR (CKD-EPI)AfAm (>60 ml/min/1.73 sqM) Est GFR (CKD-EPI)NonAf (>60 ml/min/1.73 sqM) Glucose (74-99) mg/dL Calcium (8.4-10.2) mg/dL Magnesium (1.6-2.3) mg/dL Total Bilirubin (0.2-1.3) mg/dL AST (14-36) U/L ALT (4-34) U/L Alkaline Phosphatase (38-126) U/L Troponin I <0.012 (0.000-0.034) ng/mL Total Protein (6.3-8.2) g/dL Albumin (3.5-5.0) g/dL Disposition Clinical Impression: Chest pain Disposition: ADMITTED IP TO THIS HOSP Referrals: Trevon Soto MD [Primary Care Provider] - 1-2 days Time of Disposition: 04:00
[2025-01-07 15:26] LABS: Basophils # (A) 0.04 10*3/uL (0.00-0.10); Basophils % (A) 0.4 %; Eosinophils # (A) 0.41 10*3/uL (0.04-0.35); Eosinophils % (A) 4.5 %; HCT 39.4 % (37.2-46.3); HGB 13.2 g/dL (12.0-15.0); Lymphocytes # (A) 4.26 10*3/uL (0.90-5.00); Lymphocytes % (A) 46.9 %; MCH 28.9 pg (27.0-32.0); MCHC 33.5 g/dL (32.0-37.0); MCV 86.4 fL (80.0-97.0); Monocytes # (A) 0.62 10*3/uL (0.20-1.00); Monocytes % (A) 6.8 %; Neutrophils # (A) 3.72 10*3/uL (1.80-7.70); Neutrophils % (A) 41.1 %; Platelet Count 304 10*3/uL (140-440); RBC 4.56 10*6/uL (4.10-5.20); RDW 12.6 % (11.5-14.5); WBC 9.08 10*3/uL (4.50-10.00)
[2025-01-07 15:29] LABS: ALT 19 U/L (4-34); AST 26 U/L (14-36); African American GFR (CKD) >90 (>60 ml/min/1.73 sqM); Albumin 4.5 g/dL (3.5-5.0); Alkaline Phosphatase 84 U/L (38-126); Anion Gap 14 mmol/L; Blood Urea Nitrogen 22 mg/dL (7-17); Calcium 10.0 mg/dL (8.4-10.2); Carbon Dioxide 23 mmol/L (22-30); Chloride 101 mmol/L (98-107); Glucose 113 mg/dL (74-99); Magnesium 2.0 mg/dL (1.6-2.3); Non-African American GFR(CKD) >90 (>60 ml/min/1.73 sqM); Potassium 4.4 mmol/L (3.5-5.1); Sodium 138 mmol/L (137-145); Total Protein 6.7 g/dL (6.3-8.2)
[2025-01-07 15:35] LABS: INR 0.9 (<1.2); Partial Thromboplastin Time 23.4 sec (22.0-30.0); Prothrombin Time 9.9 sec (10.0-12.5)
--- NOTE | 2025-01-07 15:59 | XR ---
EXAMINATION TYPE: XR chest 2V DATE OF EXAM: 01/07/2025 3:23 PM COMPARISON: 09/26/2024 CLINICAL INDICATION: Female, 59 years old with history of Chest Pain, , TECHNIQUE: AP and lateral views FINDINGS: Heart normal size. Aorta and pulmonary vasculature within normal limits. Hazy peripheral lung densiti es likely related to overlying soft tissue. No consolidation or pleural effusion seen. IMPRESSION: No acute cardiopulmonary process. [facility], , 01/07/2025 3:57 PM
[2025-01-07] MEDS ORDERED: NITROGLYCERIN SL TABS 0.4 MG TAB SUBLINGUAL PRN (18:08)
[2025-01-07 20:51] LABS: Glucose,Whole Blood 141 mg/dL (70-110)
[2025-01-07] MEDS: NITROGLYCERIN OINT 1 INCH/GM PACKET TOPICAL SCH (23:48)
[2025-01-08 06:14] LABS: Glucose,Whole Blood 140 mg/dL (70-110)
[2025-01-08] MEDS ORDERED: ALPRAZolam 0.5 MG TAB PO PRN (07:59)
[2025-01-08] MEDS ORDERED: NITROGLYCERIN SL TABS 0.4 MG TAB SUBLINGUAL PRN (07:59)
[2025-01-08 08:07] LABS: Cholesterol 163.0 mg/dL (0.00-200.00); HDL Cholesterol 41.5 mg/dL (40.00-60.00); Triglycerides 481.0 mg/dL (0.00-149.00); VLDL Calculation 96.2 mg/dL (5.00-40.00)
[2025-01-08 08:22] LABS: LDL Cholesterol,Direct Reflex 71.7 mg/dL (0.00-129.00)
[2025-01-08] MEDS: ASPIRIN 325 MG TAB PO STA (08:44)
[2025-01-08] MEDS: ATORVASTATIN 80 MG TAB PO STA (08:44)
[2025-01-08] MEDS: METOPROLOL TARTRATE 25 MG TAB PO SCH ×2 (08:44→20:53)
[2025-01-08] MEDS: SODIUM CHLORIDE 0.9% 1,000 ML in EMPTY BAG 1 BAG IV SCH (08:45)
[2025-01-08] MEDS: ISOSORBIDE MONONITRATE ER 30 MG TAB.ER.24H PO SCH (08:45)
[2025-01-08] MEDS ORDERED: ASPIRIN 325 MG TAB PO SCH (09:00)
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
[2025-01-08] MEDS: MIDAZOLAM 2 MG/2 ML VIAL IVP ONE (10:54)
[2025-01-08] MEDS: LIDOCAINE 1% INJ 10MG/ML (20 ML MDV) SQ ONE (10:56)
[2025-01-08] MEDS: HEPARIN SODIUM 1,000 UN/ML (10ML VL) IVP ONE ×3 (10:57→12:00)
[2025-01-08] MEDS: VERAPAMIL SYRINGE (5 MG/10 ML) INTRAARTER ONE (10:58)
[2025-01-08] MEDS: IV FLUID CONTINUATION 1,000 ML IV ONE (10:58)
[2025-01-08] MEDS: HEPARIN SODIUM,PORCINE (1 ML) 2,500 UNIT in SODIUM CHLORIDE 0.9% 250 ML IRRIGATION ONE (10:59)
[2025-01-08] MEDS: HEPARIN SODIUM,PORCINE 10,000 UNIT in SODIUM CHLORIDE 0.9% 1,000 ML IRRIGATION ONE (10:59)
[2025-01-08] MEDS ORDERED: DEXTROSE 50% SYRINGE 50 ML IVP PRN ×2 (11:23)
[2025-01-08] MEDS: IOPAMIDOL-370 100ML BTL INJ ONE ×2 (11:30→12:41)
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
[2025-01-08] MEDS: fentaNYL (PF) 50 MCG/ML 2 ML AMP IVP ONE ×2 (11:45→12:39)
[2025-01-08] MEDS: PRASUGREL 10 MG TAB PO ONE (12:10)
[2025-01-08] MEDS: fentaNYL (PF) 50 MCG/1 ML VIAL IVP ONE (12:15)
[2025-01-08] MEDS: NITROGLYCERIN 1000MCG/10ML SYRINGE INTRACORON ONE (12:19)
[2025-01-08] MEDS ORDERED: ATROPINE SULFATE 0.1 MG/ML 10ML SYRINGE IV PRN (12:42)
[2025-01-08] MEDS ORDERED: ZOLPIDEM 5 MG TAB PO PRN (12:42)
[2025-01-08] MEDS ORDERED: MAG HYDROX/AL HYDROX/SIMETH 30 ML CUP PO PRN (12:42)
[2025-01-08] MEDS ORDERED: RX INFO: IV CONTRAST WAS GIVEN 1 EACH MISC MISCELLANE PRN (12:42)
--- NOTE | 2025-01-08 12:52 | P.PCN ---
Date of Procedure: 01/08/25 Operative Findings: CARDIAC CATHETERIZATION AND PERCUTANEOUS CORONARY INTERVENTION PERFORMING PHYSICIAN: Ben Hwang MD, VI PROCEDURE PERFORMED: 1. Selective right and left coronary angiogram and left heart catheterization 2. Successful stenting of mid LCx using 3.0 x 18 mm Xience RISHI with an excel lent angiographic results 3. Adjunctive use of IVUS and IFR 4. Ultrasound-guided access of the right radial artery INDICATION: Symptomatic 59-year-old female patient with known history of CAD with prior stenting of the RCA who continues to have chest discomfort and scheduled to undergo a heart catheterization this coming Saturday which she ended in the hospital with the chest discomfort again. COMPLICATION: None APPROACH: Right radial artery LEVEL OF SEDATION: Moderate with the sedation time off 79 minutes PROCEDURE DESCRIPTION: After obtaining informed consent the patient was brought to the cardiac Product Marketing Executive. The right radial artery was cannulated using micropuncture technique under ultrasound guidance the micropuncture wire passed easily then I placed a 6 Divehi 11 cm sheath at the right radial artery and gives initial 2 mg of verapamil intra-arterial and 5000 use of heparin intravenous. Selective right and left coronary angiogram performed using JR4 and JL 3.5 catheters. Left heart catheterization was performed using a pigtail catheter. After that I decided to do an IFR. After zeroing the double wire and equalized in between the WL and guiding catheter which was JL 3.5 guiding catheter the left main was engaged. The IFR wire was advanced toward the LAD was IFR came to be at 0.91. Subsequently the wire was positioned toward the first OM branch/ramus intermedius with IFR came into it 0.94. Then the IFR wire was advanced toward the left circumflex with IFR came to be at 0.89. I decided to intervene on that lesion. I did IVUS which showed a diameter around 3 mm. Predilatation was performed initially using 2.5 mm semicompliant balloon and then 2 mm noncompliant balloon. After that I deployed a 3.0 x 18 mm stent with an angiogram showing good results and IVUS showed that the stent was well opposed and well-expanded. There was a spasm proximal to the stented segment resolved after administration of nitroglycerin IC. After that I decided to do an IFR of the RCA. After zeroing the Doppler well and equalized in between the double wire and guiding catheter which was JR4 guiding catheter the RCA was engaged and subsequently it was wired with IFR came to be at 0.93. The procedure was completed with no complication SELECTIVE CORONARY ANGIOGRAM: The right coronary artery: Large caliber vessel at the dominant vessel with a stented segment in the mi dportion with intermediate to severe disease involving the mid and distal RCA with IFR came to be negative. Left main: Appears to be normal The left circumflex: The AV groove left circumflex has intermediate to severe lesion documented to be flow-limiting by Doppler wire. I did stenting of that segment. The LCx gives rise into a ramus intermedius which has also intermediate to severe lesion ap pears to be nonflow limiting by Doppler wire The left anterior descending artery: The LAD also has intermediate lesion in the midportion with negative IFR HEMODYNAMICS: The LVEDP was about 12 mmHg with no significant gradient across aortic valve CONCLUSION: 1. Intermediate disease involving the mid and distal RCA. iFR was negative 2. Intermediate disease involving the mid LAD. iFR was negative 3. Intermediate disease involving the ramus intermedius. iFR was negative 4. Intermediate disease involving the mid LCx. iFR was flow-limiting. I did perform PCI of the LCx as described above POSTPROCEDURE MANAGEMENT: 1. Dual antiplatelet therapy using aspirin and Effient for at least 6 month 2. Aggressive cholesterol control 3. Follow-up with the patient
[2025-01-08 13:35] VITALS: BMI 29.8
[2025-01-08] MEDS: PANTOPRAZOLE 40 MG/10 ML VIAL IVP SCH (13:54)
[2025-01-08] MEDS: INSULIN LISPRO (HumaLOG) 100 UNIT/ML 10 mL VL SQ SCH (13:55)
[2025-01-08 14:56] LABS: Glucose,Whole Blood 174 mg/dL (70-110)
[2025-01-08] MEDS: ALPRAZolam 0.25 MG TAB PO PRN (16:04)
[2025-01-08 17:47] VITALS: RESP 16
[2025-01-08 18:04] LABS: Glucose,Whole Blood 136 mg/dL (70-110)
[2025-01-08 18:25] VITALS: TEMP 97.9
[2025-01-08 20:33] LABS: Glucose,Whole Blood 143 mg/dL (70-110)
[2025-01-09 05:43] LABS: Basophils # (A) 0.05 10*3/uL (0.00-0.10); Basophils % (A) 0.6 %; Eosinophils # (A) 0.61 10*3/uL (0.04-0.35); Eosinophils % (A) 6.7 %; HCT 40.3 % (37.2-46.3); HGB 13.3 g/dL (12.0-15.0); Lymphocytes # (A) 3.88 10*3/uL (0.90-5.00); Lymphocytes % (A) 42.9 %; MCH 29.0 pg (27.0-32.0); MCHC 33.0 g/dL (32.0-37.0); MCV 88.0 fL (80.0-97.0); Monocytes # (A) 0.64 10*3/uL (0.20-1.00); Monocytes % (A) 7.1 %; Neutrophils # (A) 3.84 10*3/uL (1.80-7.70); Neutrophils % (A) 42.5 %; Platelet Count 272 10*3/uL (140-440); RBC 4.58 10*6/uL (4.10-5.20); RDW 12.7 % (11.5-14.5); WBC 9.04 10*3/uL (4.50-10.00)
[2025-01-09 05:55] LABS: Glucose,Whole Blood 146 mg/dL (70-110)
[2025-01-09 06:18] LABS: African American GFR (CKD) >90 (>60 ml/min/1.73 sqM); Anion Gap 11 mmol/L; Blood Urea Nitrogen 21 mg/dL (7-17); Calcium 9.5 mg/dL (8.4-10.2); Carbon Dioxide 24 mmol/L (22-30); Chloride 104 mmol/L (98-107); Glucose 131 mg/dL (74-99); Non-African American GFR(CKD) >90 (>60 ml/min/1.73 sqM); Potassium 4.6 mmol/L (3.5-5.1); Sodium 139 mmol/L (137-145)
[2025-01-09] MEDS ORDERED: HEPARIN SODIUM,PORCINE (1 ML) 2,500 UNIT in SODIUM CHLORIDE 0.9% 250 ML IRRIGATION PRN (07:00)
[2025-01-09] MEDS ORDERED: HEPARIN SODIUM,PORCINE 10,000 UNIT in SODIUM CHLORIDE 0.9% 1,000 ML IRRIGATION PRN (07:00)
[2025-01-09 08:06] VITALS: BP 131/78; PULSE 51
[2025-01-09] MEDS: ASPIRIN 81 MG PO SCH (09:00)
[2025-01-09] MEDS ORDERED: ATORVASTATIN 20 MG TAB PO SCH (09:00)
[2025-01-09] MEDS: ATORVASTATIN 40 MG TAB PO SCH (09:00)
[2025-01-09] MEDS: PRASUGREL 10 MG TAB PO SCH (10:29)
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
[2025-01-09 12:48] LABS: Glucose,Whole Blood 124 mg/dL (70-110)
--- NOTE | 2025-01-09 13:21 | P.DS ---
Providers Date of admission: 01/07/25 18:09 Expected date of discharge: 01/09/25 Attending physician: Rahat Mahoney Consults: 01/07/25 18:08 Consult Physician Urgent Consulting Provider: Cardiology Radha Consult Reason/Comments: Chest pain Do you want consulting provider notified?: Yes 01/08/25 12:42 Consult Physician Routine Consulting Provider: Cardiology Radha Consult Reason/Comments: Post Interventional patient Do you want consulting provider notified?: Already Contacted Primary care physician: Trevon Soto Assessment: This patient presented with chest pain, had already had an appointment for cardiac catheterization in the near future decision was made to admit patient to the hospital she underwent cardiac cath yesterday with with angioplasty and stent placement single-vessel General: [Patient awake, alert and oriented times 3. Patient in no acute distress.] HEENT: [PERRL. EOMI. No pharyngeal erythema or exudate.] Neck: [No adenopathy.] Cardiac: [Heart regular in rate and rhythm. No S3. No S4. No clicks, rubs. No murmur.] Lungs: [Clear to auscultation bilaterally.] Abdomen: [No mass. No organomegaly. Bowel sounds presnt and normoactive in all 4 quadrants.] Extremes: [No edema no cyanosis no claudication normal pulses] : Normal female genitalia Musculoskeletal: [No joint erythema, edema or tenderness.] Skin: [No rash.] Neurologic: [No lateralizing deficits. CN II - XII grossly intact.] Lymphatic: [No adenopathy.] Plan - Discharge Summary Discharge Rx Participant: Yes New Discharge Prescriptions: New Prasugrel [Effient] 10 mg PO DAILY #90 tab Nitroglycerin Sl Tabs [Nitrostat] 0.4 mg SUBLINGUAL Q5M PRN #25 tab PRN Reason: Chest Pain Aspirin 81 mg PO DAILY tab Metoprolol Tartrate [Lopressor] 25 mg PO BID #180 tab Continue Isosorbide Mononitrate ER [Imdur] 30 mg PO DAILY lisinopriL [Zestril] 5 mg PO DAILY Rosuvastatin [Crestor] 10 mg PO DAILY Empagliflozin [Jardiance] 25 mg PO DAILY Discontinued Metoprolol Tartrate [Lopressor] 25 mg PO DAILY Aspirin EC [Ecotrin Low Dose] 162 mg PO DAILY No Action metFORMIN HCL [Glucophage XR] 750 mg PO BID Multivitamins, Thera [Multivitamin (formulary)] 1 tab PO DAILY Cholecalciferol [Vitamin D3 (25 Mcg = 1000 Iu)] 50 mcg PO DAILY Discharge Medication List metFORMIN HCL [Glucophage XR] 750 mg PO BID 08/28/20 [History] Isosorbide Mononitrate ER [Imdur] 30 mg PO DAILY 06/05/22 [History] lisinopriL [Zestril] 5 mg PO DAILY 06/05/22 [History] Multivitamins, Thera [Multivitamin (formulary)] 1 tab PO DAILY 12/20/23 [History] Rosuvastatin [Crestor] 10 mg PO DAILY 12/20/23 [History] Cholecalciferol [Vitamin D3 (25 Mcg = 1000 Iu)] 50 mcg PO DAILY 01/07/25 [History] Empagliflozin [Jardiance] 25 mg PO DAILY 01/07/25 [History] Aspirin 81 mg PO DAILY tab 01/09/25 [Rx] Metoprolol Tartrate [Lopressor] 25 mg PO BID #180 tab 01/09/25 [Rx] Nitroglycerin Sl Tabs [Nitrostat] 0.4 mg SUBLINGUAL Q5M PRN #25 tab 01/09/25 [Rx] Prasugrel [Effient] 10 mg PO DAILY #90 tab 01/09/25 [Rx] Follow up Appointment(s)/Referral(s): Ben Hwang MD [STAFF PHYSICIAN] - 1 Week Trevon Soto MD [Primary Care Provider] - 1-2 days
[2025-01-10] MEDS ORDERED: PANTOPRAZOLE 40 MG TABLET PO SCH (07:30)
== END 2025-01-09 14:25 ==
LOC: EC 14:28 → 1SOBS 18:09 → 6NMEDSUR 01-08 18:20
PROVIDERS: ADMIT Family Medicine; ATTEND Family Medicine
DX: R07.9 Chest pain, unspecified (principal); I25.10 Atherosclerotic heart disease of native coronary artery without angina pectoris; E11.40 Type 2 diabetes mellitus with diabetic neuropathy, unspecified; I10 Essential (primary) hypertension; E03.9 Hypothyroidism, unspecified; G47.33 Obstructive sleep apnea (adult) (pediatric); F41.9 Anxiety disorder, unspecified; M79.7 Fibromyalgia; J45.20 Mild intermittent asthma, uncomplicated; F32.A Depression, unspecified; E78.1 Pure hyperglyceridemia; E66.9 Obesity, unspecified; I25.2 Old myocardial infarction; Z68.30 Body mass index [BMI] 30.0-30.9, adult; Z86.73 Personal history of transient ischemic attack (TIA), and cerebral infarction without residual deficits; Z95.5 Presence of coronary angioplasty implant and graft; Z79.84 Long term (current) use of oral hypoglycemic drugs; Z79.899 Other long term (current) drug therapy; Z79.82 Long term (current) use of aspirin; Z88.5 Allergy status to narcotic agent; Z88.6 Allergy status to analgesic agent
CPT/HCPCS: 36415; 71046; 80048; 80053; 80061; 83036; 83721; 83735; 84484; 85025; 85610; 85730; 92978; 93005; 93458; 93799; 96374; 99285